=== PATIENT | female | born 1945 | race Caucasian/White ===

== ENCOUNTER → 2017-05-22 13:33 | Outpatient (CLI) | payer MEDICARE, OTHER, SELFPAY ==
--- NOTE | 2017-05-22 13:40 | RAD_ITS ---
STUDY: X-RAY CHEST REASON FOR EXAM: Female, 71 years old. Sinusitis, left-sided chest pain TECHNIQUE: PA and lateral views of the chest. COMPARISON: Prior study of 06/11/2016 FINDINGS: There is a limited inspiration. There is no demonstrated pleural abnormality. Normal size heart. Normal mediastinum and wicho. Normal visualized pulmonary arteries. There are calcified plaques of the aortic arch. There is demineralization of the osseous structures. Normal visualized ribs, clavicles, and shoulders. There is no demonstrated abnormality of the visualized soft tissue structures of the upper abdomen. RAD/Chest PA and Lateral IMPRESSION: Calcified plaques of the aortic arch. Generalized osteopenia. No acute cardiopulmonary disease process is seen. Electronically Signed: Mayo Connell MD at 22:05 EDT , Service support ,
== END ==
PROVIDERS: Family Provider Family Medicine; PCP Family Medicine; Visit Provider Family Medicine
DX: J32.9 Chronic sinusitis, unspecified (principal)
CPT/HCPCS: 71046

== ENCOUNTER → 2017-06-15 16:41 | Outpatient (CLI) | payer MEDICARE, OTHER, SELFPAY ==
--- NOTE | 2017-06-15 16:47 | RAD_ITS ---
STUDY: X-RAY - PELVIS AND RIGHT HIP REASON FOR EXAM: Female, 71 years old. Hip pain TECHNIQUE: Radiological exam, hip, unilateral, with pelvis when performed; 2 or 3 views. COMPARISON: None. FINDINGS: There is a non-specific bowel gas pattern. Normal visualized soft tissue structures. There are atherosclerotic vascular calcifications. Normal bilateral iliac wings, sacroiliac joints and visualized sacrum. Healed fracture of the left superior and inferior pubic rami. Normal pubic symphysis. Normal bilateral ischial tuberosities. Normal visualized femoral head. Normal acetabulum. Normal hip joint. RAD/Hip 2-3 Views with Pelvis IMPRESSION: Normal x-ray examination of the pelvis and hip. Electronically Signed: Stu Omalley MD at 17:51 EDT , Service support ,
== END ==
PROVIDERS: Family Provider Family Medicine; PCP Family Medicine; Visit Provider Family Medicine
DX: S76.011A Strain of muscle, fascia and tendon of right hip, initial encounter (principal); X58.XXXA Exposure to other specified factors, initial encounter; Y93.9 Activity, unspecified; Y92.9 Unspecified place or not applicable; Y99.9 Unspecified external cause status
CPT/HCPCS: 73502

== ENCOUNTER 2017-06-17 10:59 | Emergency (ER) | payer MEDICARE, OTHER, SELFPAY ==
[2017-06-17 11:01] VITALS: BP 142/60; PULSE 89; RESP 16; TEMP 36.4; O2SAT 98; BMI 27.3
--- NOTE | 2017-06-17 11:25 | ED.VISSUMM ---
- ER Visit Summary Date of Service: 06/17/17 Chief Complaint: Right groin pain History of Present Illness: The patient is a 71 F who complains of about 2 weeks of right groin pain. She stated specifically that this is not a pain pain and that she is just sore. She has had some relief with Tylenol. She recently saw her primary care physician and had a normal x-ray. She denies any weakness or paresthesias. No back pain. No urinary retention or fecal incontinence. No history of fall or injury. Review of systems otherwise negative. Physical Examination: Afebrile vitals are unremarkable Moist mucous membranes Heart regular Lungs clear Abdomen soft Patient has active full range of motion of the lower extremities she has no pain in the knee ankle or foot and she does have an easily palpable dorsalis pedis pulse with brisk capillary refill and normal sensation. She does have active full range of motion of the hip although this reproduces groin pain with logroll or flexion Back is nontender to palpation Test Results: Not indicated Emergency Department Course and Treatment: Patient's history and examination are most suggestive of a groin strain. She recently had normal x-rays. She does not have back pain or other symptoms to suggest lumbar or sacral radiculopathy. She is neurovascularly intact. There is no leg tenderness or soft tissue swelling and she has easily palpable pulses. I advised that she may benefit from physical therapy and she notes she actually has an appointment with a therapist tomorrow morning. She was advised to continue supportive care. She was instructed on specific signs and symptoms to monitor for and conditions which should prompt return here to the emergency department for reevaluation. All questions answered at bedside. Patient discharged. Treatment Plan: [] Disposition: Discharge Impression: Right groin strain This note was generated with [employer] dictation software. It may contain incorrect words, spelling, and punctuation that were not noted in review of the chart prior to signing ED Disposition - Plan for ED Patient: Chief Complaint: Lower Extremity Injury Referrals: Rony Koenig MD [Primary Care Provider] -
--- NOTE | 2017-06-17 11:28 | ED.DEP ---
ED Disposition - Plan for ED Patient: Chief Complaint: Lower Extremity Injury Instructions: ED Strain Groin Referrals: Rony Koenig MD [Primary Care Provider] -
[2017-06-17 11:57] VITALS: BP 124/69; PULSE 72; RESP 15; O2SAT 98
== END 2017-06-17 12:40 | disposition home or self-care (01) ==
PROVIDERS: Emergency Provider Emergency Medicine; Family Provider Family Medicine; PCP Family Medicine
DX: S39.011A Strain of muscle, fascia and tendon of abdomen, initial encounter (principal); X58.XXXA Exposure to other specified factors, initial encounter; Y93.9 Activity, unspecified; Y92.9 Unspecified place or not applicable; Y99.9 Unspecified external cause status; I12.0 Hypertensive chronic kidney disease with stage 5 chronic kidney disease or end stage renal disease; E11.22 Type 2 diabetes mellitus with diabetic chronic kidney disease; N18.6 End stage renal disease; Z79.4 Long term (current) use of insulin; Z79.899 Other long term (current) drug therapy; Z90.10 Acquired absence of unspecified breast and nipple
CPT/HCPCS: 99284

== ENCOUNTER 2017-07-15 12:00 | Outpatient (RCR) | payer MEDICARE, OTHER, SELFPAY ==
--- NOTE | 2017-06-18 10:29 | HP.PTEVAL_ITS ---
Patient's Visit Information LANEC CAZARES is a 71 year old F referred to Physical Therapy by Rony Koenig with a diagnosis of R THIGH AND GLUTEAL PAIN. JAMILA TIGHT GLUTEAL M'S. PAIN IN R LEG/ABDOMEN.. Date of Evaluation: 06/18/17 Physical Therapist: Charley Arriaga - Visit Plan Frequency: 2-3x /Week Duration: 4-6 Weeks Plan: FURTHER EVALUATION OF RIGHT HIP ROM AND TRANSFERS SIT TO SUPINE AND REVERSE. RIGHT GROIN US TO TENDER AREAS. POSTURE CORRECTION/STRENGTHENING, INSTRUCTION IN APPROPRIATE BODY MECHANICS AND ACTIVITY MODIFICATIONS. DLS STARTING WITH A NEUTRAL SPINE PROGRESSING ROM TOLERATED. GENTLE RIGHT LE ROM, STRETCHING AND STRENGTHENING. GAIT TRAINING. HEP INSTRUCTION. - Subjective Subjective: Diagnosis: R THIGH AND GLUTEAL PAIN. JAMILA TIGHT GLUTEAL MUSCLES. PAIN IN R LEG. ABNORMAL GAIT. Work/Leisure: RETIRED. Disability: NO. Present symptoms: RIGHT GROIN AND FRONT OF RIGHT HIP. Present since: ABOUT 10 DAYS AGO. Pain Scale: WORST 10/10, LEAST 5/10. Currently: 8/10. Commenced as a result of: STEPPING DOWN CAREFUL POSSIBEL TO GET OUT OF THE HOUSE INTO THE GARAGE TO GO AWAY WHEN NEEDED. PATIENT REPORTS THE LIFT AT THIS STEP THAT WAS PUT IN FOR HER A LONG TIME AGO HAS BEEN BROKE FOR ABOUT 6 MONTHS. SHE USE TO USE IT HERSELF TO GET IN AND OUT OF THE HOUSE BUT NOW SHE HAS BEEN FORCED TO STEP UP AND DOWN A VERY BIG STEP. SHE REPORTS IT IS TOO EXPENSIVE TO TRY TO GET IT FIXED. Symptoms at onset: RIGHT GROIN. Worse: STEPPING UP AND DOWN, ANY SUDDEN ACTION, WALKING, STANDING, TRYING TO PUT ANY WEIGHT ON IT, GETTING IN BED, MOVING IN BED, GETTING IN/OUT OF CAR. Better: NOT TO MOVE AT ALL. MUSCLE RELAXER (TOOK IT YESTERDAY FOR THE FIRST TIME). Disturbed sleep: YES. Previous history/Previous treatment: BACK IN THE 80S FELL DOWN A LOT OF STEPS AT A PRIOR HOME AND WAS IN MISERY FOR ABOUT A MONTH IN BACK AND HIPS. EVER SINCE THEN IT HAS FLARED UP OFF AND ON AND SHE GOES TO THE CHIROPRACTOR NEEDED BUT THIS TIME THE CHIROPRACTOR DIDN'T HELP AND SHE ENDED UP IN THE EMERGENCY ROOM YESTERDAY. SHE REPORTS SHE WASN'T PRESCRIBED ANYTHING AT ED SO SHE CALLED DR. KOENIG AND HE ORDERED THE MUSCLE RELAXER. DR. KOENIG RECOMMENDED SHE TRY PT. Coughing/sneezing/straining: POSITIVE. HAS TO BRACE HERSELF TO TRY TO DECREASE THE PAIN. Gait: UNABLE TO PUT MUCH WEIGHT ON THE RIGHT LEG BECAUSE IT HURTS AND IT WON'T SUPPORT HER. HAS BEEN USING THE WALKER SINCE THE PAIN STARTED. IT WEARS ME OUT. WAS NOT USING ANY ASSISTIVE DEVICES AND WAS GETTING AROUND FINE BEFORE THIS FLARED UP. Difficulty initiating urinatin: NO. Accidents: NO OTHER ACCIDENTS. SEE FALL ABOVE. Unexplained weight loss: NO. Imaging: RIGHT HIP X-RAY - NORMAL. PMH: SEE BELOW. Recent major surgery: SEE BELOW. OTHER: GOES TO [facility] 3 TIMES A WEEK FOR 3 OR 4 HOURS. PATIENT LIVES ALONE AND DROVE HERSELF HERE TO PT TODAY. SUPPOSED TO GO TO [place] IN A MONTH. - Objective Sitting Posture: POOR. Standing Posture: POOR. AVOIDING WEIGHT ON RIGHT LE. Lordosis: REDUCED. Lateral shift: NO. Relevant shift: N/A. Active Correction of posture: MILD DECREASE IN RIGHT GROIN PAIN. Other Observations: PATIENT CAME TO PT WITH A STANDARD WALKER. SHE DEMONSTRATED A VERY SLOW ANTALGIC GAIT PATTERN AND STATED SHE WOULDN'T BE ABLE TO WALK FAR. SHE WAS BROUGHT BACK TO PT (ABOUT 300 FEET) IN A WHEELCHAIR. INDEP TRANSFER W/C TO CHAIR WITH WALKER BUT VERY SLOW AND GUARDED WITH INCREASED TRUNK FLEXION. VERY UE DEPENDENT ON WALKER WHEN TRYING TO WEIGHTBEAR ON RIGHT LE. UNABLE TO TRANSFER INDEP'LY FROM SIT TO STAND WITHOUT USE OF HER UE'S AND TRANSFERING FROM CHAIR TO WALKER EVEN WITH HER HANDS IS VERY DIFFICULT. Motor deficit: LLE STRENGTH 5/5 WITH MMT EXCEPT HIP 4/5. RIGHT LE: HIP 3-/5, KNEE EXT 4-/5, KNEE FLEX 4-/5, ANKLE DORSIFLEX 4-/5. Sensory deficit: JAMILA LE LIGHT TOUCH SENSATION IS INTACT AND SYMMETRICAL. ROM deficit: DECREASED AROM OF RIGHT HIP. SHE IS WEAK IN THE RIGHT LE KIARRA THE HIP. RIGHT HIP PASSIVE FLEXION TO 90 DEG. RIGHT HIP/GROIN PAIN WITH HIP ROM TESTING. Reflexes: 2/3 JAMILA LE'S. Dural Signs: NEGATIVE JAMILA LE'S. Lumbar mvmt loss: flex - MOD. ext - [place]. R SG - [place]. L SG - [place]. PATIENT DENIES LBP AND RIGHT LE PAIN WITH LUMBAR ROM. Core strength: POOR. Palpation: NO SPINE TENDERNESS WITH PALPATION. PATIENT IS ALSO NOT TENDER IN ILIAC CRESTS, GREATER TROCH REGIONS OR GLUTES BUT SHE HAS MUSCULAR TIGHTNESS THROUGHOUT. SHE STATES SHE HAS ALWAYS BEEN TIGHT BUT THIS IS A DIFFERENT PROBLEM. SHE IS TENDER IN THE RIGHT GROIN AND ANTERIOR HIP. - Goals Goal 1:: DECREASE C/O RIGHT GROIN PAIN Goal Time Frame: 4-6 Weeks Goal 2:: IMPROVE STANDING, WALKING, ADL AND SLEEP FUNCTION TO RETURN TO PRIOR LEVEL OF FUNCTION AND TO BE ABLE TO TRAVEL TO [place] IN JULY. Goal Time Frame: 4-6 Weeks Goal 3:: INSTRUCT IN PROPHYLAXIS/HEP Goal Time Frame: 4-6 Weeks - Rehabilitation Potential Physical Therapy Diagnosis: PHYSICIAN DX CONTINUED: ABNORMAL GAIT. Rehabilitation Potential: Fair - Anticipated Interventions Patient/Client Instruction: Educate patient on: Condition, Plan of Care, Risk Factors, Benefits of Fitness Program For the Purpose of:: To improve self management Therapeutic Exercise to Include: Strength training, Balance training, Body mechanics, Postural training, Flexibilty training, Gait and locomotor training, Passive ROM, Active ROM, Dynamic Lumbar Stabilization For the Purpose of:: To decrease pain, To increase ROM, To improve muscle performance and motor function, To improve ability to perform ADL's, To increase tolerance to activity/condition/position, To improve ability of physical actions for home/community/work/leisure, To improve gait and locomotor functions, To improve balance, To improve safety with gait Ultrasound (thermal/non thermal): Yes For the Purpose of:: To decrease pain, To decrease swelling/inflammation, To improve nutrient delivery to tissue Thank you for the opportunity to evaluate your patient. For Medicare and Medicare HMO plans, please review the plan of care and approve it. It will need to be FAXED BACK to us at [phone] for Medicare purposes. Please let me know if there are questions or concerns regarding this plan of care. Physician Signature: Date:
--- NOTE | 2017-07-15 12:32 | HP.PTDCSUM_ITS ---
HP - PT D/C Summary It has been my pleasure to treat LANCE CAZARES under orders from Rony Koenig, for the diagnosis of R THIGH AND GLUTEAL PAIN. JMAILA TIGHT GLUTEAL M'S. PAIN IN R LEG/ABDOMEN. for a total of 9 visit(s). Discharge Date: Please see the following information for a summary of their discharge status. - Subjective Subjective: PATIENT STATES ONE DAY I THINK I'M BETTER AND THE NEXT DAY I DON'T . IT'S MISERABLE TODAY. PATIENT REPORTS SHE IS NOT WORSE THAN SHE WAS WHEN SHE FIRST STARTED THERAPY BUT SHE IS JUST NO BETTER. REPORTS SHE IS NOT GOING TO BE ABLE TO GO ON VACATION NOW BECAUSE OF THIS. SHE WAS SUPPOSED TO LEAVE THURSDAY BUT CAN'T. - Pain groin Pain Intensity (Out of 10): 9 - Objective Objective/Function: Other Observations: PATIENT CAME TO PT WITH A ROLLATOR. SHE DEMONSTRATED A VERY SLOW ANTALGIC GAIT PATTERN X APPROX 300 FEET AND REPORTS THAT THIS WALKER IS A LOT BETTER AND EASIER ON HER SHOULDERS THAN THE OTHER ONE. INDEP TRANSFER W/C TO CHAIR WITH WALKER BUT VERY SLOW AND GUARDED WITH INCREASED TRUNK FLEXION. SHE IS STILL VERY UE DEPENDENT ON WALKER WHEN TRYING TO WEIGHTBEAR ON RIGHT LE. UNABLE TO TRANSFER INDEP'LY FROM SIT TO STAND WITHOUT USE OF HER UE'S AND TRANSFERING FROM CHAIR TO WALKER EVEN WITH HER HANDS IS VERY DIFFICULT. Motor deficit: LLE STRENGTH 5/5 WITH MMT EXCEPT HIP 4/5. RIGHT LE: HIP 3-/5, KNEE EXT 4-/5, KNEE FLEX 4-/5, ANKLE DORSIFLEX 4- /5. Sensory deficit: JAMILA LE LIGHT TOUCH SENSATION IS INTACT AND SYMMETRICAL. ROM deficit: DECREASED AROM OF RIGHT HIP. SHE IS WEAK IN THE RIGHT LE KIARRA THE HIP. RIGHT HIP PASSIVE FLEXION TO 90 DEG. RIGHT HIP/GROIN PAIN WITH HIP ROM TESTING. Reflexes: 2/3 JAMILA LE'S. Dural Signs: NEGATIVE JAMILA LE'S. Lumbar mvmt loss: flex - MOD. ext - [place]. R SG - [place]. L SG - [place]. PATIENT DENIES LBP AND RIGHT LE PAIN WITH LUMBAR ROM. Core strength: POOR. Palpation: NO SPINE TENDERNESS WITH PALPATION. PATIENT IS ALSO NOT TENDER IN ILIAC CRESTS, GREATER TROCH REGIONS OR GLUTES BUT SHE HAS MUSCULAR TIGHTNESS THROUGHOUT. SHE STATES SHE HAS ALWAYS BEEN TIGHT BUT THIS IS A DIFFERENT PROBLEM. SHE IS TENDER IN THE RIGHT GROIN AND ANTERIOR HIP. - Goals Goal 1:: DECREASE C/O RIGHT GROIN PAIN Goal 2:: IMPROVE STANDING, WALKING, ADL AND SLEEP FUNCTION TO RETURN TO PRIOR LEVEL OF FUNCTION AND TO BE ABLE TO TRAVEL TO [place] IN JULY. Goal 3:: INSTRUCT IN PROPHYLAXIS/HEP - Plan Plan: D/C DUE TO LACK OF PROGRESS. RECOMMEND PHYSICIAN REASSESSMENT. - D/C Information If there are questions or concerns regarding this patient's physical therapy, please feel free to call me at [phone]. Thank you for the referral of this patient. Sincerely, Charley Arriaga
== END 2017-07-15 17:51 | disposition home or self-care (01) ==
LOC: PT 12:00
PROVIDERS: Family Provider Family Medicine; PCP Family Medicine; Visit Provider Family Medicine
DX: M79.651 Pain in right thigh (principal); S76.312D Strain of muscle, fascia and tendon of the posterior muscle group at thigh level, left thigh, subsequent encounter; S76.311D Strain of muscle, fascia and tendon of the posterior muscle group at thigh level, right thigh, subsequent encounter; R26.89 Other abnormalities of gait and mobility
CPT/HCPCS: 97035; 97110; 97116; 97140; 97162; 97530

== ENCOUNTER → 2017-07-24 11:20 | Outpatient (CLI) | payer MEDICARE, OTHER, SELFPAY ==
--- NOTE | 2017-07-24 11:24 | RAD_ITS ---
STUDY: X-RAY - PELVIS AND BILATERAL HIPS REASON FOR EXAM: Female, 71 years old. Right groin pain. TECHNIQUE: Radiological exam, hip, bilateral, with pelvis when performed; minimum of 5 views COMPARISON: None. FINDINGS: There is a non-specific bowel gas pattern. There are atherosclerotic vascular calcifications of the pelvic arteries. Normal bilateral iliac wings, sacroiliac joints and visualized sacrum. There is a lucent lesion in the right inferior pubic ramus. There are old fractures of the left superior and inferior pubic rami on the left ischial tuberosity. Normal pubic symphysis. Normal visualized right femoral head. Normal right acetabulum. There is moderate articular joint space narrowing of the right hip. Normal visualized left femoral head. Normal left acetabulum. There is moderate articular joint space narrowing of the left hip. RAD/Hips B/L min 2 views w/ Pelvis IMPRESSION: Questionable lytic lesion in the right inferior pubic ramus. Further evaluation with CT scan of the pelvis is recommended. Old healed fractures of the left pubic rami and ischial tuberosity. Electronically Signed: Charlie Bell MD at 8:49 EDT Tel , Service support ,
--- NOTE | 2017-07-24 11:24 | RAD_ITS ---
STUDY: X-RAY - LUMBAR SPINE REASON FOR EXAM: Female, 71 years old. Right groin pain. TECHNIQUE: 5 view(s) of the lumbar spine were obtained. COMPARISON: None FINDINGS: Normal lumbar lordosis. There is no substantial scoliosis. There is a normal alignment of the vertebrae. Mild irregularity of the endplates at the level of L5-S1 with possible mild disc space narrowing. The remainder of the disc spaces are within normal limits. There is no demonstrated fracture. There is no demonstrated spondylolysis of the pars interarticulares. There is atherosclerotic calcification of the abdominal aorta without a demonstrated aneurysm. RAD/L/S Spine Min 4 Views IMPRESSION: Mild degenerative changes at the level of L5-S1. Electronically Signed: Charlie Bell MD at 8:41 EDT Tel , Service support ,
== END ==
PROVIDERS: Family Provider Family Medicine; PCP Family Medicine; Visit Provider Family Medicine
DX: S76.019A Strain of muscle, fascia and tendon of unspecified hip, initial encounter (principal)
CPT/HCPCS: 72110; 73521

== ENCOUNTER → 2017-08-05 11:20 | Outpatient (CLI) | payer MEDICARE, OTHER, SELFPAY ==
--- NOTE | 2017-08-05 11:24 | CT_ITS ---
STUDY: CT PELVIS WITHOUT CONTRAST REASON FOR EXAM: Female, 71 years old. Hip pain. Possible fracture from fall 20 years ago RADIATION DOSAGE (If Supplied By Facility): CTDIvol = ( 25.74 ) mGy, DLP = ( 711.92 ) mGycm TECHNIQUE: Transaxial imaging of the pelvis was performed with oral contrast, and without intravenous administration of contrast material. Individualized dose optimization techniques were used for this CT. COMPARISON: None. FINDINGS: No acute fracture is noted however, there are several old fractures with incomplete healing noted. There are fractures of both the inferior and superior pubic rami with incomplete callus formation. Moderate degenerative changes of both hips with superior joint space loss. Visualized pelvic contents are grossly within normal limits for age. CT/Pelvis without IV Contrast IMPRESSION: All fractures of both the inferior and superior pubic rami with incomplete callus formation/healing. No acute traumatic injury. Degenerative change of both hips Electronically Signed: Mark Espinoza DO at 11:11 EDT Tel , Service support ,
== END ==
PROVIDERS: Family Provider Family Medicine; PCP Family Medicine; Visit Provider Family Medicine
DX: M25.551 Pain in right hip (principal); M25.552 Pain in left hip
CPT/HCPCS: 72192

== ENCOUNTER 2017-08-12 15:00 | Outpatient (RCR) | payer MEDICARE, OTHER, SELFPAY ==
--- NOTE | 2017-07-31 15:49 | HP.PTEVAL_ITS ---
Patient's Visit Information LANCE CAZARES is a 71 year old F referred to Physical Therapy by Rony Koenig with a diagnosis of BACK/HIP PAIN. Date of Evaluation: 07/31/17 Physical Therapist: Charley Arriaga - Visit Plan Frequency: 2-3x /Week Duration: 4-6 Weeks Plan: AQUATIC THERAPY FOR PAIN RELEIF, POSTURE CORRECTION/STRENGTHENING, INSTRUCTION IN APPROPRIATE BODY MECHANICS AND ACTIVITY MODIFICATIONS. DLS STARTING WITH A NEUTRAL SPINE PROGRESSING ROM TOLERATED. JAMILA LE ROM, STRETCHING AND STRENGTHENING. HEP INSTRUCTION. - Subjective Subjective: DX: BACK/HIP PAIN. PATIENT REPORTS SHE WENT BACK TO DR. KOENIG AND HE REFERRED HER BACK TO PT. SHE REPORTS SHE HAD X-RAYS OF HER PELVIS (IMPRESSION : Questionable lytic lesion in the right inferior pubic ramus. Further evaluation with CT scan of the pelvis is recommended. Old healed fractures of the left pubic rami and ischial tuberosity) AND LUMBAR SPINE (IMPRESSION: Mild degenerative changes at the level of L5-S1). SHE HAS A CAT SCAN PENDING July. SHE STATES DR. KOENIG TOLD HER HE WANTS HER TO KEEP THE PHYSICAL THERAPY GOING. CURRENTLY SHE REPORTS MISERY PAIN IN THE RIGHT ABDOMEN, HIP, KNEE, GROIN AND THIGH. SHE STATES IT IS MOSTLY ON THE RIGHT SIDE. SHE REPORTS SHE DID FALL DOWN HER CIRCULAR STAIRWAY A LONG TIME AGO AND THAT MIGHT HAVE RESULTED IN THE OLD PELVIC FRACTURES. SHE STATES NOTHING HAS REALLY CHANGED SINCE SHE SAW ME HERE LAST IN PT ABOUT 2 WEEKS AGO. - Objective PATIENT CAME TO PT WITH A ROLLATOR. SHE DEMONSTRATED A VERY SLOW ANTALGIC GAIT PATTERN X APPROX 300 FEET. INDEP TRANSFERS SLOW AND GUARDED. SHE IS STILL VERY UE DEPENDENT ON WALKER WHEN TRYING TO WEIGHTBEAR ON RIGHT LE. UNABLE TO TRANSFER INDEP'LY FROM SIT TO STAND WITHOUT USE OF HER UE'S AND TRANSFERING FROM CHAIR TO WALKER EVEN WITH HER HANDS IS DIFFICULT. Motor deficit: LLE STRENGTH 5/5 WITH MMT EXCEPT HIP 4/5. RIGHT LE: HIP 3-/5, KNEE EXT 4-/5, KNEE FLEX 4-/5, ANKLE DORSIFLEX 4-/5. Sensory deficit: JAMILA LE LIGHT TOUCH SENSATION IS INTACT AND SYMMETRICAL. ROM deficit: DECREASED AROM OF RIGHT HIP. SHE IS WEAK IN THE RIGHT LE KIARRA THE HIP. RIGHT HIP PASSIVE FLEXION TO 90 DEG. RIGHT HIP/GROIN PAIN WITH HIP ROM TESTING. Reflexes: 2/3 JAMILA LE'S. Dural Signs: NEGATIVE JAMILA LE'S. Lumbar mvmt loss: flex - MOD. ext - [place]. R SG - [place]. L SG - [place]. PATIENT DENIES LBP AND RIGHT LE PAIN WITH LUMBAR ROM. Core strength: POOR. Palpation: NO SPINE TENDERNESS WITH PALPATION. PATIENT IS ALSO NOT TENDER IN ILIAC CRESTS, GREATER TROCH REGIONS OR GLUTES BUT SHE HAS MUSCULAR TIGHTNESS THROUGHOUT. SHE STATES SHE HAS ALWAYS BEEN TIGHT BUT THIS IS A DIFFERENT PROBLEM. SHE IS TENDER IN THE RIGHT GROIN AND ANTERIOR HIP THOUGH. SHE APPEARS TO BE A GOOD CANDIDATE FOR AQUATIC THERAPY AND SHE IS AGREEABLE. - Goals Goal 1:: DECREASE C/O RIGHT SIDE, HIP, THIGH AND KNEE PAIN. Goal Time Frame: 4-6 Weeks Goal 2:: MPROVE STANDING, WALKING, ADL AND SLEEP FUNCTION TO RETURN TO PRIOR LEVEL OF FUNCTION AND TO BE ABLE TO TRAVEL TO [place]. Goal Time Frame: 4-6 Weeks Goal 3:: INSTRUCT IN PROPHYLAXIS/HEP Goal Time Frame: 4-6 Weeks - Rehabilitation Potential Rehabilitation Potential: Fair - Anticipated Interventions Patient/Client Instruction: Educate patient on: Condition, Plan of Care, Risk Factors, Benefits of Fitness Program For the Purpose of:: To improve self management Therapeutic Exercise to Include: Strength training, Body mechanics, Postural training, Flexibilty training, In an aquatic setting, Passive ROM, Active ROM , Dynamic Lumbar Stabilization For the Purpose of:: To decrease pain, To increase ROM, To improve muscle performance and motor function, To improve ability of physical actions for home/ community/work/leisure, To decrease soft tissue restriction Thank you for the opportunity to evaluate your patient. For Medicare and Medicare HMO plans, please review the plan of care and approve it. It will need to be FAXED BACK to us at [phone] for Medicare purposes. Please let me know if there are questions or concerns regarding this plan of care. Physician Signature: Date:
--- NOTE | 2017-08-12 15:00 | DT_ITS ---
This patient was seen during an EMR downtime August 10, 2017 - August 17, 2017. This patient may have a combination of paper and electronic documentation or all paper documentation. All documentation is viewable within the e-chart portion of [email or web address] for each patient visit.
--- NOTE | 2017-12-24 12:59 | HP.PT.NRP ---
HP - Discharge Summary (1) - Patient Information LANCE CAZARES was seen in my office for initial evaluation on 07/31/17. The following Plan of Care was established for this patient: Initial Frequency: 2-3x /Week Initial Duration: 4-6 Weeks - Anticipated Interventions Patient/Client Instruction: Educate patient on: Condition, Plan of Care, Risk Factors, Benefits of Fitness Program For the Purpose of:: To improve self management Therapeutic Exercise to Include: Strength training, Body mechanics, Postural training, Flexibilty training, In an aquatic setting, Passive ROM, Active ROM, Dynamic Lumbar Stabilization For the Purpose of:: To decrease pain, To increase ROM, To improve muscle performance and motor function, To improve ability of physical actions for home/community/work/leisure, To decrease soft tissue restriction This patient was last seen in our office . Pertinent comments regarding their Physical therapy will appear below: This patient has not returned to Physical Therapy and is appropriate to return to MD for further follow-up as needed. At this point I will be discontinuing this patient from physical therapy. I would be happy to see this patient again in the future if found appropriate by the physician. Thank you! Charley Arriaga
== END 2017-08-12 19:00 | disposition home or self-care (01) ==
LOC: PT 15:00
PROVIDERS: Family Provider Family Medicine; PCP Family Medicine; Visit Provider Family Medicine
DX: M54.9 Dorsalgia, unspecified (principal); M25.559 Pain in unspecified hip
CPT/HCPCS: 97113; 97162

== ENCOUNTER 2017-08-20 09:21 | Day surgery (SDC) | payer MEDICARE, OTHER, SELFPAY ==
[2017-08-19 08:28] VITALS: BMI 27.4
[2017-08-20 09:38] LABS: Hematocrit 33.1 % (37-47); Hemoglobin 10.4 g/dl (12.0-15.0); Mean Corp Hgb Conc 31.4 g/gl (32-36); Mean Corpuscular Hgb 31.6 pg (27.0-32.0); Mean Corpuscular Volume 100.6 fL (81-99); Mean Platelet Vol. 11.5 fl (6.2-12.0); Platelet Count 206 K/mm3 (150-450); RBC Distribution Width CV 15.4 % (11.6-14.6); RBC Distribution Width SD 56.5 fl (35.1-43.9); Red Blood Count 3.29 M/mm3 (4.2-5.4); White Blood Count 7.3 K/mm3 (4.4-11.0)
[2017-08-20 09:39] LABS: Scan Indicated on CBC? Y/N NO
[2017-08-20 09:51] LABS: Anion Gap 9 (5-15); BUN 72 mg/dL (7-18); BUN/Creat Ratio 14.2 RATIO (10-20); Chloride 98 mmol/L (98-107); Creatinine, Serum 5.06 mg/dL (0.55-1.02); EST Glomerular Filtration Rate 9 mL/min (>60); Est Glom Filt Rate - Afr Amer 11 mL/min (>60); Estimated Creatinine Clearance 8.55 ml/min; Glucose 236 mg/dL (74-106); Potassium 4.7 mmol/L (3.5-5.1); Sodium Level 132 mmol/L (136-145)
--- NOTE | 2017-08-20 11:45 | PCM.OPRPT ---
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 Proximal cephalic arch central venous stenosis Surgery/Procedure Performed:: Right upper extremity fistulogram with 6 x 60 mm drug-coated balloon Lutonix angioplasty of the proximal fistula of the upper arm and of the cephalic arch central venous outflow with a secondary same size balloon Description of Surgical Findings:: Timeout and informed consent was obtained. 71-year-old female was taken to the special procedures lab. She was placed on the table. 50 mcg of fentanyl 1 mg of Versed were given as intravenous sedation. The right extremity sterilely prepped draped. Ultrasound was utilized to identify the cephalic vein of the proximal right upper arm. Under ultrasound guidance 2% lidocaine was instilled as a local anesthetic. A total of 2 cc was used. A micropuncture needle was inserted retrograde with flow. Micropuncture wire inserted. 6 [place] short sheath dilator was inserted. Using a 035 angled Glidewire [place] was gained to the brachial artery proximal to the anastomosis. A 4 [place] angled glide cath was placed. Utilizing Isovue a fistulogram was obtained of the right upper arm. This demonstrated a 4 cm long area of high-grade 90% venous stenosis. The origin of this was approximately 4 cm from the anastomosis. The Glidewire was replaced. A 6 x 60 mm Lutonix drug-coated balloon was placed. Balloon angioplasty was performed up to 18 ashia of pressure. There was one focal area of quite tight stenosis that was 90% released. Completion view demonstrated dramatic improvement. The fistulogram was completed and unfortunately this demonstrated cephalic vein arch outflow stenosis of 70% or greater. And so a secondary axis point was performed closer to the antecubital space antegrade with flow. 2% lidocaine was instilled micropuncture needle inserted micropuncture wire inserted 6 [place] received IV inserted. Then the angled Glidewire was placed. A 6 x 60 mm drug-coated balloon was placed. Balloon angioplasty was performed up to 14 ashia of pressure. Completion view now demonstrated dramatic improvement and near complete resolution of the venous outflow stenosis at the cephalic arch extending into the subclavian. She tolerated it well. Sheath removed. U suture is a 4-0 nylon was placed. Blood loss was minimal. No apparent complications. There was a good pulse, thrill, bruit at the completion The right upper extremity fistulogram demonstrated a high-grade 90% venous stenosis within 4 cm of the arterial anastomosis over a length of approximately 4 cm. There is resolution subsequent to angioplasty. There is a cephalic vein arch central venous outflow 70% stenosis resolved status post drug-coated balloon angioplasty. 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 Suleman Samuel M.D., F.A.C.S. Type of Anesthesia:: IV Sedation
== END 2017-08-20 13:15 | disposition home or self-care (01) ==
LOC: CLSP 09:22
PROVIDERS: Family Provider Family Medicine; PCP Family Medicine; Visit Provider Surgery
DX: T82.590A Other mechanical complication of surgically created arteriovenous fistula, initial encounter (principal); I87.1 Compression of vein; I13.2 Hypertensive heart and chronic kidney disease with heart failure and with stage 5 chronic kidney disease, or end stage renal disease; N18.6 End stage renal disease; I50.22 Chronic systolic (congestive) heart failure; E11.22 Type 2 diabetes mellitus with diabetic chronic kidney disease; I42.9 Cardiomyopathy, unspecified; I27.20 Pulmonary hypertension, unspecified; E78.5 Hyperlipidemia, unspecified; E03.9 Hypothyroidism, unspecified; D63.8 Anemia in other chronic diseases classified elsewhere; M19.90 Unspecified osteoarthritis, unspecified site; E66.3 Overweight; Z79.4 Long term (current) use of insulin; Z79.899 Other long term (current) drug therapy; Z99.2 Dependence on renal dialysis; Z78.0 Asymptomatic menopausal state
CPT/HCPCS: 36415; 36902; 36907; 76937; 80048; 85027; 99152; 99153; C2623; Q9967; C1725; C1769

== ENCOUNTER → 2017-11-04 16:17 | Outpatient (CLI) | payer MEDICARE, OTHER, SELFPAY | PROVIDERS: Family Provider Family Medicine; PCP Family Medicine; Visit Provider Family Medicine | DX: K59.00 Constipation, unspecified (principal) | CPT/HCPCS: 74019 ==

== ENCOUNTER → 2017-12-11 09:56 | Outpatient (CLI) | payer MEDICARE, OTHER, SELFPAY ==
[2017-12-11 10:30] LABS: Hemoglobin 10.6 g/dl (12.0-15.0); Mean Corp Hgb Conc 31.2 g/gl (32-36); Mean Corpuscular Hgb 31.1 pg (27.0-32.0); Mean Corpuscular Volume 99.7 fL (81-99); Platelet Count 216 K/mm3 (150-450); RBC Distribution Width SD 53.9 fl (35.1-43.9); Red Blood Count 3.41 M/mm3 (4.2-5.4); Scan Indicated on CBC? Y/N NO
[2017-12-11 10:34] LABS: International Normalized Ratio 0.9; Prothrombin Time (Protime)PT. 12.6 SECONDS (11.7-14.9)
[2017-12-11 10:35] LABS: Partial Thromboplast Time 30.5 Seconds (24.1-36.2)
[2017-12-11 10:41] LABS: Anion Gap 10 (5-15); BUN 61 mg/dL (7-18); BUN/Creat Ratio 11.6 RATIO (10-20); Calcium,Total 8.7 mg/dL (8.5-10.1); Chloride 92 mmol/L (98-107); Creatinine, Serum 5.27 mg/dL (0.55-1.02); EST Glomerular Filtration Rate 9 mL/min (>60); Est Glom Filt Rate - Afr Amer 10 mL/min (>60); Glucose 370 mg/dL (74-106); Potassium 5.1 mmol/L (3.5-5.1); Sodium Level 130 mmol/L (136-145)
--- NOTE | 2017-12-11 15:25 | OP.PCM_ITS ---
Problem List (1) Problem with dialysis access Status: Acute Qualifiers: Encounter type: initial encounter Qualified Code(s): T82.898A - Other specified complication of vascular prosthetic devices, implants and grafts, initial encounter Report of Operation Date of Procedure: 12/11/17 Pre-Operative Diagnosis: 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 6 x 4 conquest angioplasty peripheral and central Description of Surgical Findings:: Timeout informed consent was obtained. 72-year-old female was taken to special procedures lab. Throughout the procedure and to aliquots she received 100 mcg of fentanyl and she received 1 mg Versed. The right extremity sterilely prepped draped. Ultrasound was used to identify the cephalic vein in the mid upper arm. 2% lidocaine was instilled. Retrograde with flow micropunch needle inserted micropuncture wire inserted 6 [place] short sheath was inserted. I was able to get the guidewire into the brachial artery. I placed a 4 [place] glide cath. Using Isovue performed official gram demonstrating thrombus involving the fistula. So then under ultrasound guidance I was able to get antegrade flow closer to the antecubital space with the same micropuncture needle wire and then a 6 [place] short sheath dilator. TPA 10 mg and 50 cc was used with a power pulse spray 6 [place] solent Omni AngioJet catheter. 12 time was 25 minutes. Then AngioJet thrombolysis of the entire length of the fistula was performed. Then 6 x 4 conquest angioplasty and the entire length was performed. A fistulogram demonstrated 50% residual stenosis of the cephalic vein at the [facility] arch. I was able to perform angioplasty of the cephalic vein subclavian vein junction with good results. The proximal portion of the fistula at the arterial anastomosis was also treated. There is evidence of still residual thrombus within the proximal 15 cm of the fistula. This was retreated with the AngioJet. Retreated with balloon angioplasty. Resumption of flow was achieved however not ideally as there was still diffuse thrombus. At this point as the patient is a renal dialysis patient. A total of 100 cc was used for the AngioJet. At the completion I felt that I had performed as much as I could for this fistula. Sheath removed few sutures of 4-0 nylon was placed. Doppler demonstrated flow through the fistula. I elected not to attempt further intervention. It is of note that during the procedure sooner sheaths were in the patient received 5000 units of heparin and then throughout the procedure in aliquots additional 1000 units of heparin and additional 1000 units of heparin. I was not able to check a CTs as I could not get free flow until nearly the completion of the procedure. Images demonstrate a right extremity brachiocephalic arteriovenous fistula. There is evidence of thrombus throughout the fistula subsequent to the treatment there was marked improved flow from the mid upper arm centrally although there is an area of at least 50% reveals residual stenosis at the cephalic arch. There is significant thrombus within the proximal 15 cm of the fistula with residual area of 60% stenosis despite thrombolysis and angioplasty. Current plan is hopeful to establish flow long enough to re-create a new fistula. The patient is aware that she may require tunneled dialysis catheters. Estimated blood loss minimal. Specimens none. Drains none. She tolerated the procedure well was taken to the recovery area in sagittal condition. Suleman Samuel M.D., F.A.C.S. Type of Anesthesia:: IV Sedation
== END ==
PROVIDERS: Family Provider Family Medicine; PCP Family Medicine; Referring Provider Surgery; Visit Provider Surgery
DX: Z01.818 Encounter for other preprocedural examination (principal); T82.898A Other specified complication of vascular prosthetic devices, implants and grafts, initial encounter; T82.868A Thrombosis due to vascular prosthetic devices, implants and grafts, initial encounter; I50.9 Heart failure, unspecified
CPT/HCPCS: 36415; 80048; 85027; 85610; 85730

== ENCOUNTER 2017-12-11 10:37 | Day surgery (SDC) | payer MEDICARE, OTHER, SELFPAY ==
[2017-12-11 10:18] VITALS: BMI 26.6
[2017-12-11 15:21] LABS: Potassium 4.5 mmol/L (3.5-5.1)
== END 2017-12-11 17:00 | disposition home or self-care (01) ==
PROVIDERS: Family Provider Family Medicine; PCP Family Medicine; Referring Provider Surgery; Visit Provider Surgery
DX: T82.868A Thrombosis due to vascular prosthetic devices, implants and grafts, initial encounter (principal); I13.2 Hypertensive heart and chronic kidney disease with heart failure and with stage 5 chronic kidney disease, or end stage renal disease; E11.22 Type 2 diabetes mellitus with diabetic chronic kidney disease; I50.22 Chronic systolic (congestive) heart failure; N18.5 Chronic kidney disease, stage 5; D63.8 Anemia in other chronic diseases classified elsewhere; I27.20 Pulmonary hypertension, unspecified; E87.1 Hypo-osmolality and hyponatremia; E03.9 Hypothyroidism, unspecified; E78.5 Hyperlipidemia, unspecified; Z99.2 Dependence on renal dialysis; Z79.4 Long term (current) use of insulin; Z79.899 Other long term (current) drug therapy; Z78.0 Asymptomatic menopausal state; Z87.01 Personal history of pneumonia (recurrent); Z86.19 Personal history of other infectious and parasitic diseases; Z85.3 Personal history of malignant neoplasm of breast
CPT/HCPCS: 36415; 36905; 36907; 76937; 80048; 84132; 85027; 85610; 85730; 93005; 99152; 99153; J2997; C1725; C1757; C1769; Q9967

== ENCOUNTER → 2017-12-21 12:17 | Outpatient (CLI) | payer MEDICARE, OTHER, SELFPAY ==
[2017-12-21 14:20] LABS: Albumin, Serum 3.4 g/dL (3.2-5.0); BUN 18 mg/dL (7-18); BUN/Creat Ratio 7.6 RATIO (10-20); Calcium,Total 8.7 mg/dL (8.5-10.1); Chloride 89 mmol/L (98-107); Creatinine, Serum 2.38 mg/dL (0.55-1.02); EST Glomerular Filtration Rate 21 mL/min (>60); Est Glom Filt Rate - Afr Amer 26 mL/min (>60); Glucose 249 mg/dL (74-106); Phosphorus 2.3 mg/dL (2.5-4.9); Potassium 4.1 mmol/L (3.5-5.1); Sodium Level 133 mmol/L (136-145)
== END ==
PROVIDERS: Family Provider Family Medicine; PCP Family Medicine; Referring Provider Family Medicine; Visit Provider Family Medicine
DX: N18.5 Chronic kidney disease, stage 5 (principal)
CPT/HCPCS: 36415; 80069

== ENCOUNTER 2018-01-26 07:13 | Day surgery (SDC) | payer MEDICARE, OTHER, SELFPAY ==
[2018-01-25 14:24] VITALS: BMI 26.7
[2018-01-26 07:29] LABS: Hematocrit 31.1 % (37-47); Hemoglobin 9.6 g/dl (12.0-15.0); Mean Corp Hgb Conc 30.9 g/gl (32-36); Mean Corpuscular Hgb 31.9 pg (27.0-32.0); Mean Corpuscular Volume 103.3 fL (81-99); Mean Platelet Vol. 11.3 fl (6.2-12.0); Platelet Count 219 K/mm3 (150-450); RBC Distribution Width SD 55.5 fl (35.1-43.9); Red Blood Count 3.01 M/mm3 (4.2-5.4); White Blood Count 10.6 K/mm3 (4.4-11.0)
[2018-01-26 07:32] LABS: Scan Indicated on CBC? Y/N NO
[2018-01-26 07:45] LABS: Anion Gap 12 (5-15); BUN 43 mg/dL (7-18); BUN/Creat Ratio 9.6 RATIO (10-20); Calcium,Total 8.7 mg/dL (8.5-10.1); Chloride 97 mmol/L (98-107); Creatinine, Serum 4.46 mg/dL (0.55-1.02); EST Glomerular Filtration Rate 10 mL/min (>60); Est Glom Filt Rate - Afr Amer 12 mL/min (>60); Estimated Creatinine Clearance 9.56 ml/min; Glucose 93 mg/dL (74-106); Potassium 4.5 mmol/L (3.5-5.1); Sodium Level 136 mmol/L (136-145)
[2018-01-26 08:05] LABS: Bedside Glucose 103 mg/dL (70-110)
--- NOTE | 2018-01-26 09:34 | PCM.OPRPT ---
Problem List (1) Problem with dialysis access Status: Acute Qualifiers: Encounter type: subsequent encounter Qualified Code(s): T82.898D - Other specified complication of vascular prosthetic devices, implants and grafts, subsequent encounter Report of Operation Date of Procedure: 01/26/18 Pre-Operative Diagnosis: Diminished flow right upper extremity brachial cephalic arteriovenous hemodialysis fistula Post-Operative Diagnosis: High-grade right upper extremity cephalic arch venous outflow stenosis Surgery/Procedure Performed:: Right upper extremity fistulogram with 7 x 2 cutting balloon angioplasty Description of Surgical Findings:: Timeout and informed consent was obtained at 72-year-old female was taken to the special procedures lab placed on the table. She received 50 mcg of fentanyl and 2 mg of Versed as intravenous sedation. The right upper extremity was sterilely prepped and draped. Ultrasound was utilized to the cephalic vein in the distal right upper arm. Under ultrasound guidance 2% lidocaine was instilled as a local anesthetic. A total of 1 cc was used. Micropuncture needle was inserted antegrade with flow. Micropuncture wire inserted. 6 [place] short sheath was inserted. Using Isovue contrast fistulogram was taken of the left upper arm and chest area. This demonstrated high-grade venous stenosis at the cephalic arch. I then up sheath to a 7 [place] sheath. I placed ASV 5018 wire past the lesion. I placed a 7 x 2 cutting balloon. Multiple insufflations were performed at least 6 or 7. During 1 of the insufflations I performed a retrograde imaging of the arterial anastomosis. Upon completion final views demonstrated now resolution of the area of high-grade venous outflow stenosis. There was resumption of a palpable thrill within the fistula. Balloon and sheath were removed. U suture of 4-0 nylon was placed for hemostasis. Blood loss was minimal. She tolerated the procedure well there is no apparent complication. Fistulogram demonstrates a patent left upper arm brachial cephalic arteriovenous fistula. There is evidence of pseudoaneurysmal change in the proximal portion of the fistula within approximately 3 cm of the origin. The remainder of the patient appears to be patent. There is an area of very high-grade venous outflow stenosis at the cephalic arch. There is otherwise good central venous outflow. Subsequent to the angioplasty is there is resolution of the area of high-grade venous outflow stenosis. Suleman Samuel M.D., F.A.C.S. Type of Anesthesia:: Local MAC
== END 2018-01-26 11:30 | disposition home or self-care (01) ==
LOC: CLSP 07:14
PROVIDERS: Family Provider Family Medicine; PCP Family Medicine; Referring Provider Surgery; Visit Provider Surgery
DX: T82.858A Stenosis of other vascular prosthetic devices, implants and grafts, initial encounter (principal); I13.2 Hypertensive heart and chronic kidney disease with heart failure and with stage 5 chronic kidney disease, or end stage renal disease; I50.23 Acute on chronic systolic (congestive) heart failure; N18.6 End stage renal disease; E11.22 Type 2 diabetes mellitus with diabetic chronic kidney disease; I27.20 Pulmonary hypertension, unspecified; D63.8 Anemia in other chronic diseases classified elsewhere; E03.9 Hypothyroidism, unspecified; E78.5 Hyperlipidemia, unspecified; Z99.2 Dependence on renal dialysis; Z79.4 Long term (current) use of insulin; Z79.899 Other long term (current) drug therapy; Z78.0 Asymptomatic menopausal state
CPT/HCPCS: 36415; 36902; 76937; 80048; 82962; 85027; 99152; 99153; Q9967; C1769; C1894

== ENCOUNTER → 2018-01-27 16:40 | Outpatient (CLI) | payer MEDICARE, OTHER, SELFPAY ==
[2018-01-25 14:24] VITALS: BMI 26.7
--- NOTE | 2018-01-27 16:46 | RAD_ITS ---
STUDY: X-RAY CHEST REASON FOR EXAM: Female, 72 years old. Increasing shortness of breath. TECHNIQUE: Frontal and lateral views of the chest. COMPARISON: 05/22/2017. FINDINGS: Mild diffuse prominence in interstitial markings, most suggestive of mild fibrosis. No definite infiltrates. No effusions. Mildly enlarged heart. Normal mediastinum and wicho. Normal visualized pulmonary arteries. Normal visualized aortic arch and descending thoracic aorta. Normal visualized thoracic spine. Normal visualized ribs, clavicles, and shoulders. There is no demonstrated abnormality of the visualized soft tissue structures of the upper abdomen. RAD/Chest PA and Lateral IMPRESSION: Probable mild chronic interstitial prominence especially in the lung bases. No definite acute chest disease. Electronically Signed: Broderick Bennett MD at 0:02 EST , Service support ,
[2018-01-27 18:44] LABS: Thyroid Stim Hormone (TSH) 4.33 uIU/mL (0.358-3.74)
== END ==
LOC: MTLAB 16:58 → AC 01-29 08:08 → MTLAB 02-21 16:21
PROVIDERS: Family Provider Family Medicine; PCP Family Medicine; Referring Provider Family Medicine; Visit Provider Family Medicine
DX: R06.02 Shortness of breath (principal)
CPT/HCPCS: 36415; 71046; 84443

== ENCOUNTER → 2018-02-17 14:56 | Outpatient (CLI) | payer MEDICARE, OTHER, SELFPAY ==
[2018-01-25 14:24] VITALS: BMI 26.7
--- NOTE | 2018-02-17 15:00 | RAD_ITS ---
STUDY: X-RAY - ABDOMEN/PELVIS REASON FOR EXAM: Female, 72 years old. Shortness of breath for one month. Abdominal distention. TECHNIQUE: AP supine and upright views of the abdomen and pelvis. COMPARISON: None. FINDINGS: Normal visualized lung bases. There is an unremarkable bowel gas pattern. Air and feces is seen throughout the colon. There is no small bowel distention. There is no demonstrated free abdominal air. The visualized liver, spleen and kidneys are grossly normal in size and morphology. Normal soft tissue structures. There is minimal degenerative changes of the thoracic spine. There are old healed fractures of the bilateral pubic rami. There are degenerative changes of both hips. RAD/Abd Inc Decub and/or Erect IMPRESSION: No evidence of acute intra-abdominal or pelvic process. Electronically Signed: Felipe Fagan DO at 16:03 EST Tel [phone], Service support ,
--- OUTSIDE RECORDS SUMMARY | 2018-04-05 20:26 | XMS RPT_ITS ---
:1945 Author Organization OHIP Support Name Relationship Address Phone BALA WILLIS Unavailable Unavailable + [place] [id number] SUKH MORALEZ Unavailable Unavailable + [place], [place] R Unavailable Unavailable Unavailable ANTONIO WILLISA Unavailable Unavailable + [place] [id number] SUKH MORALEZ Unavailable Unavailable + [place], [place] R Unavailable Unavailable Unavailable KRISTINE WILLISNICA Unavailable Unavailable + [place] [id number] SUKH MORALEZ Unavailable Unavailable + [place], [place] R Unavailable Unavailable Unavailable KRISTINE WILLISNICA Unavailable Unavailable + [place] [id number] SUKH MORALEZ Unavailable Unavailable + [place], [place] R Unavailable Unavailable Unavailable KRISTINE WILLISNICA Unavailable Unavailable + [place] [id number] SAGE SUKH Unavailable Unavailable + [place], [place] R Unavailable Unavailable Unavailable KRISTINE WILLISNICA Unavailable . + [place] [id number] SUKH MORALEZ Unavailable . + [place] [id number] R Unavailable Unavailable Unavailable KRISTINE WILLISNICA Unavailable Unavailable + SUKH MORALEZ Unavailable Unavailable + KRISTINE WILLISNICA Unavailable Unavailable + SUKH MORALEZ Unavailable Unavailable + R Unavailable Unavailable Unavailable KRISTINE WILLISNICA Unavailable Unavailable + SUKH MORALEZ Unavailable Unavailable + R Unavailable Unavailable Unavailable KRISTINE WILLISNICA Unavailable Unavailable + MORALEZ SUKH Unavailable Unavailable + FRONTKRISTINE GarciasBALA Unavailable Unavailable + MORALEZ SUKH Unavailable Unavailable + R Unavailable Unavailable Unavailable FRONTZ BALA Unavailable Unavailable + MORALEZ, SUKH Unavailable Unavailable + R Unavailable Unavailable Unavailable FRONTZ BALA Unavailable Unavailable + MORALEZ SUKH Unavailable Unavailable + R Unavailable Unavailable Unavailable FRONTZ, BALA Unavailable Unavailable + MORALEZ, SUKH Unavailable Unavailable + R Unavailable Unavailable Unavailable FRONTZ, BALA Unavailable [address] + [place] [address] SAGE SUKH Unavailable . + [place] [address] R Unavailable Unavailable Unavailable FRONTZ, BALA Unavailable [address] + [place] [address] SAGE SUKH Unavailable Unavailable + [place], [place] R Unavailable Unavailable Unavailable FRONTZ, BALA Unavailable [address] + [place] [address] SAGE SUKH Unavailable Unavailable + [place], [place] R Unavailable Unavailable Unavailable FRONTZ, BALA Unavailable [address] + [place] [address] SAGE SUKH Unavailable Unavailable + [place] R Unavailable Unavailable Unavailable FRONTZ BALA Unavailable [address] + [place] [address] SAGE SUKH Unavailable Unavailable + [place] R Unavailable Unavailable Unavailable FRONTZ, BALA Unavailable [address] + [place] [address] MORALEZ, SUKH Unavailable Unavailable + [place], [place] R Unavailable Unavailable Unavailable FRONTZ, BALA Unavailable [address] + [place] [address] MORALEZ, SUKH Unavailable . + [place] . R Unavailable Unavailable Unavailable FRONTZ, BALA Unavailable [address] + [place] [address] SAGE SUKH Unavailable Unavailable + [place] R Unavailable Unavailable Unavailable FRONTZ, BALA Unavailable [address] + [place] [address] SAGE SUKH Unavailable Unavailable + [place] R Unavailable Unavailable Unavailable FRONTZ, BALA Unavailable [address] + [place] [address] SAGE SUKH Unavailable Unavailable + [place] R Unavailable Unavailable Unavailable FRONTZ, BALA Unavailable [address] + [place] [address] MORALEZ SUKH Unavailable Unavailable + [place] R Unavailable Unavailable Unavailable FRONTZ, BALA Unavailable [address] + [place] [address] SAGE SUKH Unavailable . + [place] . R Unavailable Unavailable Unavailable FRONTZ, BALA Unavailable [address] + [place] [address] SAGE SUKH Unavailable . + [place] . R Unavailable Unavailable Unavailable FRONTZ, BALA Unavailable . + [place] [address] MORALEZ, SUKH Unavailable . + [place] . R Unavailable Unavailable Unavailable Care Team Providers Name Role Phone Dr. Guillermo Dwyer Attending Unavailable Dr. Jessa Green Primary Care Unavailable Sukh Samuel Attending Unavailable Koenig, Sangeeta Referring Unavailable Koenig, Sangeeta Primary Care Unavailable Koenig, Sangeeta Attending Unavailable Koenig, Sangeeta Referring Unavailable Koenig, Sangeeta Primary Care Unavailable Koenig, Sangeeta Attending Unavailable Koenig, Sangeeta Referring Unavailable Koenig, Sangeeta Primary Care Unavailable Luther Mathis Consulting Unavailable Jak Metcalf Attending Unavailable Jak Metcalf Referring Unavailable Koenig, Sangeeta Primary Care Unavailable Koenig, Sangeeta Attending Unavailable Koenig, Sangeeta Referring Unavailable Koenig, Sangeeta Primary Care Unavailable Koenig, Sangeeta Attending Unavailable Koenig, Sangeeta Primary Care Unavailable Koenig, Sangeeta Referring Unavailable Koenig, Sangeeta Primary Care Unavailable Ranjit Zepeda Attending Unavailable Koenig, Sangeeta Attending Unavailable Koenig, Sangeeta Referring Unavailable Koenig, Sangeeta Primary Care Unavailable Koenig, Sangeeta Attending Unavailable Koenig, Sangeeta Primary Care Unavailable Koenig, Sangeeta Attending Unavailable Koenig, Sangeeta Referring Unavailable Koenig, Sangeeta Primary Care Unavailable Cebul, Sukh Attending Unavailable Koenig, Sangeeta Referring Unavailable Koenig, Sangeeta Primary Care Unavailable Cebul, Sukh Attending Unavailable Cebul, Sukh Referring Unavailable Koenig, Sangeeta Primary Care Unavailable Cebul, Sukh Attending Unavailable Cebul, Sukh Referring Unavailable Koenig, Sangeeta Primary Care Unavailable Cebul, Sukh Consulting Unavailable Koenig, Sangeeta Attending Unavailable Koenig, Sangeeta Referring Unavailable Koenig, Sangeeta Primary Care Unavailable Cebul, Sukh Attending Unavailable Koenig, Sangeeta Referring Unavailable Cebul, Sukh Attending Unavailable Cebul, Sukh Referring Unavailable Koenig, Sangeeta Primary Care Unavailable Cebul, Sukh Attending Unavailable Koenig, Sangeeta Primary Care Unavailable Cebul, Sukh Referring Unavailable Cebul, Sukh Attending Unavailable Cebul, Sukh Referring Unavailable Koenig, Sangeeta Primary Care Unavailable Koenig, Sangeeta Attending Unavailable Koenig, Sangeeta Referring Unavailable Koenig, Sangeeta Primary Care Unavailable Cebul, Sukh Attending Unavailable Gualberto Rodriguez Attending Unavailable Cebul, Sukh Referring Unavailable Cebul, Sukh Attending Unavailable Koenig, Sangeeta Referring Unavailable Cebul, Sukh Attending Unavailable Cebul, Sukh Referring Unavailable Koenig, Sangeeta Primary Care Unavailable Jolliff, Shantal Attending Unavailable Jolliff, Shantal Referring Unavailable Koenig, Sangeeta Primary Care Unavailable Cebul, Sukh Attending Unavailable Cebul, Sukh Referring Unavailable Koenig, Sangeeta Attending Unavailable Koenig, Sangeeta Primary Care Unavailable LOREN NEWSOME MD Admitting Unavailable LOREN NEWSOME MD Attending Unavailable PHYSICIAN, PATIENT UNSURE Primary Care Unavailable LOREN NEWSOME MD Consulting Unavailable SYDNI KELLY MD. SUKH Peterson Consulting Unavailable BRENDA KELLY, DR. HUFFMAN Consulting Unavailable JONES BRAR MD Consulting Unavailable BRENDA KELLY, DR. HUFFMAN Attending Unavailable PHYSICIAN, PATIENT UNSURE Primary Care Unavailable LUTHER MATHIS Attending Unavailable LUTHER MATHIS Referring Unavailable KOENIG, SANGEETA A Primary Care Unavailable ESTER CANDELARIA Attending Unavailable LUTHER MATHIS Attending Unavailable LUTHER MATHIS Referring Unavailable LUTHER MATHIS Referring Unavailable LUTHER MATHIS Referring Unavailable PROBLEMS PROBLEMS DATE TYPE CONDITION / CODE ATTENDING STATUS SOURCE 11/20/2015 Active Other NA Active [place] cardiomyopathies / Clinic Main I42.8(ICD-10) [place] Repository 03/17/2018 Active Essential (primary) NA Active [place] hypertension / Clinic Main I10(ICD-10) [place] Repository 02/17/2018 Unknown R06.2 - Wheezing / Sangeeta Koenig Active [facility] R06.2(ICD-10) [facility] 01/29/2018 Unknown R06.02 - Shortness of JollShantal lipscomb Active [place] breath / Community R06.02(ICD-10) Hospital Repository 01/29/2018 Unknown 786.05 - Shortness of Jolliff, Shatnal Active [place] breath / Community 786.05(ICD-9) Hospital Repository 01/29/2018 Unknown E03.9 - Jolliff, Shantal Active [place] Hypothyroidism, Community unspecified / Hospital E03.9(ICD-10) Repository 02/11/2018 Unknown T82.598A - Other CeSukh klein Active [facility] mechanical Community complication of other Hospital cardiac and vascular Repository devices and implants, initial encounter / T82.598A(ICD-10) 12/21/2017 Unknown N18.5 - Chronic Sangeeta Koenig Active [place] kidney disease, stage Community 5 / N18.5(ICD-10) Hospital Repository 12/14/2017 Admitting Chronic kidney MERCEDEZ PATEL, Active [facility] Diagnosis disease, unspecified [facility] / N18.9(ICD-10) Repository 12/31/2017 Unknown T82.868A - Thrombosis Sukh Samuel Active [place] due to vascular Community prosthetic devices, Hospital implants and grafts, Repository initial encounter / T82.868A(ICD-10) 01/18/2018 Unknown I13.2 - Hypertensive Jennifer, [place] Active [place] heart and chronic Community kidney disease with Hospital heart failure and Repository with stage 5 chronic kidney disease, or end stage renal disease / I13.2(ICD-10) 01/18/2018 Unknown I50.22 - Chronic Jennifer, Gualberto Active [facility] systolic (congestive) Community heart failure / Hospital I50.22(ICD-10) Repository 12/11/2017 Unknown T82.898A - Other Sukh Samuel Active [facility] specified Community complication of Hospital vascular prosthetic Repository devices, implants and grafts, initial encounter / T82.898A(ICD-10) 12/11/2017 Unknown Z01.818 - Encounter Sukh Samuel for other Community preprocedural Hospital examination / Repository Z01.818(ICD-10) 12/11/2017 Unknown I50.9 - Heart Sukh Samuel failure, unspecified Community / I50.9(ICD-10) Hospital Repository 11/04/2017 Unknown K59.00 - Sangeeta Koenig Constipation, Community unspecified / Hospital K59.00(ICD-10) Repository 12/24/2017 Unknown M54.9 - Dorsalgia, Sangeeta Koenig unspecified / Community M54.9(ICD-10) Hospital Repository 08/05/2017 Unknown M25.551 - Pain in Sangeeta Koenig right hip / Community M25.551(ICD-10) Hospital Repository 08/05/2017 Unknown M25.552 - Pain in Sangeeta Koenig Active [place] left hip / Community M25.552(ICD-10) Hospital Repository 07/30/2017 Unknown T82.898D - Other Sukh Samuel specified Community complication of Hospital vascular prosthetic Repository devices, implants and grafts, subsequent encounter / T82.898D(ICD-10) 07/24/2017 Unknown S76.019A - Strain of Sangeeta Koenig muscle, fascia and Community tendon of unspecified Hospital hip, initial Repository encounter / S76.019A(ICD-10) 07/15/2017 Unknown M79.651 - Pain in Sangeeta Koenig right thigh / Community M79.651(ICD-10) Hospital Repository 02/01/2017 Unknown TYPE 2 DIABETES Sangeeta Koenig MELLITUS W DIABETIC Community CHRONIC KIDNEY Hospital DISEASE / Repository E11.22(ICD-10) 02/01/2017 Unknown CHRONIC KIDNEY Sangeeta Koenig DISEASE, STAGE 5 / Community N18.5(ICD-10) Hospital Repository 02/01/2017 Unknown VISUAL HALLUCINATIONS Sangeeta Koenig / R44.1(ICD-10) [facility] Hospital Repository PROCEDURES PROCEDURES No Procedure Records FoundRESULTS RESULTS CHEST PA AND LATERAL Observed: 03/25/2018 Status: F Source: [place] 2:46 PM [facility] HOSPITAL REPOSITORY [facility] Imaging Services [address] [place] [address] [place] [address] Chest PA and Lateral MR#: [id number] Acct: [id number] Name: LIN MORALEZ Rep #: [id number] : 1945 F 72 From: Broderick Bennett MD PCP: Sangeeta Koenig MD Status: REG CLI Study: Chest PA and Lateral Date of Exam: 03/25/18 Exam# [id number] Ordering Dr: Sangeeta Koenig MD STUDY: X-RAY CHEST REASON FOR EXAM: Female, 72 years old. Pleural effusion. TECHNIQUE: Frontal and lateral views of the chest. COMPARISON: None. FINDINGS: Moderate lung volumes. Interstitial prominence again seen most likely mild fibrosis. No infiltrates or effusions. There is mild cardiac enlargement. Normal mediastinum and wicho. Normal visualized pulmonary arteries. Normal visualized aortic arch and descending thoracic aorta. There are diffuse degenerative changes of the visualized thoracic spine. Normal visualized ribs, clavicles, and shoulders. There is no demonstrated abnormality of the visualized soft tissue structures of the upper abdomen. RAD/Chest PA and Lateral IMPRESSION: No change or acute chest disease. Electronically Signed: Broderick Bennett MD at 0:02 EST , Service support , CC: Sangeeta Koenig MD Bark Tanner: Signed CNNURSE Observed: 03/17/2018 Status: COMPLETED Source: [place] 3:45 PM [facility] REPOSITORY Nurse Visit (CAWSTR) MORALEZLIN NEGRON ([id number]) 1945 F Date Time Provider Department 03/17/18 3:45 PM NURSE CARD ADMIN [facility] CAWSTR During your visit today, we recorded the following information about you: Liliane Pizarro MA 03/17/2018 1:11 PM Signed EKG completed and given to Dr Mathis for review. Liliane Pizarro MA Referring Provider: LUTHER MATHIS [[id number]] Allergies As of Date: 03/17/2018 Noted Allergy Reaction NOVOLOG (INSULIN ASPART) 05/11/2015 2 - Rash BACTRIM (SULFAMETHOXAZOLE) 10/07/2012 14 - Other: See Comments Comments: Thrombocytopenia CARVEDILOL 09/04/2016 2 - Rash Environmental allergies [Other] 08/19/2007 Comments: Cats, dust mites, trees, weeds, ragweed PYRIDIUM (PHENAZOPYRIDINE HCL) 06/04/2015 1 - Mental Status Change [id number] REDUCTASE INHIBIT*07/03/2014 17 - Myalgia Date Reviewed: 03/17/2018 Reviewed by: Liliane Pizarro MA - Fully Assessed Reason for Visit: Allied Health Visit [5] Visit Diagnoses:Cardiomyopathy, nonischemic (HCC) [I42.8] Essential hypertension [I10] Order(s):ECG COMPLETE W INTERPRETATION [ECG01] Order #: [id number] Prescriptions as of 03/17/2018 Sig: POLYCARBOPHIL VAGINAL GEL Using gel intravaginally ever* Patient not taking: Reported on 03/17/2018 FUROSEMIDE 80 MG TABLET Take 1 tablet by mouth once d* QUINAPRIL 5 MG TABLET Take 1 tablet by mouth daily * Patient not taking: Reported on 03/17/2018 METOLAZONE 10 MG TABLET Take 1 tablet by mouth once d* ESCITALOPRAM 10 MG TABLET Take 10 mg by mouth once miguel* PRAMIPEXOLE 0.125 MG TABLET Take 0.125 mg by mouth daily * INSULIN ASPART U-100 100 UNI* Inject 12 Units subcutaneousl* METOPROLOL TARTRATE 25 MG TAB* Take 25 mg by mouth twice melva* TRAMADOL 50 MG TABLET Take 50 mg by mouth every 8 h* ONETOUCH ULTRA TEST STRIPS CHECK BLOOD SUGARS 3 TIMES DA* INSULIN LISPRO (U-100) 100 UN* Inject 6 Units subcutaneously* Patient not taking: Reported on 03/17/2018 MOMETASONE 0.1 % TOPICAL CREAM Apply 1 application to affect* Patient not taking: Reported on 03/17/2018 INSULIN DETEMIR (U-100) 100 U* 24 units daily CLARITIN-D 24 HOUR ORAL Take 1 tablet by mouth once d* NYSTATIN 100,000 UNIT/GRAM TO* Apply 1 application to affect* Patient not taking: Reported on 03/17/2018 NYSTATIN 100,000 UNIT/GRAM TO* Apply 1 application to affect* Patient not taking: Reported on 03/17/2018 PEN NEEDLE, DIABETIC 31 GAUGE* USE WITH Victoza PENS 1 TIMES* FLUTICASONE 50 MCG/ACTUATION * Use 1-2 Sprays in each nostri* LEVOTHYROXINE 100 MCG TABLET Take 1 tablet by mouth once d* EPINEPHRINE 0.3 MG/0.3 ML INJ* Inject 0.3 mL intramuscularly* CRANBERRY ORAL Take 1 capsule by mouth twice* BATSHEVA-SEQUELS ORAL Take 1 capsule by mouth once * BLOOD SUGAR DIAGNOSTIC STRIPS Use as directed three times d* MULTIVITAMIN TABLET Take one(1) tablet daily. Problem List As Of Date 03/17/2018 Noted Resolved Hypothyroidism [E03.9] PURE HYPERCHOLESTEROLEM [E78.00] Allergic rhinitis [J30.9] INVALID FOR* Melanocytic Nevus of Trunk: back [D22.5] INVALID FOR*12/06/2009 Melanocytic Nevus of Trunk: back: Intradermal t*INVALID FOR* Xerosis cutis [L85.3] INVALID FOR*02/08/2015 Cervicalgia [M54.2] INVALID FOR*06/04/2011 Brachial neuritis or radiculitis NOS [M54.12] INVALID FOR*06/04/2011 Cervical radiculopathy [M54.12] INVALID FOR* PAD (peripheral artery disease) [I73.9] INVALID FOR* Insomnia [G47.00] INVALID FOR* Type 2 diabetes mellitus with hyperlipidemia (H*INVALID FOR* Statin intolerance [Z78.9] INVALID FOR* Rash and nonspecific skin eruption [R21] INVALID FOR*05/21/2015 Diabetes mellitus with stage 5 chronic kidney d*INVALID FOR* Cardiomyopathy, nonischemic (HCC) [I42.8] INVALID FOR* Chronic renal disease, stage V (HCC) [N18.5] INVALID FOR* Visit Notes: >> Liliane Gotti Mar 17, 2018 1:11 PM Status: Signed EKG completed and given to Dr Mathis for review. Liliane Pizarro GEOFF Encounter Status:Closed by CHARLENE TELLEZLILIANE on 03/17/18 EKG1 Observed: 03/17/2018 Status: F Source: [place] 12:46 PM [facility] REPOSITORY NAME : LIN MORALEZ PID : [id number] : 1945 Gender : Female Race : ORD : Procedure Date : Mar 17 2018 12:46:03 Edit Date : Mar 18 2018 12:06:40 Diagnosis:ACCELERATED JUNCTIONAL RHYTHM PROLONGED QT INTERVAL OR TU FUSION, CONSIDER HYPOKALEMIA ABNORMAL ECG Confirmed by LUTHER MATHIS MD ([id number]) on 03/18/2018 12:06:34 PM Ventricular Rate : 84 BPM Atrial Rate : 86 BPM QRS Duration : 84 ms Q-T Interval : 454 ms QTC Calculation(Bezet) : 536 ms R Ramer : 27 degrees T Ramer : 45 degrees Test Reason : Location : 136 : [place] Overread By : LUTHER MATHIS MD Edited By : LUTHER MATHIS MD Referred By : DELFINA, Acquired by : , PROGRESS Observed: 03/17/2018 Status: COMPLETED Source: [place] 12:11 PM [facility] REPOSITORY HNO ID: [id number] Author: Charmaine (Rt) Sourav Soler Service: (none) Author Type: Hand Carver Type: Progress Notes Filed: 03/17/2018 12:12 PM Note Text: Radiology Service Progress Note PATIENT NAME: Lin Moralez DATE OF SERVICE: March 17, 2018 TIME: 12:11 PM PATIENT IDENTITY VERIFICATION COMPLETED USING TWO (2) METHODS: Patient confirmed name verbally and Date of . PATIENT GENDER DATA: Female. status: : No status: NO. PATIENT RELEVANT IMPLANT DATA REVIEWED: Not Applicable RADIOLOGY DEPARTMENT: General X-ray: Exam(s) Completed: Chest X-Ray PERIPHERAL IV DATA: Not applicable SIGNED BY: RT Starr March 17, 2018 12:11 PM XR CHEST 2V FRONTAL/LAT Observed: 03/17/2018 Status: F Source: [place] 12:11 PM [facility] REPOSITORY * * *Final Report* * * DATE OF EXAM: Mar 17 2018 12:11PM [id number] [id number] - XR CHEST 2V FRONTAL/LAT / PROCEDURE REASON: multiple diagnoses * * * * Physician Interpretation * * * * EXAMINATION: CHEST RADIOGRAPH (2 VIEW FRONTAL and LATERAL) CLINICAL HISTORY: Cardiomyopathy, nonischemic (HCC) Essential hypertension MQ: XC2_5 Comparison: Comparison is made to prior chest dated 25 October 2015 RESULT: Lines, tubes, and devices: None. Lungs/pleura: There are bilateral interstitial densities with hilar fullness and vascular redistribution suggesting pulmonary edema. No significant layering pleural fluid Cardiomediastinal silhouette: The cardiac, mediastinal and hilar shadows again demonstrate enlarged cardiac silhouette location of the thoracic aorta.. Other: The bony structures are intact IMPRESSION: Radiographic findings suggest pulmonary edema. Bark Tanner: PSCB Transcribe Date/Time: Mar 17 2018 1:12P Dictated by : HEATHER LITTLE MD This examination was interpreted and the report reviewed and electronically signed by: HEATHER LITTLE MD on Mar 17 2018 1:38PM EST [id number] Observed: 03/17/2018 Status: COMPLETED Source: [place] 11:46 AM [facility] REPOSITORY O ID: [id number] Author: Luther Mathis Service: (none) Author Type: Physician Type: Progress Notes Filed: 03/18/2018 12:46 PM Note Text: PERTINENT CARDIAC HISTORY Cardiomyopathy - nonischemic HTN HL CRF DM CHF - systolic ADHERENCE TO GUIDELINES SUMMER-I or ARB for HF with prior LVEF<40 (NQF 0081) - N/A ASA or Plavix for ASHD (NQF 0067) - N/A Beta maria esther for ASHD with prior TX or prior LVEF<40 (NQF 0070) - N/A Beta maria esther for HF with prior LVEF<40 (NQF 0083) - N/A SUMMER-I or ARB for ASHD with DM or prior LVEF<40 (NQF 0066) - N/A Statin therapy for ASHD or FHL or DM - BMI documented and plan if >25 (NQF 0421) - lifestyle recommendation form Tobacco use screening and referral (NQF 0028) - lifestyle recommendation form Recommendation for whole food, plant based diet - lifestyle recommendation form CLINICAL IMPRESSION/PLAN: Lin Moralez is likely mildly volume overloaded, although she has no edema. X-ray will be checked. She may need more aggressive dialysis or increased dose of diuretic. She will have an echocardiogram for follow-up of her LV function. She is not currently on quinapril. It is unclear when this was discontinued. Once her cough resolves, I recommend restarting or changing to losartan. I recommend follow-up in 6 months. Written and verbal health teaching given to patient, patient verbalizes understanding and agrees with treatment plan. DIAGNOSIS FOR VISIT: Cardiomyopathy Hypertension HISTORY OF PRESENT ILLNESS Lin Moralez returns for follow-up of nonischemic cardiomyopathy. She is now on dialysis. She is still taking high-dose diuretic. She's had no recent cramps during dialysis. She reports chronic shortness of breath. She's had a mild nonproductive cough which has been persistent. No fever or chills.. She denies chest pain. She's had minimal edema. She denies syncope, palpitations, TIAs, and claudication. ALLERGIES: ALLERGIES Allergen Reactions - Novolog [Insulin As* Rash - Bactrim [Sulfametho* Other: See Comments Thrombocytopenia - Carvedilol Rash - Environmental Aller* Cats, dust mites, trees, weeds, ragweed - Pyridium [Phenazopy* Mental Status Change - Siggsvs-Ynd-Div Red* Myalgia CURRENT OUTPATIENT MEDICATIONS: furosemide (LASIX) 80 mg tablet Take 1 tablet by mouth once daily. metOLAzone (ZAROXOLYN) 10 mg tablet Take 1 tablet by mouth once daily. insulin aspart (NOVOLOG FLEXPEN) 100 unit/mL inpn Inject 12 Units subcutaneously three times daily with meals. metoprolol tartrate, short acting, (LOPRESSOR) 25 mg tablet Take 25 mg by mouth twice daily. PEERUCH ULTRA TEST test strip CHECK BLOOD SUGARS 3 TIMES DAILY. insulin detemir (LEVEMIR) 100 unit/mL injection 24 units daily LORATADINE/PSEUDOEPHEDRINE (CLARITIN-D 24 HOUR ORAL) Take 1 tablet by mouth once daily. Insulin [place], Disposable, (BD ULTRAFINE III MINI PEN) 31 gauge x 3/16 ndle USE WITH Victoza PENS 1 TIMES DAILY fluticasone (FLONASE) 50 mcg/actuation nasal spray Use 1-2 Sprays in each nostril once daily. As needed levothyroxine (SYNTHROID) 100 mcg tablet Take 1 tablet by mouth once daily. EPINEPHrine (EPIPEN 2-ANGELIQUE) 0.3 mg/0.3 mL (1:1,000) auto-injector Inject 0.3 mL intramuscularly as needed (for allergic reaction.Seek emergent medical care immediately after use.Disp:one 2-pack w/it trainer). blood sugar diagnostic (CONTOUR TEST STRIPS) Misc test strip Use as directed three times daily multivitamin ORAL tablet Take one(1) tablet daily. Vaginal Lubricant (REPLENS) gel Using gel intravaginally every 3 days quinapril (ACCUPRIL) 5 mg tablet Take 1 tablet by mouth daily at bedtime. escitalopram oxalate (LEXAPRO) 10 mg tablet Take 10 mg by mouth once daily. pramipexole (MIRAPEX) 0.125 mg tablet Take 0.125 mg by mouth daily at bedtime. traMADol (ULTRAM) 50 mg tablet Take 50 mg by mouth every 8 hours as needed. Insulin Lispro, Human, (HUMALOG KWIKPEN) 100 unit/mL inpn Inject 6 Units subcutaneously w MEALS. mometasone (ELOCON) 0.1 % cream Apply 1 application to affected area once daily. nystatin (MYCOSTATIN) cream Apply 1 application to affected area twice daily. nystatin (NYSTOP) powder Apply 1 application to affected area four times daily. CRANBERRY EXTRACT (CRANBERRY ORAL) Take 1 capsule by mouth twice daily. IRON/DOCUSATE SODIUM (BATSHEVA-SEQUELS ORAL) Take 1 capsule by mouth once daily. PHYSICAL EXAMINATION: VITAL SIGNS: BP 136/84 Pulse 77 Ht 5' 4 (1.63m) Wt 166 lb 4.8 oz (75.4kg) BMI 28.53 kg/(m2). Chest: Few basilar rales. Sounds are diminished. Trachea is midline. Air entry is equal. Cardiac: Regular rhythm. S1 and S2 are normal. PMI is nondisplaced. There is a soft murmur of mitral insufficiency. Carotids are brisk without bruits. JVP is less than 10 cm. Abdomen: Soft and nontender. She is obese. There are no pulsatile masses or bruits. No liver enlargement. Bowel sounds are active. Extremities: Trace edema. Pulses are diminished but symmetrical. EKG shows sinus rhythm and is within normal limits. It is unchanged. Recent labs were reviewed. Hemoglobin is 9.6. Renal function is grossly impaired, and she continues dialysis. TSH was 4.3 Electronically Signed: Luther Mathis MD March 17, 2018 11:46 AM CC: Sangeeta Koenig MD CNOV Observed: 03/17/2018 Status: COMPLETED Source: [place] 11:15 AM [facility] REPOSITORY Office Visit (CAWSTR) LIN MORALEZ ([id number]) 1945 F Date Time Provider Department 03/17/18 11:15 AM LUTHER MATHIS During your visit today, we recorded the following information about you: Pulse Blood pressure Weight Height 77/minute 136/84 75.4 kg 1.626 m Luther Mathis MD 03/18/2018 12:46 PM Signed PERTINENT CARDIAC HISTORY Cardiomyopathy - nonischemic HTN HL CRF DM CHF - systolic ADHERENCE TO GUIDELINES SUMMER-I or ARB for HF with prior LVEF<40 (NQF 0081) - N/A ASA or Plavix for ASHD (NQF 0067) - N/A Beta maria esther for ASHD with prior TX or prior LVEF<40 (NQF 0070) - N/A Beta maria esther for HF with prior LVEF<40 (NQF 0083) - N/A SUMMER-I or ARB for ASHD with DM or prior LVEF<40 (NQF 0066) - N/A Statin therapy for ASHD or FHL or DM - BMI documented and plan if >25 (NQF 0421) - lifestyle recommendation form Tobacco use screening and referral (NQF 0028) - lifestyle recommendation form Recommendation for whole food, plant based diet - lifestyle recommendation form CLINICAL IMPRESSION/PLAN: Lin Moralez is likely mildly volume overloaded, although she has no edema. X-ray will be checked. She may need more aggressive dialysis or increased dose of diuretic. She will have an echocardiogram for follow-up of her LV function. She is not currently on quinapril. It is unclear when this was discontinued. Once her cough resolves, I recommend restarting or changing to losartan. I recommend follow-up in 6 months. Written and verbal health teaching given to patient, patient verbalizes understanding and agrees with treatment plan. DIAGNOSIS FOR VISIT: Cardiomyopathy Hypertension HISTORY OF PRESENT ILLNESS Lin Moralez returns for follow-up of nonischemic cardiomyopathy. She is now on dialysis. She is still taking high-dose diuretic. She's had no recent cramps during dialysis. She reports chronic shortness of breath. She's had a mild nonproductive cough which has been persistent. No fever or chills.. She denies chest pain. She's had minimal edema. She denies syncope, palpitations, TIAs, and claudication. ALLERGIES: ALLERGIES Allergen Reactions - Novolog [Insulin As* Rash - Bactrim [Sulfametho* Other: See Comments Thrombocytopenia - Carvedilol Rash - Environmental Aller* Cats, dust mites, trees, weeds, ragweed - Pyridium [Phenazopy* Mental Status Change - Johncbd-Qxa-Ucs Red* Myalgia CURRENT OUTPATIENT MEDICATIONS: furosemide (LASIX) 80 mg tablet Take 1 tablet by mouth once daily. metOLAzone (ZAROXOLYN) 10 mg tablet Take 1 tablet by mouth once daily. insulin aspart (NOVOLOG FLEXPEN) 100 unit/mL inpn Inject 12 Units subcutaneously three times daily with meals. metoprolol tartrate, short acting, (LOPRESSOR) 25 mg tablet Take 25 mg by mouth twice daily. PEERUCH ULTRA TEST test strip CHECK BLOOD SUGARS 3 TIMES DAILY. insulin detemir (LEVEMIR) 100 unit/mL injection 24 units daily LORATADINE/PSEUDOEPHEDRINE (CLARITIN-D 24 HOUR ORAL) Take 1 tablet by mouth once daily. Insulin [place], Disposable, (BD ULTRAFINE III MINI PEN) 31 gauge x 3/16 ndle USE WITH Victoza PENS 1 TIMES DAILY fluticasone (FLONASE) 50 mcg/actuation nasal spray Use 1-2 Sprays in each nostril once daily. As needed levothyroxine (SYNTHROID) 100 mcg tablet Take 1 tablet by mouth once daily. EPINEPHrine (EPIPEN 2-ANGELIQUE) 0.3 mg/0.3 mL (1:1,000) auto-injector Inject 0.3 mL intramuscularly as needed (for allergic reaction.Seek emergent medical care immediately after use.Disp:one 2-pack w/it trainer). blood sugar diagnostic (CONTOUR TEST STRIPS) Misc test strip Use as directed three times daily multivitamin ORAL tablet Take one(1) tablet daily. Vaginal Lubricant (REPLENS) gel Using gel intravaginally every 3 days quinapril (ACCUPRIL) 5 mg tablet Take 1 tablet by mouth daily at bedtime. escitalopram oxalate (LEXAPRO) 10 mg tablet Take 10 mg by mouth once daily. pramipexole (MIRAPEX) 0.125 mg tablet Take 0.125 mg by mouth daily at bedtime. traMADol (ULTRAM) 50 mg tablet Take 50 mg by mouth every 8 hours as needed. Insulin Lispro, Human, (HUMALOG KWIKPEN) 100 unit/mL inpn Inject 6 Units subcutaneously w MEALS. mometasone (ELOCON) 0.1 % cream Apply 1 application to affected area once daily. nystatin (MYCOSTATIN) cream Apply 1 application to affected area twice daily. nystatin (NYSTOP) powder Apply 1 application to affected area four times daily. CRANBERRY EXTRACT (CRANBERRY ORAL) Take 1 capsule by mouth twice daily. IRON/DOCUSATE SODIUM (BATSHEVA-SEQUELS ORAL) Take 1 capsule by mouth once daily. PHYSICAL EXAMINATION: VITAL SIGNS: BP 136/84 Pulse 77 Ht 5' 4 (1.63m) Wt 166 lb 4.8 oz (75.4kg) BMI 28.53 kg/(m2). Chest: Few basilar rales. Sounds are diminished. Trachea is midline. Air entry is equal. Cardiac: Regular rhythm. S1 and S2 are normal. PMI is nondisplaced. There is a soft murmur of mitral insufficiency. Carotids are brisk without bruits. JVP is less than 10 cm. Abdomen: Soft and nontender. She is obese. There are no pulsatile masses or bruits. No liver enlargement. Bowel sounds are active. Extremities: Trace edema. Pulses are diminished but symmetrical. EKG shows sinus rhythm and is within normal limits. It is unchanged. Recent labs were reviewed. Hemoglobin is 9.6. Renal function is grossly impaired, and she continues dialysis. TSH was 4.3 Electronically Signed: Luther Mathis MD March 17, 2018 11:46 AM CC: Sangeeta Koenig MD Referring Provider: SELF [200] Allergies As of Date: 03/17/2018 Noted Allergy Reaction NOVOLOG (INSULIN ASPART) 05/11/2015 2 - Rash BACTRIM (SULFAMETHOXAZOLE) 10/07/2012 14 - Other: See Comments Comments: Thrombocytopenia CARVEDILOL 09/04/2016 2 - Rash Environmental allergies [Other] 08/19/2007 Comments: Cats, dust mites, trees, weeds, ragweed PYRIDIUM (PHENAZOPYRIDINE HCL) 06/04/2015 1 - Mental Status Change [id number] REDUCTASE INHIBIT*07/03/2014 17 - Myalgia Date Reviewed: 03/17/2018 Reviewed by: Liliane Pizarro MA - Fully Assessed Reason for Visit: Established Patient [175] Primary Visit Diagnosis:Cardiomyopathy, nonischemic (HCC) [I42.8] Other Visit Diagnosis:Essential hypertension [I10] Order(s):ECG COMPLETE W INTERPRETATION [ECG01] Order #: [id number] FUTURE ECHO [050976] Order #: [id number]: 1 FUTURE XR CHEST 2V FRONTAL/LAT [9041940] Order #: [id number] FUTURE Prescriptions as of 03/17/2018 Sig: FUROSEMIDE 80 MG TABLET Take 1 tablet by mouth once d* METOLAZONE 10 MG TABLET Take 1 tablet by mouth once d* INSULIN ASPART U-100 100 UNI* Inject 12 Units subcutaneousl* METOPROLOL TARTRATE 25 MG TAB* Take 25 mg by mouth twice melva* CertifyTOUCH ULTRA TEST STRIPS CHECK BLOOD SUGARS 3 TIMES DA* INSULIN DETEMIR (U-100) 100 U* 24 units daily CLARITIN-D 24 HOUR ORAL Take 1 tablet by mouth once d* PEN NEEDLE, DIABETIC 31 GAUGE* USE WITH Victoza PENS 1 TIMES* FLUTICASONE 50 MCG/ACTUATION * Use 1-2 Sprays in each nostri* LEVOTHYROXINE 100 MCG TABLET Take 1 tablet by mouth once d* EPINEPHRINE 0.3 MG/0.3 ML INJ* Inject 0.3 mL intramuscularly* BLOOD SUGAR DIAGNOSTIC STRIPS Use as directed three times d* MULTIVITAMIN TABLET Take one(1) tablet daily. POLYCARBOPHIL VAGINAL GEL Using gel intravaginally ever* Patient not taking: Reported on 03/17/2018 QUINAPRIL 5 MG TABLET Take 1 tablet by mouth daily * Patient not taking: Reported on 03/17/2018 ESCITALOPRAM 10 MG TABLET Take 10 mg by mouth once miguel* PRAMIPEXOLE 0.125 MG TABLET Take 0.125 mg by mouth daily * TRAMADOL 50 MG TABLET Take 50 mg by mouth every 8 h* INSULIN LISPRO (U-100) 100 UN* Inject 6 Units subcutaneously* Patient not taking: Reported on 03/17/2018 MOMETASONE 0.1 % TOPICAL CREAM Apply 1 application to affect* Patient not taking: Reported on 03/17/2018 NYSTATIN 100,000 UNIT/GRAM TO* Apply 1 application to affect* Patient not taking: Reported on 03/17/2018 NYSTATIN 100,000 UNIT/GRAM TO* Apply 1 application to affect* Patient not taking: Reported on 03/17/2018 CRANBERRY ORAL Take 1 capsule by mouth twice* BATSHEVA-SEQUELS ORAL Take 1 capsule by mouth once * Medication notes this encounter CLARITIN-D 24 HOUR ORAL >> Liliane Pizarro MA 03/17/2018 11:28 AM >> LILIANE PIZARRO MA ThuMar 17, 2018 11:28 AM FLUTICASONE 50 MCG/ACTUATION NASAL SPRAY,SUSPENSION >> Liliane Pizarro MA 03/17/2018 11:27 AM >> LILIANE PIZARRO MA ThuMar 17, 2018 11:27 AM Problem List As Of Date 03/17/2018 Noted Resolved Hypothyroidism [E03.9] PURE HYPERCHOLESTEROLEM [E78.00] Allergic rhinitis [J30.9] INVALID FOR* Melanocytic Nevus of Trunk: back [D22.5] INVALID FOR*12/06/2009 Melanocytic Nevus of Trunk: back: Intradermal t*INVALID FOR* Xerosis cutis [L85.3] INVALID FOR*02/08/2015 Cervicalgia [M54.2] INVALID FOR*06/04/2011 Brachial neuritis or radiculitis NOS [M54.12] INVALID FOR*06/04/2011 Cervical radiculopathy [M54.12] INVALID FOR* PAD (peripheral artery disease) [I73.9] INVALID FOR* Insomnia [G47.00] INVALID FOR* Type 2 diabetes mellitus with hyperlipidemia (H*INVALID FOR* Statin intolerance [Z78.9] INVALID FOR* Rash and nonspecific skin eruption [R21] INVALID FOR*05/21/2015 Diabetes mellitus with stage 5 chronic kidney d*INVALID FOR* Cardiomyopathy, nonischemic (HCC) [I42.8] INVALID FOR* Chronic renal disease, stage V (HCC) [N18.5] INVALID FOR* Encounter Status:Closed by LUTHER MATHIS MD on 03/18/18 ABD INC DECUB Observed: 02/17/2018 Status: F Source: [place] AND/OR ERECT 3:07 PM [facility] REPOSITORY [facility] Imaging Services [address] [place] [address] Abd Inc Decub and/or Erect MR#: [id number] Acct: [id number] Name: LIN MORALEZ Rep #: [id number] : 1945 F 72 From: Felipe Fagan DO PCP: Sangeeta Koenig MD Status: REG CLI Study: Abd Inc Decub and/or Erect Date of Exam: 02/17/18 Exam# [id number] Ordering Dr: Sangeeta Koenig MD STUDY: X-RAY - ABDOMEN/PELVIS REASON FOR EXAM: Female, 72 years old. Shortness of breath for one month. Abdominal distention. TECHNIQUE: AP supine and upright views of the abdomen and pelvis. COMPARISON: None. FINDINGS: Normal visualized lung bases. There is an unremarkable bowel gas pattern. Air and feces is seen throughout the colon. There is no small bowel distention. There is no demonstrated free abdominal air. The visualized liver, spleen and kidneys are grossly normal in size and morphology. Normal soft tissue structures. There is minimal degenerative changes of the thoracic spine. There are old healed fractures of the bilateral pubic rami. There are degenerative changes of both hips. RAD/Abd Inc Decub and/or Erect IMPRESSION: No evidence of acute intra-abdominal or pelvic process. Electronically Signed: Felipe Fagan DO at 16:03 EST Tel [phone], Service support , CC: Sanegeta Koenig MD Bark Tanner: Signed CHEST PA AND LATERAL Observed: 01/27/2018 Status: F Source: [place] 4:46 PM [facility] Imaging Services [address] [place] [address] Chest PA and Lateral MR#: [id number] Acct: [id number] Name: LIN MORALEZ Rep #: [id number] : 1945 F 72 From: Broderick Bennett MD PCP: Sangeeta Koenig MD Status: REG CLI Study: Chest PA and Lateral Date of Exam: 01/27/18 Exam# [id number] Ordering Dr: Shantal Mosqueda MD STUDY: X-RAY CHEST REASON FOR EXAM: Female, 72 years old. Increasing shortness of breath. TECHNIQUE: Frontal and lateral views of the chest. COMPARISON: 05/22/2017. FINDINGS: Mild diffuse prominence in interstitial markings, most suggestive of mild fibrosis. No definite infiltrates. No effusions. Mildly enlarged heart. Normal mediastinum and wicho. Normal visualized pulmonary arteries. Normal visualized aortic arch and descending thoracic aorta. Normal visualized thoracic spine. Normal visualized ribs, clavicles, and shoulders. There is no demonstrated abnormality of the visualized soft tissue structures of the upper abdomen. RAD/Chest PA and Lateral IMPRESSION: Probable mild chronic interstitial prominence especially in the lung bases. No definite acute chest disease. Electronically Signed: Broderick Bennett MD at 0:02 EST , Service support , CC: Shantal Mosqueda MD; Sangeeta Koenig MD Bark Tanner: Signed THYROID STIM HORMONE Collected: 01/27/2018 Status: F Source: [place] (TSH) 4:45 PM [facility] REPOSITORY TYPE CODE TESTS RESULT OUT OF RANGE REFERENCE UNITS LAB L501.9520 0.358-3.74 uIU/mL High TSH 4.33 Performed By: #### L501.9520 #### [facility] [address] [place], [address] OPERATIVE REPORT Observed: 01/26/2018 Status: F Source: [place] 3:11 PM [facility] RE[facility]IT[facility] Medical Records Department [address] [place] [address] Operative Report 01/26/18 0934 MR#: [id number] Acct: [id number] Name: LIN MORALEZ Rep #: [id number] : 1945 72 From: Sukh Samuel MD PCP: Sangeeta Koenig MD Status: [place] [facility] [facility] Problem List (1) Problem with dialysis access Status: Acute Qualifiers: Encounter type: subsequent encounter Qualified Code(s): T82.898D - Other specified complication of vascular prosthetic devices, implants and grafts, subsequent encounter Report of Operation Date of Procedure: 01/26/18 Pre-Operative Diagnosis: Diminished flow right upper extremity brachial cephalic arteriovenous hemodialysis fistula Post-Operative Diagnosis: High-grade right upper extremity cephalic arch venous outflow stenosis Surgery/Procedure Performed:: Right upper extremity fistulogram with 7 x 2 cutting balloon angioplasty Description of Surgical Findings:: Timeout and informed consent was obtained at 72-year-old female was taken to the special procedures lab placed on the table. She received 50 mcg of fentanyl and 2 mg of Versed as intravenous sedation. The right upper extremity was sterilely prepped and draped. Ultrasound was utilized to the cephalic vein in the distal right upper arm. Under ultrasound guidance 2% lidocaine was instilled as a local anesthetic. A total of 1 cc was used. Micropuncture needle was inserted antegrade with flow. Micropuncture wire inserted. 6 Guyanese short sheath was inserted. Using Isovue contrast fistulogram was taken of the left upper arm and chest area. This demonstrated high-grade venous stenosis at the cephalic arch. I then up sheath to a 7 Guyanese sheath. I placed ASV 5018 wire past the lesion. I placed a 7 x 2 cutting balloon. Multiple insufflations were performed at least 6 or 7. During 1 of the insufflations I performed a retrograde imaging of the arterial anastomosis. Upon completion final views demonstrated now resolution of the area of high-grade venous outflow stenosis. There was resumption of a palpable thrill within the fistula. Balloon and sheath were removed. U suture of 4-0 nylon was placed for hemostasis. Blood loss was minimal. She tolerated the procedure well there is no apparent complication. Fistulogram demonstrates a patent left upper arm brachial cephalic arteriovenous fistula. There is evidence of pseudoaneurysmal change in the proximal portion of the fistula within approximately 3 cm of the origin. The remainder of the patient appears to be patent. There is an area of very high-grade venous outflow stenosis at the cephalic arch. There is otherwise good central venous outflow. Subsequent to the angioplasty is there is resolution of the area of high-grade venous outflow stenosis. Sukh Samuel M.D., F.A.C.S. Type of Anesthesia:: Local MAC 01/26/18 1511 <Electronically signed by Sukh Samuel MD> Date Sukh Samuel MD CC: Sangeeta Koenig MD; Sukh Samuel MD Signed BEDSIDE GLUCOSE Collected: 01/26/2018 Status: F Source: [place] 7:59 AM [facility] REPOSITORY TYPE CODE TESTS RESULT OUT OF RANGE REFERENCE UNITS LAB L501.080 70-110 mg/dL Normal BEDSIDE GLU 103 Result Comment: MANAGEMENT OF PATIENT CARE PER NURSING PROTOCOL Performed By: #### L501.080 #### [facility] Point of Care [address] [place], [place] [address] CBC-COMPLETE BLOOD CNT Collected: 01/26/2018 Status: F Source: [place] NO DIFF 7:18 AM [facility] REPOSITORY TYPE CODE TESTS RESULT OUT OF RANGE REFERENCE UNITS LAB L100.1000 4.4-11.0 K/mm3 Normal WBC 10.6 LAB L100.1200 4.2-5.4 M/mm3 Low RBC 3.01 LAB L100.1300 12.0-15.0 g/dl Low HGB 9.6 LAB L100.1400 37-47 % Low HCT 31.1 LAB L100.1500 81-99 fL High MCV 103.3 LAB L100.1600 27.0-32.0 pg Normal MCH 31.9 LAB L100.1700 32-36 g/gl Low MCHC 30.9 LAB L100.1810 11.6-14.6 % High RDW CV 15.0 LAB L100.1820 35.1-43.9 fl High RDW SD 55.5 LAB L100.1900 150-450 K/mm3 Normal PLT 219 LAB L100.2000 6.2-12.0 fl Normal MPV 11.3 Performed By: #### L100.0500 #### [facility] [address] [place], [address] BASIC METABOLIC Collected: 01/26/2018 Status: F Source: [place] PROFILE (BMP) 7:18 AM [facility] REPOSIT[facility] TYPE CODE TESTS RESULT OUT OF RANGE REFERENCE UNITS LAB L501.0100 74-106 mg/dL Normal GLU 93 Result Comment: Please note revised GLUCOSE reference range effective 2017. LAB L501.1000 7-18 mg/dL High BUN 43 LAB L501.1100 0.55-1.02 mg/dL High CREAT,SERUM 4.46 Result Comment: The validity of the calculated GFR AND GFRAA in patients over 70 years has not been determined. Clinical correlation is essential. LAB L501.1110 >60 mL/min Low EST GFR 10 Result Comment: Non- GFR Calc LAB L501.1115 >60 mL/min Low EST GFR - AA 12 Result Comment: GFR Calc LAB L501.1255 ml/min Normal Estimated CRCL 9.56 LAB L501.1300 10-20 RATIO Low BUN/CRE 9.6 LAB L501.2200 8.5-10. mg/dL Normal 1 CA 8.7 LAB L501.5300 136-145 mmol/L Normal NA 136 LAB L501.5600 3.5-5.1 mmol/L Normal K 4.5 LAB L501.5900 98-107 mmol/L Low CL 97 LAB L501.6100 21.0-32 mmol/L Normal .0 CO2 27.0 LAB L501.6200 5-15 Normal GAP 12 Performed By: #### L500.2500 #### [facility] [address] [place], [address] SURGERY VISIT REPORT Observed: 01/19/2018 Status: F Source: [place] 5:22 PM [facility] RE[facility]IT[facility] [address] [place] [address] OFFICE VISIT Date of Service: 01/19/18 MR#: [id number] Acct: [id number] Name: LIN MORALEZ Rep #: [id number] : 1945 Provider: Sukh Samuel MD Age/Sex: 72/F Location: [facility] Status: Signed Intake Vital Signs01/19/18 Height 5 ft 4 in 01/19/18 Weight: 156 lb 2 oz 01/19/18 Body Mass Index (BMI) 26.8 01/19/18 Blood Pressure 187/44 H Intake Visit Reasons: recheck fistula Chief Complaint: recheck fistula Attorney At Law Required: No Is patient in pain?: No Allergies aztreonam [From Azactam] Allergy (Verified 01/19/18 13:15) Itching Sulfa (Sulfonamide Antibiotics) Allergy (Verified 01/19/18 13:15) Itching Medications Acetaminophen 1,000 mg PO Q6H PRN 06/11/16 [History Confirmed 12/11/17] Insulin Aspart [Novolog Flexpen] 12 units SC TIDCM 06/11/16 [History Confirmed 12/11/17] Insulin Detemir [Levemir Flextouch] 24 unit SQ BID 06/11/16 [History Confirmed 12/11/17] Lactobacillus Acidophilus [Acidophilus] 1 ea PO DAILY 06/11/16 [History Confirmed 12/11/17] Levothyroxine [Synthroid] 100 mcg PO DAILY 06/11/16 [History Confirmed 12/11/17] Metoprolol Tartrate [Lopressor (beta maria esther)] 25 mg PO DAILY 06/11/16 [History Confirmed 12/11/17] Multivitamin [Multiple Vitamins] 1 ea PO DAILY 06/11/16 [History Confirmed 12/11/17] traMADol [Ultram] 50 mg PO Q8H PRN PRN 06/11/16 [History Confirmed 12/11/17] Docusate Sodium [Colace] 200 mg PO BID PRN PRN #0 cap 06/13/16 [Rx Confirmed 12/11/17] Calcium Acetate [Phoslo Gel Cap] 667 mg PO TIDCM 01/02/17 [History Confirmed 12/11/17] Furosemide [Lasix] 80 mg PO DAILY 01/02/17 [History Confirmed 12/11/17] Ipratropium [place] 15 ml NS Q6H PRN PRN 01/02/17 [History Confirmed 12/11/17] Metolazone [Zaroxolyn] 5 mg PO DAILY 01/02/17 [History Confirmed 12/11/17] Quinapril HCl [Accupril] 5 mg PO DINNER 01/02/17 [History Confirmed 12/11/17] Hydrocodone Bitart/Apap 5-325 [[place] 5MG-325MG] 1 tab PO Q6H PRN PRN #5 tab 01/08/17 [Rx Confirmed 12/11/17] Is last menstrual period known: No Post menopausal: Yes Patient : No PFSH Medical History CHF (congestive heart failure) (Acute) ESRD (end stage renal disease) (Acute) Sepsis (Acute) Pneumonia (Acute) CKD stage 5 secondary to hypertension (Acute) Anemia, chronic disease (Chronic) DM2 (diabetes mellitus, type 2) (Chronic) Hypothyroidism (Chronic) HLD (hyperlipidemia) (Chronic) Breast cancer (Chronic) HTN (hypertension) (Chronic) Systolic CHF (Chronic) Cardiomyopathy (Chronic) Hyponatremia (Chronic) Pulmonary HTN (Chronic) CKD (chronic kidney disease) stage 4, GFR 15-29 ml/min (Chronic) s/p dialysis catheter removal (Acute) Surgical History H/O arteriovenostomy for renal dialysis (Acute 01/08/17) history of fistulogram (Acute) Social History Smoking Status: Never smoker HPI HPI HPI: LIN MORALEZ, is a 72 F who presents to the office today for ongoing surgical management of her right upper extremity brachial to cephalic arteriovenous fistula. The patient was initially referred to me with thrombosis of her fistula. It appears that it been thrombosed at least for several days. I saw her in December 11 urgently took her to the [facility] and attempted to thrombolyze the fistula. We initially got good results the patient then attempted to have dialysis the subsequent day and that was not successful. The patient then went to [facility] initially had a open but again was not successful in maintaining dialysis and then she had a third endovascular procedure. There was concerned about both combined fistula inflow stenosis and outflow stenosis. It appears that angioplasty was performed with a 4 mm balloon and a 5 mm balloon and a 6 mm balloon. She is being dialyzed through the fistula currently ROS General General: Yes fatigue and breast cancer; no weight change, appetite, colon cancer or weakness HEENT HEENT: No difficulty swallowing, eye injury, eye surgery, swollen glands or hoarseness Endo Endocrine: Yes thyroid disease and diabetes mellitus; no thyroid cancer, Hair loss, heat intolerance or cold intolerance Musc Musculoskeletal: Yes arthritis; no back problems, rheumatoid arthritis, gout or joint pain Cardio Cardiovascular: Yes high blood pressure; no murmur, pacemaker, heart disease, atrial fibrillation, heart attack, heart stent, palpitations, shortness of breat with exertion or chest pain Additional Details: cardiomyopathy, CHF Resp Respiratory: No shortness of breath, No sleep apnea, No cough, No COPD, No asthma, No emphysema, No wheezing Ross Hematologic: No blood thinners, No blood disorders, No bleeding, Yes anemia, No blood clots Neuro Neurologic: No weakness Exam Const General: cooperative Nutritional Appearance: average body habitus Orientation: alert, awake [facility] Head: normal to inspection Eyes General: appearance normal, both eyes and all related structures Resp Effort AND Inspection: normal respiratory effort Auscultation: clear to auscultation bilaterally Cardio Rate: regular rate Rhythm: regular rhythm Heart Sounds: no murmurs GI Palpation: soft, no hepatosplenomegaly Extrem Other: Right upper extremity brachiocephalic arteriovenous fistula has a bounding pulse. No palpable thrill. A audible bruit is staccato suggesting outflow On palpation there is a very strong pulsatile nature. I performed ultrasound inspection and could not identify a proximal area of stenosis Psych Affect: normal affect Assessment AND Plan Problems 1. Problem with dialysis access, initial encounter T82.335K Plan I am proposing for the patient a right upper extremity fistulogram. Believe that the arterial inflow is good and that there is a problem with venous outflow. This may require the possibility of stent grafting. I discussed with the patient technique, benefits, risks, alternatives. She wants to be reassured that she will not have discomfort during this procedure. We will try to schedule and expedite her care so that she does not rethrombosed. I certainly appreciate the kind opportunity of continue to assist with her surgical care Sukh Samuel M.D., F.A.C.S. Coding Level of Care Code Off vis,est,level 2 Diagnoses Problem with dialysis access, initial encounter T82.898A Encounter type: initial encounter 01/19/181721 <Electronically signed by Sukh Samuel MD> Date Sukh Samuel MD Cosigner Signature: Date (if applicable) CC: PROGRESS Observed: 12/30/2017 Status: COMPLETED Source: [place] 8:30 AM [facility] REPOSITORY HNO ID: [id number] Author: Ester Candelaria Service: (none) Author Type: Physician Type: Progress Notes Filed: 12/30/2017 8:30 AM Note Text: Can you please let the patient know her culture was negative for a bacterial or yeast infection? She can try the Replens every 3 days as discussed at her visit. Thanks! Observed: 12/28/2017 Status: F Source: [place] BACT/CAND VAG [facility] 6:20 PM [facility] REPOSITORY Sp. Request/Comment: - Swab Smear Result - BACTERIAL VAGINOSIS RESULT: Stain results consistent with normal vaginal misty. No Polymorphonuclear Leukocytes Moderate Epithelial cells No Yeast observed Performed By: #### BVCNSM #### [facility] [address] [place], [place] [address] CNOV Observed: 12/28/2017 Status: COMPLETED Source: [place] 4:00 PM [facility] REPOSITORY Office Visit (WOOB) LIN MORALEZ ([id number]) 1945 F Date Time Provider Department 12/28/17 4:00 PM ESTER CANDELARIA During your visit today, we recorded the following information about you: Blood pressure Weight 112/58 76.7 kg Ester Candelaria MD 12/28/2017 4:28 PM Signed Lin Moralez is a 72 year old female who presents for problem visit for vaginal irritation. HPI: Vaginal irritation for 1 month. Called her PCP and she states she started Miconazole cream with no relief. No vaginal discharge. Irritation is on the inside of vagina. Like it's swollen. Burning pain. No pruritis. Sexually active, no dyspareunia. Using lubrication with intercourse. PAST MEDICAL HISTORY Diagnosis Date - Acute renal failure (ARF) ([facility]) 05/15/2016 - Anemia - CHF (congestive heart failure) ([facility]) - CKD (chronic kidney disease) stage 5, GFR less than 15 ml/min ([facility]) 07/27/2015 - Diabetes mellitus with stage 5 chronic kidney disease GFR <15 ([facility]) 07/27/2015 - Diverticulosis of colon (without mention of hemorrhage) - History of breast cancer At age 26 - Hypertension - Muscle spasm - Pure hypercholesterolemia - Type II or unspecified type diabetes mellitus without mention of complication, not stated as uncontrolled - Unspecified hypothyroidism PAST SURGICAL HISTORY Procedure Laterality Date - DELIVERY ONLY , low cervical - COLONOSCOP W/ OR W/O [facility] SPEC 08/01/2009 Colonoscopy - DANDC, DIAG AND/OR THERAPEUTIC Dilation AND curettage x2 - INSERT CANNULA,VEIN-VEIN Right 05/15/2016 - MASTECTOMY 1971 Left breast - PAST SURGICAL HISTORY OF 05/2009 teeth extracted - REMOVAL ADENOIDS,PRIMARY,<12 Y/O Adenoidectomy - REMOVAL OF TONSILS,<12 Y/O Tonsillectomy FAMILY HISTORY Problem Relation Age of Onset - Diabetes Mother - Heart Mother - Thyroid Mother - Diabetes Maternal Grandmother - Diabetes Brother - Thyroid Brother - Hypertension Brother - other (rheumatoid arthritis) Brother Social History Marital status: Spouse name: Years of education: Number of children: Social History Main Topics Smoking status: Never Smoker Smokeless tobacco: Never Used Alcohol use: No Sexual activity: Not Currently Current Outpatient Prescriptions: furosemide (LASIX) 80 mg tablet Take 1 tablet by mouth once daily. quinapril (ACCUPRIL) 5 mg tablet Take 1 tablet by mouth daily at bedtime. metOLAzone (ZAROXOLYN) 10 mg tablet Take 1 tablet by mouth once daily. insulin aspart (NOVOLOG FLEXPEN) 100 unit/mL inpn Inject 12 Units subcutaneously three times daily with meals. metoprolol tartrate, short acting, (LOPRESSOR) 25 mg tablet Take 25 mg by mouth twice daily. traMADol (ULTRAM) 50 mg tablet Take 50 mg by mouth every 8 hours as needed. Insulin [place], Disposable, (BD ULTRAFINE III MINI PEN) 31 gauge x 3/16 ndle USE WITH Victoza PENS 1 TIMES DAILY levothyroxine (SYNTHROID) 100 mcg tablet Take 1 tablet by mouth once daily. EPINEPHrine (EPIPEN 2-ANGELIQUE) 0.3 mg/0.3 mL (1:1,000) auto-injector Inject 0.3 mL intramuscularly as needed (for allergic reaction.Seek emergent medical care immediately after use.Disp:one 2-pack w/it trainer). blood sugar diagnostic (CONTOUR TEST STRIPS) Misc test strip Use as directed three times daily multivitamin ORAL tablet Take one(1) tablet daily. Vaginal Lubricant (REPLENS) gel Using gel intravaginally every 3 days escitalopram oxalate (LEXAPRO) 10 mg tablet Take 10 mg by mouth once daily. pramipexole (MIRAPEX) 0.125 mg tablet Take 0.125 mg by mouth daily at bedtime. ONETOUCH ULTRA TEST test strip CHECK BLOOD SUGARS 3 TIMES DAILY. Insulin Lispro, Human, (HUMALOG KWIKPEN) 100 unit/mL inpn Inject 6 Units subcutaneously w MEALS. mometasone (ELOCON) 0.1 % cream Apply 1 application to affected area once daily. insulin detemir (LEVEMIR) 100 unit/mL injection 24 units daily LORATADINE/PSEUDOEPHEDRINE (CLARITIN-D 24 HOUR ORAL) Take 1 tablet by mouth once daily. nystatin (MYCOSTATIN) cream Apply 1 application to affected area twice daily. nystatin (NYSTOP) powder Apply 1 application to affected area four times daily. fluticasone (FLONASE) 50 mcg/actuation nasal spray Use 1-2 Sprays in each nostril once daily. As needed CRANBERRY EXTRACT (CRANBERRY ORAL) Take 1 capsule by mouth twice daily. IRON/DOCUSATE SODIUM (BATSHEVA-SEQUELS ORAL) Take 1 capsule by mouth once daily. No current facility-administered medications for this visit. Allergies As of Date: 12/28/2017 Allergen Noted Reaction NOVOLOG [INSULIN ASPART] 05/11/2015 Rash BACTRIM [SULFAMETHOXAZOLE] 10/07/2012 Other: See Comments CARVEDILOL 09/04/2016 Rash ENVIRONMENTAL ALLERGIES [OTHER] 08/19/2007 PYRIDIUM [PHENAZOPYRIDINE HCL] 06/04/2015 Mental Status Change [id number] REDUCTASE INHIBIT*07/03/2014 Myalgia Fully Assessed 12/28/2017 REVIEW OF SYSTEMS Abdomen: No abdominal pain, nausea, vomiting, diarrhea, or constipation. Bladder: No dysuria, gross hematuria. Refueling Ramp Supervisor: No bleeding or discharge. Expanded ROS: N/A Allergies and current medication updated:Yes EXAM: BP 112/58 Wt 169 lb (76.7kg) GENERAL: pleasant, female in no apparent distress HEENT: Normocephalic and atraumatic NECK: full range of motion DERMATOLOGY: Normal and without lesions CHEST: Normal inspiratory effort ABDOMEN: soft, non-tender and no masses PELVIC: external genitalia normal, normal Bartholin's glands, urethra, Reagan's glands, no vulvar lesions, no cervical lesions, physiologic discharge present, normal appearing perineal body and perianal region, atrophy of vaginal mucosa noted with loss of rugae NEURO: alert and oriented x3,exam grossly non-focal EXTREMITIES: normal ASSESSMENT AND PLAN: Encounter Diagnosis ICD-10-CM 1. Vaginal irritation N89.8 BACT/MICHAEL VAG GRAM STAIN ? Vaginitis cx sent ? Atrophy noted c/w post-menopausal state ? Not candidate for vaginal estrogen given h/o breast cancer ? Discussed using Replens every 3 days ? To follow up at well woman exam Ester Candelaria, Referring Provider: SELF [[id number]] Allergies As of Date: 12/28/2017 Noted Allergy Reaction NOVOLOG (INSULIN ASPART) 05/11/2015 2 - Rash BACTRIM (SULFAMETHOXAZOLE) 10/07/2012 14 - Other: See Comments Comments: Thrombocytopenia CARVEDILOL 09/04/2016 2 - Rash Environmental allergies [Other] 08/19/2007 Comments: Cats, dust mites, trees, weeds, ragweed PYRIDIUM (PHENAZOPYRIDINE HCL) 06/04/2015 1 - Mental Status Change [id number] REDUCTASE INHIBIT*07/03/2014 17 - Myalgia Date Reviewed: 12/28/2017 Reviewed by: Vivienne Palm - Fully Assessed Reason for Visit: Vaginal Problem [117] Primary Visit Diagnosis:Vaginal irritation [N89.8] Order(s):Vaginal Lubricant (REPLENS) gelUsing gel intravaginally every 3 daysDisp: 6.7 gRfl: 30 BACT/MICHAEL VAG GRAM STAIN [SQBVCNSM] Order #: [id number] Prescriptions as of 12/28/2017 Sig: FUROSEMIDE 80 MG TABLET Take 1 tablet by mouth once d* QUINAPRIL 5 MG TABLET Take 1 tablet by mouth daily * METOLAZONE 10 MG TABLET Take 1 tablet by mouth once d* INSULIN ASPART U-100 100 UNI* Inject 12 Units subcutaneousl* METOPROLOL TARTRATE 25 MG TAB* Take 25 mg by mouth twice melva* TRAMADOL 50 MG TABLET Take 50 mg by mouth every 8 h* PEN NEEDLE, DIABETIC 31 GAUGE* USE WITH Victoza PENS 1 TIMES* LEVOTHYROXINE 100 MCG TABLET Take 1 tablet by mouth once d* EPINEPHRINE 0.3 MG/0.3 ML INJ* Inject 0.3 mL intramuscularly* BLOOD SUGAR DIAGNOSTIC STRIPS Use as directed three times d* MULTIVITAMIN TABLET Take one(1) tablet daily. POLYCARBOPHIL VAGINAL GEL Using gel intravaginally ever* ESCITALOPRAM 10 MG TABLET Take 10 mg by mouth once miguel* PRAMIPEXOLE 0.125 MG TABLET Take 0.125 mg by mouth daily * ONETOUCH ULTRA TEST STRIPS CHECK BLOOD SUGARS 3 TIMES DA* INSULIN LISPRO (U-100) 100 UN* Inject 6 Units subcutaneously* MOMETASONE 0.1 % TOPICAL CREAM Apply 1 application to affect* INSULIN DETEMIR (U-100) 100 U* 24 units daily CLARITIN-D 24 HOUR ORAL Take 1 tablet by mouth once d* NYSTATIN 100,000 UNIT/GRAM TO* Apply 1 application to affect* NYSTATIN 100,000 UNIT/GRAM TO* Apply 1 application to affect* FLUTICASONE 50 MCG/ACTUATION * Use 1-2 Sprays in each nostri* CRANBERRY ORAL Take 1 capsule by mouth twice* BATSHEVA-SEQUELS ORAL Take 1 capsule by mouth once * Problem List As Of Date 12/28/2017 Noted Resolved Hypothyroidism [E03.9] PURE HYPERCHOLESTEROLEM [E78.00] Allergic rhinitis [J30.9] INVALID FOR* Melanocytic Nevus of Trunk: back [D22.5] INVALID FOR*12/06/2009 Melanocytic Nevus of Trunk: back: Intradermal t*INVALID FOR* Xerosis cutis [L85.3] INVALID FOR*02/08/2015 Cervicalgia [M54.2] INVALID FOR*06/04/2011 Brachial neuritis or radiculitis NOS [M54.12] INVALID FOR*06/04/2011 Cervical radiculopathy [M54.12] INVALID FOR* PAD (peripheral artery disease) [I73.9] INVALID FOR* Insomnia [G47.00] INVALID FOR* Type 2 diabetes mellitus with hyperlipidemia (H*INVALID FOR* Statin intolerance [Z78.9] INVALID FOR* Rash and nonspecific skin eruption [R21] INVALID FOR*05/21/2015 Diabetes mellitus with stage 5 chronic kidney d*INVALID FOR* Cardiomyopathy, nonischemic (HCC) [I42.8] INVALID FOR* Chronic renal disease, stage V (HCC) [N18.5] INVALID FOR* Prescriptions ordered this encounter Disp Refills Start End POLYCARBOPHIL VAGINAL GEL 6.7 g 30 12/28/2017 Sig: Using gel intravaginally every 3 days Level of Service: EST PATIENT VISIT LEVEL 2 [[id number]] Disposition: Return in about 1 month (around 01/28/2018) for well woman. Follow-up and Disposition History Recorded Encounter Status:Closed by ESTER CANDELARIA MD on 12/28/17 PROGRESS Observed: 12/28/2017 Status: COMPLETED Source: [place] 3:53 PM [facility] RE[facility] ID: [id number] Author: Ester Candelaria Service: (none) Author Type: Physician Type: Progress Notes Filed: 12/28/2017 4:28 PM Note Text: Lin Moralez is a 72 year old female who presents for problem visit for vaginal irritation. HPI: Vaginal irritation for 1 month. Called her PCP and she states she started Miconazole cream with no relief. No vaginal discharge. Irritation is on the inside of vagina. Like it's swollen. Burning pain. No pruritis. Sexually active, no dyspareunia. Using lubrication with intercourse. PAST MEDICAL HISTORY Diagnosis Date - Acute renal failure (ARF) ([facility]) 05/15/2016 - Anemia - CHF (congestive heart failure) ([facility]) - CKD (chronic kidney disease) stage 5, GFR less than 15 ml/min ([facility]) 07/27/2015 - Diabetes mellitus with stage 5 chronic kidney disease GFR <15 ([facility]) 07/27/2015 - Diverticulosis of colon (without mention of hemorrhage) - History of breast cancer At age 26 - Hypertension - Muscle spasm - Pure hypercholesterolemia - Type II or unspecified type diabetes mellitus without mention of complication, not stated as uncontrolled - Unspecified hypothyroidism PAST SURGICAL HISTORY Procedure Laterality Date - DELIVERY ONLY , low cervical - COLONOSCOP W/ OR W/O [facility] SPEC 08/01/2009 Colonoscopy - DANDC, DIAG AND/OR THERAPEUTIC Dilation AND curettage x2 - INSERT CANNULA,VEIN-VEIN Right 05/15/2016 - MASTECTOMY 1971 Left breast - PAST SURGICAL HISTORY OF 05/2009 teeth extracted - REMOVAL ADENOIDS,PRIMARY,<12 Y/O Adenoidectomy - REMOVAL OF TONSILS,<12 Y/O Tonsillectomy FAMILY HISTORY Problem Relation Age of Onset - Diabetes Mother - Heart Mother - Thyroid Mother - Diabetes Maternal Grandmother - Diabetes Brother - Thyroid Brother - Hypertension Brother - other (rheumatoid arthritis) Brother Social History Marital status: Spouse name: Years of education: Number of children: Social History Main Topics Smoking status: Never Smoker Smokeless tobacco: Never Used Alcohol use: No Sexual activity: Not Currently Current Outpatient Prescriptions: furosemide (LASIX) 80 mg tablet Take 1 tablet by mouth once daily. quinapril (ACCUPRIL) 5 mg tablet Take 1 tablet by mouth daily at bedtime. metOLAzone (ZAROXOLYN) 10 mg tablet Take 1 tablet by mouth once daily. insulin aspart (NOVOLOG FLEXPEN) 100 unit/mL inpn Inject 12 Units subcutaneously three times daily with meals. metoprolol tartrate, short acting, (LOPRESSOR) 25 mg tablet Take 25 mg by mouth twice daily. traMADol (ULTRAM) 50 mg tablet Take 50 mg by mouth every 8 hours as needed. Insulin [place], Disposable, (BD ULTRAFINE III MINI PEN) 31 gauge x 3/16 ndle USE WITH Victoza PENS 1 TIMES DAILY levothyroxine (SYNTHROID) 100 mcg tablet Take 1 tablet by mouth once daily. EPINEPHrine (EPIPEN 2-ANGELIQUE) 0.3 mg/0.3 mL (1:1,000) auto-injector Inject 0.3 mL intramuscularly as needed (for allergic reaction.Seek emergent medical care immediately after use.Disp:one 2-pack w/it trainer). blood sugar diagnostic (CONTOUR TEST STRIPS) Misc test strip Use as directed three times daily multivitamin ORAL tablet Take one(1) tablet daily. Vaginal Lubricant (REPLENS) gel Using gel intravaginally every 3 days escitalopram oxalate (LEXAPRO) 10 mg tablet Take 10 mg by mouth once daily. pramipexole (MIRAPEX) 0.125 mg tablet Take 0.125 mg by mouth daily at bedtime. ONETOUCH ULTRA TEST test strip CHECK BLOOD SUGARS 3 TIMES DAILY. Insulin Lispro, Human, (HUMALOG KWIKPEN) 100 unit/mL inpn Inject 6 Units subcutaneously w MEALS. mometasone (ELOCON) 0.1 % cream Apply 1 application to affected area once daily. insulin detemir (LEVEMIR) 100 unit/mL injection 24 units daily LORATADINE/PSEUDOEPHEDRINE (CLARITIN-D 24 HOUR ORAL) Take 1 tablet by mouth once daily. nystatin (MYCOSTATIN) cream Apply 1 application to affected area twice daily. nystatin (NYSTOP) powder Apply 1 application to affected area four times daily. fluticasone (FLONASE) 50 mcg/actuation nasal spray Use 1-2 Sprays in each nostril once daily. As needed CRANBERRY EXTRACT (CRANBERRY ORAL) Take 1 capsule by mouth twice daily. IRON/DOCUSATE SODIUM (BATSHEVA-SEQUELS ORAL) Take 1 capsule by mouth once daily. No current facility-administered medications for this visit. Allergies As of Date: 12/28/2017 Allergen Noted Reaction NOVOLOG [INSULIN ASPART] 05/11/2015 Rash BACTRIM [SULFAMETHOXAZOLE] 10/07/2012 Other: See Comments CARVEDILOL 09/04/2016 Rash ENVIRONMENTAL ALLERGIES [OTHER] 08/19/2007 PYRIDIUM [PHENAZOPYRIDINE HCL] 06/04/2015 Mental Status Change [id number] REDUCTASE INHIBIT*07/03/2014 Myalgia Fully Assessed 12/28/2017 REVIEW OF SYSTEMS Abdomen: No abdominal pain, nausea, vomiting, diarrhea, or constipation. Bladder: No dysuria, gross hematuria. Refueling Ramp Supervisor: No bleeding or discharge. Expanded ROS: N/A Allergies and current medication updated:Yes EXAM: BP 112/58 Wt 169 lb (76.7kg) GENERAL: pleasant, female in no apparent distress HEENT: Normocephalic and atraumatic NECK: full range of motion DERMATOLOGY: Normal and without lesions CHEST: Normal inspiratory effort ABDOMEN: soft, non-tender and no masses PELVIC: external genitalia normal, normal Bartholin's glands, urethra, Reagan's glands, no vulvar lesions, no cervical lesions, physiologic discharge present, normal appearing perineal body and perianal region, atrophy of vaginal mucosa noted with loss of rugae NEURO: alert and oriented x3,exam grossly non-focal EXTREMITIES: normal ASSESSMENT AND PLAN: Encounter Diagnosis ICD-10-CM 1. Vaginal irritation N89.8 BACT/MICHAEL VAG GRAM STAIN ? Vaginitis cx sent ? Atrophy noted c/w post-menopausal state ? Not candidate for vaginal estrogen given h/o breast cancer ? Discussed using Replens every 3 days ? To follow up at well woman exam Ester Candelaria DO OPERATIVE REPORT Observed: 12/21/2017 Status: F Source: [place] 3:38 PM [facility] RE[facility] Medical Records Department [address] [place] [id number] Operative Report 12/11/17 1517 MR#: [id number] Acct: [id number] Name: LIN MORALEZ Rep #: [id number] : 1945 72 From: Sukh Samuel MD PCP: Sangeeta Koenig MD Status: REG CLI Y Location: PLAB Problem List (1) Problem with dialysis access Status: Acute Report of Operation Date of Procedure: 12/11/17 Pre-Operative Diagnosis: 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 6 x 4 conquest angioplasty peripheral and central Description of Surgical Findings:: Timeout informed consent was obtained. 72-year-old female was taken to special procedures lab. Throughout the procedure and to aliquots she received 100 mcg of fentanyl and she received 1 mg Versed. The right extremity sterilely prepped draped. Ultrasound was used to identify the cephalic vein in the mid upper arm. 2% lidocaine was instilled. Retrograde with flow micropunch needle inserted micropuncture wire inserted 6 Guyanese short sheath was inserted. I was able to get the guidewire into the brachial artery. I placed a 4 Guyanese glide cath. Using Isovue performed official gram demonstrating thrombus involving the fistula. So then under ultrasound guidance I was able to get antegrade flow closer to the antecubital space with the same micropuncture needle wire and then a 6 Guyanese short sheath dilator. TPA 10 mg and 50 cc was used with a power pulse spray 6 Guyanese solent Omni AngioJet catheter. 12 time was 25 minutes. Then AngioJet thrombolysis of the entire length of the fistula was performed. Then 6 x 4 conquest angioplasty and the entire length was performed. A fistulogram demonstrated 50% residual stenosis of the cephalic vein at the cephalic arch. I was able to perform angioplasty of the cephalic vein subclavian vein junction with good results. The proximal portion of the fistula at the arterial anastomosis was also treated. There is evidence of still residual thrombus within the proximal 15 cm of the fistula. This was retreated with the AngioJet. Retreated with balloon angioplasty. Resumption of flow was achieved however not ideally as there was still diffuse thrombus. At this point as the patient is a renal dialysis patient. A total of 100 cc was used for the AngioJet. At the completion I felt that I had performed as much as I could for this fistula. Sheath removed few sutures of 4-0 nylon was placed. Doppler demonstrated flow through the fistula. I elected not to attempt further intervention. It is of note that during the procedure sooner sheaths were in the patient received 5000 units of heparin and then throughout the procedure in aliquots additional 1000 units of heparin and additional 1000 units of heparin. I was not able to check a CTs as I could not get free flow until nearly the completion of the procedure. Images demonstrate a right extremity brachiocephalic arteriovenous fistula. There is evidence of thrombus throughout the fistula subsequent to the treatment there was marked improved flow from the mid upper arm centrally although there is an area of at least 50% reveals residual stenosis at the cephalic arch. There is significant thrombus within the proximal 15 cm of the fistula with residual area of 60% stenosis despite thrombolysis and angioplasty. Current plan is hopeful to establish flow long enough to re- create a new fistula. The patient is aware that she may require tunneled dialysis catheters. Estimated blood loss minimal. Specimens none. Drains none. She tolerated the procedure well was taken to the recovery area in sagittal condition. Sukh Samuel M.D., F.A.C.S. Type of Anesthesia:: IV Sedation 12/21/17 1538 <Electronically signed by Sukh Samuel MD> Date Sukh Samuel MD CC: Sangeeta Koenig MD; Sukh Samuel MD Signed RENAL PROFILE Collected: 12/21/2017 Status: F Source: [place] 12:20 PM [facility] TYPE CODE TESTS RESULT OUT OF RANGE REFERENCE UNITS LAB L501.0100 74-106 mg/dL High GLU 249 Result Comment: Glucose result greater than or equal to 200 mg/dL suggests DIABETES MELLITUS per A.D.A. criteria. Please note revised GLUCOSE reference range effective 2017. LAB L501.1000 7-18 mg/dL Normal BUN 18 LAB L501.1100 0.55-1.02 mg/dL High CREAT,SERUM 2.38 Result Comment: The validity of the calculated GFR AND GFRAA in patients over 70 years has not been determined. Clinical correlation is essential. LAB L501.1110 >60 mL/min Low EST GFR 21 Result Comment: Non- GFR Calc LAB L501.1115 >60 mL/min Low EST GFR - AA 26 Result Comment: GFR Calc LAB L501.1300 10-20 RATIO Low BUN/CRE 7.6 LAB L501.1800 3.2-5.0 g/dL Normal ALB 3.4 LAB L501.2200 8.5-10.1 mg/dL Normal CA 8.7 LAB L501.2300 2.5-4.9 mg/dL Low PHOS 2.3 LAB L501.5300 136-145 mmol/L Low NA 133 LAB L501.5600 3.5-5.1 mmol/L Normal K 4.1 LAB L501.5900 98-107 mmol/L Low CL 89 LAB L501.6100 21.0-32.0 mmol/L High CO2 35.0 Performed By: #### L500.3600 #### [facility] [address] [place], [address] IR ARTERIOGRAM-AV SHUNT Observed: 12/16/2017 Status: F Source: [place] [facility] OR[facility]INAL PROCEDURE: 1. Fistulogram with fluoroscopy 2. Ultrasound guidance for vascular access 3. Balloon dilatation of critical stenosis arterial anastomosis CLINICAL INFORMATION: Unable to cannulate fistula, recent thrombectomy SEDATION: Moderate sedation with Versed and fentanyl under my supervision and with cardiorespiratory monitoring performed by independent nursing personnel. Dosages recorded separately. SEDATION TIME: 81 minutes HEPARIN: 5000 units IV ACCESS SITE: AV fistula FLUORO: 4.4 minutes AIR KERMA DOSE (mGy): 16 CONTRAST: 40 mL, Omni 300 MATERIALS: 6 Fr sheath Micropuncture kit Stiff Glidewire Inflator 2-0 Prolene Balloons: 4 x 80 mm 5 x 100 mm, 6 x 100 mm 5 Guyanese Berenstein PROCEDURE AND FINDINGS: The procedure, risks, and alternatives, were discussed with the patient and all questions were answered. Written informed consent obtained. Accompanying paperwork was verified for accuracy. Directed history and physical exam performed prior to the procedure. Medication reconciliation performed by nursing personnel. Procedure was performed u sing a cap, sterile gown, sterile gloves, a large sterile sheet, hand hygiene and hospital-approved cutaneous antisepsis. The patient was positioned supine on the table and prepped and draped in usual s terile fashion. A critical pause was performed with assisting personnel just prior to the procedure with the patient's identity confirmed using 2 identifiers, confirming site and side. A preliminary ultrasound was performed demonstrating vessel patency and appropriate forward flow. An image was obtained. Five ml of 2% lidocaine was administered at the puncture site for local anesthesia. Under direct ultrasound guidance, the vessel was punctured with a micropuncture kit directed toward the venous outflow. A documentation image was obtained. Digital subtraction angiography (DSA) was performed using the 4 Fr micropuncture sheath. Images demonstrate wide patency of the cephalic, subclavian, and brachiocephalic veins as well as the SVC. There is critical stenosis at the proximal venous outflow. A reflux DSA demonstrates moderate critical stenosis just distal to the anastomosis possibly from thrombus. Small amount thrombosis seen in a small fusiform aneurysm. Brachial artery is widely patent. Ramer directed towards the anastomosis was obtained. A preliminary ultrasound was performed demonstrating vessel patency and appropriate forward flow. An image was obtained. Five ml of 2% lidocaine was administered at the puncture site for local anesthesia. Under direct ultrasound guidance, the vessel was punctured with a micropuncture kit directed toward the anastomosis. A documentation image was obtained. IV Heparin was administered. Over a wire, the micropuncture sheath was exchanged for a working sheath. The catheter was advanced into the brachial artery. DSA confirms critical stenosis. Balloon angioplasty is performed with a 4 mm balloon. There is improvement however there is moderate stenosis proximally 50%. Repeat balloon angioplasty is performed with a 5 mm balloon, however there is persistent approximately 50% stenosis. Rep eat balloon angioplasty is performed with a 6 mm balloon. There is approximately 30-40% residual stenosis. Upon palpation, there is now a thrill present. Both sheaths were removed after a purse string stitch was placed. A sterile dressing was applied. COMPLICATIONS: None EBL: 10 mL PATIENT CONDITION: Stable, unchanged. IMPRESSION: 1. Critical stenosis immediately distal to the arterial anastomosis. 2. Successful uncomplicated balloon dilatation of the stenosis with mild residual stenosis. 3. Patent central veins and cephalic vein. Interpreted By: Tarun España MD Preliminary Report By: Tarun España MD Electronically Signed By: Tarun España MD Dictated Date: 12/16/2017 4:51:05 PM Prelim Date: 12/16/2017 4:51:22 PM Sign Date: 12/22/2017 5:24:04 PM PRO Collected: 12/16/2017 Status: F Source: [facility] 5:49 AM [facility] REPOSITORY TYPE CODE TESTS RESULT OUT OF REFERENCE UNITS RANGE LAB PT(LOINC) 9.0-14.5 seconds Protime 11.2 Result Comment: Effective 09/21/07, Protime results may be affected by some antibiotics (i.e. Ciprofloxacin, Azithromycin, Bactrim) which may potentiate the action of oral anticoagulants, with further increases in Protime/INR. LAB INR(LOINC) ratio PT International Ratio 1.0 Result Comment: [employer] [place] [employer] (CHEST, 1992, 102:[id number]-25S) recommended therapeutic range for oral anticoagulant therapy is: LOW RISK: Prophylaxis of venous thrombosis INR: 2.0-3.0 Treatment of pulmonary embolism 2.0-3.0 Prevention of systemic embolism 2.0-3.0 HIGH RISK: Mechanical prosthetic valves 2.5-3.5 Performed By: #### PRO, BMP, GFR #### [place] [id number] BMP Collected: 12/16/2017 Status: F Source: [facility] 5:49 AM [facility] REPOSITORY TYPE CODE TESTS RESULT OUT OF REFERENCE UNITS RANGE LAB GLU(LOINC) 82-115 mg/dL Glucose High Level 156 LAB NA(LOINC) 136-145 mEq/L Sodium Level 136 LAB K(LOINC) 3.5-5.0 mEq/L Potassium Level 4.5 LAB CL(LOINC) 98-110 mEq/L Chloride 101 LAB CO2(LOINC) 22-32 mEq/L CO2 23 LAB EBAL(LOINC 4.0-15.0 mEq/L ) Electrolyte Balance 12.0 LAB BUN(LOINC) 8.0-22.0 mg/dL BUN High 51.0 LAB CRE(LOINC) 0.50-1.20 mg/dL Creatinine High Lvl (s) 4.23 LAB BC(LOINC) 10.0-22.0 ratio BUN/Creatinine 12.1 Ratio LAB CA(LOINC) 8.4-10.1 mg/dL Calcium Lvl 8.5 Performed By: #### PRO, BMP, GFR #### [address] [address] .GFR Collected: 12/16/2017 Status: F Source: [facility] 5:49 AM [facility] REPOSITORY TYPE CODE TESTS RESULT OUT OF REFERENCE UNITS RANGE LAB GFRAA(LOINC ml/min/1.73 ) sqm GFR 12 [place] Result Comment: GFR Population mean for , Non- Americans Ages 20-29 = 116 mL/min/1.73 sq.m. Ages 30-39 = 107 mL/min/1.73 sq.m. Ages 40-49 = 99 mL/min/1.73 sq.m. Ages 50-59 = 93 mL/min/1.73 sq.m. Ages 60-69 = 85 mL/min/1.73 sq.m. Ages 70+ = 75 mL/min/1.73 sq.m. Chronic Kidney Disease: Less than 60 mL/min/1.73 square meters End Stage Renal Disease: Less than 15 mL/min/1.73 square meters LAB GFRNO(LOINC) ml/min/1.73sqm GFR Non- 10 Result Comment: GFR Population mean for , Non- Americans Ages 20-29 = 116 mL/min/1.73 sq.m. Ages 30-39 = 107 mL/min/1.73 sq.m. Ages 40-49 = 99 mL/min/1.73 sq.m. Ages 50-59 = 93 mL/min/1.73 sq.m. Ages 60-69 = 85 mL/min/1.73 sq.m. Ages 70+ = 75 mL/min/1.73 sq.m. Chronic Kidney Disease: Less than 60 mL/min/1.73 square meters End Stage Renal Disease: Less than 15 mL/min/1.73 square meters Performed By: #### PRO, BMP, GFR #### [address] [address] CBC Collected: 12/15/2017 Status: F Source: [facility] 7:26 AM [facility] REPOSITORY TYPE CODE TESTS RESULT OUT OF REFERENCE UNITS RANGE LAB WBC(LOINC) 4.50-10.80 10 3/mcL WBC 8.70 LAB RBCCT(LOINC 4.10-5.30 10 6/mcL ) Low RBC 2.80 LAB HGB(LOINC) 12.0-16.0 G/dL Low Hgb 9.2 LAB HCT(LOINC) 34.0-46.0 % Low Hct 27.7 LAB MCV(LOINC) 80.0-99.0 fL MCV 98.9 LAB MCH(LOINC) 27.0-33.0 pg MCH 32.9 LAB MCHC(LOINC) 32.0-36.0 G/dL MCHC 33.2 LAB RDW(LOINC) 11.5-15.5 % High RDW 15.9 LAB PLT(LOINC) 150-450 10 3/mcL Low Platelet 130 LAB MPV(LOINC) 6.6-10.5 fL MPV 10.2 Performed By: #### CBC, ADIFF, ANEU, BMP, GFR #### [address] [address] .AUTO DIFF Collected: 12/15/2017 Status: F Source: [facility] 7:26 AM [facility] REPOSITORY TYPE CODE TESTS RESULT OUT OF REFERENCE UNITS RANGE LAB JAMES(LOINC) 50.0-75.0 % Neutrophil % 69.7 LAB LYM(LOINC) 20.0-40.0 % Low Lymphocyte % 16.8 LAB MON(LOINC) 2.0-13.0 % Monocyte % 8.1 LAB EO(LOINC) 0.0-6.0 % Eosinophil % 4.8 LAB BAS(LOINC) 0.0-2.5 % Basophil % 0.6 LAB ABLYM(LOIN 0.90-4.32 10 3/mcL C) Lymphocyte, 1.50 Absolute LAB BEN(LOINC 0.09-1.40 10 3/mcL ) Monocyte, 0.70 Absolute LAB AEOS(LOINC 0.00-0.65 10 3/mcL ) Eosinophil, 0.40 Absolute LAB ABAS(LOINC 0.00-0.27 10 3/mcL ) Basophil, 0.10 Absolute Performed By: #### CBC, ADIFF, ANEU, BMP, GFR #### [place] [address] .NEUABS Collected: 12/15/2017 Status: F Source: [facility] 7:26 [facility] REPOSITORY TYPE CODE TESTS RESULT OUT OF REFERENCE UNITS RANGE LAB ANEU(LOINC) 2.25-8.10 10 3/mcL Neutrophil, 6.00 Absolute Performed By: #### CBC, ADIFF, ANEU, BMP, GFR #### [place] [address] BMP Collected: 12/15/2017 Status: F Source: [facility] 7:26 [facility] REPOSITORY TYPE CODE TESTS RESULT OUT OF REFERENCE UNITS RANGE LAB GLU(LOINC) 82-115 mg/dL Glucose High Level 367 LAB NA(LOINC) 136-145 mEq/L Low Sodium Level 132 LAB K(LOINC) 3.5-5.0 mEq/L Potassium High Level 5.7 LAB CL(LOINC) 98-110 mEq/L Chloride 99 LAB CO2(LOINC) 22-32 mEq/L Low CO2 21 LAB EBAL(LOINC 4.0-15.0 mEq/L ) Electrolyte Balance 12.0 LAB BUN(LOINC) 8.0-22.0 mg/dL BUN High 83.0 LAB CRE(LOINC) 0.50-1.20 mg/dL Creatinine High Lvl (s) 5.59 LAB BC(LOINC) 10.0-22.0 ratio BUN/Creatinine 14.8 Ratio LAB CA(LOINC) 8.4-10.1 mg/dL Calcium Lvl 8.4 Performed By: #### MARCO ANTONIO, ADIFF, ANEU, BMP, GFR #### [address] [address] .GFR Collected: 12/15/2017 Status: F Source: [facility] 7:26 AM [facility] REPOSITORY TYPE CODE TESTS RESULT OUT OF REFERENCE UNITS RANGE LAB GFRAA(LOINC ml/min/1.73 ) sqm GFR 9 [place] [employer] Result Comment: GFR Population mean for , Non- Americans Ages 20-29 = 116 mL/min/1.73 sq.m. Ages 30-39 = 107 mL/min/1.73 sq.m. Ages 40-49 = 99 mL/min/1.73 sq.m. Ages 50-59 = 93 mL/min/1.73 sq.m. Ages 60-69 = 85 mL/min/1.73 sq.m. Ages 70+ = 75 mL/min/1.73 sq.m. Chronic Kidney Disease: Less than 60 mL/min/1.73 square meters End Stage Renal Disease: Less than 15 mL/min/1.73 square meters LAB GFRNO(LOINC) ml/min/1.73sqm GFR Non- 7 Result Comment: GFR Population mean for , Non- Americans Ages 20-29 = 116 mL/min/1.73 sq.m. Ages 30-39 = 107 mL/min/1.73 sq.m. Ages 40-49 = 99 mL/min/1.73 sq.m. Ages 50-59 = 93 mL/min/1.73 sq.m. Ages 60-69 = 85 mL/min/1.73 sq.m. Ages 70+ = 75 mL/min/1.73 sq.m. Chronic Kidney Disease: Less than 60 mL/min/1.73 square meters End Stage Renal Disease: Less than 15 mL/min/1.73 square meters Performed By: #### CBC, ADIFF, ANEU, BMP, GFR #### [address] [address] CBC Collected: 12/14/2017 Status: F Source: [facility] 3:21 PM [facility] REPOSITORY TYPE CODE TESTS RESULT OUT OF REFERENCE UNITS RANGE LAB WBC(LOINC) 4.50-10.80 10 3/mcL WBC 9.10 LAB RBCCT(LOINC 4.10-5.30 10 6/mcL ) Low RBC 3.33 LAB HGB(LOINC) 12.0-16.0 G/dL Low Hgb 10.7 LAB HCT(LOINC) 34.0-46.0 % Low Hct 32.1 LAB MCV(LOINC) 80.0-99.0 fL MCV 96.4 LAB MCH(LOINC) 27.0-33.0 pg MCH 32.3 LAB MCHC(LOINC) 32.0-36.0 G/dL MCHC 33.5 LAB RDW(LOINC) 11.5-15.5 % RDW 15.4 LAB PLT(LOINC) 150-450 10 3/mcL Platelet 158 LAB MPV(LOINC) 6.6-10.5 fL MPV 10.0 Performed By: #### CBC, ADIFF, ANEU, BMP, GFR, TROPI #### [place] [address] .AUTO DIFF Collected: 12/14/2017 Status: F Source: [facility] 3:21 [facility] [place] REPOSITORY TYPE CODE TESTS RESULT OUT OF REFERENCE UNITS RANGE LAB JAMES(LOINC) 50.0-75.0 % High Neutrophil % 76.2 LAB LYM(LOINC) 20.0-40.0 % Low Lymphocyte % 13.2 LAB MON(LOINC) 2.0-13.0 % Monocyte % 6.3 LAB EO(LOINC) 0.0-6.0 % Eosinophil % 3.8 LAB BAS(LOINC) 0.0-2.5 % Basophil % 0.5 LAB ABLYM(LOIN 0.90-4.32 10 3/mcL C) Lymphocyte, 1.20 Absolute LAB BEN(LOINC 0.09-1.40 10 3/mcL ) Monocyte, 0.60 Absolute LAB AEOS(LOINC 0.00-0.65 10 3/mcL ) Eosinophil, 0.30 Absolute LAB ABAS(LOINC 0.00-0.27 10 3/mcL ) Basophil, 0.00 Absolute Performed By: #### CBC, ADIFF, ANEU, BMP, GFR, TROPI #### [address] [address] .NEUABS Collected: 12/14/2017 Status: F Source: [facility] 3:21 PM [facility] REPOSITORY TYPE CODE TESTS RESULT OUT OF REFERENCE UNITS RANGE LAB ANEU(LOINC) 2.25-8.10 10 3/mcL Neutrophil, 6.90 Absolute Performed By: #### CBC, ADIFF, ANEU, BMP, GFR, TROPI #### [place] [address] BMP Collected: 12/14/2017 Status: F Source: [facility] 3:21 [facility] [place] REPOSITORY TYPE CODE TESTS RESULT OUT OF REFERENCE UNITS RANGE LAB GLU(LOINC) 82-115 mg/dL Glucose High Level 284 LAB NA(LOINC) 136-145 mEq/L Low Sodium Level 133 LAB K(LOINC) 3.5-5.0 mEq/L Potassium Level 5.0 LAB CL(LOINC) 98-110 mEq/L Low Chloride 97 LAB CO2(LOINC) 22-32 mEq/L CO2 22 LAB EBAL(LOINC 4.0-15.0 mEq/L ) Electrolyte Balance 14.0 LAB BUN(LOINC) 8.0-22.0 mg/dL BUN High 98.0 LAB CRE(LOINC) 0.50-1.20 mg/dL Creatinine High Lvl (s) 5.91 LAB BC(LOINC) 10.0-22.0 ratio BUN/Creatinine 16.6 Ratio LAB CA(LOINC) 8.4-10.1 mg/dL Calcium Lvl 8.5 Performed By: #### CBC, ADIFF, ANEU, BMP, GFR, TROPI #### [address] [address] .GFR Collected: 12/14/2017 Status: F Source: [facility] 3:21 [facility] [place] REPOSITORY TYPE CODE TESTS RESULT OUT OF REFERENCE UNITS RANGE LAB GFRAA(LOINC ml/min/1.73 ) sqm GFR 8 [place] Result Comment: GFR Population mean for , Non- Americans Ages 20-29 = 116 mL/min/1.73 sq.m. Ages 30-39 = 107 mL/min/1.73 sq.m. Ages 40-49 = 99 mL/min/1.73 sq.m. Ages 50-59 = 93 mL/min/1.73 sq.m. Ages 60-69 = 85 mL/min/1.73 sq.m. Ages 70+ = 75 mL/min/1.73 sq.m. Chronic Kidney Disease: Less than 60 mL/min/1.73 square meters End Stage Renal Disease: Less than 15 mL/min/1.73 square meters LAB GFRNO(LOINC) ml/min/1.73sqm GFR Non- 7 Result Comment: GFR Population mean for , Non- Americans Ages 20-29 = 116 mL/min/1.73 sq.m. Ages 30-39 = 107 mL/min/1.73 sq.m. Ages 40-49 = 99 mL/min/1.73 sq.m. Ages 50-59 = 93 mL/min/1.73 sq.m. Ages 60-69 = 85 mL/min/1.73 sq.m. Ages 70+ = 75 mL/min/1.73 sq.m. Chronic Kidney Disease: Less than 60 mL/min/1.73 square meters End Stage Renal Disease: Less than 15 mL/min/1.73 square meters Performed By: #### CBC, ADIFF, ANEU, BMP, GFR, TROPI #### [address] [address] TROPI Collected: 12/14/2017 Status: F Source: [facility] 3:21 PM [facility] REPOSITORY TYPE CODE TESTS RESULT OUT OF REFERENCE UNITS RANGE LAB TROPI(LOINC 0.000-0.040 ng/mL ) Troponin I 0.019 Result Comment: Troponin I reference ranges (11/14/13): 0.00-0.040 ng/mL Negative and non-diagnostic. >0.040 ng/mL Consistent with cardiac damage, increased clinical risk and possibility of myocardial infarction. Serial measurements, a rise & fall in test results, clinical history, appropriate symptoms and/or ECG changes may help assess possibility of TX. *Other non-acute coronary syndrome conditions such as CHF, myocarditis, pulmonary emboli, sepsis and cardiac surgery could result in myocardial damage and increased troponin levels. Performed By: #### CBC, ADIFF, ANEU, BMP, GFR, TROPI #### [address] [address] XR CHEST 1 VIEW Observed: 12/14/2017 Status: F Source: [facility] 2:54 PM [facility] REPOSITORY ORIGINAL Portable Chest x-ray Clinical Statement: chest pain Comparison: None There is a LEFT jugular central catheter extending to the RIGHT atrium. The cardiac silhouette is moderately enlarged. Slight interstitial prominence noted, but no consolidation, pleural effusion, or pneumothorax. IMPRESSION: Moderately prominent cardiac silhouette. Slight interstitial prominence. Minimal congestion not excluded. Interpreted By: Colby Steele DO Preliminary Report By: Colby Steele DO Electronically Signed By: Colby Steele DO Dictated Date: 12/14/2017 3:21:18 PM Prelim Date: 12/14/2017 3:21:18 PM Sign Date: 12/14/2017 3:22:32 PM OPERATIVE REPORT Observed: 12/12/2017 Status: F Source: [place] 7:50 AM [facility] REPOSITORY [facility] Medical Records Department [address] [place] [address] Operative Report 12/11/17 1517 MR#: [id number] Acct: [id number] Name: LIN MORALEZ Rep #: [id number] : 1945 72 From: Sukh Samuel MD PCP: Sangeeta Koenig MD Status: REG CLI Y Location: [facility] Problem List (1) Problem with dialysis access Status: Acute Qualifiers: Encounter type: initial encounter Qualified Code(s): T82.898A - Other specified complication of vascular prosthetic devices, implants and grafts, initial encounter Report of Operation Date of Procedure: 12/11/17 Pre-Operative Diagnosis: 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 6 x 4 conquest angioplasty peripheral and central Description of Surgical Findings:: Timeout informed consent was obtained. 72-year-old female was taken to special procedures lab. Throughout the procedure and to aliquots she received 100 mcg of fentanyl and she received 1 mg Versed. The right extremity sterilely prepped draped. Ultrasound was used to identify the cephalic vein in the mid upper arm. 2% lidocaine was instilled. Retrograde with flow micropunch needle inserted micropuncture wire inserted 6 Guyanese short sheath was inserted. I was able to get the guidewire into the brachial artery. I placed a 4 Guyanese glide cath. Using Isovue performed official gram demonstrating thrombus involving the fistula. So then under ultrasound guidance I was able to get antegrade flow closer to the antecubital space with the same micropuncture needle wire and then a 6 Guyanese short sheath dilator. TPA 10 mg and 50 cc was used with a power pulse spray 6 Guyanese solent Omni AngioJet catheter. 12 time was 25 minutes. Then AngioJet thrombolysis of the entire length of the fistula was performed. Then 6 x 4 conquest angioplasty and the entire length was performed. A fistulogram demonstrated 50% residual stenosis of the cephalic vein at the cephalic arch. I was able to perform angioplasty of the cephalic vein subclavian vein junction with good results. The proximal portion of the fistula at the arterial anastomosis was also treated. There is evidence of still residual thrombus within the proximal 15 cm of the fistula. This was retreated with the AngioJet. Retreated with balloon angioplasty. Resumption of flow was achieved however not ideally as there was still diffuse thrombus. At this point as the patient is a renal dialysis patient. A total of 100 cc was used for the AngioJet. At the completion I felt that I had performed as much as I could for this fistula. Sheath removed few sutures of 4-0 nylon was placed. Doppler demonstrated flow through the fistula. I elected not to attempt further intervention. It is of note that during the procedure sooner sheaths were in the patient received 5000 units of heparin and then throughout the procedure in aliquots additional 1000 units of heparin and additional 1000 units of heparin. I was not able to check a CTs as I could not get free flow until nearly the completion of the procedure. Images demonstrate a right extremity brachiocephalic arteriovenous fistula. There is evidence of thrombus throughout the fistula subsequent to the treatment there was marked improved flow from the mid upper arm centrally although there is an area of at least 50% reveals residual stenosis at the cephalic arch. There is significant thrombus within the proximal 15 cm of the fistula with residual area of 60% stenosis despite thrombolysis and angioplasty. Current plan is hopeful to establish flow long enough to re- create a new fistula. The patient is aware that she may require tunneled dialysis catheters. Estimated blood loss minimal. Specimens none. Drains none. She tolerated the procedure well was taken to the recovery area in sagittal condition. Sukh Samuel M.D., F.A.C.S. Type of Anesthesia:: IV Sedation 12/12/17 0750 <Electronically signed by Sukh Samuel MD> Date Sukh Samuel MD CC: Sangeeta Koenig MD; Sukh Samuel MD Signed POTASSIUM Collected: 12/11/2017 Status: F Source: [place] 2:55 PM [facility] REPOSITORY TYPE CODE TESTS RESULT OUT OF RANGE REFERENCE UNITS LAB L501.5600 3.5-5.1 mmol/L Normal K 4.5 Result Comment: Moderate Hemolysis, Result may be falsely increased. Performed By: #### L501.5600 #### [facility] [address] [place], [address] CBC-COMPLETE BLOOD CNT Collected: 12/11/2017 Status: F Source: [facility] NO DIFF 10:02 AM [facility] REPOSITORY TYPE CODE TESTS RESULT OUT OF RANGE REFERENCE UNITS LAB L100.1000 4.4-11.0 K/mm3 Normal WBC 9.0 LAB L100.1200 4.2-5.4 M/mm3 Low RBC 3.41 LAB L100.1300 12.0-15.0 g/dl Low HGB 10.6 LAB L100.1400 37-47 % Low HCT 34.0 LAB L100.1500 81-99 fL High MCV 99.7 LAB L100.1600 27.0-32.0 pg Normal MCH 31.1 LAB L100.1700 32-36 g/gl Low MCHC 31.2 LAB L100.1810 11.6-14.6 % High RDW CV 15.0 LAB L100.1820 35.1-43.9 fl High RDW SD 53.9 LAB L100.1900 150-450 K/mm3 Normal PLT 216 LAB L100.2000 6.2-12.0 fl Normal MPV 12.0 Performed By: #### L100.0500, L500.2500 #### [facility] [address] [facility] [place], [place], [id number] BASIC METABOLIC Collected: 12/11/2017 Status: F Source: [facility] PROFILE (BMP) 10:02 AM [facility] REPOSITORY TYPE CODE TESTS RESULT OUT OF RANGE REFERENCE UNITS LAB L501.0100 74-106 mg/dL High GLU 370 Result Comment: Glucose result greater than or equal to 200 mg/dL suggests DIABETES MELLITUS per A.D.A. criteria. Please note revised GLUCOSE reference range effective 2017. LAB L501.1000 7-18 mg/dL High BUN 61 LAB L501.1100 0.55-1.02 mg/dL High CREAT,SERUM 5.27 Result Comment: The validity of the calculated GFR AND GFRAA in patients over 70 years has not been determined. Clinical correlation is essential. LAB L501.1110 >60 mL/min Low EST GFR 9 Result Comment: Non- GFR Calc LAB L501.1115 >60 mL/min Low EST GFR - AA 10 Result Comment: GFR Calc LAB L501.1300 10-20 RATIO Normal BUN/CRE 11.6 LAB L501.2200 8.5-10.1 mg/dL CA Normal 8.7 LAB L501.5300 136-145 mmol/L Low NA 130 LAB L501.5600 3.5-5.1 mmol/L K Normal 5.1 LAB L501.5900 98-107 mmol/L Low CL 92 LAB L501.6100 21.0-32.0 mmol/L Normal CO2 28.0 LAB L501.6200 5-15 Normal GAP 10 Performed By: #### L100.0500, L500.2500 #### [facility] [address] [facility] [facility] [place], [address] PROTHROMBIN TIME W/INR Collected: 12/11/2017 Status: F Source: [facility] 10:02 AM [facility] REPOSITORY TYPE CODE TESTS RESULT OUT OF RANGE REFERENCE UNITS LAB L300.4150 11.7-14.9 SECONDS Normal PROTIME 12.6 LAB L300.4200 Normal INR 0.9 Performed By: #### L300.3900, L300.4310 #### [facility] [address] [place], [address] PARTIAL THROMBOPLAST Collected: 12/11/2017 Status: F Source: [facility] TIME 10:02 AM [facility] REPOSITORY TYPE CODE TESTS RESULT OUT OF RANGE REFERENCE UNITS LAB L300.4310 24.1-36.2 Seconds Normal PTT 30.5 Performed By: #### L300.3900, L300.4310 #### [facility] [address] [place], [address] SURGERY VISIT REPORT Observed: 12/11/2017 Status: F Source: [facility] 9:55 AM [facility] REPOSITORY [facility] [address] [place] [address] OFFICE VISIT Date of Service: 12/11/17 MR#: [id number] Acct: [id number] Name: LIN MORALEZ Rep #: [id number] : 1945 Provider: Sukh Samuel MD Age/Sex: 72/F Location: [facility] Status: Signed Intake Vital Signs12/11/17 Height 5 ft 4 in 12/11/17 Weight: 155 lb 2 oz 12/11/17 Body Mass Index (BMI) 26.6 12/11/17 Blood Pressure 189/67 H Intake Visit Reasons: fistula clotted Chief Complaint: clotted fistula Attorney At Law Required: No Is patient in pain?: No Allergies aztreonam [From Azactam] Allergy (Verified 12/11/17 09:41) Itching Sulfa (Sulfonamide Antibiotics) Allergy (Verified 12/11/17 09:41) Itching Medications Acetaminophen 1,000 mg PO Q6H PRN 06/11/16 [History Confirmed 08/19/17] Insulin Aspart [Novolog Flexpen] 10 units SC TIDCM 06/11/16 [History Confirmed 08/19/17] Insulin Detemir [Levemir Flextouch] 26 unit SQ BID 06/11/16 [History Confirmed 08/19/17] Lactobacillus Acidophilus [Acidophilus] 1 ea PO DAILY 06/11/16 [History Confirmed 08/19/17] Levothyroxine [Synthroid] 100 mcg PO DAILY 06/11/16 [History Confirmed 08/19/17] Metoprolol Tartrate [Lopressor (beta maria esther)] 25 mg PO DAILY 06/11/16 [History Confirmed 08/19/17] Multivitamin [Multiple Vitamins] 1 ea PO DAILY 06/11/16 [History Confirmed 08/19/17] traMADol [Ultram] 50 mg PO Q8H PRN PRN 06/11/16 [History Confirmed 08/19/17] Docusate Sodium [Colace] 200 mg PO BID PRN PRN #0 cap 06/13/16 [Rx Confirmed 08/19/17] Calcium Acetate [Phoslo Gel Cap] 667 mg PO TIDCM 01/02/17 [History Confirmed 08/19/17] Furosemide [Lasix] 80 mg PO DAILY 01/02/17 [History Confirmed 08/19/17] Ipratropium [place] 15 ml NS Q6H PRN PRN 01/02/17 [History Confirmed 08/19/17] Metolazone [Zaroxolyn] 5 mg PO DAILY 01/02/17 [History Confirmed 08/19/17] Quinapril HCl [Accupril] 5 mg PO DINNER 01/02/17 [History Confirmed 08/19/17] Hydrocodone Bitart/Apap 5-325 [[place] 5MG-325MG] 1 tab PO Q6H PRN PRN #5 tab 01/08/17 [Rx Confirmed 08/19/17] Is last menstrual period known: No Post menopausal: Yes Patient : No PFSH Medical History CHF (congestive heart failure) (Acute) ESRD (end stage renal disease) (Acute) Sepsis (Acute) Pneumonia (Acute) CKD stage 5 secondary to hypertension (Acute) Anemia, chronic disease (Chronic) DM2 (diabetes mellitus, type 2) (Chronic) Hypothyroidism (Chronic) HLD (hyperlipidemia) (Chronic) Breast cancer (Chronic) HTN (hypertension) (Chronic) Systolic CHF (Chronic) Cardiomyopathy (Chronic) Hyponatremia (Chronic) Pulmonary HTN (Chronic) CKD (chronic kidney disease) stage 4, GFR 15-29 ml/min (Chronic) s/p dialysis catheter removal (Acute) Surgical History H/O arteriovenostomy for renal dialysis (Acute 01/08/17) history of fistulogram (Acute) Social History Smoking Status: Never smoker HPI HPI HPI: LIN MORALEZ, is a 72 F who presents to the office today for acute thrombosis of her right upper extremity brachiocephalic arteriovenous fistula. March 2017 and August 2017 I performed fistulogram. She had a venous stenosis close to the arterial anastomosis and she had a venous outflow stenosis. On this occasion her last dialysis was 2 days ago. She ran on yellow. There is also additional evidence that they extravasated her. She now is completely thrombosed ROS General General: Yes fatigue and breast cancer; no weight change, appetite, colon cancer or weakness HEENT HEENT: No difficulty swallowing, eye injury, eye surgery, swollen glands or hoarseness Endo Endocrine: Yes thyroid disease and diabetes mellitus; no thyroid cancer, Hair loss, heat intolerance or cold intolerance Musc Musculoskeletal: Yes arthritis; no back problems, rheumatoid arthritis, gout or joint pain Cardio Cardiovascular: Yes high blood pressure; no murmur, pacemaker, heart disease, atrial fibrillation, heart attack, heart stent, palpitations, shortness of breat with exertion or chest pain Additional Details: cardiomyopathy, CHF Resp Respiratory: No shortness of breath, No sleep apnea, No cough, No COPD, No asthma, No emphysema, No wheezing Ross Hematologic: No blood thinners, No blood disorders, No bleeding, Yes anemia, No blood clots Neuro Neurologic: No weakness Exam Const General: cooperative, healthy appearing, comfortable Nutritional Appearance: average body habitus Eyes General: appearance normal, both eyes and all related structures Resp Effort AND Inspection: normal respiratory effort Auscultation: clear to auscultation bilaterally Cardio Rate: regular rate Rhythm: regular rhythm Heart Sounds: no murmurs GI Palpation: soft Extrem Other: Right upper extremity brachiocephalic arteriovenous fistula completely thrombosed. There is evidence of a small amount of flow close to the arterial anastomosis Assessment AND Plan Problems 1. Problem with dialysis access, subsequent encounter T82.084D Plan I have discussed treatment options with the patient. I would prefer not to completely abandon this right upper extremity fistula. I propose for her an attempt at salvage. I propose a right upper extremity fistulogram with thrombolysis and AngioJet. The patient is aware of the benefit risk palpitations alternatives. She is aware of potential failure. She is aware if that is the case then future hemodialysis catheters would need to be placed. I would not be able to place him the same day due to a thrombolysis. She has had an opportunity to ask and have questions answered. We will proceed as noted. Sukh Samuel M.D., F.A.C.S. Orders Orders: Coding Level of Care Code Off vis,est,level 2 Diagnoses Problem with dialysis access, subsequent encounter T82.898D Encounter type: subsequent encounter 12/11/17 0955 <Electronically signed by Sukh Samuel MD> Date Sukh Samuel MD Cosigner Signature: Date (if applicable) CC: ABD INC DECUB Observed: 11/04/2017 Status: F Source: [place] AND/OR ERECT 4:22 PM [facility] Imaging Services [address] [place] [address] Abd Inc Decub and/or Erect MR#: [id number] Acct: [id number] Name: LIN MORALEZ Rep #: [id number] : 1945 F 72 From: Stu Omalley MD PCP: Sangeeta Koenig MD Status: REG CLI Study: Abd Inc Decub and/or Erect Date of Exam: 11/04/17 Exam# [id number] Ordering Dr: Sangeeta Koenig MD STUDY: X-RAY - ABDOMEN/PELVIS REASON FOR EXAM: Female, 72 years old. LEFT SIDED ABDOMINAL PAIN, CONSTIPATION TECHNIQUE: AP supine and upright views of the abdomen and pelvis. COMPARISON: None. FINDINGS: Normal visualized lung bases. Healed pelvic bone fractures. There is a moderate amount of colonic fecal material. There is no demonstrated free abdominal air. The visualized liver, spleen and kidneys are grossly normal in size and morphology. Normal soft tissue structures. There are diffuse degenerative changes of the visualized lumbar spine. RAD/Abd Inc Decub and/or Erect IMPRESSION: Constipation. Electronically Signed: Stu Omalley MD at 19:24 EDT , Service support , CC: Sangeeta Koenig MD Bark Tanner: Signed DOWNTIME REPORT Observed: 08/27/2017 Status: F Source: [place] 12:14 PM [facility] Medical Records Department [address] [place] [address] Downtime Report MR#: [id number] Acct: [id number] Name: LIN MORALEZ Rep #: [id number] : 1945 72 From: Nikhil Soler PCP: Arya PATEL,Sangeeta Status: REG RCR This patient was seen during an EMR downtime August 10, 2017 - August 17, 2017. This patient may have a combination of paper and electronic documentation or all paper documentation. All documentation is viewable within the e-chart portion of [facility] for each patient visit. OPERATIVE REPORT Observed: 08/20/2017 Status: F Source: [place] 11:51 AM [facility] Medical Records Department [address] [place] [address] Operative Report 08/20/17 1145 MR#: [id number] Acct: [id number] Name: LIN MOARLEZ Rep #: [id number] : 1945 71 From: Sukh Samuel MD PCP: Arya PATEL,Sangeeta Status[place] [facility] [place] [facility] Problem List (1) Problem with dialysis access Status: Acute Qualifiers: Encounter type: subsequent encounter Qualified Code(s): T82.898D - Other specified complication of vascular prosthetic devices, implants and grafts, subsequent encounter Report of Operation Date of Procedure: 08/20/17 Pre-Operative Diagnosis: Diminished flow right upper extremity brachial arteriovenous fistula Post-Operative Diagnosis: Proximal fistula high-grade venous stenosis. Proximal cephalic arch central venous stenosis Surgery/Procedure Performed:: Right upper extremity fistulogram with 6 x 60 mm drug-coated balloon Lutonix angioplasty of the proximal fistula of the upper arm and of the cephalic arch central venous outflow with a secondary same size balloon Description of Surgical Findings:: Timeout and informed consent was obtained. 71-year-old female was taken to the special procedures lab. She was placed on the table. 50 mcg of fentanyl 1 mg of Versed were given as intravenous sedation. The right extremity sterilely prepped draped. Ultrasound was utilized to identify the cephalic vein of the proximal right upper arm. Under ultrasound guidance 2% lidocaine was instilled as a local anesthetic. A total of 2 cc was used. A micropuncture needle was inserted retrograde with flow. Micropuncture wire inserted. 6 Guyanese short sheath dilator was inserted. Using a 035 angled Glidewire Ramer was gained to the brachial artery proximal to the anastomosis. A 4 Guyanese angled glide cath was placed. Utilizing Isovue a fistulogram was obtained of the right upper arm. This demonstrated a 4 cm long area of high-grade 90% venous stenosis. The origin of this was approximately 4 cm from the anastomosis. The Glidewire was replaced. A 6 x 60 mm Lutonix drug-coated balloon was placed. Balloon angioplasty was performed up to 18 ashia of pressure. There was one focal area of quite tight stenosis that was 90% released. Completion view demonstrated dramatic improvement. The fistulogram was completed and unfortunately this demonstrated cephalic vein arch outflow stenosis of 70% or greater. And so a secondary axis point was performed closer to the antecubital space antegrade with flow. 2% lidocaine was instilled micropuncture needle inserted micropuncture wire inserted 6 Guyanese received IV inserted. Then the angled Glidewire was placed. A 6 x 60 mm drug-coated balloon was placed. Balloon angioplasty was performed up to 14 ashia of pressure. Completion view now demonstrated dramatic improvement and near complete resolution of the venous outflow stenosis at the cephalic arch extending into the subclavian. She tolerated it well. Sheath removed. U suture is a 4-0 nylon was placed. Blood loss was minimal. No apparent complications. There was a good pulse, thrill, bruit at the completion The right upper extremity fistulogram demonstrated a high- grade 90% venous stenosis within 4 cm of the arterial anastomosis over a length of approximately 4 cm. There is resolution subsequent to angioplasty. There is a cephalic vein arch central venous outflow 70% stenosis resolved status post drug-coated balloon angioplasty. 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 Sukh Samuel M.D., F.A.C.S. Type of Anesthesia:: IV Sedation 08/20/17 1151 <Electronically signed by Sukh Samuel MD> Date Sukh Samuel MD CC: Sangeeta Koenig MD; Sukh Samuel MD Signed CBC-COMPLETE BLOOD CNT Collected: 08/20/2017 Status: F Source: [place] NO DIFF 9:25 AM [facility] TYPE CODE TESTS RESULT OUT OF RANGE REFERENCE UNITS LAB L100.1000 4.4-11.0 K/mm3 Normal WBC 7.3 LAB L100.1200 4.2-5.4 M/mm3 Low RBC 3.29 LAB L100.1300 12.0-15.0 g/dl Low HGB 10.4 LAB L100.1400 37-47 % Low HCT 33.1 LAB L100.1500 81-99 fL High MCV 100.6 LAB L100.1600 27.0-32.0 pg Normal MCH 31.6 LAB L100.1700 32-36 g/gl Low MCHC 31.4 LAB L100.1810 11.6-14.6 % High RDW CV 15.4 LAB L100.1820 35.1-43.9 fl High RDW SD 56.5 LAB L100.1900 150-450 K/mm3 Normal PLT 206 LAB L100.2000 6.2-12.0 fl Normal MPV 11.5 Performed By: #### L100.0500 #### [facility] [address] [place], [address] BASIC METABOLIC Collected: 08/20/2017 Status: F Source: [place] PROFILE (BMP) 9:25 AM [facility] TYPE CODE TESTS RESULT OUT OF RANGE REFERENCE UNITS LAB L501.0100 74-106 mg/dL High GLU 236 Result Comment: Glucose result greater than or equal to 200 mg/dL suggests DIABETES MELLITUS per A.D.A. criteria. Please note revised GLUCOSE reference range effective 2017. LAB L501.1000 7-18 mg/dL High BUN 72 LAB L501.1100 0.55-1.02 mg/dL High CREAT,SERUM 5.06 Result Comment: The validity of the calculated GFR AND GFRAA in patients over 70 years has not been determined. Clinical correlation is essential. LAB L501.1110 >60 mL/min Low EST GFR 9 Result Comment: Non- GFR Calc LAB L501.1115 >60 mL/min Low EST GFR - AA 11 Result Comment: GFR Calc LAB L501.1255 ml/min Normal Estimated CRCL 8.55 LAB L501.1300 10-20 RATIO Normal BUN/CRE 14.2 LAB L501.2200 8.5-10. mg/dL Normal 1 CA 9.0 LAB L501.5300 136-145 mmol/L Low NA 132 LAB L501.5600 3.5-5.1 mmol/L Normal K 4.7 LAB L501.5900 98-107 mmol/L Normal CL 98 LAB L501.6100 21.0-32 mmol/L Normal .0 CO2 25.0 LAB L501.6200 5-15 Normal GAP 9 Performed By: #### L500.2500 #### [facility] [address] [facility] [place], [address] PELVIS WITHOUT IV Observed: 08/05/2017 Status: F Source: [place] CONTRAST 11:25 AM [facility] Imaging Services [address] [place] [address] Pelvis without IV Contrast MR#: [id number] Acct: [id number] Name: LIN MORALEZ Rep #: [id number] : 1945 F 71 From: Mark Espinoza DO PCP: Sangeeta Koenig MD Status: REG CLI Study: Pelvis without IV Contrast Date of Exam: 08/05/17 Exam# [id number] Ordering Dr: Sangeeta Koenig MD STUDY: CT PELVIS WITHOUT CONTRAST REASON FOR EXAM: Female, 71 years old. Hip pain. Possible fracture from fall 20 years ago RADIATION DOSAGE (If Supplied By Facility): CTDIvol = ( 25.74 ) mGy, DLP = ( 711.92 ) mGycm TECHNIQUE: Transaxial imaging of the pelvis was performed with oral contrast, and without intravenous administration of contrast material. Individualized dose optimization techniques were used for this CT. COMPARISON: None. FINDINGS: No acute fracture is noted however, there are several old fractures with incomplete healing noted. There are fractures of both the inferior and superior pubic rami with incomplete callus formation. Moderate degenerative changes of both hips with superior joint space loss. Visualized pelvic contents are grossly within normal limits for age. CT/Pelvis without IV Contrast IMPRESSION: All fractures of both the inferior and superior pubic rami with incomplete callus formation/healing. No acute traumatic injury. Degenerative change of both hips Electronically Signed: Mark Espinoza DO at 11:11 EDT Tel , Service support , CC: Sangeeta Koenig MD Bark Tanner: Signed INITAL EVALUATION (1) Observed: 07/31/2017 Status: F Source: [place] - PT 3:49 PM [facility] [address] [place] [address] Fax REHABILITATION SERVICES INITIAL EVALUATION MR#: [id number] Acct: [id number] Name: LIN MORALEZ Rep #: [id number] : 1945 71 From: Charley Arriaga PT, Cert. MDT Referring Dr.: Sangeeta Koenig MD Status: REG RCR Insurance: MEDICARE PART A B [employer] Patient's Visit Information LIN MORALEZ is a 71 year old F referred to Physical Therapy by Sangeeta Koenig with a diagnosis of BACK/HIP PAIN. Date of Evaluation: 07/31/17 Physical Therapist: Charley A Cross - Visit Plan Frequency: 2-3x /Week Duration: 4-6 Weeks Plan: AQUATIC THERAPY FOR PAIN RELEIF, POSTURE CORRECTION/STRENGTHENING, INSTRUCTION IN APPROPRIATE BODY MECHANICS AND ACTIVITY MODIFICATIONS. DLS STARTING WITH A NEUTRAL SPINE PROGRESSING ROM TOLERATED. JAMILA LE ROM, STRETCHING AND STRENGTHENING. HEP INSTRUCTION. - Subjective Subjective: DX: BACK/HIP PAIN. PATIENT REPORTS SHE WENT BACK TO DR. KOENIG AND HE REFERRED HER BACK TO PT. SHE REPORTS SHE HAD X-RAYS OF HER PELVIS (IMPRESSION: Questionable lytic lesion in the right inferior pubic ramus. Further evaluation with CT scan of the pelvis is recommended. Old healed fractures of the left pubic rami and ischial tuberosity) AND LUMBAR SPINE (IMPRESSION: Mild degenerative changes at the level of L5- S1). SHE HAS A CAT SCAN PENDING July. SHE STATES DR. KOENIG TOLD HER HE WANTS HER TO KEEP THE PHYSICAL THERAPY GOING. CURRENTLY SHE REPORTS MISERY PAIN IN THE RIGHT ABDOMEN, HIP, KNEE, GROIN AND THIGH. SHE STATES IT IS MOSTLY ON THE RIGHT SIDE. SHE REPORTS SHE DID FALL DOWN HER CIRCULAR STAIRWAY A LONG TIME AGO AND THAT MIGHT HAVE RESULTED IN THE OLD PELVIC FRACTURES. SHE STATES NOTHING HAS REALLY CHANGED SINCE SHE SAW ME HERE LAST IN PT ABOUT 2 WEEKS AGO. - Objective PATIENT CAME TO PT WITH A ROLLATOR. SHE DEMONSTRATED A VERY SLOW ANTALGIC GAIT PATTERN X APPROX 300 FEET. INDEP TRANSFERS SLOW AND GUARDED. SHE IS STILL VERY UE DEPENDENT ON WALKER WHEN TRYING TO WEIGHTBEAR ON RIGHT LE. UNABLE TO TRANSFER INDEP'LY FROM SIT TO STAND WITHOUT USE OF HER UE'S AND TRANSFERING FROM CHAIR TO WALKER EVEN WITH HER HANDS IS DIFFICULT. Motor deficit: LLE STRENGTH 5/5 WITH MMT EXCEPT HIP 4/5. RIGHT LE: HIP 3-/5, KNEE EXT 4-/5, KNEE FLEX 4-/5, ANKLE DORSIFLEX 4-/5. Sensory deficit: JAMILA LE LIGHT TOUCH SENSATION IS INTACT AND SYMMETRICAL. ROM deficit: DECREASED AROM OF RIGHT HIP. SHE IS WEAK IN THE RIGHT LE KIARRA THE HIP. RIGHT HIP PASSIVE FLEXION TO 90 DEG. RIGHT HIP/GROIN PAIN WITH HIP ROM TESTING. Reflexes: 2/3 JAMILA LE'S. Dural Signs: NEGATIVE JAMILA LE'S. Lumbar mvmt loss: flex - MOD. ext - [place]. R SG - [place]. L SG - [place]. PATIENT DENIES LBP AND RIGHT LE PAIN WITH LUMBAR ROM. Core strength: POOR. Palpation: NO SPINE TENDERNESS WITH PALPATION. PATIENT IS ALSO NOT TENDER IN ILIAC CRESTS, GREATER TROCH REGIONS OR GLUTES BUT SHE HAS MUSCULAR TIGHTNESS THROUGHOUT. SHE STATES SHE HAS ALWAYS BEEN TIGHT BUT THIS IS A DIFFERENT PROBLEM. SHE IS TENDER IN THE RIGHT GROIN AND ANTERIOR HIP THOUGH. SHE APPEARS TO BE A GOOD CANDIDATE FOR AQUATIC THERAPY AND SHE IS AGREEABLE. - Goals Goal 1:: DECREASE C/O RIGHT SIDE, HIP, THIGH AND KNEE PAIN. Goal Time Frame: 4-6 Weeks Goal 2:: MPROVE STANDING, WALKING, ADL AND SLEEP FUNCTION TO RETURN TO PRIOR LEVEL OF FUNCTION AND TO BE ABLE TO TRAVEL TO [place]. Goal Time Frame: 4-6 Weeks Goal 3:: INSTRUCT IN PROPHYLAXIS/HEP Goal Time Frame: 4-6 Weeks - Rehabilitation Potential Rehabilitation Potential: Fair - Anticipated Interventions Patient/Client Instruction: Educate patient on: Condition, Plan of Care, Risk Factors, Benefits of Fitness Program For the Purpose of:: To improve self management Therapeutic Exercise to Include: Strength training, Body mechanics, Postural training, Flexibilty training, In an aquatic setting, Passive ROM, Active ROM, Dynamic Lumbar Stabilization For the Purpose of:: To decrease pain, To increase ROM, To improve muscle performance and motor function, To improve ability of physical actions for home/community/work/leisure, To decrease soft tissue restriction Thank you for the opportunity to evaluate your patient. For Medicare and Medicare HMO plans, please review the plan of care and approve it. It will need to be FAXED BACK to us at [phone] for Medicare purposes. Please let me know if there are questions or concerns regarding this plan of care. Physician Signature: Date: <Electronically signed by Charley Ariraga PT, Cert. MDT> 07/31/17 1549 CC: Sangeeta Koenig MD ARIN Signed For Medicare only, by signing this I certify the plan of care. Physicians Signature Date SURGERY VISIT REPORT Observed: 07/30/2017 Status: F Source: [place] 2:48 PM [facility] [address] [place] [address] OFFICE VISIT Date of Service: 07/30/17 MR#: [id number] Acct: [id number] Name: LIN MORALEZ Rep #: [id number] : 1945 Provider: Sukh Samuel MD Age/Sex: 71/F Location: [facility] Status: Signed Intake Vital Signs07/30/17 Height 5 ft 4 in 07/30/17 Weight: 159 lb 9 oz 07/30/17 Body Mass Index (BMI) 27.3 07/30/17 Blood Pressure 192/79 Intake Visit Reasons: decreased flows Chief Complaint: decreased flows Attorney At Law Required: No Is patient in pain?: No Allergies aztreonam [From Azactam] Allergy (Verified 07/30/17 14:15) Itching Sulfa (Sulfonamide Antibiotics) Allergy (Verified 07/30/17 14:15) Itching Medications Acetaminophen 1,000 mg PO Q6H PRN 06/11/16 [History Confirmed 03/19/17] Insulin Aspart [Novolog Flexpen] 10 units SC TIDCM 06/11/16 [History Confirmed 03/19/17] Insulin Detemir [Levemir Flextouch] 26 unit SQ BID 06/11/16 [History Confirmed 03/19/17] Lactobacillus Acidophilus [Acidophilus] 1 ea PO DAILY 06/11/16 [History Confirmed 03/19/17] Levothyroxine [Synthroid] 100 mcg PO DAILY 06/11/16 [History Confirmed 03/19/17] Metoprolol Tartrate [Lopressor (beta maria esther)] 25 mg PO DAILY 06/11/16 [History Confirmed 03/19/17] Multivitamin [Multiple Vitamins] 1 ea PO DAILY 06/11/16 [History Confirmed 03/19/17] traMADol [Ultram] 50 mg PO Q8H PRN PRN 06/11/16 [History Confirmed 03/19/17] Docusate Sodium [Colace] 200 mg PO BID PRN PRN #0 cap 06/13/16 [Rx Confirmed 03/19/17] Calcium Acetate [Phoslo Gel Cap] 667 mg PO TIDCM 01/02/17 [History Confirmed 03/19/17] Furosemide [Lasix] 80 mg PO DAILY 01/02/17 [History Confirmed 03/19/17] Ipratropium [place] 15 ml NS Q6H PRN PRN 01/02/17 [History Confirmed 03/19/17] Metolazone [Zaroxolyn] 5 mg PO DAILY 01/02/17 [History Confirmed 03/19/17] Quinapril HCl [Accupril] 5 mg PO DINNER 01/02/17 [History Confirmed 03/19/17] Hydrocodone Bitart/Apap 5-325 [[place] 5MG-325MG] 1 tab PO Q6H PRN PRN #5 tab 01/08/17 [Rx Confirmed 03/19/17] Is last menstrual period known: No Post menopausal: Yes Patient : No PFSH Medical History CHF (congestive heart failure) (Acute) ESRD (end stage renal disease) (Acute) Sepsis (Acute) Pneumonia (Acute) CKD stage 5 secondary to hypertension (Acute) Anemia, chronic disease (Chronic) DM2 (diabetes mellitus, type 2) (Chronic) Hypothyroidism (Chronic) HLD (hyperlipidemia) (Chronic) Breast cancer (Chronic) HTN (hypertension) (Chronic) Systolic CHF (Chronic) Cardiomyopathy (Chronic) Hyponatremia (Chronic) Pulmonary HTN (Chronic) CKD (chronic kidney disease) stage 4, GFR 15-29 ml/min (Chronic) s/p dialysis catheter removal (Acute) Surgical History H/O arteriovenostomy for renal dialysis (Acute 01/08/17) Social History Smoking Status: Never smoker HPI HPI HPI: LIN MORALEZ, is a 71 F who presents to the office today for surgical follow-up regarding diminished flows right upper extremity brachial to cephalic arteriovenous fistula. March 2017 I performed a right upper extremity fistulogram with a 5 x 4 Powerflex angioplasty of the proximal area of the fistula due to high-grade venous stenosis. She has been successfully dialyzed since that time. She now has diminished flow noted during her dialysis. The patient however is very upset today regarding a bed bug issue at the dialysis center. Her dialysis catheters were removed April 18, 2017. Her right upper extremity brachiocephalic AV fistula was created January 08, 2017. ROS General General: Yes fatigue and breast cancer; no weight change, appetite, colon cancer or weakness HEENT HEENT: No difficulty swallowing, eye injury, eye surgery, swollen glands or hoarseness Endo Endocrine: Yes thyroid disease and diabetes mellitus; no thyroid cancer, Hair loss, heat intolerance or cold intolerance Musc Musculoskeletal: Yes arthritis; no back problems, rheumatoid arthritis, gout or joint pain Cardio Cardiovascular: Yes high blood pressure; no murmur, pacemaker, heart disease, atrial fibrillation, heart attack, heart stent, palpitations, shortness of breat with exertion or chest pain Additional Details: cardiomyopathy, CHF Resp Respiratory: No shortness of breath, No sleep apnea, No cough, No COPD, No asthma, No emphysema, No wheezing Ross Hematologic: No blood thinners, No blood disorders, No bleeding, Yes anemia, No blood clots Neuro Neurologic: No system reviewed and no additional complaints, except as docu, No as per HPI, No abnormal walking, No abnormal hearing, No abnormal movements, No abnormal speech, No behavioral changes, No burning sensations, No confusion, No seizure-like activity, No unsteadiness, No dizziness, No localized weakness, No frequent falls, No headache(s), No lack of coordination, No loss of vision, No memory loss, No numbness, No other visual disturbances, No radiating pain, No restless legs, No sensory deficit, No fainting, No tingling, No tremor(s), No weakness, No other Exam Const General: cooperative, healthy appearing, comfortable Nutritional Appearance: overweight Orientation: alert, awake, oriented x3 [facility] Head: normal to inspection Eyes General: appearance normal, both eyes and all related structures Neck Neck: normal visual inspection Chest Chest palpation AND inspection: normal inspection of the chest Resp Effort AND Inspection: normal respiratory effort Cardio Rate: regular rate Rhythm: regular rhythm Heart Sounds: no murmurs GI Palpation: soft, no hepatosplenomegaly Skin General: no rashes or lesions noted Neuro General: CN's II-XI intact bilaterally Extrem Other: Right upper extremity brachiocephalic arteriovenous fistula has a diminished pulse, thrill, bruit. On ultrasound inspection there is diffuse venous stenosis in the proximal portion of the fistula adjacent to the arterial anastomosis Psych Affect: normal affect Assessment AND Plan Problems 1. Problem with dialysis access, subsequent encounter T82.138D Plan I am recommending the patient a right upper extremity fistula I am with endovascular intervention. I likely will utilize a drug-coated balloon. I plan to utilize ultrasound to access the fistula in the proximal upper arm retrograde with flow. She is aware of the technique, benefits, risks, alternatives. We will proceed at her discretion. Sukh Samuel M.D., F.A.C.S. Coding Level of Care Code Off vis,est,level 3 Diagnoses Problem with dialysis access, subsequent encounter T82.898D Encounter type: subsequent encounter 07/30/17 1448 <Electronically signed by Sukh Samuel MD> Date [facility] Signature: Date (if applicable) CC: Sangeeta Koenig MD L/S SPINE MIN 4 Observed: 07/24/2017 Status: F Source: [facility] 11:26 AM [facility] Imaging Services [address] [place] [id number] L/S Spine Min 4 Views MR#: [id number] Acct: [id number] Name: LIN MORALEZ Rep #: [id number] : 1945 F 71 From: Charlie Bell MD PCP: Sangeeta Koenig MD Status: REG CLI Study: L/S Spine Min 4 Views Date of Exam: 07/24/17 Exam# [id number] Ordering Dr: Sangeeta Koenig MD STUDY: X-RAY - LUMBAR SPINE REASON FOR EXAM: Female, 71 years old. Right groin pain. TECHNIQUE: 5 view(s) of the lumbar spine were obtained. COMPARISON: None FINDINGS: Normal lumbar lordosis. There is no substantial scoliosis. There is a normal alignment of the vertebrae. Mild irregularity of the endplates at the level of L5-S1 with possible mild disc space narrowing. The remainder of the disc spaces are within normal limits. There is no demonstrated fracture. There is no demonstrated spondylolysis of the pars interarticulares. There is atherosclerotic calcification of the abdominal aorta without a demonstrated aneurysm. RAD/L/S Spine Min 4 Views IMPRESSION: Mild degenerative changes at the level of L5-S1. Electronically Signed: Charlie Bell MD at 8:41 EDT Tel , Service support , CC: Sangeeta Koenig MD Bark Tanner: Signed HIPS B/L MIN 2 Observed: 07/24/2017 Status: F Source: [place] VIEWS W/ PELVIS 11:26 AM [facility] Imaging Services [address] [place] [address] Hips B/L min 2 views w/ Pelvis MR#: [id number] Acct: [id number] Name: LIN MORALEZ Rep #: [id number] : 1945 F 71 From: Charlie Bell MD PCP: Sangeeta Koenig MD Status: REG CLI Study: Hips B/L min 2 views w/ Pelvis Date of Exam: 07/24/17 Exam# [id number] Ordering Dr: Sangeeta Koenig MD STUDY: X-RAY - PELVIS AND BILATERAL HIPS REASON FOR EXAM: Female, 71 years old. Right groin pain. TECHNIQUE: Radiological exam, hip, bilateral, with pelvis when performed; minimum of 5 views COMPARISON: None. FINDINGS: There is a non-specific bowel gas pattern. There are atherosclerotic vascular calcifications of the pelvic arteries. Normal bilateral iliac wings, sacroiliac joints and visualized sacrum. There is a lucent lesion in the right inferior pubic ramus. There are old fractures of the left superior and inferior pubic rami on the left ischial tuberosity. Normal pubic symphysis. Normal visualized right femoral head. Normal right acetabulum. There is moderate articular joint space narrowing of the right hip. Normal visualized left femoral head. Normal left acetabulum. There is moderate articular joint space narrowing of the left hip. RAD/Hips B/L min 2 views w/ Pelvis IMPRESSION: Questionable lytic lesion in the right inferior pubic ramus. Further evaluation with CT scan of the pelvis is recommended. Old healed fractures of the left pubic rami and ischial tuberosity. Electronically Signed: Charlie Bell MD at 8:49 EDT Tel , Service support , CC: Sangeeta Koenig MD Bark Tanner: Signed PT D/C SUMMARY (1) Observed: 07/15/2017 Status: F Source: [place] 12:32 PM [facility] Physical Therapy [address] [place] [address] Fax REHABILITATION SERVICES DISCHARGE SUMMARY MR#: [id number] Acct: [id number] Name: LIN MORALEZ Rep #: [id number] : 1945 71 From: Charley Arriaga PT, Cert. MDT Referring Dr.: Sangeeta Koenig MD Status: REG RCR Insurance: MEDICARE PART A B [employer] - PT D/C Summary It has been my pleasure to treat LIN MORALEZ under orders from Sangeeta Koenig, for the diagnosis of R THIGH AND GLUTEAL PAIN. JAMILA TIGHT GLUTEAL M'S. PAIN IN R LEG/ABDOMEN. for a total of 9 visit(s). Discharge Date: Please see the following information for a summary of their discharge status. - Subjective Subjective: PATIENT STATES ONE DAY I THINK I'M BETTER AND THE NEXT DAY I DON'T. IT'S MISERABLE TODAY. PATIENT REPORTS SHE IS NOT WORSE THAN SHE WAS WHEN SHE FIRST STARTED THERAPY BUT SHE IS JUST NO BETTER. REPORTS SHE IS NOT GOING TO BE ABLE TO GO ON VACATION NOW BECAUSE OF THIS. SHE WAS SUPPOSED TO LEAVE THURSDAY BUT CAN'T. - Pain groin Pain Intensity (Out of 10): 9 - Objective Objective/Function: Other Observations: PATIENT CAME TO PT WITH A ROLLATOR. SHE DEMONSTRATED A VERY SLOW ANTALGIC GAIT PATTERN X APPROX 300 FEET AND REPORTS THAT THIS WALKER IS A LOT BETTER AND EASIER ON HER SHOULDERS THAN THE OTHER ONE. INDEP TRANSFER W/C TO CHAIR WITH WALKER BUT VERY SLOW AND GUARDED WITH INCREASED TRUNK FLEXION. SHE IS STILL VERY UE DEPENDENT ON WALKER WHEN TRYING TO WEIGHTBEAR ON RIGHT LE. UNABLE TO TRANSFER INDEP'LY FROM SIT TO STAND WITHOUT USE OF HER UE'S AND TRANSFERING FROM CHAIR TO WALKER EVEN WITH HER HANDS IS VERY DIFFICULT. Motor deficit: LLE STRENGTH 5/5 WITH MMT EXCEPT HIP 4/5. RIGHT LE: HIP 3-/5, KNEE EXT 4-/5, KNEE FLEX 4-/5, ANKLE DORSIFLEX 4-/5. Sensory deficit: JAMILA LE LIGHT TOUCH SENSATION IS INTACT AND SYMMETRICAL. ROM deficit: DECREASED AROM OF RIGHT HIP. SHE IS WEAK IN THE RIGHT LE KIARRA THE HIP. RIGHT HIP PASSIVE FLEXION TO 90 DEG. RIGHT HIP/GROIN PAIN WITH HIP ROM TESTING. Reflexes: 2/3 JAMILA LE'S. Dural Signs: NEGATIVE JAMILA LE'S. Lumbar mvmt loss: flex - MOD. ext - [place]. R SG - [place]. L SG - [place]. PATIENT DENIES LBP AND RIGHT LE PAIN WITH LUMBAR ROM. Core strength: POOR. Palpation: NO SPINE TENDERNESS WITH PALPATION. PATIENT IS ALSO NOT TENDER IN ILIAC CRESTS, GREATER TROCH REGIONS OR GLUTES BUT SHE HAS MUSCULAR TIGHTNESS THROUGHOUT. SHE STATES SHE HAS ALWAYS BEEN TIGHT BUT THIS IS A DIFFERENT PROBLEM. SHE IS TENDER IN THE RIGHT GROIN AND ANTERIOR HIP. - Goals Goal 1:: DECREASE C/O RIGHT GROIN PAIN Goal 2:: IMPROVE STANDING, WALKING, ADL AND SLEEP FUNCTION TO RETURN TO PRIOR LEVEL OF FUNCTION AND TO BE ABLE TO TRAVEL TO [place] IN JULY. Goal 3:: INSTRUCT IN PROPHYLAXIS/HEP - Plan Plan: D/C DUE TO LACK OF PROGRESS. RECOMMEND PHYSICIAN REASSESSMENT. - D/C Information If there are questions or concerns regarding this patient's physical therapy, please feel free to call me at [phone]. Thank you for the referral of this patient. Sincerely, Charley Arriaga <Electronically signed by Cert. AMANDA Avina PTT> 07/15/17 1232 CC: Sangeeta Koenig MD ARIN Signed INITAL EVALUATION (1) Observed: 06/18/2017 Status: F Source: [place] - PT 10:29 AM [facility] [address] [place] [address] Fax REHABILITATION SERVICES INITIAL EVALUATION MR#: [id number] Acct: [id number] Name: LIN MORALEZ Rep #: [id number] : 1945 71 From: Cert. DAY Avina PT Referring Dr.: Sangeeta Koenig MD Status: REG RCR Insurance: MEDICARE PART A B [employer] Patient's Visit Information LIN MORALEZ is a 71 year old F referred to Physical Therapy by Sangeeta Koenig with a diagnosis of R THIGH AND GLUTEAL PAIN. JAMILA TIGHT GLUTEAL M'S. PAIN IN R LEG/ABDOMEN.. Date of Evaluation: 06/18/17 Physical Therapist: Charley Arriaga - Visit Plan Frequency: 2-3x /Week Duration: 4-6 Weeks Plan: FURTHER EVALUATION OF RIGHT HIP ROM AND TRANSFERS SIT TO SUPINE AND REVERSE. RIGHT GROIN US TO TENDER AREAS. POSTURE CORRECTION/STRENGTHENING, INSTRUCTION IN APPROPRIATE BODY MECHANICS AND ACTIVITY MODIFICATIONS. DLS STARTING WITH A NEUTRAL SPINE PROGRESSING ROM TOLERATED. GENTLE RIGHT LE ROM, STRETCHING AND STRENGTHENING. GAIT TRAINING. HEP INSTRUCTION. - Subjective Subjective: Diagnosis: R THIGH AND GLUTEAL PAIN. JAMILA TIGHT GLUTEAL MUSCLES. PAIN IN R LEG. ABNORMAL GAIT. Work/Leisure: RETIRED. Disability: NO. Present symptoms: RIGHT GROIN AND FRONT OF RIGHT HIP. Present since: ABOUT 10 DAYS AGO. Pain Scale: WORST 10/10, LEAST 5/10. Currently: 8/10. Commenced as a result of: STEPPING DOWN CAREFUL POSSIBEL TO GET OUT OF THE HOUSE INTO THE GARAGE TO GO AWAY WHEN NEEDED. PATIENT REPORTS THE LIFT AT THIS STEP THAT WAS PUT IN FOR HER A LONG TIME AGO HAS BEEN BROKE FOR ABOUT 6 MONTHS. SHE USE TO USE IT HERSELF TO GET IN AND OUT OF THE HOUSE BUT NOW SHE HAS BEEN FORCED TO STEP UP AND DOWN A VERY BIG STEP. SHE REPORTS IT IS TOO EXPENSIVE TO TRY TO GET IT FIXED. Symptoms at onset: RIGHT GROIN. Worse: STEPPING UP AND DOWN, ANY SUDDEN ACTION, WALKING, STANDING, TRYING TO PUT ANY WEIGHT ON IT, GETTING IN BED, MOVING IN BED, GETTING IN/OUT OF CAR. Better: NOT TO MOVE AT ALL. MUSCLE RELAXER (TOOK IT YESTERDAY FOR THE FIRST TIME). Disturbed sleep: YES. Previous history/Previous treatment: BACK IN THE 80S FELL DOWN A LOT OF STEPS AT A PRIOR HOME AND WAS IN MISERY FOR ABOUT A MONTH IN BACK AND HIPS. EVER SINCE THEN IT HAS FLARED UP OFF AND ON AND SHE GOES TO THE CHIROPRACTOR NEEDED BUT THIS TIME THE CHIROPRACTOR DIDN'T HELP AND SHE ENDED UP IN THE EMERGENCY ROOM YESTERDAY. SHE REPORTS SHE WASN'T PRESCRIBED ANYTHING AT ED SO SHE CALLED DR. KOENIG AND HE ORDERED THE MUSCLE RELAXER. DR. KOENIG RECOMMENDED SHE TRY PT. Coughing/sneezing/straining: POSITIVE. HAS TO BRACE HERSELF TO TRY TO DECREASE THE PAIN. Gait: UNABLE TO PUT MUCH WEIGHT ON THE RIGHT LEG BECAUSE IT HURTS AND IT WON'T SUPPORT HER. HAS BEEN USING THE WALKER SINCE THE PAIN STARTED. IT WEARS ME OUT. WAS NOT USING ANY ASSISTIVE DEVICES AND WAS GETTING AROUND FINE BEFORE THIS FLARED UP. Difficulty initiating urinatin: NO. Accidents: NO OTHER ACCIDENTS. SEE FALL ABOVE. Unexplained weight loss: NO. Imaging: RIGHT HIP X-RAY - NORMAL. PMH: SEE BELOW. Recent major surgery: SEE BELOW. OTHER: GOES TO [facility] 3 TIMES A WEEK FOR 3 OR 4 HOURS. PATIENT LIVES ALONE AND DROVE HERSELF HERE TO PT TODAY. SUPPOSED TO GO TO [place] IN A MONTH. - Objective Sitting Posture: POOR. Standing Posture: POOR. AVOIDING WEIGHT ON RIGHT LE. Lordosis: REDUCED. Lateral shift: NO. Relevant shift: N/A. Active Correction of posture: MILD DECREASE IN RIGHT GROIN PAIN. Other Observations: PATIENT CAME TO PT WITH A STANDARD WALKER. SHE DEMONSTRATED A VERY SLOW ANTALGIC GAIT PATTERN AND STATED SHE WOULDN'T BE ABLE TO WALK FAR. SHE WAS BROUGHT BACK TO PT (ABOUT 300 FEET) IN A WHEELCHAIR. INDEP TRANSFER W/C TO CHAIR WITH WALKER BUT VERY SLOW AND GUARDED WITH INCREASED TRUNK FLEXION. VERY UE DEPENDENT ON WALKER WHEN TRYING TO WEIGHTBEAR ON RIGHT LE. UNABLE TO TRANSFER INDEP'LY FROM SIT TO STAND WITHOUT USE OF HER UE'S AND TRANSFERING FROM CHAIR TO WALKER EVEN WITH HER HANDS IS VERY DIFFICULT. Motor deficit: LLE STRENGTH 5/5 WITH MMT EXCEPT HIP 4/5. RIGHT LE: HIP 3-/5, KNEE EXT 4-/5, KNEE FLEX 4-/5, ANKLE DORSIFLEX 4-/5. Sensory deficit: JAMILA LE LIGHT TOUCH SENSATION IS INTACT AND SYMMETRICAL. ROM deficit: DECREASED AROM OF RIGHT HIP. SHE IS WEAK IN THE RIGHT LE KIARRA THE HIP. RIGHT HIP PASSIVE FLEXION TO 90 DEG. RIGHT HIP/GROIN PAIN WITH HIP ROM TESTING. Reflexes: 2/3 JAMILA LE'S. Dural Signs: NEGATIVE JAMILA LE'S. Lumbar mvmt loss: flex - MOD. ext - [place]. R SG - [place]. L SG - [place]. PATIENT DENIES LBP AND RIGHT LE PAIN WITH LUMBAR ROM. Core strength: POOR. Palpation: NO SPINE TENDERNESS WITH PALPATION. PATIENT IS ALSO NOT TENDER IN ILIAC CRESTS, GREATER TROCH REGIONS OR GLUTES BUT SHE HAS MUSCULAR TIGHTNESS THROUGHOUT. SHE STATES SHE HAS ALWAYS BEEN TIGHT BUT THIS IS A DIFFERENT PROBLEM. SHE IS TENDER IN THE RIGHT GROIN AND ANTERIOR HIP. - Goals Goal 1:: DECREASE C/O RIGHT GROIN PAIN Goal Time Frame: 4-6 Weeks Goal 2:: IMPROVE STANDING, WALKING, ADL AND SLEEP FUNCTION TO RETURN TO PRIOR LEVEL OF FUNCTION AND TO BE ABLE TO TRAVEL TO [place] IN JULY. Goal Time Frame: 4-6 Weeks Goal 3:: INSTRUCT IN PROPHYLAXIS/HEP Goal Time Frame: 4-6 Weeks - Rehabilitation Potential Physical Therapy Diagnosis: PHYSICIAN DX CONTINUED: ABNORMAL GAIT. Rehabilitation Potential: Fair - Anticipated Interventions Patient/Client Instruction: Educate patient on: Condition, Plan of Care, Risk Factors, Benefits of Fitness Program For the Purpose of:: To improve self management Therapeutic Exercise to Include: Strength training, Balance training, Body mechanics, Postural training, Flexibilty training, Gait and locomotor training, Passive ROM, Active ROM, Dynamic Lumbar Stabilization For the Purpose of:: To decrease pain, To increase ROM, To improve muscle performance and motor function, To improve ability to perform ADL's, To increase tolerance to activity/condition/position, To improve ability of physical actions for home/community/work/leisure, To improve gait and locomotor functions, To improve balance, To improve safety with gait Ultrasound (thermal/non thermal): Yes For the Purpose of:: To decrease pain, To decrease swelling/inflammation, To improve nutrient delivery to tissue Thank you for the opportunity to evaluate your patient. For Medicare and Medicare HMO plans, please review the plan of care and approve it. It will need to be FAXED BACK to us at [phone] for Medicare purposes. Please let me know if there are questions or concerns regarding this plan of care. Physician Signature: Date: <Electronically signed by Charley Arriaga PT, Cert. MDT> 06/18/17 1029 CC: Sangeeta Koenig MD ARIN Signed For Medicare only, by signing this I certify the plan of care. Physicians Signature Date DISCHARGE INSTRUCTION Observed: 06/17/2017 Status: F Source: [place] 11:29 AM [facility] Medical Records Department [address] [place] [address] Discharge Instruction 06/17/17 1128 MR#: [id number] Acct: [id number] Name: LIN MORALEZ Rep #: [id number] : 1945 71 From: Ranjit Zepeda MD PCP: Sangeeta Koenig MD Status: PRE ER ED Disposition - Plan for ED Patient: Chief Complaint: Lower Extremity Injury Instructions: ED Strain Groin Referrals: Sangeeta Koenig MD [Primary Care Provider] - What to do if you have Problems For any increased pain, shortness of breath, bleeding, nausea or vomiting, chest pain, or any unexpected problems, contact your Primary Care Provider. Call [facility] ([phone]) or report to the closest Emergency Room. Call 911 if necessary. 06/17/17 1129 <Electronically signed by Ranjit Zepeda MD> Date Ranjit Zepeda MD Cosigner Signature (If Indicated): Date CC: Sangeeta Koenig MD EMERGENCY DEPARTMENT Observed: 06/17/2017 Status: F Source: [place] SUMMARY 11:28 AM [facility] Medical Records Department [address] [facility] [place] [address] Emergency Department Summary 06/17/17 1125 MR#: [id number] Acct: [id number] Name: LIN MORALEZ Rep #: [id number] : 1945 71 From: Ranjit Zepeda MD PCP: Sangeeta Koenig MD Status: PRE ER - ER Visit Summary Date of Service: 06/17/17 Chief Complaint: Right groin pain History of Present Illness: The patient is a 71 F who complains of about 2 weeks of right groin pain. She stated specifically that this is not a pain pain and that she is just sore. She has had some relief with Tylenol. She recently saw her primary care physician and had a normal x-ray. She denies any weakness or paresthesias. No back pain. No urinary retention or fecal incontinence. No history of fall or injury. Review of systems otherwise negative. Physical Examination: Afebrile vitals are unremarkable Moist mucous membranes Heart regular Lungs clear Abdomen soft Patient has active full range of motion of the lower extremities she has no pain in the knee ankle or foot and she does have an easily palpable dorsalis pedis pulse with brisk capillary refill and normal sensation. She does have active full range of motion of the hip although this reproduces groin pain with logroll or flexion Back is nontender to palpation Test Results: Not indicated Emergency Department Course and Treatment: Patient's history and examination are most suggestive of a groin strain. She recently had normal x-rays. She does not have back pain or other symptoms to suggest lumbar or sacral radiculopathy. She is neurovascularly intact. There is no leg tenderness or soft tissue swelling and she has easily palpable pulses. I advised that she may benefit from physical therapy and she notes she actually has an appointment with a therapist tomorrow morning. She was advised to continue supportive care. She was instructed on specific signs and symptoms to monitor for and conditions which should prompt return here to the emergency department for reevaluation. All questions answered at bedside. Patient discharged. Treatment Plan: [] Disposition: Discharge Impression: Right groin strain This note was generated with [employer] dictation software. It may contain incorrect words, spelling, and punctuation that were not noted in review of the chart prior to signing ED Disposition - Plan for ED Patient: Chief Complaint: Lower Extremity Injury Referrals: Sangeeta Koenig MD [Primary Care Provider] - What to do if you have Problems For any increased pain, shortness of breath, bleeding, nausea or vomiting, chest pain, or any unexpected problems, contact your Primary Care Provider. Call [facility] ([phone]) or report to the closest Emergency Room. Call 911 if necessary. 06/17/17 1128 <Electronically signed by Ranjit Zepeda MD> Date Ranjit Zepeda MD Cosigner Signature (If Indicated): Date CC: Sangeeta Koenig MD HIP 2-3 VIEWS WITH Observed: 06/15/2017 Status: F Source: [place] PELVIS 4:47 PM [facility] Imaging Services [address] [place] [address] Hip 2-3 Views with Pelvis MR#: [id number] Acct: [id number] Name: LIN MORALEZ Rep #: [id number] : 1945 F 71 From: Stu Omalley MD PCP: Sangeeta Koenig MD Status: REG CLI Study: Hip 2-3 Views with Pelvis Date of Exam: 06/15/17 Exam# [id number] Ordering Dr: Sangeeta Koenig MD STUDY: X-RAY - PELVIS AND RIGHT HIP REASON FOR EXAM: Female, 71 years old. Hip pain TECHNIQUE: Radiological exam, hip, unilateral, with pelvis when performed; 2 or 3 views. COMPARISON: None. FINDINGS: There is a non-specific bowel gas pattern. Normal visualized soft tissue structures. There are atherosclerotic vascular calcifications. Normal bilateral iliac wings, sacroiliac joints and visualized sacrum. Healed fracture of the left superior and inferior pubic rami. Normal pubic symphysis. Normal bilateral ischial tuberosities. Normal visualized femoral head. Normal acetabulum. Normal hip joint. RAD/Hip 2-3 Views with Pelvis IMPRESSION: Normal x-ray examination of the pelvis and hip. Electronically Signed: Stu Omalley MD at 17:51 EDT , Service support , CC: Sangeeta Koenig MD Bark Tanner: Signed CHEST PA AND LATERAL Observed: 05/22/2017 Status: F Source: [place] 1:40 PM [facility] Imaging Services [address] [place] [address] Chest PA and Lateral MR#: [id number] Acct: [id number] Name: LIN MORALEZ Rep #: [id number] : 1945 F 71 From: Mayo Connell MD PCP: Sangeeta Koenig MD Status: REG CLI Study: Chest PA and Lateral Date of Exam: 05/22/17 Exam# [id number] Ordering Dr: Jak Metcalf MD STUDY: X-RAY CHEST REASON FOR EXAM: Female, 71 years old. Sinusitis, left- sided chest pain TECHNIQUE: PA and lateral views of the chest. COMPARISON: Prior study of 06/11/2016 FINDINGS: There is a limited inspiration. There is no demonstrated pleural abnormality. Normal size heart. Normal mediastinum and wicho. Normal visualized pulmonary arteries. There are calcified plaques of the aortic arch. There is demineralization of the osseous structures. Normal visualized ribs, clavicles, and shoulders. There is no demonstrated abnormality of the visualized soft tissue structures of the upper abdomen. RAD/Chest PA and Lateral IMPRESSION: Calcified plaques of the aortic arch. Generalized osteopenia. No acute cardiopulmonary disease process is seen. Electronically Signed: Mayo Connell MD at 22:05 EDT , Service support , CC: Sangeeta Koenig MD; Jak Metcalf MD Bark Tanner: Signed SURGERY VISIT REPORT Observed: 04/18/2017 Status: F Source: [place] 9:08 AM [facility] [address] [place] [address] OFFICE VISIT Date of Service: 04/18/17 MR#: [id number] Acct: [id number] Name: LIN MORALEZ Rep #: [id number] : 1945 Provider: Sukh Samuel MD Age/Sex: 71/F Location: [facility] Status: Signed Intake Intake Visit Reasons: dialysis cath removal Chief Complaint: dialysis cath removal Attorney At Law Required: No Is patient in pain?: No Allergies aztreonam [From Azactam] Allergy (Verified 04/18/17 08:33) Itching Sulfa (Sulfonamide Antibiotics) Allergy (Verified 04/18/17 08:33) Itching Medications Acetaminophen 1,000 mg PO Q6H PRN 06/11/16 [History Confirmed 03/19/17] Insulin Aspart [Novolog Flexpen] 10 units SC TIDCM 06/11/16 [History Confirmed 03/19/17] Insulin Detemir [Levemir Flextouch] 26 unit SQ BID 06/11/16 [History Confirmed 03/19/17] Lactobacillus Acidophilus [Acidophilus] 1 ea PO DAILY 06/11/16 [History Confirmed 03/19/17] Levothyroxine [Synthroid] 100 mcg PO DAILY 06/11/16 [History Confirmed 03/19/17] Metoprolol Tartrate [Lopressor (beta maria esther)] 25 mg PO DAILY 06/11/16 [History Confirmed 03/19/17] Multivitamin [Multiple Vitamins] 1 ea PO DAILY 06/11/16 [History Confirmed 03/19/17] TraMADol [Ultram] 50 mg PO Q8H PRN PRN 06/11/16 [History Confirmed 03/19/17] Docusate Sodium [Colace] 200 mg PO BID PRN PRN #0 cap 06/13/16 [Rx Confirmed 03/19/17] Calcium Acetate [Phoslo Gel Cap] 667 mg PO TIDCM 01/02/17 [History Confirmed 03/19/17] Furosemide [Lasix] 80 mg PO DAILY 01/02/17 [History Confirmed 03/19/17] Ipratropium [place] 15 ml NS Q6H PRN PRN 01/02/17 [History Confirmed 03/19/17] Metolazone [Zaroxolyn] 5 mg PO DAILY 01/02/17 [History Confirmed 03/19/17] Quinapril HCl [Accupril] 5 mg PO DINNER 01/02/17 [History Confirmed 03/19/17] Hydrocodone Bitart/Apap 5-325 [[place] 5MG-325MG] 1 tab PO Q6H PRN PRN #5 tab 01/08/17 [Rx Confirmed 03/19/17] Is last menstrual period known: No Post menopausal: Yes Patient : No PFSH Medical History CHF (congestive heart failure) (Acute) ESRD (end stage renal disease) (Acute) Sepsis (Acute) Pneumonia (Acute) CKD stage 5 secondary to hypertension (Acute) Anemia, chronic disease (Chronic) DM2 (diabetes mellitus, type 2) (Chronic) Hypothyroidism (Chronic) HLD (hyperlipidemia) (Chronic) Breast cancer (Chronic) HTN (hypertension) (Chronic) Systolic CHF (Chronic) Cardiomyopathy (Chronic) Hyponatremia (Chronic) Pulmonary HTN (Chronic) CKD (chronic kidney disease) stage 4, GFR 15-29 ml/min (Chronic) s/p dialysis catheter removal (Acute) Surgical History H/O arteriovenostomy for renal dialysis (Acute 01/08/17) Social History Smoking Status: Never smoker HPI HPI HPI: LIN MORALEZ, is a 71 F who presents to the office today for dialysis catheter removal from her right internal jugular Office Procedures 31048 Dialysis Catheter Removal Performed By: Procedure performed by: lida Details: Right internal jugular tunneled dialysis catheter removal Timeout and informed consent was obtained. 71-year-old female was taken to the procedure room placed on the table with head of bed slightly elevated. The right lower neck and anterior chest were sterilely prepped and draped in routine fashion with Betadine. 1% lidocaine mixed 50-50 with 0.5% Marcaine was used as local anesthetic. A total of 8 cc was used. A counter incision was created directly over the cuff. The cuff was rather deeply placed. Sharp and blunt dissection was used to identify the cuff. The catheter was circumferentially dissected free and then with direct pressure held upon the tunnel site the catheter was removed. The counterincision was closed with interrupted 3-0 chromic subdermal sutures. Steri-Strips Telfa OpSite dressings applied. She was given activity and wound care instructions. She tolerated procedure well. Minimal blood loss. Her right upper extremity brachial to cephalic arteriovenous fistula has an excellent pulse, thrill, bruit. The patient's most recent intervention was March 12, 2017 were performed a fistulogram with a 5 x 4 Powerflex angioplasty because of a 90% stenosis in the proximal 4 cm of the fistula. It appears to be functioning well. The dialysis catheters were initially placed by Dr. Akers May 15, 2016. Sukh Samuel M.D., F.A.C.S. Procedure Time Out Time Out Informed consent given: Yes Consent signed: Yes Time out checklist: patient, procedure, site marked/identified, positioning of patient, supplies available, allergies confirmed, team agrees on procedure Time out staff in room: Yes Time out verified: Yes Time out date: 04/18/17 Time out time: 08:00 Assessment AND Plan 1. Problem with dialysis access, subsequent encounter T82.158D Plan Successful removal dialysis catheter. Well-functioning right upper extremity brachial to cephalic arteriovenous fistula. Sukh Samuel M.D., F.A.C.S. Plan Detail Other Orders Orders: Coding Level of Care Code No Charge Diagnoses Problem with dialysis access, subsequent encounter T82.898D Encounter type: subsequent encounter 04/18/17 0908 <Electronically signed by Sukh Samuel MD> Date Sukh Samuel MD Cosigner Signature: Date (if applicable) CC: CBC W/DIFF, AUTOMATED Collected: 11/03/2016 Status: F Source: [place] 4:43 PM [facility] REPOSITORY TYPE CODE TESTS RESULT OUT OF RANGE REFERENCE UNITS LAB L100.1000 4.4-11.0 K/mm3 Normal WBC 8.0 LAB L100.1200 4.2-5.4 M/mm3 Low RBC 3.66 LAB L100.1300 12.0-15.0 g/dl Low HGB 11.4 LAB L100.1400 37-47 % Low HCT 36.1 LAB L100.1500 81-99 fL Normal MCV 98.6 LAB L100.1600 27.0-32.0 pg Normal MCH 31.1 LAB L100.1700 32-36 g/gl Low MCHC 31.6 LAB L100.1810 11.6-14.6 % Normal RDW CV 14.4 LAB L100.1820 35.1-43.9 fl High RDW SD 51.6 LAB L100.1900 150-450 K/mm3 Normal PLT 199 LAB L100.2000 6.2-12.0 fl Normal MPV 11.9 LAB L100.2100 47-70 % Normal NEUT% 67.2 LAB L100.2200 19-41 % Normal LY% 19.2 LAB L100.2300 0-10 % Normal MONO% 7.9 LAB L100.2400 0-5 % Normal EO% 4.8 LAB L100.2500 0-1 % Normal BASO% 0.4 LAB L100.2550 0.0-0.9 % Normal IM GRAN % 0.500 Result Comment: IG% - Immature Granulocytes (promyelocytes, myelocytes and metamyelocytes) > 1% indicates that a LEFT SHIFT is Present. LAB L100.2620 2.0-7.7 X10 3/uL Normal Absolute Neut 5.4 LAB L100.2720 0.83-4.51 X10 3/ul Normal Absolute Lymph 1.53 Performed By: #### L100.0100 #### [facility] [address] [facility]. [place], [place], [address] ALLERGIES ALLERGIES DATE TYPE / CODE NAME / CODE REACTION SEVERITY SOURCE Drug Sulfa (Sulfonamide Itching Unknown [place] 8 Allergy/809919284( Antibiotics)/S687361 [facility] SNOM[facility]) 491(RXNORM) Hospital Repository Drug aztreonam/[id number] Itching Unknown [place] 8 Allergy/690127691( (RXNORM) Community SNOM[facility]) Hospital Repository Drug Sulfa (Sulfonamide Itching [place] 7 Allergy/535001590( Antibiotics)/F036845 [facility] SNOMED CT) 491(RXNORM) Hospital Repository Drug aztreonam/[id number] Itching [place] 7 Allergy/663983627( (RXNORM) [facility] SNOMED CT) Hospital Repository DRUG CARVEDILOL RASH [place] 7 INGREDI/113932070( [facility] Main SNOMED CT) [place] Repository DRUG PHENAZOPYRIDINE HCL Mental Chg [place] 6 INGREDI/510226072( [facility] Main SNOMED CT) [place] Repository DRUG INSULIN ASPART RASH High [place] 6 INGREDI/600606518( [facility] Main SNOMED CT) [place] Repository Drug IKWNGTS-KSQ-AOT Myalgia [place] 5 Class/732327053(SN REDUCTASE INHIBITORS Clinic Main OMED CT) [place] Repository DRUG SULFAMETHOXAZOLE OTHER: SEE C Manjinder 3 INGREDI/941167032( Clinic Main SNOMED CT) [place] Repository Drug BETA-BLOCKERS [place] 3 Class/380384801(SN (BETA-ADRENERGIC Clinic Main OMED CT) BLOCKING AGTS) [place] Repository Miscellaneous OTHER [place] 8 Allergy/359031241( Clinic Main SNOMED CT) [place] Repository NG/822793014(SNOME INSULIN ASPART [facility] D [facility]) [facility] Repository NG/693396380(SNOME SULFAMETHOXAZOLE [facility] D [facility]) Health System Repository NG/842852462(SNOME BETA-BLOCKERS [facility] D [facility]) (BETA-ADRENERGIC Health System BLOCKING AGTS) Repository NG/104355081(SNOME CARVEDILOL [facility] D [facility]) Health System Repository NG/716088883(SNOME OTHER [facility] D [facility]) Health System Repository NG/481741190(SNOME PHENAZOPYRIDINE HCL [facility] D [facility]) Health System Repository NG/159877264(SNOME PSQSDGJ-DLP-TEU [facility] D CT) REDUCTASE INHIBITORS Health System Repository ENCOUNTERS ENCOUNTERS ADMIT/DISCHARGE ACCOUNT NUMBER ADMITTING ENCOUNTER LOCATION SOURCE CLASS 03/25/2018 [id number] [facility]ulatory [facility] ding:MTRAD Repository 03/22/2018/03/22/19 [id number] Ambulatory [address] Repository 03/17/2018/03/18/19 [id number] Ambulatory [address] Repository 03/17/2018/03/17/19 [id number] Ambulatory [address] Repository 03/17/2018/03/18/19 [id number] Ambulatory [address] Repository 02/17/2018 [id number] [facility] ding:MTRAD Repository 01/27/2018 [id number] [facility] ding:ACRoom: Repository JF11Eeo: 1 01/26/2018/01/27/20 [id number] Ambulatory [address] ding:CLSP Repository 01/26/2018/01/27/20 [id number] Ambulatory BMSBuilding: [place] [address] BMS.CF.[facility] Repository 01/21/2018 [id number] Ambulatory [facility] Repository 01/19/2018/01/20/20 [id number] Ambulatory BMSBuilding: [place] [address] Repository 01/04/2018 [id number] [facility] 12/31/2017 [id number] Ambulatory [facility] Repository 12/28/2017/12/30/19 [id number] Ambulatory [address] Repository 12/21/2017 [id number] [facility] ding:MTLAB Repository 12/15/2017 [id number] [facility] ding:CVS Repository 12/14/2017/12/18/19 [id number] MERCEDEZ PATEL, Ambulatory ABuilding:ME [place] 18 LOREN W 4NRoom: [place] [address]Bed: [facility] Repository 12/11/2017/12/12/19 [id number] Ambulatory [address] ding:CLSP Repository 12/11/2017/12/12/19 [id number] Ambulatory BMSBuilding: [place] 18 BMS.CF.[facility] Repository 12/11/2017 [id number] [facility] 12/11/2017 [id number] [facility] ding:PAVLAB Repository 12/11/2017/12/12/19 [id number] Ambulatory BMSBuilding: Shar[place] [address] Hospital Repository 11/04/2017 [id number] [facility] ding:MTRAD Repository 08/20/2017/08/21/19 [id number] Ambulatory [address] ding:CLSP Repository 08/20/2017 [id number] Ambulatory BMSBuilding: [place] BMS.CF.[facility] Repository 08/12/2017/08/13/19 [id number] Ambulatory [address] ding:PT Repository 08/05/2017 [id number] [facility] ding:CT Repository 07/30/2017/07/31/19 [id number] Ambulatory BMSBuilding: [place] 18 BMS.[facility] Repository 07/24/2017 [id number] [facility] ding:MTRAD Repository 07/15/2017/07/16/19 [id number] Ambulatory [address] ding:PT Repository 06/17/2017/06/18/19 [id number] Emergency [address] ding:ED Repository 06/15/2017 [id number] [facility] ding:MTRAD Repository 06/12/2017 [id number] Ambulatory [facility] MEDICAL Repository CENTERBuildi ng:CAGWS 05/22/2017 [id number] [facility] ding:MTRAD Repository 04/18/2017/04/18/19 [id number] Ambulatory BMSBuilding: [place] 18 BMS.[facility] Repository 11/03/2016 [id number] [facility] ding:MFPLAB Repository PAYERS PAYERS ENCOUNTER GUARANTOR PAYER SUBSCRIBER SOURCE 03/25/2018 LIN F Primary LIN F Shar[place] [id number] Insurance:MEDICARE PALMERDOB: [facility] PART A BPolicy Number: [id number], [place] [id number] Repository [address]Vsu: 330) Date:2018-03-25 [phone] () 03/25/2018 Secondary LIN F [place] Insurance:CIGNA MCR PALMERDOB: Community SUPPLEMENT [id number] [facility] Repository Number: [id number] Date:0074-00-31LEYQUFU N [facility] [address] [address], [place] [address]IN: 03/25/2018 Tertiary NOT GIVENUNK [place] Insurance:SELF PAY [facility] Number: Effective Repository Date:2018-03-25 02/17/2018 LIN F Primary LIN F [place] [id number] Insurance:MEDICARE PALMERDOB: [facility] PART A BPolicy Number: [id number], [place] [id number] Repository [address]Npx: (330) Date:2018-02-17 [phone] () 02/17/2018 Secondary LIN F [place] Insurance:TONO HERNANDEZB: Community SUPPLEMENT [id number] Sisters Health [facility] Repository Number: [id number] Date:1733-39-95XJWDYGI N [facility] [address] [address], [place] [address]ZC: 02/17/2018 Tertiary NOT GIVENUNK [place] Insurance:SELF PAY [facility] Number: Effective Repository Date:2018-02-17 01/27/2018 LIN F Primary LIN F [place] [id number] Insurance:MEDICARE PALMERDOB: Community [place] PART A BPolicy Number: [id number], [place] [id number] Repository [address]Qac: (330) Date:2018-01-27 [phone] () 01/27/2018 Secondary LIN F [place] Insurance:TONO HERNANDEZB: Community SUPPLEMENT [id number] Sisters Health System [facility] Repository Number: [id number] Date:9662-28-62YVSXWCD N [facility] [address] [address], [place] [address]VB: 01/27/2018 Tertiary NOT GIVENUNK Sharri Insurance:SELF PAY [facility] Number: Effective Repository Date:2018-01-27 01/26/2018 LIN F Primary LIN F [place] [id number] Insurance:MEDICARE PALMERDOB: Community [place] PART A BPolicy Number: [id number], [place] [id number] Repository [address]Vlq: (330) Date:2018-01-20 [phone] () 01/26/2018 Secondary LIN F Sharri Insurance:TONO HERNANDEZB: Community SUPPLEMENT [id number] Sisters Health [facility] Repository Number: [id number] Date:3849-97-95XYYTMED N [facility] [address] [address]RTGMBI, [place] [address]EG: 01/26/2018 Tertiary NOT GIVENUNK [place] Insurance:SELF PAY [facility] Number: Effective Repository Date:2018-01-20 01/26/2018 LIN F Primary LIN F Shar[place] [id number] Insurance:MEDICARE PALMERDOB: Community [facility] PART A BPolicy Number: [id number], [place] [id number] Repository [address]Son: 330) Date:2018-01-20 [phone] (HP) 01/26/2018 Secondary LIN F [place] Insurance:CIGNA MCR PALMERDOB: Community SUPPLEMENT [id number] Sisters Health [facility] Repository Number: [id number] Date:1244-85-69UWEUFJQ N [facility] [address] [address]FD[place]GK, [place] [address]YO: 01/26/2018 Tertiary NOT GIVENUNK [place] Insurance:SELF PAY [facility] Number: Effective Repository Date:2018-01-26 01/21/2018 LIN PALMERDOB: Primary LIN PALMERDOB: [place] Insurance:MedicarePoli [id number] cy Number: [address] [id number] [address]Vqm: [phone]) Date:Plan Name:Phyllis Walters 81831Pdq: (HP) [phone] (HP) 01/21/2018 Secondary LIN PALMERDOB: [employer] Insurance:MedicarePoli [id number] Hospitals cy Number: [address] [place] [id number] Date:Plan Name:Phyllis Bone [address]71[address]Fqr: (HP) 01/19/2018 LIN F Primary LIN F Sharri [id number] Insurance:MEDICARE PALMERDOB: Community [facility] PART A BPolicy Number: [id number], [place] [id number] Repository [address]Iar: 330) Date:2018-01-08 [phone] () 01/19/2018 Secondary LIN F Sharri Insurance:CIGNA [facility]: Community SUPPLEMENT [id number] Hospital [facility] Repository Number: [id number] Date:4802-17-74TAQGNWS N [facility] [address] [address], [place] [address]EK: 01/19/2018 Tertiary NOT GIVENUNK [place] Insurance:SELF PAY [facility] Number: Effective Repository Date:2018-01-19 01/04/2018 LIN F Primary LIN [facility] PALMERDOB: Insurance:MEDICARE MAHWAHDOB: [facility] [id number] PART BPolicy Number: [id number] Repository [place] [id number] [address] [place] [address] Date:2017-12-24 - [place], [place] [address]Mhk: [phone]) [id number] 656[address]Dau: () Name:[facility] [id number] [facility] ()Tel: ([phone]) [address] [address]Varmotjnc, [place] 0000000 (GD) [address]WP: 01/04/2018 Secondary LIN [facility] Insurance:CIGNA HEALTH SYSTEMERDOB: [facility] [id number] Number: [id number] Repository [id number] 3 [facility] Date:2017-12-24 - [place] 7671-88-44Hzbl [address]Kpi: (272) Name:[facility] [phone] 766263Xquctbupflu, [place] ()Tel: [phone]: [phone] ([phone]) [phone] 12/21/2017 LIN F Primary LIN F Sharri [id number] Insurance:MEDICARE PALMERDOB: [facility] PART A BPolicy Number: [id number], [place] [id number] Repository [address]Csd: (330) Date:2017-12-211132 () 12/21/2017 Secondary LIN F Sharri Insurance:TONO MADISON PALMERDOB: Community SUPPLEMENT [id number] Sisters Health [facility] Repository Number: [id number] Date:4224-60-41CUZVELH N [facility] [address] [address]KCMSNM, [place] [address]XT: 12/21/2017 Tertiary NOT GIVENUNK Sharri Insurance:SELF PAY [facility] Number: Effective Repository Date:2017-12-21 12/15/2017 LIN F Primary LIN F [place] [id number] Insurance:MEDICARE PALMERDOB: [facility] PART A BPolicy Number: [id number], [place] [id number] Repository [address]Bgm: 330) Date:2017-12-111453 () 12/15/2017 Secondary LIN F [place] Insurance:TONO MADISON PALMERDOB: Community SUPPLEMENT [id number] Sisters Health [facility] Repository Number: [id number] Date:7001-99-89LSUPZTC N [facility] [address] [address]CPPTZE, [place] [address]XQ: 12/15/2017 Tertiary NOT GIVENUNK Sharri Insurance:SELF PAY [facility] Hospital Number: Effective Repository Date:2017-12-11 12/14/2017 LIN F Primary LIN F [facility] PALMERDOB: Insurance:MEDICARE PALMERDOB: [facility] [id number] PART BPolicy Number: [id number] [place] [address] [id number] [place] [address] Date:2017-12-14 - [place], [place] [address]Qsh: (123) [id number] 27165Kft: () Name:[facility] [phone] Administrators LLCPO ()Tel: 000) [address] [address]Swagtncvj, [place] [phone] (WP) [address]LX: 12/14/2017 Secondary LIN F [facility] Insurance:[facility]O [facility] [id number] Number: [id number] Repository [id number] [address] [place] [address] Date:2017-12-14 [place], [place] 6021-74-04Cizp [address]Nmt: (419) Name:[phone] 201288Scmreozytgc PAM ()Tel: [phone]: (WP) [phone] 12/11/2017 LIN F Primary LIN F [place] [id number] Insurance:MEDICARE MAHWAHDOB: [facility] PART A BPolicy Number: [id number], [place] [id number] Repository [address]Liu: (330) Date:2017-12-114376 () 12/11/2017 Secondary LIN F [place] Insurance:[facility]: Community SUPPLEMENT [id number] Sisters Health System [facility] Repository Number: [id number] Date:9278-38-33IXTJVYK N [facility] [address] [address]KW[place], [place] [address]PX: 12/11/2017 Tertiary NOT GIVENUNK Sharri Insurance:SELF PAY [facility] Number: Effective Repository Date:2017-12-11 12/11/2017 LIN F Primary LIN F [place] [id number] Insurance:MEDICARE PALMERDOB: [facility] PART A BPolicy Number: [id number], [place] [id number] Repository [address]Ljf: (330) Date:2017-12-11-2390 () 12/11/2017 Secondary LIN F Sharri Insurance:KERENNA [facility]: Community SUPPLEMENT [id number] Sisters Health System [facility] Repository Number: [id number] Date:3850-72-88ANYGXZV N [facility] [address] [address]NFZGTV, [place] [address]HC: 12/11/2017 Tertiary NOT GIVENUNK [place] Insurance:SELF PAY [facility] Number: Effective Repository Date:2017-12-11 12/11/2017 LIN F Primary LIN F Sharri [id number] Insurance:MEDICARE PALMERDOB: Community [place] PART A BPolicy Number: [id number], [place] [id number] Repository [address]Nfz: (861) Date:2017-12-111532 () 12/11/2017 Secondary LIN F [place] Insurance:CIGNA LOS PALMERDOB: Community SUPPLEMENT [id number] Sisters Health [facility] Repository Number: [id number] Date:1072-05-01MZBBWVU [facility] [address] [address]PIBMNM, [place] [address]SX: 12/11/2017 Tertiary NOT GIVENUNK Shar[place] Insurance:SELF PAY [facility] Number: Effective Repository Date:2017-12-11 12/11/2017 LIN F Primary LIN F [place] [id number] Insurance:MEDICARE PALMERDOB: Community [place] PART A BPolicy Number: [id number], [place] [id number] Repository [address]Dmv: (897) Date:2017-12-110776 () 12/11/2017 Secondary LIN F [place] Insurance:KERENNA LOS PALMERDOB: Community SUPPLEMENT [id number] Sisters Health [facility] Repository Number: [id number] Date:1664-93-37FXNULAF N [facility] [address] [address]EYFRFG, [place] [address]VE: 12/11/2017 Tertiary NOT GIVENUNK [place] Insurance:SELF PAY [facility] Number: Effective Repository Date:2017-12-11 12/11/2017 LIN F Primary LIN F [place] [id number] Insurance:MEDICARE PALMERDOB: Community [place] PART A BPolicy Number: [id number], [place] [id number] Repository [address]Rvi: (330) Date:2017-12-119824 () 12/11/2017 Secondary LIN F [place] Insurance:TONO ALFREDOERDOB: Community SUPPLEMENT [id number] Sisters Health System [facility] Repository Number: [id number] Date:8273-10-95ARRRNRW N [facility] [address] [address]VMQZUW, [place] [address]PG: 12/11/2017 Tertiary NOT GIVENUNK Sharri Insurance:SELF PAY [facility] Number: Effective Repository Date:2017-12-11 11/04/2017 LIN F Primary LIN F [place] [id number] Insurance:MEDICARE PALMERDOB: Community [facility] PART A BPolicy Number: [id number], [place] [id number] Repository [address]Bev: (330) Date:2017-11-04 [phone] () 11/04/2017 Secondary LIN F [place] Insurance:TONO ALFREDOERDOB: Community SUPPLEMENT [id number] Sisters Health [facility] Repository Number: [id number] Date:2164-48-98YLWQXXT N [facility] [address] [address]VOFPVZ, [place] [address]IF: 11/04/2017 Tertiary NOT GIVENUNK Sharri Insurance:SELF PAY [facility] Hospital Number: Effective Repository Date:2017-11-04 08/20/2017 LIN F Primary LIN F [place] [id number] Insurance:MEDICARE PALMERDOB: Community [place] PART A BPolicy Number: [id number], [place] [id number] Repository [address]Kju: Date:2017-07-30 ~419- 9 () 08/20/2017 Secondary LIN F Sharri Insurance:CIGNA MCR PALMERDOB: Community SUPPLEMENT [id number] Sisters Health [facility] Repository Number: [id number] Date:0812-09-59VTCZZDS N [facility] [address] [address]NSPAYC, [place] [address]EF: 08/20/2017 Tertiary NOT GIVENUNK Sharri Insurance:SELF PAY [facility] Number: Effective Repository Date:2017-07-30 08/20/2017 LIN F Primary LIN F Sharri [id number] Insurance:MEDICARE PALMERDOB: Community [place] PART A BPolicy Number: [id number], [place] [id number] Repository [address]Qvr: Date:2017-07-30 ~419- 9 () 08/20/2017 Secondary LIN F Sharri Insurance:TONO HERNANDEZB: Community SUPPLEMENT [id number] Sisters Health System [facility] Repository Number: [id number] Date:1319-72-12IDLUBCI N [facility] [address] [address]KHLVXF, [place] [address]NX: 08/20/2017 Tertiary NOT GIVENUNK Sharri Insurance:SELF PAY [facility] Number: Effective Repository Date:2017-08-20 08/12/2017 LIN F Primary LIN F Shar[place] [id number] Insurance:MEDICARE PALMERDOB: Community [facility] PART A BPolicy Number: [id number], [place] [id number] Repository [address]Ukx: (330) Date:2008-08-07 [phone] () 08/12/2017 Secondary LIN F Sharri Insurance:TONO HERNANDEZB: Community SUPPLEMENT [id number] Sisters Health System [facility] Repository Number: [id number] Date:7045-33-28PWCLIPD N [facility] [address] [address]QDKYSP, [place] [address]SY: 08/12/2017 Tertiary NOT GIVENUNK [place] Insurance:SELF PAY [facility] Number: Effective Repository Date:2017-07-24 08/05/2017 LIN F Primary LIN F [place] [id number] Insurance:MEDICARE PALMERDOB: Community [place] PART A BPolicy Number: [id number], [place] [id number] Repository [address]Rpy: Date:2017-07-28 ~419- 9 (HP) 08/05/2017 Secondary LIN F [place] Insurance:TONO ALFREDOERDOB: Community SUPPLEMENT [id number] Sisters Health System [facility] Repository Number: [id number] Date:4587-59-53OHEDOKF N [facility] [address] [address]VZTMKR, [place] [address]NO: 08/05/2017 Tertiary NOT GIVENUNK Sharri Insurance:SELF PAY [facility] Number: Effective Repository Date:2017-07-28 07/30/2017 LIN F Primary LIN F [place] [id number] Insurance:MEDICARE PALMERDOB: Community [place] PART A BPolicy Number: [id number], [place] [id number] Repository [address]Lxg: Date:2017-07-20 ~419- 9 (HP) 07/30/2017 Secondary LIN F Sharri Insurance:TONO ALFREDOERDOB: Community SUPPLEMENT [id number] Sisters Health System [facility] Repository Number: [id number] Date:7783-21-30EDYZAXA N [facility] [address] [address]APJXFX, [place] [address]LQ: 07/30/2017 Tertiary NOT GIVENUNK Sharri Insurance:SELF PAY Community [facility] Number: Effective Repository Date:2017-07-30 07/24/2017 LIN F Primary LIN F Sharri [id number] Insurance:MEDICARE PALMERDOB: Community [place] PART A BPolicy Number: [id number], [place] [id number] Repository [address]Ojk: Date:2017-07-24 ~419- 9 (HP) 07/24/2017 Secondary LIN F [place] Insurance:TONO HERNANDEZB: Community SUPPLEMENT [id number] Sisters Health [facility] Repository Number: [id number] Date:8711-73-77HWRJFCA Clifford [facility] [address] [address]RFBDGE, [place] [address]OL: 07/24/2017 Tertiary NOT GIVENUNK [place] Insurance:SELF PAY [facility] Number: Effective Repository Date:2017-07-24 07/15/2017 LIN F Primary LIN F Sharri [id number] Insurance:MEDICARE PALMERDOB: Community [place] PART A BPolicy Number: [id number], [place] [id number] Repository [address]Bym: Date:2008-08-07 ~419- 9 (HP) 07/15/2017 Secondary LIN F [place] Insurance:TONO HERNANDEZB: Community SUPPLEMENT [id number] Sisters Health System [facility] Repository Number: [id number] Date:8258-09-93PQRTZFW N [facility] [address] [address]AKSTLI, [place] [address]OZ: 07/15/2017 Tertiary NOT GIVENUNK Sharri Insurance:SELF PAY [facility] Number: Effective Repository Date:2017-06-16 06/17/2017 LIN F Primary LIN F Sharri [id number] Insurance:MEDICARE PALMERDOB: Community [place] [address] BPolicy Number: [id number] [id number] Repository [address]Qzc: Date:2017-06-17 ~419- 9 (HP) 06/17/2017 Secondary LIN F Sharri Insurance:TONO JEFFERSON: Community SUPPLEMENT [id number] [facility] Repository Number: [id number] Date:[id number] N [facility] [address] [address], [place] [address]GJ: 06/17/2017 Tertiary NOT GIVENUNK Sharri Insurance:SELF PAY [facility] Number: Effective Repository Date:2017-06-17 06/15/2017 LIN F Primary LIN F Sharri [id number] Insurance:MEDICARE PALMERDOB: Community [place] PART A BPolicy Number: [id number] [place] [id number] Repository [address]Hwz: Date:2017-06-15 ~[phone]- [phone] (HP) 06/15/2017 Secondary LIN F Sharri Insurance:[facility] PALMERDOB: Community SUPPLEMENT [id number] Repository Number: [id number] Date:[id number] N [facility] [address] [address], [place] [address]VF: 06/15/2017 Tertiary NOT GIVENUNK Siren Insurance:SELF PAY [facility] Hospital Number: Effective Repository Date:2017-06-15 06/12/2017 LIN F Primary LIN F [facility] PALMERDOB: Insurance:MEDICARE A PALMERDOB: Health System AND BPolicy Number: [id number] [id number] [place] Date: [id number]: () 06/12/2017 Secondary LIN F [facility] Insurance:CIGNA PALMERDOB: Health System MEDICARE [id number] Repository SUPPLEMENTPolicy Number: [id number] Date: 05/22/2017 LIN F Primary LIN F Siren [id number] Insurance:MEDICARE PALMERDOB[facility] Number: [id number] [id number] Repository [address]Ppc: Date:2017-05-22 ~419- 9 (HP) 05/22/2017 Secondary LIN F Sharri Insurance:[facility] PALMERDOB: Community SUPPLEMENT [id number] [facility] Repository Number: [id number] Date:[id number] N [facility] [address] [address], [place] [address]ST: 05/22/2017 Tertiary NOT GIVENUNK Siren Insurance:SELF PAY [facility] Effective Repository Date:2017-05-22 04/18/2017 LIN F Primary LIN F Sharri [id number] Insurance:MEDICARE PALMERDOB: Community [place] PART A BPolicy Number: [id number], [place] [id number] Repository [address]Ldu: Date:2017-04-09 ~419- 9 () 04/18/2017 Secondary LIN F Siren Insurance:CIGNA LOS PALMERDOB: Community SUPPLEMENT [id number] [facility] Repository Number: [id number] Date:[id number] N [facility] [address] [address], [place] [address]DC: 04/18/2017 Tertiary NOT GIVENUNK Siren Insurance:SELF PAY [facility] Number: Effective Repository Date:2017-04-09 11/03/2016 LIN F Primary LIN F Sharri [id number] Insurance:MEDICARE PALMERDOB: Community [place] PART A BPolicy Number: [id number] [id number] Repository [address]Zwc: (330) Date:2008-08-07 [phone] () 11/03/2016 Secondary LIN F Sharri Insurance:TONO MADISON PALMERDOB: Community SUPPLEMENT [id number] [facility] Repository Number: [id number] Date:INDONESIAN [facility] [address] [address], [place] [address]VX:
== END ==
PROVIDERS: Family Provider Family Medicine; PCP Family Medicine; Referring Provider Family Medicine; Visit Provider Family Medicine
DX: R06.02 Shortness of breath (principal)
CPT/HCPCS: 74019

== ENCOUNTER → 2018-03-25 14:40 | Outpatient (CLI) | payer MEDICARE, OTHER, SELFPAY ==
[2018-01-25 14:24] VITALS: BMI 26.7
--- NOTE | 2018-03-25 14:45 | RAD_ITS ---
STUDY: X-RAY CHEST REASON FOR EXAM: Female, 72 years old. Pleural effusion. TECHNIQUE: Frontal and lateral views of the chest. COMPARISON: None. FINDINGS: Moderate lung volumes. Interstitial prominence again seen most likely mild fibrosis. No infiltrates or effusions. There is mild cardiac enlargement. Normal mediastinum and wicho. Normal visualized pulmonary arteries. Normal visualized aortic arch and descending thoracic aorta. There are diffuse degenerative changes of the visualized thoracic spine. Normal visualized ribs, clavicles, and shoulders. There is no demonstrated abnormality of the visualized soft tissue structures of the upper abdomen. RAD/Chest PA and Lateral IMPRESSION: No change or acute chest disease. Electronically Signed: Broderick Bennett MD at 0:02 EST , Service support ,
--- OUTSIDE RECORDS SUMMARY | 2018-05-30 10:06 | XMS RPT_ITS ---
:1945 Author Organization OHIP Support Name Relationship Address Phone BALA WILLIS Unavailable Unavailable + [place] [address] SUKH MORALEZ Unavailable Unavailable + [place], [place] R Unavailable Unavailable Unavailable ANTONIO WILLISA Unavailable Unavailable + [place] [address] SUKH MORALEZ Unavailable Unavailable + [place], [place] R Unavailable Unavailable Unavailable KRISTINE WILLISNICA Unavailable Unavailable + [place] [address] SUKH MORALEZ Unavailable Unavailable + [place], [place] R Unavailable Unavailable Unavailable KRISTINE WILLISNICA Unavailable Unavailable + [place] [address] SUKH MORALEZ Unavailable Unavailable + [place], [place] R Unavailable Unavailable Unavailable KRISTINE WILLISNICA Unavailable Unavailable + [place] [address] SAGE SUKH Unavailable Unavailable + [place], [place] R Unavailable Unavailable Unavailable KRISTINE WILLISNICA Unavailable . + [place] [address] SUKH MORALEZ Unavailable . + [place] [address] R Unavailable Unavailable Unavailable KRISTINE WILLISNICA Unavailable Unavailable + SUKH MORALEZ Unavailable Unavailable + KRISTINE WILLISNICA Unavailable Unavailable + SUKH MORALEZ Unavailable Unavailable + R Unavailable Unavailable Unavailable LAZARO BALA Unavailable Unavailable + SUKH MORALEZ Unavailable Unavailable [...] BALA Unavailable [address] + [place] [address] SAGE SUKH Unavailable . + [place] [address] R Unavailable Unavailable Unavailable FRONTZ, BALA Unavailable [address] + [place] [address] SAGE SUKH Unavailable Unavailable + [place], [place] R Unavailable Unavailable Unavailable FRONTZ, BALA Unavailable [address] + [place] [address] SAGE SUKH Unavailable Unavailable + [place], [place] R Unavailable Unavailable Unavailable FRONTZ, BALA Unavailable [address] + [place] [address] SAGE SUKH Unavailable Unavailable + [place], [place] R Unavailable Unavailable Unavailable FRONTZ BALA Unavailable [address] + [place] [address] SAGE SUKH Unavailable Unavailable + [place], [place] R Unavailable Unavailable Unavailable FRONTZ, BALA Unavailable [address] + [place] [address] MORALEZ, SUKH Unavailable Unavailable + [place], [place] R Unavailable Unavailable Unavailable FRONTZ, BALA Unavailable [address] + [place] [address] MORALEZ, SUKH Unavailable . + [place], [place] . R Unavailable Unavailable Unavailable FRONTZ, BALA Unavailable [address] + [place] [address] SAGE SUKH Unavailable Unavailable + [place], [place] R Unavailable Unavailable Unavailable FRONTZ, BALA Unavailable [address] + [place] [address] SAGE SUKH Unavailable Unavailable + [place], [place] R Unavailable Unavailable Unavailable FRONTZ, BAAL Unavailable [address] + [place] [address] MORALEZ, SUKH Unavailable Unavailable + [place], [place] R Unavailable Unavailable Unavailable FRONTZ, BALA Unavailable [address] + [place] [address] SAGE SUKH Unavailable Unavailable + [place], [place] R Unavailable Unavailable Unavailable FRONTZ, BALA Unavailable [address] + [place] [address] MORALEZ, SUKH Unavailable . + [place] . R Unavailable Unavailable Unavailable FRONTDieter, BALA Unavailable [address] + [place] [address] MORALEZ, SUKH Unavailable . + [place], [place] . R Unavailable Unavailable Unavailable FRONTDieter BALA Unavailable . + [place] [address] SAGE SUKH Unavailable . + [place], [place] . R Unavailable Unavailable Unavailable Care Team Providers Name Role Phone Sukh Samuel Attending Unavailable Koenig, Sangeeta Referring [...] Unavailable PHYSICIAN, PATIENT UNSURE Primary Care Unavailable Dr. Guillermo Dwyer Attending Unavailable Dr. Jessa Green Primary Care Unavailable ESTER CANDELARIA Attending Unavailable LUTHER MATHIS Attending Unavailable LUTHER MATHIS Referring Unavailable LUTHER MATHIS Referring Unavailable LUTHER MATHIS Referring Unavailable LUTHER MATHIS Attending Unavailable LUTHER MATHIS Referring Unavailable KOENIG, SANGEETA A Primary Care Unavailable PROBLEMS PROBLEMS DATE TYPE CONDITION / CODE ATTENDING STATUS SOURCE 11/20/2015 Active Other NA Active [place] cardiomyopathies / Clinic Main I42.8(ICD-10) [place] Repository 03/17/2018 Active Essential (primary) NA Active [place] hypertension / Clinic Main I10(ICD-10) [place] Repository 02/17/2018 Unknown R06.2 - Wheezing / Sangeeta Koenig Active [place] R06.2(ICD-10) [facility] 01/29/2018 Unknown R06.02 - Shortness of JollShantal lipscomb Active [place] breath / Community R06.02(ICD-10) Hospital Repository 01/29/2018 Unknown 786.05 - Shortness of Jolliff, Shantal Active [place] breath / Community 786.05(ICD-9) Hospital Repository 01/29/2018 Unknown E03.9 - Jolliff, Shantal Active [place] Hypothyroidism, Community unspecified / Hospital E03.9(ICD-10) Repository 02/11/2018 Unknown T82.598A - Other CeSukh klein Active [place] mechanical Community complication of other Hospital cardiac and vascular Repository devices and implants, initial encounter / T82.598A(ICD-10) 12/21/2017 Unknown N18.5 - Chronic Sangeeta Koenig Active [place] kidney disease, stage Community 5 / N18.5(ICD-10) Hospital Repository 12/14/2017 Admitting Chronic kidney MERCEDEZ PATEL, Active [facility] Diagnosis disease, unspecified [facility] / N18.9(ICD-10) Repository 12/31/2017 Unknown T82.868A - Thrombosis Sukh Samuel Active [place] due to vascular Community prosthetic devices, Hospital implants and grafts, Repository initial encounter / T82.868A(ICD-10) 01/18/2018 Unknown I13.2 - Hypertensive Jennifer, [place] Active [place] heart and chronic Community kidney disease with Hospital heart failure and Repository with stage 5 chronic kidney disease, or end stage renal disease / I13.2(ICD-10) 01/18/2018 Unknown I50.22 - Chronic Jennifer, [place] Active [place] systolic (congestive) Community heart failure / Hospital I50.22(ICD-10) Repository 12/11/2017 Unknown T82.898A - Other Sukh Samuel Active [place] specified Community complication of Hospital vascular prosthetic [...] Unknown VISUAL HALLUCINATIONS Sangeeta Koenig / R44.1(ICD-10) [facility] Repository PROCEDURES PROCEDURES No Procedure Records FoundRESULTS RESULTS CHEST PA AND LATERAL Observed: 03/25/2018 Status: F Source: [place] 2:46 PM [facility] HOSPITAL REPOSITORY [facility] Imaging Services [address] [place] [address] [place] [address] Chest PA and Lateral MR#: [id number] Acct: [id number] Name: LIN MORALEZ Rep #: [id number] : 1945 F 72 From: Broderick Bennett MD PCP: Sangeeta Koenig MD Status: REG CLI Study: Chest PA and Lateral Date of Exam: 03/25/18 Exam# [id number] Ordering Dr: Sangeeta Koenig MD STUDY: X-RAY [...] Service support , CC: Sangeeta Koenig MD Loan Closer: Signed CNNURSE Observed: 03/17/2018 Status: COMPLETED Source: [place] 3:45 PM [facility] REPOSITORY Nurse Visit (CAWSTR) MORALEZLIN NEGRON ([id number]) 1945 F Date Time Provider Department 03/17/18 3:45 PM NURSE CARD ADMIN [facility] WSTR CAWSTR During your visit today, we recorded the following information about you: Liliane Pizarro MA 03/17/2018 1:11 PM Signed EKG completed and given to Dr Mathis for review. Liliane Pizarro MA Referring Provider: LUTHER MATHIS [[id number]] Allergies As of Date: 03/17/2018 Noted Allergy Reaction NOVOLOG (INSULIN ASPART) 05/11/2015 2 - Rash BACTRIM (SULFAMETHOXAZOLE) 10/07/2012 14 - Other: See Comments Comments: Thrombocytopenia CARVEDILOL 09/04/2016 2 - Rash Environmental allergies [Other] 08/19/2007 Comments: Cats, dust mites, trees, weeds, ragweed PYRIDIUM (PHENAZOPYRIDINE HCL) 06/04/2015 1 - Mental Status Change PPELSIR-MIM-JQJ REDUCTASE INHIBIT*07/03/2014 17 - Myalgia Date Reviewed: 03/17/2018 Reviewed by: Liliane Pizarro MA - Fully Assessed Reason for Visit: Allied Health Visit [5] Visit Diagnoses:Cardiomyopathy, nonischemic (HCC) [I42.8] Essential hypertension [I10] Order(s):ECG COMPLETE W INTERPRETATION [ECG01] Order #: [id number] Prescriptions as of 03/17/2018 Sig: POLYCARBOPHIL VAGINAL [...] 03/17/18 EKG1 Observed: 03/17/2018 Status: F Source: [place] 12:46 PM [facility] REPOSITORY NAME : LIN MORALEZ PID : [id number] : 1945 Gender : Female Race : [...] ms QTC Calculation(Bezet) : 536 ms R [place] : 27 degrees T [place] : 45 degrees Test Reason : Location : 136 : [place] Overread By : LUTHER MATHIS MD Edited By : LUTHER MATHIS MD Referred By : DELFINA, Acquired by : , PROGRESS Observed: 03/17/2018 Status: COMPLETED Source: [place] 12:11 PM [facility] REPOSITORY HNO ID: [id number] Author: Charmaine (Rt) Sourav Soler Service: (none) Author Type: Automatic Mounter Type: Progress Notes Filed: 03/17/2018 12:12 PM [...] 2V FRONTAL/LAT Observed: 03/17/2018 Status: F Source: [place] 12:11 PM [facility] REPOSITORY * * *Final Report* * * [...] intact IMPRESSION: Radiographic findings suggest pulmonary edema. Loan Closer: PSCB Transcribe Date/Time: Mar 17 2018 1:12P Dictated by : HEATHER LITTLE MD This examination was interpreted and the report reviewed and electronically signed by: HEATHER LITTLE MD on Mar 17 2018 1:38PM EST [id number] PROGRESS Observed: 03/17/2018 Status: COMPLETED Source: [place] 11:46 AM [facility] REPOSITORY O ID: [id number] Author: Luther Mathis Service: (none) Author Type: Physician Type: Progress Notes Filed: 03/18/2018 12:46 PM Note Text: PERTINENT CARDIAC HISTORY Cardiomyopathy - nonischemic HTN HL CRF DM CHF - systolic ADHERENCE TO GUIDELINES SUMMER-I or ARB for HF with prior LVEF<40 (NQF 0081) - N/A ASA or Plavix for ASHD (NQF 0067) - N/A Beta maria esther for ASHD with prior DE or prior LVEF<40 (NQF 0070) - N/A [...] - Pyridium [Phenazopy* Mental Status Change - Srhjjzs-Iof-Utj Red* Myalgia CURRENT OUTPATIENT MEDICATIONS: furosemide (LASIX) 80 mg tablet Take 1 tablet by mouth once daily. metOLAzone (ZAROXOLYN) 10 mg tablet Take 1 tablet by mouth once daily. insulin aspart (NOVOLOG FLEXPEN) 100 unit/mL inpn Inject 12 Units subcutaneously three times daily with meals. metoprolol tartrate, short acting, (LOPRESSOR) 25 mg tablet Take 25 mg by mouth twice daily. OKpandaUCH ULTRA TEST test strip CHECK BLOOD SUGARS 3 TIMES DAILY. insulin detemir (LEVEMIR) 100 unit/mL injection 24 units daily LORATADINE/PSEUDOEPHEDRINE (CLARITIN-D 24 HOUR ORAL) Take 1 tablet by mouth once daily. Insulin [place], Disposable, (BD ULTRAFINE III MINI PEN) 31 [...] emergent medical care immediately after use.Disp:one 2-pack w/new product trainer). blood sugar diagnostic (CONTOUR TEST STRIPS) [...] MD CNOV Observed: 03/17/2018 Status: COMPLETED Source: [place] 11:15 AM [facility] REPOSITORY Office Visit (CAWSTR) LIN MORALEZ ([id number]) 1945 F Date Time Provider Department 03/17/18 [...] Beta maria esther for ASHD with prior DE or prior LVEF<40 (NQF 0070) - N/A [...] - Pyridium [Phenazopy* Mental Status Change - Gthvabs-Fvm-Oxy Red* Myalgia CURRENT OUTPATIENT MEDICATIONS: furosemide (LASIX) 80 mg tablet Take 1 tablet by mouth once daily. metOLAzone (ZAROXOLYN) 10 mg tablet Take 1 tablet by mouth once daily. insulin aspart (NOVOLOG FLEXPEN) 100 unit/mL inpn Inject 12 Units subcutaneously three times daily with meals. metoprolol tartrate, short acting, (LOPRESSOR) 25 mg tablet Take 25 mg by mouth twice daily. OKpandaUCH ULTRA TEST test strip CHECK BLOOD SUGARS 3 TIMES DAILY. insulin detemir (LEVEMIR) 100 unit/mL injection 24 units daily LORATADINE/PSEUDOEPHEDRINE (CLARITIN-D 24 HOUR ORAL) Take 1 tablet by mouth once daily. Insulin [place], Disposable, (BD ULTRAFINE III MINI PEN) 31 [...] emergent medical care immediately after use.Disp:one 2-pack w/new product trainer). blood sugar diagnostic (CONTOUR TEST STRIPS) [...] HCL) 06/04/2015 1 - Mental Status Change EOROMMG-DZT-XZE REDUCTASE INHIBIT*07/03/2014 17 - Myalgia Date Reviewed: 03/17/2018 Reviewed by: Liliane Pizarro MA - Fully Assessed Reason for Visit: Established Patient [175] Primary Visit Diagnosis:Cardiomyopathy, nonischemic (HCC) [I42.8] Other Visit Diagnosis:Essential hypertension [I10] Order(s):ECG COMPLETE W INTERPRETATION [ECG01] Order #: [id number] FUTURE ECHO [926622] Order #: [id number]: 1 FUTURE XR CHEST 2V FRONTAL/LAT [5332318] Order #: [id number] FUTURE Prescriptions as of 03/17/2018 Sig: FUROSEMIDE 80 MG TABLET Take 1 tablet by mouth once d* METOLAZONE 10 MG TABLET Take 1 tablet by mouth once d* INSULIN ASPART U-100 100 UNI* Inject 12 Units subcutaneousl* METOPROLOL TARTRATE 25 MG TAB* Take 25 mg by mouth twice melva* BrightFunnelTOUCH ULTRA TEST STRIPS CHECK BLOOD SUGARS 3 [...] F Source: [place] AND/OR ERECT 3:07 PM [facility] REPOSITORY [facility] Imaging Services [address] [place] [address] Abd Inc Decub and/or Erect MR#: [id number] Acct: [id number] Name: LIN MORALEZ Rep #: [id number] : 1945 F 72 From: Felipe Fagan DO PCP: Sangeeta Koenig MD Status: REG CLI Study: Abd Inc Decub and/or Erect Date of Exam: 02/17/18 Exam# [id number] Ordering Dr: Sangeeta Koenig MD STUDY: X-RAY [...] Felipe Fagan DO at 16:03 EST Tel [phone], Service support , CC: Sangeeta Koenig MD Loan Closer: Signed CHEST PA AND LATERAL Observed: 01/27/2018 Status: F Source: [place] 4:46 PM [facility] Imaging Services [address] [place] [address] Chest PA and Lateral MR#: [id number] Acct: [id number] Name: LIN MORALEZ Rep #: [id number] : 1945 F 72 From: Broderick Bennett MD PCP: Sangeeta Koenig MD Status: REG CLI Study: Chest PA and Lateral Date of Exam: 01/27/18 Exam# [id number] Ordering Dr: Shantal Mosqueda MD STUDY: X-RAY [...] CC: Shantal Mosqueda MD; Sangeeta Koenig MD Loan Closer: Signed THYROID STIM HORMONE Collected: 01/27/2018 Status: F Source: [place] (TSH) 4:45 PM [facility] REPOSITORY TYPE CODE TESTS RESULT OUT OF RANGE REFERENCE UNITS LAB L501.9520 0.358-3.74 uIU/mL High TSH 4.33 Performed By: #### L501.9520 #### [facility] [address] [place], [address] OPERATIVE REPORT Observed: 01/26/2018 Status: F Source: [place] 3:11 PM [facility] REPOSITORY [facility] Medical Records Department [address] [place] [address] Operative Report 01/26/18 0934 MR#: [id number] Acct: [id number] Name: LIN MORALEZ Rep #: [id number] : 1945 72 From: Sukh Samuel MD PCP: Sangeeta Koenig MD Status: DEP [facility] Y Location: [facility] Problem List (1) Problem with dialysis [...] antegrade with flow. Micropuncture wire inserted. 6 [place] short sheath was inserted. Using Isovue contrast fistulogram was taken of the left upper arm and chest area. This demonstrated high-grade venous stenosis at the cephalic arch. I then up sheath to a 7 [place] sheath. I placed ASV 5018 wire past [...] 01/26/2018 Status: F Source: [place] 7:59 AM [facility] REPOSITORY TYPE CODE TESTS RESULT OUT OF RANGE REFERENCE UNITS LAB L501.080 70-110 mg/dL Normal BEDSIDE GLU 103 Result Comment: MANAGEMENT OF PATIENT CARE PER NURSING PROTOCOL Performed By: #### L501.080 #### [facility] Point of Care [address] [place], [place] [address] CBC-COMPLETE BLOOD CNT Collected: 01/26/2018 Status: F Source: [place] NO DIFF 7:18 AM [facility] REPOSITORY TYPE CODE TESTS RESULT OUT OF [...] MPV 11.3 Performed By: #### L100.0500 #### [facility] [address] [place], [address] BASIC METABOLIC Collected: 01/26/2018 Status: F Source: [place] PROFILE (BMP) 7:18 AM [facility] REPOSITORY TYPE CODE TESTS RESULT OUT OF [...] GAP 12 Performed By: #### L500.2500 #### [facility] [address] [place], [address] SURGERY VISIT REPORT Observed: 01/19/2018 Status: F Source: [place] 5:22 PM [facility] REPOSITORY [facility] [address] [place] [address] OFFICE VISIT Date of Service: 01/19/18 MR#: [id number] Acct: [id number] Name: LIN MORALEZ Rep #: [id number] : 1945 Provider: Sukh Samuel MD Age/Sex: 72/F Location: [facility] Status: Signed Intake Vital Signs01/19/18 Height 5 ft 4 in 01/19/18 Weight: 156 lb 2 oz 01/19/18 Body Mass Index (BMI) 26.8 01/19/18 Blood Pressure 187/44 H Intake Visit Reasons: recheck fistula Chief Complaint: recheck fistula Tentering Machine Feeder Required: No Is patient in pain?: No [...] PO DAILY 01/02/17 [History Confirmed 12/11/17] Ipratropium [place] 15 ml NS Q6H PRN PRN 01/02/17 [History Confirmed 12/11/17] Metolazone [Zaroxolyn] 5 mg PO DAILY 01/02/17 [History Confirmed 12/11/17] Quinapril HCl [Accupril] 5 mg PO DINNER 01/02/17 [History Confirmed 12/11/17] Hydrocodone Bitart/Apap 5-325 [[place] 5MG-325MG] 1 tab PO Q6H PRN PRN [...] December 11 urgently took her to the [facility] and attempted to thrombolyze the fistula. We initially got good results the patient then attempted to have dialysis the subsequent day and that was not successful. The patient then went to [place] initially had a open but again was [...] Appearance: average body habitus Orientation: alert, awake [facility] Head: normal to inspection Eyes General: [...] 1. Problem with dialysis access, initial encounter T82.962B Plan I am proposing for the patient [...] CC: PROGRESS Observed: 12/30/2017 Status: COMPLETED Source: [place] 8:30 AM [facility] REPOSITORY HNO ID: [id number] Author: Ester Candelaria Service: (none) Author Type: Physician Type: Progress Notes Filed: 12/30/2017 8:30 AM Note Text: Can you please let the patient know her culture was negative for a bacterial or yeast infection? She can try the Replens every 3 days as discussed at her visit. Thanks! Observed: 12/28/2017 Status: F Source: [place] BACT/CAND VAG [facility] 6:20 PM [facility] REPOSITORY Sp. Request/Comment: - Swab Smear Result - BACTERIAL VAGINOSIS RESULT: Stain results consistent with normal vaginal misty. No Polymorphonuclear Leukocytes Moderate Epithelial cells No Yeast observed Performed By: #### BVCNSM #### [facility] [address] [place], [place] [address] CNOV Observed: 12/28/2017 Status: COMPLETED Source: [place] 4:00 PM [facility] REPOSITORY Office Visit (WOOB) LIN MORALEZ ([id number]) 1945 F Date Time Provider Department 12/28/17 [...] Diagnosis Date - Acute renal failure (ARF) ([facility]) 05/15/2016 - Anemia - CHF (congestive heart failure) ([facility]) - CKD (chronic kidney disease) stage 5, GFR less than 15 ml/min ([facility]) 07/27/2015 - Diabetes mellitus with stage 5 chronic kidney disease GFR <15 ([facility]) 07/27/2015 - Diverticulosis of colon (without mention of hemorrhage) - History of breast cancer At age 26 - Hypertension - Muscle spasm - Pure hypercholesterolemia - Type II or unspecified type diabetes mellitus without mention of complication, not stated as uncontrolled - Unspecified hypothyroidism PAST SURGICAL HISTORY Procedure Laterality Date - DELIVERY ONLY , low cervical - COLONOSCOP W/ OR W/O [facility] SPEC 08/01/2009 Colonoscopy - DANDC, DIAG AND/OR [...] mouth every 8 hours as needed. Insulin [place], Disposable, (BD ULTRAFINE III MINI PEN) 31 gauge x 3/16 ndle USE WITH Victoza PENS 1 TIMES DAILY levothyroxine (SYNTHROID) 100 mcg tablet Take 1 tablet by mouth once daily. EPINEPHrine (EPIPEN 2-ANGELIQUE) 0.3 mg/0.3 mL (1:1,000) auto-injector Inject 0.3 mL intramuscularly as needed (for allergic reaction.Seek emergent medical care immediately after use.Disp:one 2-pack w/new product trainer). blood sugar diagnostic (CONTOUR TEST STRIPS) [...] PYRIDIUM [PHENAZOPYRIDINE HCL] 06/04/2015 Mental Status Change WXZCEPS-RGX-QOM REDUCTASE INHIBIT*07/03/2014 Myalgia Fully Assessed 12/28/2017 REVIEW OF SYSTEMS Abdomen: No abdominal pain, nausea, vomiting, diarrhea, or constipation. Bladder: No dysuria, gross hematuria. Physical Fitness Teacher: No bleeding or discharge. Expanded ROS: N/A Allergies and current medication updated:Yes EXAM: BP 112/58 Wt 169 lb (76.7kg) GENERAL: pleasant, female in no apparent distress HEENT: Normocephalic and atraumatic NECK: full range of motion DERMATOLOGY: Normal and without lesions CHEST: Normal inspiratory effort ABDOMEN: soft, non-tender and no masses PELVIC: external genitalia normal, normal Bartholin's glands, urethra, Willis's glands, no vulvar lesions, no cervical lesions, [...] HCL) 06/04/2015 1 - Mental Status Change NPZWUUT-IFY-CUM REDUCTASE INHIBIT*07/03/2014 17 - Myalgia Date Reviewed: 12/28/2017 Reviewed by: Vivienne Palm - Fully Assessed Reason for Visit: Vaginal Problem [117] Primary Visit Diagnosis:Vaginal irritation [N89.8] Order(s):Vaginal Lubricant (REPLENS) gelUsing gel intravaginally every 3 daysDisp: 6.7 gRfl: 30 BACT/MICHAEL VAG GRAM STAIN [SQBVCNSM] Order #: [id number] Prescriptions as of 12/28/2017 Sig: FUROSEMIDE 80 [...] of Service: EST PATIENT VISIT LEVEL 2 [[id number]] Disposition: Return in about 1 month (around 01/28/2018) for well woman. Follow-up and Disposition History Recorded Encounter Status:Closed by ESTER CANDELARIA MD on 12/28/17 PROGRESS Observed: 12/28/2017 Status: COMPLETED Source: [place] 3:53 PM [facility] [place] REPOSITORY [facility] ID: [id number] Author: Ester Candelaria Service: (none) Author Type: [...] Diagnosis Date - Acute renal failure (ARF) ([facility]) 05/15/2016 - Anemia - CHF (congestive heart failure) ([facility]) - CKD (chronic kidney disease) stage 5, GFR less than 15 ml/min ([facility]) 07/27/2015 - Diabetes mellitus with stage 5 chronic kidney disease GFR <15 ([facility]) 07/27/2015 - Diverticulosis of colon (without mention [...] mouth every 8 hours as needed. Insulin [place], Disposable, (BD ULTRAFINE III MINI PEN) 31 gauge x 3/16 ndle USE WITH Victoza PENS 1 TIMES DAILY levothyroxine (SYNTHROID) 100 mcg tablet Take 1 tablet by mouth once daily. EPINEPHrine (EPIPEN 2-ANGELIQUE) 0.3 mg/0.3 mL (1:1,000) auto-injector Inject 0.3 mL intramuscularly as needed (for allergic reaction.Seek emergent medical care immediately after use.Disp:one 2-pack w/new product trainer). blood sugar diagnostic (CONTOUR TEST STRIPS) [...] PYRIDIUM [PHENAZOPYRIDINE HCL] 06/04/2015 Mental Status Change VEMVKFE-HMO-RAA REDUCTASE INHIBIT*07/03/2014 Myalgia Fully Assessed 12/28/2017 REVIEW OF SYSTEMS Abdomen: No abdominal pain, nausea, vomiting, diarrhea, or constipation. Bladder: No dysuria, gross hematuria. Physical Fitness Teacher: No bleeding or discharge. Expanded ROS: N/A Allergies and current medication updated:Yes EXAM: BP 112/58 Wt 169 lb (76.7kg) GENERAL: pleasant, female in no apparent distress HEENT: Normocephalic and atraumatic NECK: full range of motion DERMATOLOGY: Normal and without lesions CHEST: Normal inspiratory effort ABDOMEN: soft, non-tender and no masses PELVIC: external genitalia normal, normal Bartholin's glands, urethra, Willis's glands, no vulvar lesions, no cervical lesions, [...] OPERATIVE REPORT Observed: 12/21/2017 Status: F Source: [place] 3:38 PM [facility] REPOSITORY [facility] Medical Records Department [address] [place] [address] Operative Report 12/11/17 1517 MR#: [id number] Acct: [id number] Name: LIN MORALEZ Rep #: [id number] : 1945 72 From: Sukh Samuel MD [...] micropunch needle inserted micropuncture wire inserted 6 [place] short sheath was inserted. I was able to get the guidewire into the brachial artery. I placed a 4 [place] glide cath. Using Isovue performed official gram demonstrating thrombus involving the fistula. So then under ultrasound guidance I was able to get antegrade flow closer to the antecubital space with the same micropuncture needle wire and then a 6 [place] short sheath dilator. TPA 10 mg and 50 cc was used with a power pulse spray 6 [place] solent Omni AngioJet catheter. 12 time was [...] RENAL PROFILE Collected: 12/21/2017 Status: F Source: [place] 12:20 PM [facility] REPOSITORY TYPE CODE TESTS RESULT OUT OF [...] CO2 35.0 Performed By: #### L500.3600 #### [facility] [address] [place], [address] IR ARTERIOGRAM-AV SHUNT Observed: 12/16/2017 Status: F [...] 100 mm, 6 x 100 mm 5 [place] Berenstein PROCEDURE AND FINDINGS: The procedure, risks, [...] fusiform aneurysm. Brachial artery is widely patent. [place] directed towards the anastomosis was obtained. A [...] PM PRO Collected: 12/16/2017 Status: F Source: [facility] 5:49 AM [facility] REPOSITORY TYPE CODE TESTS RESULT OUT OF REFERENCE UNITS RANGE LAB PT(LOINC) 9.0-14.5 seconds Protime 11.2 Result Comment: Effective 09/21/07, Protime results may be affected by some antibiotics (i.e. Ciprofloxacin, Azithromycin, Bactrim) which may potentiate the action of oral anticoagulants, with further increases in Protime/INR. LAB INR(LOINC) ratio PT International Ratio 1.0 Result Comment: The [employer] (CHEST, 1992, 102:312S-25S) recommended therapeutic range for oral anticoagulant therapy is: LOW RISK: Prophylaxis of venous thrombosis INR: 2.0-3.0 Treatment of pulmonary embolism 2.0-3.0 Prevention of systemic embolism 2.0-3.0 HIGH RISK: Mechanical prosthetic valves 2.5-3.5 Performed By: #### PRO, BMP, GFR #### [place] [id number] BMP Collected: 12/16/2017 Status: F Source: [facility] 5:49 AM [facility] REPOSITORY TYPE CODE TESTS RESULT [...] Performed By: #### PRO, BMP, GFR #### [address] [address] .GFR Collected: 12/16/2017 Status: F Source: [facility] [employer] 5:49 AM [facility] REPOSITORY TYPE CODE TESTS RESULT OUT OF REFERENCE UNITS RANGE LAB GFRAA(LOINC ml/min/1.73 ) sqm GFR 12 Stateless Result Comment: GFR Population mean for , [...] Performed By: #### PRO, BMP, GFR #### [address] [address] CBC Collected: 12/15/2017 Status: F Source: [facility] 7:26 AM [facility] REPOSITORY TYPE CODE TESTS RESULT [...] #### CBC, ADIFF, ANEU, BMP, GFR #### [address] [address] .AUTO DIFF Collected: 12/15/2017 Status: F Source: [facility] 7:26 AM [facility] REPOSITORY TYPE CODE TESTS RESULT [...] #### CBC, ADIFF, ANEU, BMP, GFR #### [place] [address] .NEUABS Collected: 12/15/2017 Status: F Source: [facility] 7:26 [facility] REPOSITORY TYPE CODE TESTS RESULT OUT OF REFERENCE UNITS RANGE LAB ANEU(LOINC) 2.25-8.10 10 3/mcL Neutrophil, 6.00 Absolute Performed By: #### CBC, ADIFF, ANEU, BMP, GFR #### [place] [address] BMP Collected: 12/15/2017 Status: F Source: [facility] 7:26 [facility] REPOSITORY TYPE CODE TESTS RESULT OUT OF [...] MARCO ANTONIO, ADIFF, ANEU, BMP, GFR #### [address] [address] .GFR Collected: 12/15/2017 Status: F Source: [facility] 7:26 AM [facility] REPOSITORY TYPE CODE TESTS RESULT OUT OF REFERENCE UNITS RANGE LAB GFRAA(LOINC ml/min/1.73 ) sqm GFR 9 Stateless Result Comment: GFR Population mean for , [...] #### CBC, ADIFF, ANEU, BMP, GFR #### [address] [address] CBC Collected: 12/14/2017 Status: F Source: [facility] 3:21 PM [facility] REPOSITORY TYPE CODE TESTS RESULT [...] CBC, ADIFF, ANEU, BMP, GFR, TROPI #### [place] [address] .AUTO DIFF Collected: 12/14/2017 Status: F Source: [facility] 3:21 [facility] REPOSITORY TYPE CODE TESTS RESULT OUT [...] CBC, ADIFF, ANEU, BMP, GFR, TROPI #### [address] [address] .NEUABS Collected: 12/14/2017 Status: F Source: [facility] 3:21 PM [facility] REPOSITORY TYPE CODE TESTS RESULT OUT OF REFERENCE UNITS RANGE LAB ANEU(LOINC) 2.25-8.10 10 3/mcL Neutrophil, 6.90 Absolute Performed By: #### CBC, ADIFF, ANEU, BMP, GFR, TROPI #### [place] [address] BMP Collected: 12/14/2017 Status: F Source: [facility] 3:21 [facility] REPOSITORY TYPE CODE TESTS RESULT OUT [...] CBC, ADIFF, ANEU, BMP, GFR, TROPI #### [address] [address] .GFR Collected: 12/14/2017 Status: F Source: [facility] 3:21 [facility] REPOSITORY TYPE CODE TESTS RESULT OUT OF REFERENCE UNITS RANGE LAB GFRAA(LOINC ml/min/1.73 ) sqm GFR 8 Stateless Result Comment: GFR Population mean for , [...] CBC, ADIFF, ANEU, BMP, GFR, TROPI #### [address] [address] TROPI Collected: 12/14/2017 Status: F Source: [facility] 3:21 PM [facility] REPOSITORY TYPE CODE TESTS [...] ECG changes may help assess possibility of DE. *Other non-acute coronary syndrome conditions such as CHF, myocarditis, pulmonary emboli, sepsis and cardiac surgery could result in myocardial damage and increased troponin levels. Performed By: #### CBC, ADIFF, ANEU, BMP, GFR, TROPI #### [address] [address] XR CHEST 1 VIEW Observed: 12/14/2017 Status: F Source: [facility] 2:54 PM [facility] REPOSITORY ORIGINAL Portable [...] OPERATIVE REPORT Observed: 12/12/2017 Status: F Source: [place] 7:50 AM [facility] REPOSITORY [facility] Medical Records Department [address] [place] [address] Operative Report 12/11/17 1517 MR#: [id number] Acct: [id number] Name: LIN MORALEZ Rep #: [id number] : 1945 72 From: Sukh Samuel MD PCP: Sangeeta Koenig MD Status: REG CLI Y Location: [facility] Problem List (1) Problem with dialysis [...] micropunch needle inserted micropuncture wire inserted 6 [place] short sheath was inserted. I was able to get the guidewire into the brachial artery. I placed a 4 [place] glide cath. Using Isovue performed official gram demonstrating thrombus involving the fistula. So then under ultrasound guidance I was able to get antegrade flow closer to the antecubital space with the same micropuncture needle wire and then a 6 [place] short sheath dilator. TPA 10 mg and 50 cc was used with a power pulse spray 6 [place] solent Omni AngioJet catheter. 12 time was [...] Signed POTASSIUM Collected: 12/11/2017 Status: F Source: [place] 2:55 PM [facility] REPOSITORY TYPE CODE TESTS RESULT OUT OF RANGE REFERENCE UNITS LAB L501.5600 3.5-5.1 mmol/L Normal K 4.5 Result Comment: Moderate Hemolysis, Result may be falsely increased. Performed By: #### L501.5600 #### [facility] [address] [place], [address] CBC-COMPLETE BLOOD CNT Collected: 12/11/2017 Status: F Source: [place] NO DIFF 10:02 AM [facility] REPOSITORY TYPE CODE TESTS RESULT OUT OF [...] 12.0 Performed By: #### L100.0500, L500.2500 #### [facility] [address] [facility] [place], [place], [address] BASIC METABOLIC Collected: 12/11/2017 Status: F Source: [place] PROFILE (BMP) 10:02 AM [facility] REPOSITORY TYPE CODE TESTS RESULT OUT OF [...] 10 Performed By: #### L100.0500, L500.2500 #### [facility] [address] [facility] [place], [address] PROTHROMBIN TIME W/INR Collected: 12/11/2017 Status: F Source: [place] 10:02 AM [facility] REPOSITORY TYPE CODE TESTS RESULT OUT OF RANGE REFERENCE UNITS LAB L300.4150 11.7-14.9 SECONDS Normal PROTIME 12.6 LAB L300.4200 Normal INR 0.9 Performed By: #### L300.3900, L300.4310 #### [facility] [address] [place], [address] PARTIAL THROMBOPLAST Collected: 12/11/2017 Status: F Source: [place] TIME 10:02 AM [facility] REPOSITORY TYPE CODE TESTS RESULT OUT OF RANGE REFERENCE UNITS LAB L300.4310 24.1-36.2 Seconds Normal PTT 30.5 Performed By: #### L300.3900, L300.4310 #### [facility] [address] [place], [address] SURGERY VISIT REPORT Observed: 12/11/2017 Status: F Source: [place] 9:55 AM [facility] REPOSITORY [facility] [address] [place] [address] OFFICE VISIT Date of Service: 12/11/17 MR#: [id number] Acct: [id number] Name: LIN [place]Z Rep #: [id number] : 1945 Provider: Sukh Samuel MD Age/Sex: 72/F Location: [facility] Status: Signed Intake Vital Signs12/11/17 Height 5 ft 4 in 12/11/17 Weight: 155 lb 2 oz 12/11/17 Body Mass Index (BMI) 26.6 12/11/17 Blood Pressure 189/67 H Intake Visit Reasons: fistula clotted Chief Complaint: clotted fistula Tentering Machine Feeder Required: No Is patient in pain?: No [...] PO DAILY 01/02/17 [History Confirmed 08/19/17] Ipratropium [place] 15 ml NS Q6H PRN PRN 01/02/17 [History Confirmed 08/19/17] Metolazone [Zaroxolyn] 5 mg PO DAILY 01/02/17 [History Confirmed 08/19/17] Quinapril HCl [Accupril] 5 mg PO DINNER 01/02/17 [History Confirmed 08/19/17] Hydrocodone Bitart/Apap 5-325 [Ganse[place]ort 5MG-325MG] 1 tab PO Q6H PRN PRN [...] 1. Problem with dialysis access, subsequent encounter T82.005D Plan I have discussed treatment options with [...] F Source: [place] AND/OR ERECT 4:22 PM [facility] REPOSITORY [facility] Imaging Services [address] [place] [address] Abd Inc Decub and/or Erect MR#: [id number] Acct: [id number] Name: LIN [place] Rep #: [id number] : 1945 F 72 From: Stu Omalley MD PCP: Sangeeta Koenig MD Status: REG CLI Study: Abd Inc Decub and/or Erect Date of Exam: 11/04/17 Exam# [id number] Ordering Dr: Sangeeta Koenig MD STUDY: X-RAY [...] Service support , CC: Sangeeta Koenig MD Loan Closer: Signed DOWNTIME REPORT Observed: 08/27/2017 Status: F Source: [place] 12:14 PM [facility] REPOSITORY [facility] Medical Records Department [address] [place] [address] Downtime Report MR#: [id number] Acct: [id number] Name: LNI M[place]Z Rep #: [id number] : 1945 72 From: Nikhil Soler PCP: Arya PATEL,Sangeeta Status: REG RCR This patient was seen during an EMR downtime August 10, 2017 - August 17, 2017. This patient may have a combination of paper and electronic documentation or all paper documentation. All documentation is viewable within the e-chart portion of [facility] for each patient visit. OPERATIVE REPORT Observed: 08/20/2017 Status: F Source: [place] 11:51 AM [facility] REPOSITORY [facility] Medical Records Department [address] [place] [address] Operative Report 08/20/17 1145 MR#: [id number] Acct: [id number] Name: LIN [place] Rep #: [id number] : 1945 71 From: Sukh Samuel MD PCP: Arya PATEL,Sangeeta Status: REG [facility] Y Location: [facility] Problem List (1) Problem with dialysis [...] retrograde with flow. Micropuncture wire inserted. 6 [place] short sheath dilator was inserted. Using a 035 angled Glidewire [place] was gained to the brachial artery proximal to the anastomosis. A 4 [place] angled glide cath was placed. Utilizing Isovue [...] micropuncture needle inserted micropuncture wire inserted 6 [place] Korean received IV inserted. Then the angled Glidewire [...] F Source: [place] NO DIFF 9:25 AM [facility] REPOSITORY TYPE CODE TESTS RESULT OUT OF [...] MPV 11.5 Performed By: #### L100.0500 #### [facility] [address] [place], [address] BASIC METABOLIC Collected: 08/20/2017 Status: F Source: [place] PROFILE (BMP) 9:25 AM [facility] REPOSITORY TYPE CODE TESTS RESULT OUT OF [...] GAP 9 Performed By: #### L500.2500 #### [facility] [address] [facility] [place], [address] PELVIS WITHOUT IV Observed: 08/05/2017 Status: F Source: [place] CONTRAST 11:25 AM [facility] REPOSITORY [facility] Imaging Services [address] [place] [address] Pelvis without IV Contrast MR#: [id number] Acct: [id number] Name: LIN [place] Rep #: [id number] : 1945 F 71 From: Mark Espinoza DO PCP: Sangeeta Koenig MD Status: REG CLI Study: Pelvis without IV Contrast Date of Exam: 08/05/17 Exam# [id number] Ordering Dr: Sangeeta Koenig MD STUDY: CT [...] Service support , CC: Sangeeta Koenig MD Loan Closer: Signed INITAL EVALUATION (1) Observed: 07/31/2017 Status: F Source: [place] - PT 3:49 PM [facility] REPOSITORY [facility] [address] [place] [address] Fax REHABILITATION SERVICES INITIAL EVALUATION MR#: [id number] Acct: [id number] Name: LIN [place]Z Rep #: [id number] : 1945 71 From: Charley Arriaga PT, Cert. MDT Referring Dr.: Sangeeta Koenig MD Status: REG RCR Insurance: MEDICARE PART A B [employer] Patient's Visit Information LIN [place]Z [...] AND TO BE ABLE TO TRAVEL TO [place]. Goal Time Frame: 4-6 Weeks Goal 3:: [...] to be FAXED BACK to us at [phone] for Medicare purposes. Please let me know if there are questions or concerns regarding this plan of care. Physician Signature: Date: <Electronically signed by Charley Arriaga PT, Cert. MDT> 07/31/17 1549 CC: Sangeeta Koenig MD ARIN Signed For Medicare only, by signing this I certify the plan of care. Physicians Signature Date SURGERY VISIT REPORT Observed: 07/30/2017 Status: F Source: [place] 2:48 PM [facility] REPOSITORY [facility] [address] [place] [address] OFFICE VISIT Date of Service: 07/30/17 MR#: [id number] Acct: [id number] Name: LIN M[place]Z Rep #: [id number] : 1945 Provider: Sukh Samuel MD Age/Sex: 71/F Location: [facility] Status: Signed Intake Vital Signs07/30/17 Height 5 ft 4 in 07/30/17 Weight: 159 lb 9 oz 07/30/17 Body Mass Index (BMI) 27.3 07/30/17 Blood Pressure 192/79 Intake Visit Reasons: decreased flows Chief Complaint: decreased flows Tentering Machine Feeder Required: No Is patient in pain?: No [...] PO DAILY 01/02/17 [History Confirmed 03/19/17] Ipratropium [place] 15 ml NS Q6H PRN PRN 01/02/17 [History Confirmed 03/19/17] Metolazone [Zaroxolyn] 5 mg PO DAILY 01/02/17 [History Confirmed 03/19/17] Quinapril HCl [Accupril] 5 mg PO DINNER 01/02/17 [History Confirmed 03/19/17] Hydrocodone Bitart/Apap 5-325 [[place] 5MG-325MG] 1 tab PO Q6H PRN PRN [...] Appearance: overweight Orientation: alert, awake, oriented x3 [facility] Head: normal to inspection Eyes General: [...] 1. Problem with dialysis access, subsequent encounter T82.008D Plan I am recommending the patient a [...] Sukh Samuel MD> Date [facility]: Date (if applicable) CC: Sangeeta Koenig MD L/S SPINE MIN 4 Observed: 07/24/2017 Status: F Source: [facility] 11:26 AM [facility] REPOSITORY [facility] Imaging Services [address] [place] [address] L/S Spine Min 4 Views MR#: [id number] Acct: [id number] Name: LIN M[place]ALEZ Rep #: [id number] : 1945 F 71 From: Charlie Bell MD PCP: Sangeeta Koenig MD Status: REG CLI Study: L/S Spine Min 4 Views Date of Exam: 07/24/17 Exam# [id number] Ordering Dr: Sangeeta Koenig MD STUDY: X-RAY [...] Service support , CC: Sangeeta Koenig MD Loan Closer: Signed HIPS B/L MIN 2 Observed: 07/24/2017 Status: F Source: [place] VIEWS W/ PELVIS 11:26 AM [facility] REPOSITORY [facility] Imaging Services [address] [place] [address] Hips B/L min 2 views w/ Pelvis MR#: [id number] Acct: [id number] Name: LIN M[place]Z Rep #: [id number] : 1945 F 71 From: Charlie Bell MD PCP: Sangeeta Koenig MD Status: REG CLI Study: Hips B/L min 2 views w/ Pelvis Date of Exam: 07/24/17 Exam# [id number] Ordering Dr: Sangeeta Koenig MD STUDY: X-RAY [...] Service support , CC: Sangeeta Koenig MD Loan Closer: Signed PT D/C SUMMARY (1) Observed: 07/15/2017 Status: F Source: [place] 12:32 PM [facility] REPOSITORY [facility] [address] [place] [address] Fax REHABILITATION SERVICES DISCHARGE SUMMARY MR#: [id number] Acct: [id number] Name: LIN MORALEZ Rep #: [id number] : 1945 71 From: Charley Arriaga PT, Cert. MDT Referring Dr.: Sangeeta Koenig MD Status: REG RCR Insurance: MEDICARE PART A B [employer] HP - PT D/C Summary [...] AND TO BE ABLE TO TRAVEL TO [place] IN JULY. Goal 3:: INSTRUCT IN PROPHYLAXIS/HEP - Plan Plan: D/C DUE TO LACK OF PROGRESS. RECOMMEND PHYSICIAN REASSESSMENT. - D/C Information If there are questions or concerns regarding this patient's physical therapy, please feel free to call me at [phone]. Thank you for the referral of this patient. Sincerely, Charley Arriaga <Electronically signed by Cert. AMANDA Avina PTT> 07/15/17 1232 CC: Sangeeta Koenig MD ARIN Signed INITAL EVALUATION (1) Observed: 06/18/2017 Status: F Source: [place] - PT 10:29 AM [facility] REPOSITORY [facility] [address] [place] [address] Fax REHABILITATION SERVICES INITIAL EVALUATION MR#: [id number] Acct: [id number] Name: LIN MORALEZ Rep #: [id number] : 1945 71 From: Cert. DAY Avina PT Referring Dr.: Sangeeta Koenig MD Status: REG RCR Insurance: MEDICARE PART A B [employer] Patient's Visit Information LIN MORALEZ is a [...] major surgery: SEE BELOW. OTHER: GOES TO [facility] 3 TIMES A WEEK FOR 3 OR 4 HOURS. PATIENT LIVES ALONE AND DROVE HERSELF HERE TO PT TODAY. SUPPOSED TO GO TO [place] IN A MONTH. - Objective Sitting Posture: [...] AND TO BE ABLE TO TRAVEL TO [place] IN JULY. Goal Time Frame: 4-6 Weeks [...] to be FAXED BACK to us at [phone] for Medicare purposes. Please let me know if there are questions or concerns regarding this plan of care. Physician Signature: Date: <Electronically signed by Charley Arriaga PT, Cert. MDT> 06/18/17 1029 CC: Sangeeta Koenig MD ARIN Signed For Medicare only, by signing this I certify the plan of care. Physicians Signature Date DISCHARGE INSTRUCTION Observed: 06/17/2017 Status: F Source: [place] 11:29 AM [facility] REPOSITORY [facility] Medical Records Department [address] [place] [address] Discharge Instruction 06/17/17 1128 MR#: [id number] Acct: [id number] Name: LIN M[place]ALEZ Rep #: [id number] : 1945 71 From: Ranjit Zepeda MD [...] your Primary Care Provider. Call [facility] ([phone]) or report to the closest Emergency Room. Call 911 if necessary. 06/17/17 1129 <Electronically signed by Ranjit Zepeda MD> Date Ranjit Zepeda MD Cosigner Signature (If Indicated): Date CC: Sangeeta Koenig MD EMERGENCY DEPARTMENT Observed: 06/17/2017 Status: F Source: [place] SUMMARY 11:28 AM [facility] REPOSITORY [facility] Medical Records Department [address] [facility] [place] [address] Emergency Department Summary 06/17/17 1125 MR#: [id number] Acct: [id number] Name: LIN MORALEZ Rep #: [id number] : 1945 71 From: Ranjit Zepeda MD [...] groin strain This note was generated with [employer] dictation software. It may contain incorrect words, [...] problems, contact your Primary Care Provider. Call [employer] [facility] ([phone]) or report to the closest Emergency Room. Call 911 if necessary. 06/17/17 1128 <Electronically signed by Ranjit Zepeda MD> Date Ranjit Zepeda MD Cosigner Signature (If Indicated): Date CC: Sangeeta Koenig MD HIP 2-3 VIEWS WITH Observed: 06/15/2017 Status: F Source: [place] 4:47 PM [facility] REPOSITORY [facility] Imaging Services [address] [place] [address] Hip 2-3 Views with Pelvis MR#: [id number] Acct: [id number] Name: LIN M[place]ALEZ Rep #: [id number] : 1945 F 71 From: Stu Omalley MD PCP: Sangeeta Koenig MD Status: REG CLI Study: Hip 2-3 Views with Pelvis Date of Exam: 06/15/17 Exam# [id number] Ordering Dr: Sangeeta Koenig MD STUDY: X-RAY [...] Service support , CC: Sangeeta Koenig MD Loan Closer: Signed CHEST PA AND LATERAL Observed: 05/22/2017 Status: F Source: [place] 1:40 PM [facility] REPOSITORY [facility] Imaging Services [address] [place] [address] Chest PA and Lateral MR#: [id number] Acct: [id number] Name: LIN M[place]Z Rep #: [id number] : 1945 F 71 From: Mayo Connell MD PCP: Sangeeta Koenig MD Status: REG CLI Study: Chest PA and Lateral Date of Exam: 05/22/17 Exam# [id number] Ordering Dr: Jak Metcalf MD STUDY: X-RAY [...] CC: Sangeeta Koenig MD; Jak Metcalf MD Loan Closer: Signed SURGERY VISIT REPORT Observed: 04/18/2017 Status: F Source: [place] 9:08 AM [facility] [address] [place] [address] OFFICE VISIT Date of Service: 04/18/17 MR#: [id number] Acct: [id number] Name: LIN M[place]Z Rep #: [id number] : 1945 Provider: Sukh Samuel MD Age/Sex: 71/F Location: [facility] Status: Signed Intake Intake Visit Reasons: dialysis cath removal Chief Complaint: dialysis cath removal Tentering Machine Feeder Required: No Is patient in pain?: No [...] PO DAILY 01/02/17 [History Confirmed 03/19/17] Ipratropium [place] 15 ml NS Q6H PRN PRN 01/02/17 [History Confirmed 03/19/17] Metolazone [Zaroxolyn] 5 mg PO DAILY 01/02/17 [History Confirmed 03/19/17] Quinapril HCl [Accupril] 5 mg PO DINNER 01/02/17 [History Confirmed 03/19/17] Hydrocodone Bitart/Apap 5-325 [[place] 5MG-325MG] 1 tab PO Q6H PRN PRN [...] from her right internal jugular Office Procedures 19843 Dialysis Catheter Removal Performed By: Procedure performed [...] 1. Problem with dialysis access, subsequent encounter T82.998D Plan Successful removal dialysis catheter. Well-functioning right [...] 11/03/2016 Status: F Source: [place] 4:43 PM [facility] REPOSITORY TYPE CODE TESTS RESULT OUT OF [...] Lymph 1.53 Performed By: #### L100.0100 #### [facility] [address] [facility] [place], [place], [id number] ALLERGIES ALLERGIES DATE TYPE / CODE NAME / CODE REACTION SEVERITY SOURCE Drug Sulfa (Sulfonamide Itching Unknown [place] 8 Allergy/917250883( Antibiotics)/L716092 [facility]) 491(RXNORM) Hospital Repository Drug aztreonam/[id number] Itching Unknown [place] 8 Allergy/712801206( (RXNORM) [facility]) Hospital Repository Drug Sulfa (Sulfonamide Itching [place] 7 Allergy/166107430( Antibiotics)/M645722 [facility] SNOMED CT) 491(RXNORM) Hospital Repository Drug aztreonam/K506310458 Itching [place] 7 Allergy/663676088( (RXNORM) [facility] SNOMED CT) Hospital Repository DRUG CARVEDILOL RASH [place] 7 INGREDI/807796279( [facility] Main SNOMED CT) [place] Repository DRUG PHENAZOPYRIDINE HCL Mental Chg [place] 6 INGREDI/078697724( [facility] Main SNOMED CT) [place] Repository DRUG INSULIN ASPART RASH [facility] [place] 6 INGREDI/923298237( [facility] Main SNOMED CT) [place] Repository Drug QHLEBZB-XPE-FZK Myalgia [place] 5 Class/987572759(SN REDUCTASE INHIBITORS Clinic Main OMED CT) [place] Repository DRUG SULFAMETHOXAZOLE OTHER: SEE C [place] 3 INGREDI/755622720( Clinic Main SNOMED CT) [place] Repository Drug BETA-BLOCKERS [place] 3 Class/775204403(SN (BETA-ADRENERGIC Clinic Main OMED CT) BLOCKING AGTS) [place] Repository Miscellaneous OTHER [place] 8 Allergy/211203821( Clinic Main SNOMED CT) [place] Repository NG/310386723(SNOME INSULIN ASPART [facility]) [facility] System Repository NG/253732117(SNOME SULFAMETHOXAZOLE [facility]) Health System Repository NG/066940806(SNOME BETA-BLOCKERS [facility]) (BETA-ADRENERGIC Health System BLOCKING AGTS) Repository NG/242721648(SNOME CARVEDILOL [facility]) Health System Repository NG/090468493([facility] OTHER [facility]) Health System Repository NG/685840314(SNOME PHENAZOPYRIDINE HCL [facility]) Health System Repository NG/696021407(SNOME OPEOBUY-YIY-THK [facility] D [facility]) REDUCTASE INHIBITORS Health System Repository ENCOUNTERS ENCOUNTERS ADMIT/DISCHARGE ACCOUNT NUMBER ADMITTING ENCOUNTER LOCATION SOURCE CLASS 03/25/2018 [id number] Ambulatory [facility] ding:MTRAD Repository 03/22/2018/03/22/19 [id number] Ambulatory [address] Repository 03/17/2018/03/18/19 [id number] Ambulatory [address] Repository 03/17/2018/03/17/19 [id number] Ambulatory [address] Repository 03/17/2018/03/18/19 [id number] Ambulatory [address] Repository 02/17/2018 [id number] Ambulatory [facility] ding:MTRAD Repository 01/27/2018 [id number] Ambulatory [facility] ding:ACRoom: Repository IN53Tvt: 1 01/26/2018/01/27/20 [id number] Ambulatory [address] ding:CLSP Repository 01/26/2018/01/27/20 [id number] Ambulatory BMSBuilding: [place] [address] BMS.[facility] Repository 01/21/[id number] [facility] Repository 01/19/2018/01/20/20 [id number] Ambulatory BMSBuilding: [place] 18 BMS.[facility] Repository 01/04/2018 [id number] [facility] 12/31/[id number] [facility] Repository 12/28/2017/12/30/19 [id number] Ambulatory [address] Repository 12/21/2017 [id number] Ambulatory [facility] ding:MTLAB Repository 12/15/2017 [id number] Ambulatory [facility] ding:CVS Repository 12/14/2017/12/18/19 [id number] MERCEDEZ PATEL, Ambulatory ABuilding:ME [place] 18 [address] 4NRoom: [place] [address]Bed: [facility] Repository 12/11/2017/12/12/19 [id number] Ambulatory [address] ding:CLSP Repository 12/11/2017/12/12/19 [id number] Ambulatory BMSBuilding: [place] 18 BMS.CF[facility] Repository 12/11/2017 [id number] [facility] 12/11/2017 [id number] Ambulatory [facility] ding:PAVLAB Repository 12/11/2017/12/12/19 [id number] Ambulatory BMSBuilding: [place] 18 BMS.[facility] Repository 11/04/2017 [id number] Ambulatory [facility] ding:MTRAD Repository 08/20/2017/08/21/19 [id number] Ambulatory [address] ding:CLSP Repository 08/20/2017 [id number] Ambulatory BMSBuilding: [place] BMS.[facility] Repository 08/12/2017/08/13/19 [id number] Ambulatory [address] ding:PT Repository 08/05/2017 [id number] Ambulatory [facility] ding:CT Repository 07/30/2017/07/31/19 [id number] Ambulatory BMSBuilding: [place] 18 [facility]MS[facility] Repository 07/24/2017 [id number] Ambulatory [facility] ding:MTRAD Repository 07/15/2017/07/16/19 [id number] Ambulatory [address] ding:PT Repository 06/17/2017/06/18/19 [id number] Emergency [address] ding:ED Repository 06/15/2017 [id number] Ambulatory [facility] ding:MTRAD Repository 06/12/2017 [id number] Ambulatory [facility] MEDICAL Repository CENTERBuildi ng:CAGWS 05/22/2017 [id number] Ambulatory [facility] ding:MTRAD Repository 04/18/2017/04/18/19 [id number] Ambulatory BMSBuilding: [place] 18 BMS[facility] Repository 11/03/2016 [id number] Ambulatory [facility] ding:MFPLAB Repository PAYERS PAYERS ENCOUNTER GUARANTOR PAYER SUBSCRIBER SOURCE 03/25/2018 LIN F Primary LIN F [place] [id number] Insurance:MEDICARE PALMERDOB: [facility] PART A BPolicy Number: [id number], [place] [id number] Repository [address]Iab: 330) Date:2018-03-25 [phone] () 03/25/2018 Secondary LIN F [place] Insurance:CIGNA MCR PALMERDOB: Community SUPPLEMENT [id number] Hospital Repository Number: [id number] Date:4964-72-23TLDCBNS [facility] [address] [address]UNPKBM, [place] [address]TN: 03/25/2018 Tertiary NOT GIVENUNK [place] Insurance:SELF PAY [facility] Number: Effective Repository Date:2018-03-25 02/17/2018 LIN F Primary LIN F [place] [id number] Insurance:MEDICARE [facility]DOB[facility] PART A BPolicy Number: [id number], [place] [id number] Repository [address]Oly: (330) Date:2018-02-17 [phone] () 02/17/2018 Secondary LIN F [place] Insurance:TONO HERNANDEZB: Community SUPPLEMENT [id number] Hospital Repository Number: [id number] Date:3844-70-95QJETMIN N [facility] [address] [address]MMYFZR, [place] [address]VR: 02/17/2018 Tertiary NOT GIVENUNK [place] Insurance:SELF PAY [facility] Number: Effective Repository Date:2018-02-17 01/27/2018 LIN F Primary LIN F [place] [id number] Insurance:MEDICARE PALMERDOB: Community [place] PART A BPolicy Number: [id number], [place] [id number] Repository [address]Qon: (330) Date:2018-01-27 [phone] () 01/27/2018 Secondary LIN F [place] Insurance:TONO HERNANDEZB: Community SUPPLEMENT [id number] Hospital Repository Number: [id number] Date:3550-01-32HFTXMCZ N [facility] [address] [address]RUAJFA, [place] [address]QW: 01/27/2018 Tertiary NOT GIVENUNK [place] Insurance:SELF PAY [facility] Number: Effective Repository Date:2018-01-27 01/26/2018 LIN F Primary LIN F [place] [id number] Insurance:MEDICARE PALMERDOB: Community [place] PART A BPolicy Number: [id number], [place] [id number] Repository [address]Ars: (330) Date:2018-01-20 [phone] () 01/26/2018 Secondary LIN F [place] Insurance:TONO HERNANDEZB: Community SUPPLEMENT [id number] Hospital Repository Number: [id number] Date:3207-45-84TUDHTDJ N [facility] [address] [address]HCFNHO, [place] [address]AK: 01/26/2018 Tertiary NOT GIVENUNK [place] Insurance:SELF PAY [facility] Number: Effective Repository Date:2018-01-20 01/26/2018 LIN F Primary LIN F [place] [id number] Insurance:MEDICARE PALMERDOB: [place] PART A BPolicy Number: [id number], [place] [id number] Repository [address]Qoz: 330) Date:2018-01-20 [phone] (HP) 01/26/2018 Secondary LIN F [place] Insurance:CIGNA MCR PALMERDOB: Community SUPPLEMENT [id number] Hospital Repository Number: [id number] Date:7600-75-86CIHNQDA N [facility] [address] [address]XLRJIU, [place] [address]SS: 01/26/2018 Tertiary NOT GIVENUNK [place] Insurance:SELF PAY [facility] Number: Effective Repository Date:2018-01-26 01/21/2018 LIN PALMERDOB: Primary LIN PALMERDOB: [place] Insurance:MedicarePoli [id number] cy Number: [address] [id number] [address]Nye: [phone]) Date:Plan Name:Phyllis Walters 19745Hza: (HP) [phone] (HP) 01/21/2018 Secondary LIN PALMERDOB: University Insurance:MedicarePoli [id number] Hospitals cy Number: [address] [place] [id number] Date:Plan Name:Phyllis Bone 17521Qgk: (HP) 01/19/2018 LIN F Primary LIN F [place] [id number] Insurance:MEDICARE PALMERDOB: [facility] PART A BPolicy Number: [id number], [place] [id number] Repository [address]Url: 330) Date:2018-01-08 [phone] () 01/19/2018 Secondary LIN F [place] Insurance:CIGNA [facility]: Community SUPPLEMENT [id number] Hospital SOLUTIONSPolmercy[facility] Repository Number: [id number] Date:1205-36-87AMJIQZJ N [facility] [address] [address]MWOAQQ, [place] [address]AA: 01/19/2018 Tertiary NOT GIVENUNK [place] Insurance:SELF PAY [facility] Number: Effective Repository Date:2018-01-19 01/04/2018 LIN F Primary LIN [facility] PALMERDOB: Insurance:MEDICARE MOUSIEDOB: [facility] [id number] PART BPolicy Number: [id number] Repository [place] [id number] [address] [place] [address] Date:2017-12-24 - [place], [place] [address]Isk: ([phone]) [id number] 6[address]Obl: () Name:[facility] [id number] [facility] ()Tel: (405) [address] [address]esav[place], [place] [address] (WE) [address]WP: 01/04/2018 Secondary LIN [facility] Insurance:CIGNA [facility]ENTER[facility]: [facility] [id number] Number: [id number] Repository [id number] 3 [facility] Date:2017-12-24 - [place] 1316-22-64Jxob [address]Adn: ([phone]) Name:[facility] [phone] [address]Vmmlujqfjse, [place] ()Tel: [phone]) [phone]: [phone] ([phone] 12/21/2017 LIN F Primary LIN F [place] [id number] Insurance:MEDICARE PALMERDOB: [facility] PART A BPolicy Number: [id number], [place] [id number] Repository [address]Rwi: (330) Date:2017-12-219880 () 12/21/2017 Secondary LIN F [place] Insurance:TONO MADISON PALMERDOB: Community SUPPLEMENT [id number] Hospital Repository Number: [id number] Date:9975-78-13PFTTBYO N [facility] [address] [address]HRCFDW, [place] [address]KT: 12/21/2017 Tertiary NOT GIVENUNK [place] Insurance:SELF PAY [facility] Number: Effective Repository Date:2017-12-21 12/15/2017 LIN F Primary LIN F [place] [id number] Insurance:MEDICARE PALMERDOB: [facility] PART A BPolicy Number: [id number], [place] [id number] Repository [address]Tfd: 330) Date:2017-12-110833 () 12/15/2017 Secondary LIN F [place] Insurance:TONO MADISON PALMERDOB: Community SUPPLEMENT [id number] Hospital Repository Number: [id number] Date:9553-59-36NBSGKHE N [facility] HOME [facility] [address] [address]OVPMTJ, [place] [address]EE: 12/15/2017 Tertiary NOT GIVENUNK [place] Insurance:SELF PAY [facility] Hospital Number: Effective Repository Date:2017-12-11 12/14/2017 LIN F Primary LIN F [facility] PALMERDOB: Insurance:MEDICARE PALMERDOB: [facility] [id number] PART BPolicy Number: [id number] [place] [address] [id number] [place] [address] Date:2017-12-14 - [place], [place] [address]Uzd: [phone] [id number] 03[address]Zon: () Name:[facility] [phone] Administrators LLCPO ()Tel: 000) [address] [address]Htnwhrzzv, [place] [phone] (WP) [address]NP: 12/14/2017 Secondary LIN F [facility] Insurance:[facility]: [facility] [id number] Number: [id number] Repository [id number] [address] [place] [address] Date:2017-12-14 [place], [place] 3667-01-36Ttee [address]Xlq: (419) Name:[phone] 177458Yxoukmfjvjl PAM ()Tel: ([phone]) [phone]: (WP) [phone] 12/11/2017 LIN F Primary LIN F [place] [id number] Insurance:MEDICARE MOUSIEDOB: [facility] PART A BPolicy Number: [id number], [place] [id number] Repository [address]Ohi: (330) Date:2017-12-111757 () 12/11/2017 Secondary LIN F [place] Insurance:[facility]: Community SUPPLEMENT [id number] Hospital Repository Number: [id number] Date:3887-08-63SATLIXT N [facility] [address] [address]GKNKAP, [place] [address]HW: 12/11/2017 Tertiary NOT GIVENUNK [place] Insurance:SELF PAY [facility] Number: Effective Repository Date:2017-12-11 12/11/2017 LIN F Primary LIN F [place] [id number] Insurance:MEDICARE PALMERDOB: [facility] PART A BPolicy Number: [id number], [place] [id number] Repository [address]Fuq: (330) Date:2017-12-11-5978 () 12/11/2017 Secondary LIN F [place] Insurance:[facility]: Community SUPPLEMENT [id number] Hospital Repository Number: [id number] Date:9250-96-68OTBFYRL N [facility] [address] [address], [place] [address]CR: 12/11/2017 Tertiary NOT GIVENUNK [place] Insurance:SELF PAY [facility] Number: Effective Repository Date:2017-12-11 12/11/2017 LIN F Primary LIN F [place] [id number] Insurance:MEDICARE PALMERDOB: Community [place] PART A BPolicy Number: [id number], [place] [id number] Repository [address]Pwx: (097) Date:2017-12-112694 () 12/11/2017 Secondary LIN F [place] Insurance:CIGNA LOS PALMERDOB: Community SUPPLEMENT [id number] Hospital Repository Number: [id number] Date:8646-08-29UDTPVFY CARE HOME LIFE [address] [address]RWCQLF, [place] [address]NF: 12/11/2017 Tertiary NOT GIVENUNK [place] Insurance:SELF PAY [facility] Number: Effective Repository Date:2017-12-11 12/11/2017 LIN F Primary LIN F [place] [id number] Insurance:MEDICARE PALMERDOB: Community [place] PART A BPolicy Number: [id number], [place] [id number] Repository [address]Myd: (248) Date:2017-12-115074 () 12/11/2017 Secondary LIN F [place] Insurance:KERENNA LOS PALMERDOB: Community SUPPLEMENT [id number] Hospital Repository Number: [id number] Date:2872-88-64MLUCLYN N [facility] [address] [address]SBLTGG, [place] [address]LK: 12/11/2017 Tertiary NOT GIVENUNK [place] Insurance:SELF PAY [facility] Number: Effective Repository Date:2017-12-11 12/11/2017 LIN F Primary LIN F [place] [id number] Insurance:MEDICARE PALMERDOB: Community [place] PART A BPolicy Number: [id number], [place] [id number] Repository [address]Ekz: (330) Date:2017-12-112548 () 12/11/2017 Secondary LIN F [place] Insurance:TONO ALFREDOERDOB: Community SUPPLEMENT [id number] Hospital Repository Number: [id number] Date:9795-10-98PEKIZOO N [facility] [address] [address]JFRBXM, [place] [address]SU: 12/11/2017 Tertiary NOT GIVENUNK [place] Insurance:SELF PAY [facility] Number: Effective Repository Date:2017-12-11 11/04/2017 LIN F Primary LIN F [place] [id number] Insurance:MEDICARE PALMERDOB: Community [facility] PART A BPolicy Number: [id number], [place] [id number] Repository [address]Bdj: (330) Date:2017-11-04 [phone] () 11/04/2017 Secondary LIN F [place] Insurance:TONO ALFREDOERDOB: Community SUPPLEMENT [id number] Hospital Repository Number: [id number] Date:5351-05-75LLLKYIZ N [facility] [address] [address]QZGZQR, [place] [address]DJ: 11/04/2017 Tertiary NOT GIVENUNK [place] Insurance:SELF PAY [facility] Hospital Number: Effective Repository Date:2017-11-04 08/20/2017 LIN F Primary LIN F [place] [id number] Insurance:MEDICARE PALMERDOB: Community [place] PART A BPolicy Number: [id number], [place] [id number] Repository [address]Vfc: Date:2017-07-30 ~419- 9 () 08/20/2017 Secondary LIN F [place] Insurance:CIGNA MCR PALMERDOB: Community SUPPLEMENT [id number] Hospital Repository Number: [id number] Date:3808-38-05PGOFNQS N [facility] [address] [address], [place] [address]TE: 08/20/2017 Tertiary NOT GIVENUNK [place] Insurance:SELF PAY [facility] Number: Effective Repository Date:2017-07-30 08/20/2017 LIN F Primary LIN F [place] [id number] Insurance:MEDICARE PALMERDOB: Community [place] PART A BPolicy Number: [id number], [place] [id number] Repository [address]Ajc: Date:2017-07-30 ~419- 9 () 08/20/2017 Secondary LIN F [place] Insurance:TONO HERNANDEZB: Community SUPPLEMENT [id number] Hospital Repository Number: [id number] Date:3405-10-81VGSVCRY N [facility] [address] [address]CVLKKX, [place] [address]JM: 08/20/2017 Tertiary NOT GIVENUNK [place] Insurance:SELF PAY [facility] Number: Effective Repository Date:2017-08-20 08/12/2017 LIN F Primary LIN F [place] [id number] Insurance:MEDICARE PALMERDOB: Community [facility]OW[facility] PART A BPolicy Number: [id number], [place] [id number] Repository [address]Dzp: (330) Date:2008-08-07 [phone] () 08/12/2017 Secondary LIN F [place] Insurance:TONO HERNANDEZB: Community SUPPLEMENT [id number] Hospital Repository Number: [id number] Date:8679-18-50IDMLEHY N [facility] [address] [address]CHPYLD, [place] [address]HD: 08/12/2017 Tertiary NOT GIVENUNK [place] Insurance:SELF PAY [facility] Number: Effective Repository Date:2017-07-24 08/05/2017 LIN F Primary LIN F [place] [id number] Insurance:MEDICARE PALMERDOB: Community [place] PART A BPolicy Number: [id number], [place] [id number] Repository [address]Mez: Date:2017-07-28 ~419- 9 (HP) 08/05/2017 Secondary LIN F [place] Insurance:TONO ALFREDOERDOB: Community SUPPLEMENT [id number] Hospital Repository Number: [id number] Date:6339-13-87RUKYNYY N [facility] [address] [address]YTZZIF, [place] [address]AR: 08/05/2017 Tertiary NOT GIVENUNK [place] Insurance:SELF PAY [facility] Number: Effective Repository Date:2017-07-28 07/30/2017 LIN F Primary LIN F [place] [id number] Insurance:MEDICARE PALMERDOB: Community [place] PART A BPolicy Number: [id number], [place] [id number] Repository [address]Eaf: Date:2017-07-20 ~419- 9 (HP) 07/30/2017 Secondary LIN F [place] Insurance:TONO ALFREDOERDOB: Community SUPPLEMENT [id number] Hospital Repository Number: [id number] Date:3635-51-25IPEUXKV N [facility] [address] [address]YYXYQZ, [place] [address]FQ: 07/30/2017 Tertiary NOT GIVENUNK [place] Insurance:SELF PAY Community [facility] Number: Effective Repository Date:2017-07-30 07/24/2017 LIN F Primary LIN F [place] [id number] Insurance:MEDICARE PALMERDOB: Community [place] PART A BPolicy Number: [id number], [place] [id number] Repository [address]Gkh: Date:2017-07-24 ~419- 9 (HP) 07/24/2017 Secondary LIN F [place] Insurance:TONO HERNANDEZB: Community SUPPLEMENT [id number] Hospital Repository Number: [id number] Date:0539-59-93XJQZEPF Clifford [facility] [address] [address]RXYRXD, [place] [address]VB: 07/24/2017 Tertiary NOT GIVENUNK [place] Insurance:SELF PAY [facility] Number: Effective Repository Date:2017-07-24 07/15/2017 LIN F Primary LIN F [place] [id number] Insurance:MEDICARE PALMERDOB: Community [place] PART A BPolicy Number: [id number], [place] [id number] Repository [address]Tqr: Date:2008-08-07 ~419- 9 (HP) 07/15/2017 Secondary LIN F [place] Insurance:TONO HERNANDEZB: Community SUPPLEMENT [id number] Hospital Repository Number: [id number] Date:7631-62-25TVIOYIA N [facility] [address] [address]JFPRRR, [place] [address]MC: 07/15/2017 Tertiary NOT GIVENUNK [place] Insurance:SELF PAY [facility] Number: Effective Repository Date:2017-06-16 06/17/2017 LIN F Primary LIN F [place] [id number] Insurance:MEDICARE PALMERDOB: Community [place] PART A BPolicy Number: [id number], [place] [id number] Repository 236[address]Okx: Date:2017-06-17 ~419- 9 (HP) 06/17/2017 Secondary LIN F [place] Insurance:TONO JEFFERSON: Community SUPPLEMENT [id number] Hospital Repository Number: [id number] Date:8043-77-80NOBYCHR N [facility] [address] [address]BODAXK, [place] [address]WF: 06/17/2017 Tertiary NOT GIVENUNK [place] Insurance:SELF PAY [facility] Number: Effective Repository Date:2017-06-17 06/15/2017 LIN F Primary LIN F [place] [id number] Insurance:MEDICARE PALMERDOB: Community [place] PART A BPolicy Number: [id number] [place] [id number] Repository [address]Pll: Date:2017-06-15 ~419- 9 (HP) 06/15/2017 Secondary LIN F [place] Insurance:CIGNA [facility] PALMERDOB: Community SUPPLEMENT [id number] Hospital Repository Number: [id number] Date:1015-13-53FBGMKVW N [facility] [address] [address]GNZPLO, [place] [address]RI: 06/15/2017 Tertiary NOT GIVENUNK [place] Insurance:SELF PAY [facility] Hospital Number: Effective Repository Date:2017-06-15 06/12/2017 LIN F Primary LIN F [facility] PALMERDOB: Insurance:MEDICARE A PALMERDOB: Health System AND BPolicy Number: [id number] [facility] [id number] DRWOOSTER, [place] Date: [address]Hor: () 06/12/2017 Secondary LIN F [facility] Insurance:CIGNA PALMERDOB: Health System MEDICARE [id number] Repository SUPPLEMENTPolicy Number: [id number] Date: 05/22/2017 LIN F Primary LIN F [place] [id number] Insurance:MEDICARE PALMERDOB: [facility] PART A BPolicy Number: [id number], [place] [id number] Repository [address]Dap: Date:2017-05-22 ~419- 9 (HP) 05/22/2017 Secondary LIN F [place] Insurance:C[facility]NA [facility] PALMERDOB: Community SUPPLEMENT [id number] Hospital Repository Number: [id number] Date:7409-71-42CBZJKFD N [facility] [address] [address]RRYOUH, [place] [address]AC: 05/22/2017 Tertiary NOT GIVENUNK [place] Insurance:SELF PAY [facility] Number: Effective Repository Date:2017-05-22 04/18/2017 LIN F Primary LIN F [place] [id number] Insurance:MEDICARE PALMERDOB: Community [place] PART A BPolicy Number: [id number], [place] [id number] Repository [address]Qnk: Date:2017-04-09 ~419- 9 () 04/18/2017 Secondary LIN F [place] Insurance:CIGNA LOS PALMERDOB: Community SUPPLEMENT [id number] Hospital Repository Number: [id number] Date:4012-22-70JWBNTRI N [facility] [address] [address]HDUZOV, [place] [address]SH: 04/18/2017 Tertiary NOT GIVENUNK [place] Insurance:SELF PAY [facility] Number: Effective Repository Date:2017-04-09 11/03/2016 LIN F Primary LIN F [place] [id number] Insurance:MEDICARE PALMERDOB: Community [place] PART A BPolicy Number: [id number], [place] [id number] Repository [address]Quk: (330) Date:2008-08-07 [phone] () 11/03/2016 Secondary ILN F [place] Insurance:TONO MADISON PALMERDOB: Community SUPPLEMENT [id number] Hospital Repository Number: [id number] Date:THAI [facility] [address] [address]FLYPXK, [place] [address]NL:
== END ==
PROVIDERS: Family Provider Family Medicine; PCP Family Medicine; Referring Provider Family Medicine; Visit Provider Family Medicine
DX: J90 Pleural effusion, not elsewhere classified (principal)
CPT/HCPCS: 71046

== ENCOUNTER → 2018-04-19 13:50 | Outpatient (CLI) | payer MEDICARE, OTHER, SELFPAY ==
[2018-04-19 13:23] VITALS: BMI 26.7
[2018-04-19 14:13] LABS: Hematocrit 37.8 % (37-47); Hemoglobin 11.5 g/dl (12.0-15.0); Mean Corp Hgb Conc 30.4 g/gl (32-36); Mean Corpuscular Hgb 30.8 pg (27.0-32.0); Mean Corpuscular Volume 101.3 fL (81-99); Mean Platelet Vol. 11.5 fl (6.2-12.0); Platelet Count 190 K/mm3 (150-450); RBC Distribution Width CV 15.3 % (11.6-14.6); RBC Distribution Width SD 55.6 fl (35.1-43.9); Red Blood Count 3.73 M/mm3 (4.2-5.4); Scan Indicated on CBC? Y/N NO
[2018-04-19 14:48] LABS: Anion Gap 11 (5-15); BUN 61 mg/dL (7-18); BUN/Creat Ratio 11.7 RATIO (10-20); Calcium,Total 8.7 mg/dL (8.5-10.1); Chloride 91 mmol/L (98-107); EST Glomerular Filtration Rate 9 mL/min (>60); Est Glom Filt Rate - Afr Amer 10 mL/min (>60); Glucose 184 mg/dL (74-106); Potassium 3.9 mmol/L (3.5-5.1); Sodium Level 128 mmol/L (136-145)
== END ==
PROVIDERS: Physician Assistant; Family Provider Family Medicine; PCP Family Medicine; Visit Provider Surgery
DX: Z01.818 Encounter for other preprocedural examination (principal); T82.898A Other specified complication of vascular prosthetic devices, implants and grafts, initial encounter
CPT/HCPCS: 36415; 80048; 85027

== ENCOUNTER 2018-04-21 09:20 | Day surgery (SDC) | payer MEDICARE, OTHER, SELFPAY ==
[2018-04-19 13:23] VITALS: BMI 26.7
[2018-04-21 09:43] VITALS: BMI 25.7
--- NOTE | 2018-04-21 12:07 | OP.PCM_ITS ---
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 72-year-old female was taken to special procedures lab placed on the table. She received 1 g of Ancef intravenously preprocedure. She received 50 mcg of fentanyl and 1 mg of Versed as intravenous sedation. The right upper extremity sterilely prepped draped. Ultrasound was used to identify the cephalic vein close to the antecubital space in the distal right upper arm. 2% lidocaine was instilled under ultrasound guidance. Micropuncture needle inserted. Micropuncture wire inserted. 6 Mohawk short sheath dilator was inserted. 035 J-wire was inserted. Up sheath to a 7 Mohawk sheath. Using Isovue contrast fistulogram was taken of the upper arm and outflow chest area. This demonstrated what appeared to be a 8-9 cm long area of high-grade venous stenosis involving the cephalic arch. Subsequently 035 angled Glidewire was placed. A 7 x 40 mm conquest balloon was used to treat the area up to 20 ashia of pressure. There was improvement but incomplete relief. So then I placed a 7 x 100 mm Viabahn stent graft. It was nicely positioned so that the distal end was just at the junction of the cephalic vein and subclavian vein. I then postdilated it with a 7 x 40 mm conquest balloon. Final images now demonstrated complete resolution of the area of venous stenosis with high flow central flow. The sheath was removed and a U suture of 4-0 nylon was placed she tolerated procedure well Images demonstrate an otherwise patent right upper extremity cephalic vein to brachial artery AV fistula. There was at least an 8 cm long area of high-grade 90% venous stenosis at the cephalic arch and outflow. Subsequent to the 7 x 100 mmViabahn stent graft placement there is now complete resolution of the area of stenosis. The right upper extremity has a wonderful pulse thrill and bruit Suleman Samuel M.D., F.A.C.S. Type of Anesthesia:: IV Sedation
== END 2018-04-21 13:32 | disposition home or self-care (01) ==
LOC: CLSP 09:20
PROVIDERS: Family Provider Family Medicine; PCP Family Medicine; Referring Provider Surgery; Visit Provider Surgery
DX: T82.858A Stenosis of other vascular prosthetic devices, implants and grafts, initial encounter (principal); I87.1 Compression of vein; I13.2 Hypertensive heart and chronic kidney disease with heart failure and with stage 5 chronic kidney disease, or end stage renal disease; E11.22 Type 2 diabetes mellitus with diabetic chronic kidney disease; N18.6 End stage renal disease; I50.23 Acute on chronic systolic (congestive) heart failure; Z99.2 Dependence on renal dialysis; D63.8 Anemia in other chronic diseases classified elsewhere; E78.5 Hyperlipidemia, unspecified; E03.9 Hypothyroidism, unspecified; I27.20 Pulmonary hypertension, unspecified; E87.1 Hypo-osmolality and hyponatremia; I42.9 Cardiomyopathy, unspecified; Z79.4 Long term (current) use of insulin; Z79.891 Long term (current) use of opiate analgesic; Z79.899 Other long term (current) drug therapy; Z78.0 Asymptomatic menopausal state; Z85.3 Personal history of malignant neoplasm of breast
CPT/HCPCS: 36903; 76937; 99152; 99153; Q9967; C1725; C1769; C1874; C1894

== ENCOUNTER → 2018-05-20 13:46 | Outpatient (CLI) | payer MEDICARE, OTHER, SELFPAY ==
[2018-04-21 09:43] VITALS: BMI 25.7
[2018-05-20 16:44] LABS: Vitamin B12 526 pg/mL (211-911)
[2018-05-20 16:55] LABS: T4 Free Direct 1.05 ng/dL (0.76-1.46); Thyroid Stim Hormone (TSH) 2.43 uIU/mL (0.358-3.74)
== END ==
PROVIDERS: Family Provider Family Medicine; PCP Family Medicine; Referring Provider Family Medicine; Visit Provider Family Medicine
DX: G31.84 Mild cognitive impairment of uncertain or unknown etiology (principal)
CPT/HCPCS: 36415; 82607; 82746; 84439; 84443

== ENCOUNTER → 2018-05-28 13:10 | Outpatient (CLI) | payer MEDICARE, OTHER, SELFPAY ==
--- NOTE | 2018-05-28 13:16 | RAD_ITS ---
STUDY: X-RAY - ABDOMEN/PELVIS REASON FOR EXAM: Female, 72 years old. Right upper quadrant abdominal pain and constipation. Patient is on dialysis. TECHNIQUE: AP supine and upright views of the abdomen and pelvis. COMPARISON: CT of the abdomen and pelvis dated August 30, 2015. FINDINGS: The visualized heart appears enlarged. There is an unremarkable bowel gas pattern. There is no demonstrated free abdominal air. There is no obvious splenomegaly, mass or dilated bowel. Normal soft tissue structures. There is deformity of the left-sided pubic bone and right inferior pubic ramus may be the result of old fractures. RAD/Abd Inc Decub and/or Erect IMPRESSION: No radiographic evidence of acute intra-abdominal disease. Electronically Signed: Conchita Soler MD at 3:07 EDT , Service support ,
--- NOTE | 2018-05-28 14:52 | US_ITS ---
STUDY: ABDOMINAL ULTRASOUND - RIGHT UPPER QUADRANT REASON FOR VISIT: Female, 72 years old. Right upper quadrant pain TECHNIQUE: Ultrasound evaluation of the right upper quadrant was performed with real-time and static warren-scale imaging. TECHNICAL QUALITY: Adequate. COMPARISON: None. FINDINGS: Liver: The liver measures 17.7 cm. There is increased echogenicity consistent with fatty infiltration. The bile ducts are within normal limits. There is hepatic color flow. The direction of portal flow is hepatopetal. There is no demonstrated mass lesion. Gallbladder: Normal distended gallbladder. The gallbladder wall measures 3 mm. There is a negative sonographic Vaughan's sign. There is no pericholecystic fluid. There are no gallstones. Common Bile Duct (C.B.D.): The common bile duct measures 5 mm. Pancreas: Normal size of the head, body and tail of the pancreas. There is normal echogenicity of the pancreas. There is no demonstrated pancreatic mass or cyst. Right Kidney: There is atrophy of the right kidney. The right kidney measures 9 x 4 x 3.9 cm. Normal renal cortex. The right cortex measures 1.1 cm. There is no demonstrated renal mass or cyst. There is no right hydronephrosis. US/Abdomen Limited IMPRESSION: Fatty infiltration of the liver. Moderate atrophy of the right kidney. Electronically Signed: Yinka Tran, at 16:01 EDT Tel , Service support ,
== END ==
PROVIDERS: Family Provider Family Medicine; PCP Family Medicine; Referring Provider Family Medicine; Visit Provider Family Medicine
DX: K59.09 Other constipation (principal)
CPT/HCPCS: 74019; 76705

== ENCOUNTER → 2018-06-17 16:21 | Outpatient (CLI) | payer MEDICARE, OTHER, SELFPAY ==
--- NOTE | 2018-06-17 16:26 | RAD_ITS ---
STUDY: X-RAY CHEST REASON FOR EXAM: Female, 72 years old. Rales TECHNIQUE: PA and lateral views of the chest. COMPARISON: March 25, 2018 FINDINGS: There are groundglass increased opacities in the lower lungs. There is no demonstrated pleural abnormality. There is vascular stent in the right subclavian region There is moderate cardiac enlargement. Normal mediastinum and wicho. There is prominence of the pulmonary hilar arteries and peripheral pulmonary arteries, consistent with congestive heart failure (CHF). There is atherosclerotic calcification of the aortic arch with tortuosity. There is demineralization of the osseous structures. Normal visualized ribs, clavicles, and shoulders. There is no demonstrated abnormality of the visualized soft tissue structures of the upper abdomen. RAD/Chest PA and Lateral IMPRESSION: CHF with edema. Electronically Signed: Ridge Antony MD at 10:12 EDT , Service support ,
--- NOTE | 2018-06-17 16:27 | RAD_ITS ---
STUDY: X-RAY - MANDIBLE (COMPLETE) REASON FOR EXAM: Female, 72 years old. Dental abscess TECHNIQUE: 5 view(s) of the mandible were obtained. COMPARISON: None. FINDINGS: Normal mandible. Normal visualized right temporomandibular joint. Normal visualized left temporomandibular joint. The remaining visualized osseous structures are normal. The soft tissue structures are unremarkable. RAD/Mandible Min 4 Views IMPRESSION: No osteolytic lesions are seen. Electronically Signed: Paolo Olmedo MD at 11:42 EDT Tel , Service support ,
== END ==
PROVIDERS: Family Provider Family Medicine; PCP Family Medicine; Referring Provider Family Medicine; Visit Provider Family Medicine
DX: K04.7 Periapical abscess without sinus (principal); R09.89 Other specified symptoms and signs involving the circulatory and respiratory systems
CPT/HCPCS: 70110; 71046

== ENCOUNTER → 2018-09-20 14:07 | Outpatient (CLI) | payer MEDICARE, OTHER, SELFPAY | PROVIDERS: Family Provider Family Medicine; PCP Family Medicine; Referring Provider Family Medicine; Visit Provider Family Medicine | DX: N39.0 Urinary tract infection, site not specified (principal); Z01.83 Encounter for blood typing | CPT/HCPCS: 87077; 87086; 87088; 87186 ==

== ENCOUNTER 2018-09-23 23:37 | Inpatient (IN) | payer MEDICARE, OTHER, SELFPAY ==
[2018-09-23 23:38] VITALS: BP 180/81; PULSE 93; RESP 18; TEMP 36.9; O2SAT 94; BMI 29.2
[2018-09-24] VITALS (21 sets, daily range): BP systolic 119–189; BP diastolic 52–91; PULSE 72–101; RESP 12–24; TEMP 36.8–37.9; O2SAT 94–100; BMI 28.3
--- NOTE | 2018-09-24 00:10 | RAD_ITS ---
STUDY: X-RAY CHEST REASON FOR EXAM: Female, 73 years old. Cough TECHNIQUE: Frontal and lateral views of the chest. COMPARISON: None. FINDINGS: Ill-defined groundglass opacities are seen in the right and left lung lower lobe suggesting bilateral pneumonia. There is no demonstrated pleural abnormality. Normal size heart. Normal mediastinum and wicho. Normal visualized pulmonary arteries. Normal visualized aortic arch and descending thoracic aorta. Normal visualized thoracic spine. There is degenerative osteoarthritis of the bilateral shoulders. There is no demonstrated abnormality of the visualized soft tissue structures of the upper abdomen. RAD/Chest PA and Lateral IMPRESSION: Bilateral lower lobe pneumonia. Electronically Signed: Yinka Tran, at 2:37 EDT Tel , Service support ,
--- NOTE | 2018-09-24 00:10 | EKG12_ITS ---
Test Reason : SOB Blood Pressure : / mmHG Vent. Rate : 089 BPM Atrial Rate : 089 BPM P-R Int : 158 ms QRS Dur : 080 ms QT Int : 384 ms P-R-T Axes : 042 025 084 degrees QTc Int : 467 ms Sinus rhythm with occasional Premature ventricular complexes Otherwise normal ECG Confirmed by KAREY PATEL, SANDRA ([id number]), scientific editor MERRY TAVAREZ ([id number]) on 09/27/2018 12:36:07 PM Referred By: Rony Koenig Confirmed By:SANDRA EDEN MD
--- NOTE | 2018-09-24 00:10 | CT_ITS ---
STUDY: CT ABDOMEN AND PELVIS WITHOUT CONTRAST REASON FOR EXAM: Female, 73 years old. Abdomen. Nausea and vomiting. RADIATION DOSAGE (If Supplied By Facility): CTDIvol = ( 11.33 ) mGy, DLP = ( 537.86 ) mGycm TECHNIQUE: Transaxial images were obtained from the dome of the diaphragm to the symphysis pubis without oral contrast, and without intravenous contrast. Sagittal and coronal images were reconstructed. Individualized dose optimization techniques were used for this CT. COMPARISON: None. FINDINGS: Ill-defined groundglass opacities seen in the right lower lobe suggesting pneumonia. The visualized portions of the heart are within normal limits. Normal liver. Normal gallbladder and extrahepatic biliary system. Normal spleen. Normal pancreas. Normal bilateral adrenal glands. Multiple bilateral kidney stones are noted the largest measures 6 mm. There is no hydronephrosis. Normal visualized stomach. Normal small intestine. Normal colon. The appendix is visualized and appears normal. Normal abdominal aorta. Normal inferior vena cava. Normal retroperitoneum. Normal urinary bladder. Normal abdominal wall. Old fractures are seen in the right and left superior and inferior pubic rami. CT/Abdomen/Pelvis without Cont IMPRESSION: Right lower lobe pneumonia. Multiple bilateral kidney stones are noted the largest measures 6 mm. There is no hydronephrosis. Electronically Signed: Yinka Tran, at 2:52 EDT Tel , Service support ,
[2018-09-24 00:23] LABS: Absolute Lymphocyte Count 0.93 X10^3/uL (0.83-4.51); Basophil# 0.04 X10^3/uL; Basophil% 0.4 % (0-1); Eosinophil# 0.09 X10^3/uL; Eosinophils% 0.9 % (0-5); Hematocrit 32.2 % (37-47); Hemoglobin 10.2 g/dL (12.0-15.0); Lymphocyte # 0.93 X10^3/ul (4.0); Lymphocyte % 9.1 % (19-41); Mean Corp Hgb Conc 31.7 g/dL (32-36); Mean Corpuscular Hgb 31.9 pg (27.0-32.0); Mean Corpuscular Volume 100.6 fL (81-99); Monocyte% 8.8 % (0-10); NRBC Flagged by Analyzer 0 % (0-5); Neutrophil % 80.3 % (47-70); Platelet Count 173 K/mm3 (150-450); RBC Distribution Width CV 15.4 % (11.6-14.6); RBC Distribution Width SD 57.2 fl (35.1-43.9); White Blood Count 10.2 K/mm3 (4.4-11.0)
[2018-09-24 00:36] LABS: ALB/GLOB Ratio 0.8 RATIO (0.9-2.4); AST(SGOT) 17 U/L (15-37); Alanine Aminotransfer ALT/SGPT 18 U/L (13-56); Albumin, Serum 3.5 g/dL (3.2-5.0); Alkaline Phosphatase 83 U/L (45-117); Anion Gap 7 (5-15); BUN 57 mg/dL (7-18); BUN/Creat Ratio 10.1 RATIO (10-20); Calcium,Total 9.3 mg/dL (8.5-10.1); Chloride 94 mmol/L (98-107); Creatinine, Serum 5.65 mg/dL (0.55-1.02); EST Glomerular Filtration Rate 8 mL/min (>60); Est Glom Filt Rate - Afr Amer 9 mL/min (>60); Estimated Creatinine Clearance 7.43 ml/min; Globulin 4.6 g/dL (2.2-4.2); Glucose 272 mg/dL (74-106); Lipase 118 U/L (73-393); Potassium 4.5 mmol/L (3.5-5.1); Protein, Total 8.1 g/dL (6.4-8.2); Sodium Level 127 mmol/L (136-145)
[2018-09-24 00:38] LABS: Lactic Acid 1.2 mmol/L (0.4-2.0)
[2018-09-24 01:06] LABS: Bacteria 0 SEEN /hpf (None Seen); Mucous, Urine 0 SEEN /hpf (<or=2+)
[2018-09-24 01:07] LABS: Color, Urine Yellow (Yellow); Glucose, Dipstick 250 mg/dl (Normal); Ketone-Dipstick Negative (Negative); Leukocyte Esterase-Dipstick 25 /ul (Negative); Nitrite-Dipstick Negative (Negative); Occult Blood-Urine 150 /ul (Negative); Protein-Dipstick 100 mg/dl (Negative); Urine Bilirubin Dipstick Negative (Negative); Urine Clarity Sl. Cloudy (Clear); Urine Urobilinogen Normal (Normal)
[2018-09-24 01:16] LABS: Red Blood Cells-Urine 5-10 SEEN /hpf (0-5); White Blood Cells 0-5 SEEN /hpf (0-5)
[2018-09-24 01:17] LABS: Squamous Epithelial Cells - UA 10-25 SEEN /hpf (5-10)
--- NOTE | 2018-09-24 03:11 | ED.VISSUMM ---
- ER Visit Summary Date of Service: 09/24/18 Chief Complaint: Nausea vomiting diarrhea History of Present Illness: The patient is a 73 F who presents with nausea vomiting and diarrhea. She also complains of cough and shortness of breath. She initially had lower abdominal pain about 2 weeks ago. She saw her primary care physician and was started on Cipro. Over the last 1 week she complains of shortness of breath and productive cough with wheezing. She is also had a few episodes of nonbloody nonbilious emesis for the last week as well as some diarrhea for the last 5 days. She is taking Imodium which transiently improved the symptoms but her diarrhea then returned. Physical Examination: Pulse ox 94% on room air heart rate 93 respiratory rate 18 afebrile Moist mucous membranes Heart regular tachycardia Patient has limited inspiratory effort she has some slight scattered wheezing no rales no rhonchi Abdomen soft nontender nondistended Test Results: EKG shows sinus rhythm at a rate of 89 with PVCs. Labs notable for hemoglobin 10.2 and sodium of 127 which appear to be near baseline. BUN is 57, creatinine 5.65. Hepatic function lipase unremarkable. Urinalysis contaminated. Lactic acid normal. Blood cultures were sent. Chest x-ray shows bilateral lower lobe pneumonia. CT the abdomen and pelvis shows right lower lobe pneumonia and multiple bilateral kidney stones but no hydronephrosis or other acute process. Emergency Department Course and Treatment: Work-up as above consistent with pneumonia. Patient does attend dialysis and has a fistula so has some risk factors for drug-resistant organisms. Therefore she was treated with IV Zosyn and vancomycin. On reevaluation her oxygen saturation decreased to 85% on room air and she is put on oxygen by nasal cannula. Treatment Plan: [] Disposition: Admit Impression: Healthcare associated pneumonia This note was generated with [employer] dictation software. It may contain incorrect words, spelling, and punctuation that were not noted in review of the chart prior to signing ED Disposition - Plan for ED Patient: Referrals: Rony Koenig MD [Primary Care Provider] -
--- NOTE | 2018-09-24 03:22 | PCM.HP.STD ---
Problem List (1) CHF (congestive heart failure) Status: Chronic (2) ESRD (end stage renal disease) Status: Chronic (3) Sepsis Status: Acute (4) Problem with dialysis access Status: Inactive Qualifiers: Encounter type: subsequent encounter (5) H/O arteriovenostomy for renal dialysis Status: Chronic Comment: Fistulogram- 03/12/2017 History of Present Illness Date of Admission: 09/24/18 Chief Complaint: malaise The patient is a 73 year old F with a significant history of ESRD (hemodialysis M, W,F); CHF; HTN; diabetes mellitus who presents emergency department with 2 to 3 weeks of malaise. Associated with symptoms is SOB; rigors; productive cough with thick white sputum; wheezing; nausea; vomiting; diarrhea and abdominal pain and abdominal bloating. Patient went to see her PCP who initially prescribed her antibiotics 4 days ago. Initially antibiotics was prescribed. Antibiotics were later changed to ciprofloxacin. Also patient was given some cough medicine. Because her symptoms persisted she came to the emergency department. Of note although patient go to dialysis on Thursday;Thursday; Thursday she missed her last dialysis on Thursday because she was not feeling good. At the emergency department chest x-ray was interpreted as bilateral pneumonia. Emergency department doctor did a CT of the abdomen and pelvis because of complaints of abdominal pain. CT suggested right lower lobe pneumonia; multiple bilateral kidneys stones with no hydronephrosis. Past Medical History Past Medical History (Chronic Problems): Chronic Problems (Last Reviewed 09/24/18 @ 07:01 by Chino Melara MD) H/O arteriovenostomy for renal dialysis (Chronic ~01/08/17) Fistulogram- 03/12/2017 CHF (congestive heart failure) (Chronic) ESRD (end stage renal disease) (Chronic) Anemia, chronic disease (Chronic) DM2 (diabetes mellitus, type 2) (Chronic) Hypothyroidism (Chronic) HLD (hyperlipidemia) (Chronic) Breast cancer (Chronic) HTN (hypertension) (Chronic) Systolic CHF (Chronic) Cardiomyopathy (Chronic) Hyponatremia (Chronic) Pulmonary HTN (Chronic) CKD (chronic kidney disease) stage 4, GFR 15-29 ml/min (Chronic) Medical History: Medical History (Last Reviewed 09/24/18 @ 07:01 by Chino Melara MD) CHF (congestive heart failure) (Acute) I50.9 ESRD (end stage renal disease) (Acute) N18.6 Sepsis (Acute) A41.9 Pneumonia (Acute) J18.9 CKD stage 5 secondary to hypertension (Acute) I12.0, N18.5 Anemia, chronic disease (Chronic) D63.8 DM2 (diabetes mellitus, type 2) (Chronic) E11.9 Hypothyroidism (Chronic) E03.9 HLD (hyperlipidemia) (Chronic) E78.5 Breast cancer (Chronic) C50.919 HTN (hypertension) (Chronic) I10 Systolic CHF (Chronic) I50.20 Cardiomyopathy (Chronic) I42.9 Hyponatremia (Chronic) E87.1 Pulmonary HTN (Chronic) I27.2 CKD (chronic kidney disease) stage 4, GFR 15-29 ml/min (Chronic) N18.4 s/p dialysis catheter removal Allergies aztreonam [From Azactam] Allergy (Verified 09/23/18 23:38) Itching Sulfa (Sulfonamide Antibiotics) Allergy (Verified 09/23/18 23:38) Itching Home Medications: Ambulatory Orders Medication Instructions Recorded Acetaminophen 1,000 mg PO Q6H PRN 06/11/16 Insulin Aspart [Novolog Flexpen] 12 units SC BIDCM 06/11/16 Insulin Detemir [Levemir Flextouch] 24 unit SQ BID 06/11/16 Levothyroxine [Synthroid] 100 mcg PO DAILY 06/11/16 Metoprolol Tartrate [Lopressor 25 mg PO DAILY 06/11/16 (beta maria esther)] Multivitamin [Multiple Vitamins] 1 ea PO DAILY 06/11/16 Calcium Acetate [Phoslo Gel Cap] 667 mg PO TIDCM 01/02/17 Furosemide [Lasix] 80 mg PO DAILY 01/02/17 Metolazone [Zaroxolyn] 5 mg PO DAILY 01/02/17 Linaclotide [Linzess] 72 mcg PO DAILY 09/24/18 Metformin HCl [Glucophage] 1,000 mg PO BIDCM 09/24/18 Sacubitril/Valsartan 24/26 mg 1 ea PO BID 09/24/18 [Entresto 24 mg-26 mg Tablet] Surgical History: Surgical History (Last Reviewed 09/24/18 @ 04:25 by Chino Melara MD) H/O arteriovenostomy for renal dialysis (Acute) Onset Date: ~01/08/17 Z99.2 Fistulogram- 03/12/2017 history of fistulogram Surgical History: - - , T+A, L mastectomy. 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 Denies: Weight Change HEENT: Denies: Head Aches, Sinus Congestion, Sinus Drainage Cardiovascular: Denies: Chest Pain, Palpitations Respiratory: Reports: Cough, Shortness of Breath, Sputum production Gastrointestinal: Reports: Abdominal Pain, Diarrhea, Nausea, Vomiting Genitourinary: Denies: Dysuria Musculoskeletal: Denies: Joint Pain, Joint Tenderness Skin: Denies: Rash, Wounds Neurological: Denies: Numbness, Tingling, Focal weakness Psychiatric: Denies: Anxiety, Depression, Homicidal Ideations, Suicidal Ideations Hematologic/ Lymphatic: Denies: Easy Bruising, Easy Bleeding VTE Information - Inpt Only VTE Present on Admission: No VTE Mechan Device Prophylaxis: None VTE Pharm Prophylaxis ordered?: Yes - Physical Exam General: Alert, Oriented x3, Cooperative HEENT: Atraumatic, PERRLA, EOMI, Normocephalic Neck: Supple, No JVD, Negative Carotid Bruits Lungs: Diminished, Tachypneic Cardiovascular: No murmurs, Tachycardic Abdomen: Bowel Sounds Present, Soft, Non Tender Extremities: No edema, Capillary Refill Less than 3 Seconds Skin: No rashes, No breakdown Musculoskeletal: No Tenderness to Palpation of Joints or Extremities Neurological: Cranial nerves II-XII grossly intact Psych/Mental Status: Normal Affect, Appropriate Vital Signs Temp Pulse Resp BP Pulse Ox 98.5 F 97 24 H 180/89 H 97 09/23/18 23:38 09/24/18 02:36 09/24/18 02:36 09/24/18 02:36 09/24/18 02:36 Oxygen Delivery Method Room Air Weight: 77.4 kg Body Mass Index (BMI) 29.2 Laboratory Tests Past 24 Hrs 09/23/18 09/23/18 09/23/18 23:44 23:44 23:44 WBC 10.2 RBC 3.20 L Hgb 10.2 L Hct 32.2 L MCV 100.6 H MCH 31.9 MCHC 31.7 L RDW Std Deviation 57.2 H RDW Coeff of Samson 15.4 H Plt Count 173 MPV 13.0 H Immature Gran % (Auto) 0.500 Neut % (Auto) 80.3 H Lymph % (Auto) 9.1 L Harnett % (Auto) 8.8 Eos % (Auto) 0.9 Baso % (Auto) 0.4 Absolute Neuts (auto) Not Reportable Absolute Lymphs (auto) 0.93 Absolute Nucleated RBC 0.00 Nucleated RBC % 0 Sodium 127 L Potassium 4.5 Chloride 94 L Carbon Dioxide 26.0 Anion Gap 7 BUN 57 H Creatinine 5.65 H Estim Creat Clear Calc 7.43 Est GFR (MDRD) Af Amer 9 L Est GFR (MDRD) Non-Af 8 L BUN/Creatinine Ratio 10.1 Glucose 272 H Lactic Acid 1.2 Calcium 9.3 Total Bilirubin 0.50 AST 17 ALT 18 Alkaline Phosphatase 83 Total Protein 8.1 Albumin 3.5 Globulin 4.6 H Albumin/Globulin Ratio 0.8 L Lipase 118 Urine Color Urine Clarity Urine pH Ur Specific [place] Urine Protein Urine Glucose (UA) Urine Ketones Urine Occult Blood Urine Nitrite Urine Bilirubin Urine Urobilinogen Ur Leukocyte Esterase Urine RBC Urine WBC Ur Squamous Epith Cells Urine Bacteria Urine Mucus 09/24/18 00:45 WBC RBC Hgb Hct MCV MCH MCHC RDW Std Deviation RDW Coeff of Samson Plt Count MPV Immature Gran % (Auto) Neut % (Auto) Lymph % (Auto) Harnett % (Auto) Eos % (Auto) Baso % (Auto) Absolute Neuts (auto) Absolute Lymphs (auto) Absolute Nucleated RBC Nucleated RBC % Sodium Potassium Chloride Carbon Dioxide Anion Gap BUN Creatinine Estim Creat Clear Calc Est GFR (MDRD) Af Amer Est GFR (MDRD) Non-Af BUN/Creatinine Ratio Glucose Lactic Acid Calcium Total Bilirubin AST ALT Alkaline Phosphatase Total Protein Albumin Globulin Albumin/Globulin Ratio Lipase Urine Color Yellow Urine Clarity Sl. Cloudy Urine pH 8.0 Ur Specific [place] 1.010 Urine Protein 100 H Urine Glucose (UA) 250 H Urine Ketones Negative Urine Occult Blood 150 H Urine Nitrite Negative Urine Bilirubin Negative Urine Urobilinogen Normal Ur Leukocyte Esterase 25 H Urine RBC 5-10 SEEN Urine WBC 0-5 SEEN Ur Squamous Epith Cells 10-25 SEEN Urine Bacteria 0 SEEN Urine Mucus 0 SEEN Assessment/Plan All Active Problems (Last Reviewed 09/24/18 @ 07:01 by Chino Melara MD) Sepsis (Acute) Pneumonia (Acute) CKD stage 5 secondary to hypertension (Acute) Hydronephrosis (Resolved) Pyelonephritis (Resolved) Sepsis (Resolved) The patient is a 73 year old F with a significant history of ESRD (hemodialysis M, W,F); CHF; HTN; diabetes mellitus who presents emergency department with 2 to 3 weeks of malaise; SOB; rigors; productive cough with thick white sputum; nausea; vomiting; diarrhea and abdominal pain; and was found to have tachycardia; tachypnea and radiographic evidence suggestive of bilateral pneumonia and with multiple bilateral kidney stones but with no hydronephrosis. Sepsis secondary to pneumonia Lactic acid: 1.2 RR : Documented respiratory rates of 24. In patient's room patient's respiratory rate was 20-30. Tachycardia: Heart rate of 93-101 Oxygen saturation: 94% on room air. However the emergency department doctor reported that while patient was sleeping her oxygen saturation was 85% for which reason she was put on oxygen by nasal cannula. Blood culture ?2 is pending Chest x-ray: Radiologist's interpretation of bilateral lower lobe pneumonia. Chest x-ray was independently reviewed. I agree with radiology interpretation. Respiratory Gram stain and culture pending Antibiotics: Patient was given vancomycin and Zosyn in the emergency department. Will transition patient to ceftriaxone and azithromycin. DuoNeb scheduled. Albuterol as needed Legionella antigen screen and Strep antigen ordered C. difficile study ordered to rule out C. difficile infection Hypertensive urgency Highest systolic blood pressure of 189; highest diastolic blood pressure of 91. Labetalol 20 mg IV push was given at the emergency department. Continue home blood pressure medication. Add as needed labetalol. Trend blood pressure and adjust blood pressure medications. End-stage renal disease on hemodialysis (Thursday; Thursday; and Thursday) Patient follows up with Dr. Nguyễn. Will consult Dr. Nguyễn's group. Renal diet. Probable sleep apnea Patient noted to be desaturating when sleeping. Recommend outpatient sleep study on discharge. Kidney stones and microhematuria Urinalysis showed urine occult blood that may be due to UTI or other kidney disease Recommend patient follow up with PCP after discharge Acute UTI Reportedly patient was diagnosed with UTI outpatient and received antibiotics which was later changed to Ciprofloxacin. Patient now on azithromycin and Ceftriaxone here. Ceftriaxone is empiric for UTI. Hyponatremia Chronic and stable. Diabetes mellitus On presentation her blood glucose was not within goal. Continue patient on basal and prandial insulin and add correction scale. Congestive heart failure On metolazone; Lasix; metoprolol and quinapril. Chronic back pain and shoulder pain Takes extra strength Tylenol as needed at home. Continue patient on Tylenol as needed Hypothyroidism Synthroid continued DVT prophylaxis Subcutaneous Lovenox CODE STATUS: Code status was discussed. Patient does not want chest compression or intubation. Code Visit Inpatient E&M: 79719 Init Hosp L3
[2018-09-24] MEDS: Levothyroxine 100 MCG Tablet PO (05:47)
[2018-09-24 06:00] LABS: Absolute Lymphocyte Count 0.71 X10^3/uL (0.83-4.51); Absolute Neutrophil Count 9.2 X10^3/uL (2.0-7.7); Basophil# 0.02 X10^3/uL; Basophil% 0.2 % (0-1); Eosinophil# 0.04 X10^3/uL; Eosinophils% 0.4 % (0-5); Hematocrit 30.2 % (37-47); Hemoglobin 9.6 g/dL (12.0-15.0); Lymphocyte # 0.71 X10^3/ul (4.0); Lymphocyte % 6.6 % (19-41); Mean Corp Hgb Conc 31.8 g/dL (32-36); Mean Corpuscular Volume 100.7 fL (81-99); Mean Platelet Vol. 12.4 fl (6.2-12.0); Monocyte# 0.72 X10^3/uL; Monocyte% 6.7 % (0-10); NRBC Flagged by Analyzer 0 % (0-5); Neutrophil # 9.23 X10^3/uL (2.7-7.7); Neutrophil % 85.5 % (47-70); Platelet Count 170 K/mm3 (150-450); RBC Distribution Width CV 15.3 % (11.6-14.6); RBC Distribution Width SD 57.2 fl (35.1-43.9); White Blood Count 10.8 K/mm3 (4.4-11.0)
[2018-09-24 06:07] LABS: Anion Gap 11 (5-15); BUN 60 mg/dL (7-18); BUN/Creat Ratio 10.5 RATIO (10-20); Calcium,Total 8.7 mg/dL (8.5-10.1); Chloride 96 mmol/L (98-107); Creatinine, Serum 5.73 mg/dL (0.55-1.02); EST Glomerular Filtration Rate 8 mL/min (>60); Est Glom Filt Rate - Afr Amer 9 mL/min (>60); Estimated Creatinine Clearance 7.33 ml/min; Glucose 228 mg/dL (74-106); Potassium 4.5 mmol/L (3.5-5.1); Sodium Level 131 mmol/L (136-145)
[2018-09-24] MEDS: Insulin Lispro 100 UNIT/ML INSULN.PEN SC ×3 (06:49→22:34)
[2018-09-24 07:00] LABS: Bedside Glucose 238 mg/dL (70-110)
[2018-09-24] MEDS: Ipratropium/Albuterol Sulfate 3 ML AMPUL.NEB INHALATION ×2 (07:19→13:30)
--- NOTE | 2018-09-24 08:19 | NURSING ---
O2 DC'D - WILL MONITOR
[2018-09-24] MEDS: Acetaminophen 500 MG Tablet 1000 MG PO ×2 (08:30→19:39)
[2018-09-24] MEDS: Insulin Lispro 100 UNIT/ML INSULN.PEN 8 UNIT SC ×2 (08:31→12:40)
[2018-09-24] MEDS: Enoxaparin 30 MG/0.3 ML Syringe SC (08:31)
[2018-09-24] MEDS: guaiFENesin 1,200 MG Tablet 1200 MG PO ×2 (08:32→22:21)
[2018-09-24] MEDS: SACUBITRIL/VALSARTAN 24/26 MG TABLET 1 EACH PO ×2 (09:29→22:21)
[2018-09-24] MEDS: Calcium Acetate 667 MG Capsule PO ×2 (09:29→12:40)
[2018-09-24] MEDS: Benzonatate 100 MG Capsule PO ×2 (11:47→19:37)
[2018-09-24 11:55] LABS: Bedside Glucose 172 mg/dL (70-110)
--- NOTE | 2018-09-24 12:56 | CASEMGMT ---
RN CM SOCIAL WORKER AIDE CM to room to meet with patient for initial transition planning/care coordination assessment. RN CM introduced self and role at [facility]. Pt voices understanding and consents to assessment at this time. Pt resting in bed in no distress at this time. Pt tired initially when RN CM in to talk with patient, but pt started waking up more after several minutes and became fully awake and able to complete assessment and answers all questions appropriately. Care providers, pharmacy, and demographics verified at this time. PCP: [facility]: Was seeing Dr Darling (cardiology) years ago but has not been in to see him since he moved to [place]. States wants to start seeing Dr Rodriguez. Pt stated she will call to make an appt with him, stating she does not want any help with this because she needs to have her appointment book with her. Preferred Pharmacy: [facility] Insurance: [place] Prescription Benefit: Yes Living Will/HPOA: Has both LW and HCPOA, who is her son, Suleman Moralez LNOK: Son, Suleman, who lives in [place]. Does not have other family that lives close by. Friend, Tiera, lives close and is supportive. Living Arrangements: Lives alone in one-story home. States is independent with ADL's and home mgmt tasks. Neighbors 17-yr-old son takes her trash to the road for her every week and is often available to help with lifting heavier objects. Pt states she does not cook and goes out to eat every day for her meals. She denies wanting Meals on Wheels or needing assistance. Transportation: Pt states drives self and states no transportation concerns at this time. Friend, Tiera, will drive pt home @ discharge. Dialysis: Pt goes to [facility]. Chair time @ 0630. DME: States has/uses the following DME: grab bars, rollator for outside/longer distances, chair lift in garage that she uses daily. Has the following DME available that was her 's who in 2013: raised toilet seat, cane, shower chair. Pt states no need for further DME at this time. Pt states she does not have home Oxygen. Denies preference of DME company if she would need oxygen @ discharge. HHC/SNF: States she thinks she recalls going to a SNF in the past but is not sure. Denies having HHC in the past. Therapy: Reviewed PT/OT notes. Further therapy is recommended. Discussed options with pt for therapy @ discharge. Pt is not homebound and would not qualify for HHC via [facility] guidelines. Pt states she would like to go to [facility] as an OP for therapy. WILLIE Wheeler CM for [facility] made aware. Discussed CCN with patient to help with managing CHF and diabetes. Pt states she is not interested at this time. Pt wishes to return home and states has no concerns with going home at time of discharge. CM to follow for home oxygen needs and any further discharge planning/needs. Pt voices no further concerns/needs at this time. Advised pt to ask for CM if any further questions/concerns/needs arise. Voices understanding. Pt's goals @ Discharge. Home with OP therapy. Plan: Home w/OP PT/OT @ [facility] and follow-up plans in place. Daniela MCLEOD RN CM
--- NOTE | 2018-09-24 14:04 | CON.PCM_ITS ---
Problem List (1) ESRD (end stage renal disease) Status: Chronic Consultation - Renal PCP/ Referring MD: Requesting physician: [] Primary care physician: Rony Koenig MD - History of Present Illness History of Present Illness: The patient is a 73 year old F PMH of ESRD on MWF schedule for HD. Pt presented with progressive fatigue, SOB, cough, N/V and diarrhea for a week. In ED she was found to have B/L pneumonia . Pt was recently treated for UTI with Cipro. In ED she was given labetalol IV for elevated BP. Currently she is on Ceftriaxone and Azithromycin. Pt goes to [facility] HD [facility]. She missed the last HD session on Thursday because she was not feeling well Pt has RUE AVF. ROS: 12 systems review is negative except cough, diarrhea, abdominal distention and generalized fatigue[] - Allergies Allergies: Allergies aztreonam [From Azactam] Allergy (Verified 09/23/18 23:38) Itching Sulfa (Sulfonamide Antibiotics) Allergy (Verified 09/23/18 23:38) Itching - Current Medications Current Medications: Current Medications Acetaminophen (Tylenol) 1,000 mg PO Q6H PRN PRN Reason: PAIN Last Admin: 09/24/18 08:30 Dose: 1,000 mg Documented by: Albuterol Sulfate (Ventolin Aerosols) 2.5 mg INHALATION Q2H PRN PRN PRN Reason: SHORTNESS OF BREATH Albuterol/Ipratropium (Duoneb) 3 ml INHALATION Q6H.RT [facility] Last Admin: 09/24/18 13:30 Dose: 3 ml Documented by: Benzonatate (Tessalon Perle) 100 mg PO TID PRN PRN PRN Reason: COUGH Last Admin: 09/24/18 11:47 Dose: 100 mg Documented by: Calcium Acetate (Phoslo Gel Cap) 667 mg PO TIDCM [facility] Last Admin: 09/24/18 12:40 Dose: 667 mg Documented by: Dextrose (D50w Syringe) 0 gm IV X1 PRN; Protocol PRN Reason: Hypoglycemia Enoxaparin Sodium (Lovenox) 30 mg SC DAILY@1000 [facility] Last Admin: 09/24/18 08:31 Dose: 30 mg Documented by: Furosemide (Lasix) 80 mg PO DAILY [facility] Last Admin: 09/24/18 12:09 Dose: Not Given Documented by: Glucagon () 1 mg IM .X1 PRN PRN Reason: Hypoglycemia Guaifenesin (Mucinex) 1,200 mg PO BID [facility] Last Admin: 09/24/18 08:32 Dose: 1,200 mg Documented by: Ceftriaxone Sodium (Rocephin) 1 gm in 50 mls @ 100 mls/hr IV Q24H [facility] Azithromycin 500 mg/ Dextrose 255 mls @ 250 mls/hr IV Q24H [facility] Sodium Chloride () 250 mls @ 15 mls/hr IV .[id number] PRN PRN Reason: SALINE FLUSH Insulin Glargine (Lantus (Bkc)) 24 units SC BID [facility] Last Admin: 09/24/18 09:30 Dose: 24 units Documented by: Insulin Human Lispro (Humalog Kwikpen (Bkc)) 0 unit SC ACHS [facility]; Protocol Last Admin: 09/24/18 12:39 Dose: 1 units Documented by: Insulin Human Lispro (Humalog Kwikpen (Bkc)) 8 unit SC BREAKFAST [facility] Last Admin: 09/24/18 08:31 Dose: 8 units Documented by: Insulin Human Lispro (Humalog Kwikpen (Bkc)) 8 unit SC DINNER [facility] Insulin Human Lispro (Humalog Kwikpen (Bkc)) 8 unit SC LUNCH [facility] Last Admin: 09/24/18 12:40 Dose: 8 units Documented by: Labetalol HCl (Trandate) 10 mg IV Q4H PRN PRN PRN Reason: SBP > 160 Levothyroxine Sodium (Synthroid) 100 mcg PO DAILY@0600 [facility] Last Admin: 09/24/18 05:47 Dose: 100 mcg Documented by: Melatonin (Melatonin) 3 mg PO QHS PRN PRN PRN Reason: INSOMNIA Metolazone (Zaroxolyn) 5 mg PO DAILY [facility] Last Admin: 09/24/18 12:09 Dose: Not Given Documented by: Metoprolol Tartrate (Lopressor (Beta Heladio)) 25 mg PO DAILY [facility] Last Admin: 09/24/18 12:09 Dose: Not Given Documented by: Ondansetron HCl (Zofran) 4 mg IV Q8H PRN PRN PRN Reason: Nausea Sodium Chloride () 10 - 40 ml IV UD PRN PRN Reason: SALINE FLUSH - Past Medical History Past Medical History (Chronic Problems): Chronic Problems (Last Reviewed 09/24/18 @ 07:01 by Chino Melara MD) H/O arteriovenostomy for renal dialysis (Chronic ~01/08/17) Fistulogram- 03/12/2017 CHF (congestive heart failure) (Chronic) ESRD (end stage renal disease) (Chronic) Anemia, chronic disease (Chronic) DM2 (diabetes mellitus, type 2) (Chronic) Hypothyroidism (Chronic) HLD (hyperlipidemia) (Chronic) Breast cancer (Chronic) HTN (hypertension) (Chronic) Systolic CHF (Chronic) Cardiomyopathy (Chronic) Hyponatremia (Chronic) Pulmonary HTN (Chronic) CKD (chronic kidney disease) stage 4, GFR 15-29 ml/min (Chronic) - Past Surgical History Surgical History: - - , T+A, L mastectomy. - Social History Smoking Status: Never smoker Alcohol: None - Family History Maternal History Items: Diabetes Paternal History Items: Hypertension, - - His father in an accident - Physical Exam General: Alert, Oriented x3 HEENT: Atraumatic Oral: Moist Mucosa Neck: Supple, No JVD Lungs: No wheeze, Rales, Rhonchi Cardiovascular: Regular rate, Regular Rhythm, Normal S1, Normal S2 Abdomen: Bowel Sounds Present, Distended, Tender Extremities: No clubbing, No cyanosis, No edema Skin: No rashes Musculoskeletal: No Tenderness to Palpation of Joints or Extremities Lymphatic: No Cervical, Supraclavicular, or Inguinal Adenopathy Neurological: Cranial nerves II-XII grossly intact, Neuro grossly intact Psych/Mental Status: Appropriate Vital Signs Temp Pulse Resp BP Pulse Ox 98.3 F 74 12 137/61 H 98 09/24/18 12:39 09/24/18 13:30 09/24/18 13:30 09/24/18 12:09 09/24/18 08:18 Oxygen Flow Rate (L/min) 1 Oxygen Delivery Method Nasal Cannula Weight: 74.9 kg Body Mass Index (BMI) 28.3 Intake and Output for Last 24 Hours 09/22/18 09/23/18 09/24/18 23:59 23:59 23:59 Intake Total 626 / 626 Balance 626 / 626 Microbiology Past 72 Hours 09/24/18 11:59 Legionella Antigen - Final Interface Orders 09/24/18 11:55 Streptococcus pneumoniae Antigen (M - Final Interface Orders Laboratory Tests Past 24 Hrs 09/23/18 09/23/18 09/23/18 23:44 23:44 23:44 WBC 10.2 RBC 3.20 L Hgb 10.2 L Hct 32.2 L MCV 100.6 H MCH 31.9 MCHC 31.7 L RDW Std Deviation 57.2 H RDW Coeff of Samson 15.4 H Plt Count 173 MPV 13.0 H Immature Gran % (Auto) 0.500 Neut % (Auto) 80.3 H Lymph % (Auto) 9.1 L Shannon % (Auto) 8.8 Eos % (Auto) 0.9 Baso % (Auto) 0.4 Absolute Neuts (auto) Not Reportable Absolute Lymphs (auto) 0.93 Absolute Nucleated RBC 0.00 Nucleated RBC % 0 Sodium 127 L Potassium 4.5 Chloride 94 L Carbon Dioxide 26.0 Anion Gap 7 BUN 57 H Creatinine 5.65 H Estim Creat Clear Calc 7.43 Est GFR (MDRD) Af Amer 9 L Est GFR (MDRD) Non-Af 8 L BUN/Creatinine Ratio 10.1 Glucose 272 H Lactic Acid 1.2 Calcium 9.3 Total Bilirubin 0.50 AST 17 ALT 18 Alkaline Phosphatase 83 Total Protein 8.1 Albumin 3.5 Globulin 4.6 H Albumin/Globulin Ratio 0.8 L Lipase 118 Urine Color Urine Clarity Urine pH Ur Specific [place] Urine Protein Urine Glucose (UA) Urine Ketones Urine Occult Blood Urine Nitrite Urine Bilirubin Urine Urobilinogen Ur Leukocyte Esterase Urine RBC Urine WBC Ur Squamous Epith Cells Urine Bacteria Urine Mucus 09/24/18 09/24/18 09/24/18 00:45 05:36 05:36 WBC 10.8 RBC 3.00 L Hgb 9.6 L Hct 30.2 L MCV 100.7 H MCH 32.0 MCHC 31.8 L RDW Std Deviation 57.2 H RDW Coeff of Samson 15.3 H Plt Count 170 MPV 12.4 H Immature Gran % (Auto) 0.600 Neut % (Auto) 85.5 H Lymph % (Auto) 6.6 L Shannon % (Auto) 6.7 Eos % (Auto) 0.4 Baso % (Auto) 0.2 Absolute Neuts (auto) 9.2 H Absolute Lymphs (auto) 0.71 L Absolute Nucleated RBC 0.00 Nucleated RBC % 0 Sodium 131 L Potassium 4.5 Chloride 96 L Carbon Dioxide 24.0 Anion Gap 11 BUN 60 H Creatinine 5.73 H Estim Creat Clear Calc 7.33 Est GFR (MDRD) Af Amer 9 L Est GFR (MDRD) Non-Af 8 L BUN/Creatinine Ratio 10.5 Glucose 228 H Lactic Acid Calcium 8.7 Total Bilirubin AST ALT Alkaline Phosphatase Total Protein Albumin Globulin Albumin/Globulin Ratio Lipase Urine Color Yellow Urine Clarity Sl. Cloudy Urine pH 8.0 Ur Specific [place] 1.010 Urine Protein 100 H Urine Glucose (UA) 250 H Urine Ketones Negative Urine Occult Blood 150 H Urine Nitrite Negative Urine Bilirubin Negative Urine Urobilinogen Normal Ur Leukocyte Esterase 25 H Urine RBC 5-10 SEEN Urine WBC 0-5 SEEN Ur Squamous Epith Cells 10-25 SEEN Urine Bacteria 0 SEEN Urine Mucus 0 SEEN POC Glucose 09/24/18 09/24/18 11:50 06:41 POC Glucose 172 H 238 H Assessment/Plan All Active Problems (Last Reviewed 09/24/18 @ 07:01 by Chino Melara MD) Sepsis (Acute) Pneumonia (Acute) CKD stage 5 secondary to hypertension (Acute) Hydronephrosis (Resolved) Pyelonephritis (Resolved) Sepsis (Resolved) 1- ESRD on F HD schedule. pt goes to [facility] HD center. Pt missed last HD session on 09/22. Will arrange for HD session today as per her HD chronic order. Will contact her HD unit for the order HD access is RUE AVF 2- hyponatremia: from possible dehydration from N/V and diarrhea. Na is 131. will continue to monitor 3- HTN: Pt received labetalol in ED for elevated BP BP is well controlled now. continue home BP' UF to EDW today 4- BMD: continue home P binder. check P in am 5- B/L pneumonia: on Ceftriaxone and Azithromycin IV Please dose Abx for HD patients Thank you for the consult. Renal team will continue to follow Karime Tai MD
--- NOTE | 2018-09-24 14:04 | CASEMGMT ---
Social Work Note Per admissions evaluator questions, pt has completed living will but hasn't provided copy to [facility]. Pt has completed HCPOA, copy provided to [facility]. HCPOA printed and placed on pt's chart. Leila Kitchen MSW, [employer]
--- NOTE | 2018-09-24 14:18 | NURSING ---
O2 SAT 88% ON 1L NC - O2 INCREASED TO 2L NC
[2018-09-24 16:51] LABS: Bedside Glucose 73 mg/dL (70-110)
--- NOTE | 2018-09-24 16:54 | CHAPLAIN ---
patient was sleeping and did not awaken her
[2018-09-24 18:10] LABS: Bedside Glucose 102 mg/dL (70-110)
--- NOTE | 2018-09-24 20:56 | DIALYSIS ---
hemodialysis x 3 hrs completed. UF 2L. Access via MARGARITA AVF. PT iwona fairly well. See hD flowsheet on chart. report to Val.
[2018-09-24] MEDS: Ceftriaxone 1 GM/50 ML BAG IV (22:21)
[2018-09-24] MEDS: 0.9% NaCl Peripheral Flush Adult/Peds IV (22:21)
[2018-09-24 23:00] LABS: Bedside Glucose 212 mg/dL (70-110)
[2018-09-24] MEDS: Calcium Carbonate 500 MG Tablet PO (23:00)
[2018-09-25] VITALS (18 sets, daily range): BP systolic 118–149; BP diastolic 50–93; PULSE 66–97; RESP 16–22; TEMP 36.8–37.5; O2SAT 94–100
[2018-09-25] MEDS: Acetaminophen 500 MG Tablet 1000 MG PO ×2 (02:04→13:50)
[2018-09-25] MEDS: Levothyroxine 100 MCG Tablet PO (05:20)
[2018-09-25] MEDS: Benzonatate 100 MG Capsule PO ×3 (05:20→20:10)
--- NOTE | 2018-09-25 06:15 | RAD_ITS ---
STUDY: X-RAY CHEST REASON FOR EXAM: Female, 73 years old. Cough. Mild crackles are heard on physical exam. TECHNIQUE: Single AP portable view of the chest. COMPARISON: September 24, 2018 FINDINGS: Cardiac monitoring leads are present. The lungs are clear and expanded. There is no demonstrated pleural abnormality. There is moderate cardiac enlargement. Normal mediastinum and wicho. Normal visualized pulmonary arteries. There is atherosclerotic calcification of the aortic arch with tortuosity. There are diffuse degenerative changes of the visualized thoracic spine. Normal visualized ribs, clavicles, and shoulders. There is no demonstrated abnormality of the visualized soft tissue structures of the upper abdomen. RAD/Chest 1 View (Portable) IMPRESSION: Cardiomegaly and mild pulmonary congestion. Electronically Signed: Conchita Soler MD at 6:58 EDT , Service support ,
[2018-09-25] MEDS: Ipratropium/Albuterol Sulfate 3 ML AMPUL.NEB INHALATION ×2 (06:45→14:34)
[2018-09-25 07:32] LABS: Absolute Lymphocyte Count 1.03 X10^3/uL (0.83-4.51); Absolute Neutrophil Count 7.4 X10^3/uL (2.0-7.7); Basophil# 0.03 X10^3/uL; Basophil% 0.3 % (0-1); Eosinophil# 0.27 X10^3/uL; Eosinophils% 2.8 % (0-5); Hematocrit 32.8 % (37-47); Hemoglobin 10.4 g/dL (12.0-15.0); Lymphocyte # 1.03 X10^3/ul (4.0); Lymphocyte % 10.6 % (19-41); Mean Corp Hgb Conc 31.7 g/dL (32-36); Mean Corpuscular Hgb 31.6 pg (27.0-32.0); Mean Corpuscular Volume 99.7 fL (81-99); Mean Platelet Vol. 12.7 fl (6.2-12.0); Monocyte% 9.3 % (0-10); NRBC Flagged by Analyzer 0 % (0-5); Neutrophil # 7.41 X10^3/uL (2.7-7.7); Neutrophil % 76.5 % (47-70); Platelet Count 145 K/mm3 (150-450); RBC Distribution Width CV 15.5 % (11.6-14.6); RBC Distribution Width SD 56.8 fl (35.1-43.9); Red Blood Count 3.29 M/mm3 (4.2-5.4); White Blood Count 9.7 K/mm3 (4.4-11.0)
[2018-09-25 07:57] LABS: Anion Gap 4 (5-15); BUN 30 mg/dL (7-18); BUN/Creat Ratio 8.1 RATIO (10-20); Calcium,Total 8.2 mg/dL (8.5-10.1); Chloride 90 mmol/L (98-107); EST Glomerular Filtration Rate 13 mL/min (>60); Est Glom Filt Rate - Afr Amer 15 mL/min (>60); Estimated Creatinine Clearance 11.34 ml/min; Glucose 116 mg/dL (74-106); Potassium 3.6 mmol/L (3.5-5.1); Sodium Level 125 mmol/L (136-145)
[2018-09-25] MEDS: Insulin Lispro 100 UNIT/ML INSULN.PEN 8 UNIT SC (08:24)
[2018-09-25] MEDS: Calcium Acetate 667 MG Capsule PO ×3 (08:27→18:56)
[2018-09-25 08:36] LABS: Bedside Glucose 132 mg/dL (70-110)
--- NOTE | 2018-09-25 09:22 | PN_ITS ---
Subjective: Breathing a little bit easier today, though she still states that she is coughing which is causing some muscular skeletal pain in her chest Vitals/I&O's: Vital Signs Temp Pulse Resp BP Pulse Ox 98.9 F 72 18 148/59 H 95 09/25/18 06:05 09/25/18 06:25 09/25/18 06:25 09/25/18 06:05 09/25/18 07:15 Oxygen Flow Rate (L/min) 3 Oxygen Delivery Method Nasal Cannula Weight: 165 lb 2.02 oz Body Mass Index (BMI) 28.3 Intake and Output for Last 24 Hours 09/23/18 09/24/18 09/25/18 23:59 23:59 23:59 Intake Total 866 / 866 818 / 818 Output Total 2200 / 2200 Balance -1334 / -1334 818 / 818 General: Alert, Oriented x3, Cooperative, No apparent distress HEENT: Atraumatic, PERRLA, EOMI, Normocephalic Oral: Moist Mucosa Neck: Supple, No JVD Lungs: No rhonchi, No rales, Diminished, Wheezes - Slight in her bases, - - Poor air movement Cardiovascular: Regular rate, Regular Rhythm, Normal S1, Normal S2, No murmurs Abdomen: Soft, Non Tender, Non-Distended, No Hepato-splenomegaly Extremities: No edema, Capillary Refill Less than 3 Seconds Skin: No rashes, No breakdown Neurological: Neuro grossly intact, Sensory exam intact to light touch and pain Psych/Mental Status: Normal Affect, Appropriate Microbiology Past 72 Hours 09/24/18 13:00 Sputum, Expectorated/Coughed Gram Stain - Final 09/24/18 11:59 Interface Orders Legionella Antigen - Final 09/24/18 11:55 Interface Orders Streptococcus pneumoniae Antigen (M - Final Laboratory Results 09/24/18 11:50: POC Glucose 172 H 09/24/18 16:47: POC Glucose 73 09/24/18 18:08: POC Glucose 102 09/24/18 22:31: POC Glucose 212 H 09/25/18 07:12: WBC 9.7, RBC 3.29 L, Hgb 10.4 L, Hct 32.8 L, MCV 99.7 H, MCH 31.6, MCHC 31.7 L, RDW Std Deviation 56.8 H, RDW Coeff of Samson 15.5 H, Plt Count 145 L, MPV 12.7 H, Immature Gran % (Auto) 0.500, Neut % (Auto) 76.5 H, Lymph % (Auto) 10.6 L, [place] % (Auto) 9.3, Eos % (Auto) 2.8, Baso % (Auto) 0.3, Absolute Neuts (auto) 7.4, Absolute Lymphs (auto) 1.03, Absolute Nucleated RBC 0.00, Nucleated RBC % 0 09/25/18 07:12: Sodium 125 L, Potassium 3.6, Chloride 90 L, Carbon Dioxide 31.0, Anion Gap 4 L, BUN 30 H, Creatinine 3.70 H, Estim Creat Clear Calc 11.34, Est GFR (MDRD) Af Amer 15 L, Est GFR (MDRD) Non-Af 13 L, BUN/Creatinine Ratio 8.1 L, Glucose 116 H, Calcium 8.2 L 09/25/18 08:23: POC Glucose 132 H Current Medications Acetaminophen (Tylenol) 1,000 mg PO Q6H PRN PRN Reason: PAIN Last Admin: 09/25/18 02:04 Dose: 1,000 mg Documented by: Albuterol Sulfate (Ventolin Aerosols) 2.5 mg INHALATION Q2H PRN PRN PRN Reason: SHORTNESS OF BREATH Albuterol/Ipratropium (Duoneb) 3 ml INHALATION Q6H.RT [facility] Last Admin: 09/25/18 06:45 Dose: 3 ml Documented by: Benzonatate (Tessalon Perle) 100 mg PO TID PRN PRN PRN Reason: COUGH Last Admin: 09/25/18 05:20 Dose: 100 mg Documented by: Calcium Acetate (Phoslo Gel Cap) 667 mg PO TIDCM [facility] Last Admin: 09/25/18 08:27 Dose: 667 mg Documented by: Calcium Carbonate (Tums) 500 mg PO Q6H PRN PRN PRN Reason: HEARTBURN Last Admin: 09/24/18 23:00 Dose: 500 mg Documented by: Dextrose (D50w Syringe) 0 gm IV X1 PRN; Protocol PRN Reason: Hypoglycemia Enoxaparin Sodium (Lovenox) 30 mg SC DAILY@1000 [facility] Last Admin: 09/24/18 08:31 Dose: 30 mg Documented by: Furosemide (Lasix) 80 mg PO DAILY [facility] Last Admin: 09/24/18 12:09 Dose: Not Given Documented by: Glucagon () 1 mg IM .X1 PRN PRN Reason: Hypoglycemia Guaifenesin (Mucinex) 1,200 mg PO BID [facility] Last Admin: 09/24/18 22:21 Dose: 1,200 mg Documented by: Ceftriaxone Sodium (Rocephin) 1 gm in 50 mls @ 100 mls/hr IV Q24H [facility] Last Admin: 09/24/18 22:21 Dose: 100 mls/hr Documented by: Azithromycin 500 mg/ Dextrose 255 mls @ 250 mls/hr IV Q24H [facility] Last Admin: 09/24/18 23:00 Dose: 250 mls/hr Documented by: Sodium Chloride () 250 mls @ 15 mls/hr IV .[id number] PRN PRN Reason: SALINE FLUSH Insulin Glargine (Lantus (Bkc)) 24 units SC BID [facility] Last Admin: 09/24/18 22:33 Dose: 24 units Documented by: Insulin Human Lispro (Humalog Kwikpen (Bkc)) 0 unit SC ACHS [facility]; Protocol Last Admin: 09/25/18 08:23 Dose: Not Given Documented by: Insulin Human Lispro (Humalog Kwikpen (Bkc)) 8 unit SC BREAKFAST [facility] Last Admin: 09/25/18 08:24 Dose: 8 units Documented by: Insulin Human Lispro (Humalog Kwikpen (Bkc)) 8 unit SC DINNER [facility] Last Admin: 09/24/18 18:09 Dose: Not Given Documented by: Insulin Human Lispro (Humalog Kwikpen (Bkc)) 8 unit SC LUNCH [facility] Last Admin: 09/24/18 12:40 Dose: 8 units Documented by: Labetalol HCl (Trandate) 10 mg IV Q4H PRN PRN PRN Reason: SBP > 160 Levothyroxine Sodium (Synthroid) 100 mcg PO DAILY@0600 [facility] Last Admin: 09/25/18 05:20 Dose: 100 mcg Documented by: Melatonin (Melatonin) 3 mg PO QHS PRN PRN PRN Reason: INSOMNIA Metolazone (Zaroxolyn) 5 mg PO DAILY [facility] Last Admin: 09/24/18 12:09 Dose: Not Given Documented by: Metoprolol Tartrate (Lopressor (Beta Heladio)) 25 mg PO DAILY [facility] Last Admin: 09/24/18 12:09 Dose: Not Given Documented by: Ondansetron HCl (Zofran) 4 mg IV Q8H PRN PRN PRN Reason: Nausea Sodium Chloride () 10 - 40 ml IV UD PRN PRN Reason: SALINE FLUSH Last Admin: 09/24/18 22:21 Dose: 10 ml Documented by: Medical Necessity - Tobacco Use Smoking Status: Never smoker Assessment/Plan All Active Problems (Last Reviewed 09/24/18 @ 07:01 by Chino Melara MD) Sepsis (Acute) Pneumonia (Acute) CKD stage 5 secondary to hypertension (Acute) Hydronephrosis (Resolved) Pyelonephritis (Resolved) Sepsis (Resolved) 1. Sepsis secondary to community-acquired pneumonia with gram-positive organism/outpatient UTI/microscopic hematuria -Lactic acid on admission was 1.2 -Never had a leukocytosis and she remains afebrile -Blood cultures are pending and chest x-ray bilateral lower lobe pneumonia -We will ambulate patient, continue with PT/OT and -Continue with Rocephin and azithromycin, the Rocephin will treat her outpatient UTI -UTI is likely causing her microscopic hematuria, she will need outpatient follow-up and a repeat UA to assure clearance -Strep and Legionella urine antigens are negative, sputum culture pending -Continue with DuoNeb 2. End-stage renal disease on hemodialysis/hypertensive urgency/chronic hyponatremia -Consult to nephrology for dialysis on Thursday, Thursday, and Thursday -In the ER her blood pressure was 189 systolic and she was given a dose of labetalol, will continue with her home blood pressure medications and have IV labetalol available as needed -Currently blood pressures are stable in the 140s 3. Hypertension/hyperlipidemia/chronic systolic CHF -Continue with her Entresto, and metoprolol -Continue with Lasix and Zaroxolyn 4. DM 2 -She is on metformin at home which we will hold -With her home insulin and add a sliding scale insulin with Accu-Cheks DVT: Lovenox Code Visit Inpatient E&M: 01413 Subs Hosp L2
[2018-09-25] MEDS: SACUBITRIL/VALSARTAN 24/26 MG TABLET 1 EACH PO ×2 (09:58→22:30)
[2018-09-25] MEDS: Metoprolol Tartrate 25 MG Tablet PO (09:58)
[2018-09-25] MEDS: Furosemide 80 MG Tablet PO (09:58)
[2018-09-25] MEDS: Enoxaparin 30 MG/0.3 ML Syringe SC (09:59)
[2018-09-25] MEDS: metOLazone 5 MG Tablet PO (09:59)
[2018-09-25] MEDS: guaiFENesin 1,200 MG Tablet 1200 MG PO ×2 (09:59→22:30)
[2018-09-25 12:30] LABS: Bedside Glucose 71 mg/dL (70-110)
[2018-09-25] MEDS: Ondansetron 4 MG/2 ML Vial IV (16:15)
[2018-09-25] MEDS: 0.9% NaCl Peripheral Flush Adult/Peds IV (16:15)
[2018-09-25 16:41] LABS: Bedside Glucose 172 mg/dL (70-110)
[2018-09-25] MEDS: guaiFENesin 10 ML UDC (200MG/10ML) PO (17:59)
[2018-09-25 19:01] LABS: Bedside Glucose 123 mg/dL (70-110)
[2018-09-25] MEDS: Ceftriaxone 1 GM/50 ML BAG IV (21:00)
[2018-09-25] MEDS: Albuterol 2.5 MG/3 ML VIAL.NEB. INHALATION (23:17)
[2018-09-25] MEDS: Insulin Lispro 100 UNIT/ML INSULN.PEN SC (23:28)
[2018-09-25 23:46] LABS: Bedside Glucose 187 mg/dL (70-110)
[2018-09-26] VITALS (16 sets, daily range): BP systolic 118–142; BP diastolic 48–74; PULSE 71–95; RESP 16–20; TEMP 36.5–37.6; O2SAT 93–100
[2018-09-26] MEDS: Acetaminophen 500 MG Tablet 1000 MG PO ×3 (00:48→22:27)
[2018-09-26] MEDS: guaiFENesin 10 ML UDC (200MG/10ML) PO ×2 (00:48→22:26)
[2018-09-26 02:51] LABS: Bedside Glucose 186 mg/dL (70-110)
--- NOTE | 2018-09-26 03:02 | NURSING ---
Pt. requested this nurse take blood sugar because she is afraid of going low since she is not eating very well. This nurse took patient's blood sugar and it was 186. Pt. requested peanut butter crackers and milk for a snack which was provided to patient at this time. Will continue to monitor patient.
[2018-09-26] MEDS: Levothyroxine 100 MCG Tablet PO (06:03)
[2018-09-26 06:16] LABS: Bedside Glucose 209 mg/dL (70-110)
[2018-09-26 07:11] LABS: Absolute Lymphocyte Count 0.96 X10^3/uL (0.83-4.51); Basophil# 0.03 X10^3/uL; Basophil% 0.4 % (0-1); Eosinophil# 0.26 X10^3/uL; Eosinophils% 3.2 % (0-5); Hemoglobin 10.3 g/dL (12.0-15.0); Lymphocyte # 0.96 X10^3/ul (4.0); Mean Corp Hgb Conc 32.2 g/dL (32-36); Mean Corpuscular Hgb 31.9 pg (27.0-32.0); Mean Corpuscular Volume 99.1 fL (81-99); Monocyte# 0.71 X10^3/uL; Monocyte% 8.9 % (0-10); NRBC Flagged by Analyzer 0 % (0-5); Neutrophil # 6.02 X10^3/uL (2.7-7.7); Platelet Count 154 K/mm3 (150-450); RBC Distribution Width CV 15.3 % (11.6-14.6); RBC Distribution Width SD 55.3 fl (35.1-43.9); Red Blood Count 3.23 M/mm3 (4.2-5.4)
[2018-09-26 07:37] LABS: Anion Gap 13 (5-15); BUN 49 mg/dL (7-18); BUN/Creat Ratio 9.7 RATIO (10-20); Calcium,Total 8.2 mg/dL (8.5-10.1); Chloride 85 mmol/L (98-107); Creatinine, Serum 5.04 mg/dL (0.55-1.02); EST Glomerular Filtration Rate 9 mL/min (>60); Est Glom Filt Rate - Afr Amer 11 mL/min (>60); Estimated Creatinine Clearance 8.33 ml/min; Glucose 202 mg/dL (74-106); Potassium 3.9 mmol/L (3.5-5.1); Sodium Level 125 mmol/L (136-145)
[2018-09-26] MEDS: Insulin Lispro 100 UNIT/ML INSULN.PEN 8 UNIT SC ×3 (07:55→18:23)
[2018-09-26] MEDS: Calcium Acetate 667 MG Capsule PO ×3 (07:56→18:22)
[2018-09-26] MEDS: Insulin Lispro 100 UNIT/ML INSULN.PEN SC ×2 (07:56→18:22)
[2018-09-26] MEDS: SACUBITRIL/VALSARTAN 24/26 MG TABLET 1 EACH PO ×2 (10:35→22:26)
[2018-09-26] MEDS: Enoxaparin 30 MG/0.3 ML Syringe SC (10:36)
[2018-09-26] MEDS: Metoprolol Tartrate 25 MG Tablet PO (10:36)
[2018-09-26] MEDS: Furosemide 80 MG Tablet PO (10:36)
[2018-09-26] MEDS: guaiFENesin 1,200 MG Tablet 1200 MG PO ×2 (10:36→22:26)
[2018-09-26] MEDS: metOLazone 5 MG Tablet PO (10:37)
[2018-09-26 12:51] LABS: Bedside Glucose 145 mg/dL (70-110)
--- NOTE | 2018-09-26 12:54 | PCM.PN.HOSP ---
Subjective: Still coughing and does not feel ready to go home though she thinks she might be getting better Vitals/I&O's: Vital Signs Temp Pulse Resp BP Pulse Ox 97.8 F 80 18 142/74 H 96 09/26/18 09:00 09/26/18 10:36 09/26/18 09:00 09/26/18 09:00 09/26/18 09:00 Oxygen Flow Rate (L/min) 1 Oxygen Delivery Method Nasal Cannula Weight: 165 lb 2.02 oz Body Mass Index (BMI) 28.3 Intake and Output for Last 24 Hours 09/24/18 09/25/18 09/26/18 23:59 23:59 23:59 Intake Total 866 / 866 1318 / 1573 455 / 455 Output Total 2200 / 2200 1800 / 1800 Balance -1334 / -1334 -482 / -227 455 / 455 General: Alert, Oriented x3, Cooperative, No apparent distress HEENT: Atraumatic, PERRLA, EOMI, Normocephalic Oral: Moist Mucosa Neck: Supple, No JVD Lungs: No rhonchi, No rales, Diminished, Wheezes - Slight in her bases, - - Poor air movement Cardiovascular: Regular rate, Regular Rhythm, Normal S1, Normal S2, No murmurs Abdomen: Soft, Non Tender, Non-Distended, No Hepato-splenomegaly Extremities: No edema, Capillary Refill Less than 3 Seconds Skin: No rashes, No breakdown Neurological: Neuro grossly intact, Sensory exam intact to light touch and pain Psych/Mental Status: Normal Affect, Appropriate Microbiology Past 72 Hours 09/24/18 13:00 Sputum, Expectorated/Coughed Gram Stain - Final 09/24/18 13:00 Sputum, Expectorated/Coughed Respiratory Culture - Final 09/24/18 11:59 Interface Orders Legionella Antigen - Final 09/24/18 11:55 Interface Orders Streptococcus pneumoniae Antigen (M - Final Laboratory Results 09/25/18 15:56: POC Glucose 172 H 09/25/18 18:49: POC Glucose 123 H 09/25/18 23:23: POC Glucose 187 H 09/26/18 02:39: POC Glucose 186 H 09/26/18 05:56: WBC 8.0, RBC 3.23 L, Hgb 10.3 L, Hct 32.0 L, MCV 99.1 H, MCH 31.9, MCHC 32.2, RDW Std Deviation 55.3 H, RDW Coeff of Samson 15.3 H, Plt Count 154, MPV 13.0 H, Immature Gran % (Auto) 0.500, Neut % (Auto) 75.0 H, Lymph % (Auto) 12.0 L, [place] % (Auto) 8.9, Eos % (Auto) 3.2, Baso % (Auto) 0.4, Absolute Neuts (auto) 6.0, Absolute Lymphs (auto) 0.96, Absolute Nucleated RBC 0.00, Nucleated RBC % 0 09/26/18 05:56: Sodium 125 L, Potassium 3.9, Chloride 85 L, Carbon Dioxide 27.0, Anion Gap 13, BUN 49 H, Creatinine 5.04 H, Estim Creat Clear Calc 8.33, Est GFR (MDRD) Af Amer 11 L, Est GFR (MDRD) Non-Af 9 L, BUN/Creatinine Ratio 9.7 L, Glucose 202 H, Calcium 8.2 L 09/26/18 06:10: POC Glucose 209 H 09/26/18 12:42: POC Glucose 145 H Current Medications Acetaminophen (Tylenol) 1,000 mg PO Q6H PRN PRN Reason: PAIN Last Admin: 09/26/18 00:48 Dose: 1,000 mg Documented by: Albuterol Sulfate (Ventolin Aerosols) 2.5 mg INHALATION Q2H PRN PRN PRN Reason: SHORTNESS OF BREATH Last Admin: 09/25/18 23:17 Dose: 2.5 mg Documented by: Albuterol/Ipratropium (Duoneb) 3 ml INHALATION Q6H.RT [facility] Last Admin: 09/26/18 07:00 Dose: Not Given Documented by: Benzonatate (Tessalon Perle) 100 mg PO TID PRN PRN PRN Reason: COUGH Last Admin: 09/25/18 20:10 Dose: 100 mg Documented by: Calcium Acetate (Phoslo Gel Cap) 667 mg PO TIDCM [facility] Last Admin: 09/26/18 07:56 Dose: 667 mg Documented by: Calcium Carbonate (Tums) 500 mg PO Q6H PRN PRN PRN Reason: HEARTBURN Last Admin: 09/24/18 23:00 Dose: 500 mg Documented by: Dextrose (D50w Syringe) 0 gm IV X1 PRN; Protocol PRN Reason: Hypoglycemia Enoxaparin Sodium (Lovenox) 30 mg SC DAILY@1000 [facility] Last Admin: 09/26/18 10:36 Dose: 30 mg Documented by: Furosemide (Lasix) 80 mg PO DAILY [facility] Last Admin: 09/26/18 10:36 Dose: 80 mg Documented by: Glucagon () 1 mg IM .X1 PRN PRN Reason: Hypoglycemia Guaifenesin (Mucinex) 1,200 mg PO BID [facility] Last Admin: 09/26/18 10:36 Dose: 1,200 mg Documented by: Guaifenesin (Robitussin) 10 ml PO Q4H PRN PRN PRN Reason: COUGH Last Admin: 09/26/18 00:48 Dose: 10 ml Documented by: Ceftriaxone Sodium (Rocephin) 1 gm in 50 mls @ 100 mls/hr IV Q24H [facility] Last Admin: 09/25/18 21:00 Dose: 100 mls/hr Documented by: Azithromycin 500 mg/ Dextrose 255 mls @ 250 mls/hr IV Q24H [facility] Last Admin: 09/25/18 22:30 Dose: 250 mls/hr Documented by: Sodium Chloride () 250 mls @ 15 mls/hr IV .[id number] PRN PRN Reason: SALINE FLUSH Insulin Glargine (Lantus (Bkc)) 24 units SC BID [facility] Last Admin: 09/26/18 10:35 Dose: 24 units Documented by: Insulin Human Lispro (Humalog Kwikpen (Bkc)) 0 unit SC ACHS [facility]; Protocol Last Admin: 09/26/18 12:50 Dose: Not Given Documented by: Insulin Human Lispro (Humalog Kwikpen (Bkc)) 8 unit SC BREAKFAST [facility] Last Admin: 09/26/18 07:55 Dose: 8 units Documented by: Insulin Human Lispro (Humalog Kwikpen (Bkc)) 8 unit SC DINNER [facility] Last Admin: 09/25/18 18:56 Dose: Not Given Documented by: Insulin Human Lispro (Humalog Kwikpen (Bkc)) 8 unit SC LUNCH [facility] Last Admin: 09/25/18 13:30 Dose: Not Given Documented by: Labetalol HCl (Trandate) 10 mg IV Q4H PRN PRN PRN Reason: SBP > 160 Levothyroxine Sodium (Synthroid) 100 mcg PO DAILY@0600 [facility] Last Admin: 09/26/18 06:03 Dose: 100 mcg Documented by: Melatonin (Melatonin) 3 mg PO QHS PRN PRN PRN Reason: INSOMNIA Metolazone (Zaroxolyn) 5 mg PO DAILY [facility] Last Admin: 09/26/18 10:37 Dose: 5 mg Documented by: Metoprolol Tartrate (Lopressor (Beta Heladio)) 25 mg PO DAILY [facility] Last Admin: 09/26/18 10:36 Dose: 25 mg Documented by: Ondansetron HCl (Zofran) 4 mg IV Q8H PRN PRN PRN Reason: Nausea Last Admin: 09/25/18 16:15 Dose: 4 mg Documented by: Sodium Chloride () 10 - 40 ml IV UD PRN PRN Reason: SALINE FLUSH Last Admin: 09/25/18 16:15 Dose: 10 ml Documented by: Medical Necessity - Tobacco Use Smoking Status: Never smoker Assessment/Plan All Active Problems (Last Reviewed 09/24/18 @ 07:01 by Chino Melara MD) Sepsis (Acute) Pneumonia (Acute) CKD stage 5 secondary to hypertension (Acute) Hydronephrosis (Resolved) Pyelonephritis (Resolved) Sepsis (Resolved) 1. Sepsis secondary to community-acquired pneumonia with gram-positive organism/outpatient UTI/microscopic hematuria -Lactic acid on admission was 1.2 -Never had a leukocytosis and she remains afebrile, she was on antibiotics prior to admission for her UTI -Blood cultures are pending and chest x-ray bilateral lower lobe pneumonia -We will ambulate patient, continue with PT/OT and -Continue with Rocephin and azithromycin, the Rocephin will treat her outpatient UTI -UTI is likely causing her microscopic hematuria, she will need outpatient follow-up and a repeat UA to assure clearance -Strep and Legionella urine antigens are negative, sputum culture pending -Continue with DuoNeb -We will obtain a nocturnal pulse ox in case she needs oxygen to go home with 2. End-stage renal disease on hemodialysis/hypertensive urgency/chronic hyponatremia -Consult to nephrology for dialysis on Thursday, Thursday, and Thursday. She did have dialysis again yesterday for 2 L ultrafiltration -In the ER her blood pressure was 189 systolic and she was given a dose of labetalol, will continue with her home blood pressure medications and have IV labetalol available as needed -Currently blood pressures are stable in the 140s 3. Hypertension/hyperlipidemia/chronic systolic CHF -Continue with her Entresto, and metoprolol -Continue with Lasix and Zaroxolyn 4. DM 2 -She is on metformin at home which we will hold -Continue with her home insulin and add a sliding scale insulin with Accu-Cheks DVT: Lovenox Code Visit Inpatient E&M: 14499 Subs Hosp L2
[2018-09-26] MEDS: Ipratropium/Albuterol Sulfate 3 ML AMPUL.NEB INHALATION ×2 (13:29→19:30)
--- NOTE | 2018-09-26 14:40 | PN_ITS ---
Subjective: Shortness of breath and cough are improving no chest pain no other complaints - Physical Exam General: Alert, Cooperative HEENT: Atraumatic, EOMI Oral: Moist Mucosa, No Gingival or Mucosal Lesions/ Ulcerations Neck: Supple, No JVD Lungs: Clear to auscultation, Normal air movement Cardiovascular: Regular rate, Normal S1, Normal S2 Abdomen: Bowel Sounds Present, Soft, Non Tender Extremities: No clubbing, No edema Skin: No rashes Musculoskeletal: - - Right arm AV fistula good thrill and bruit Vital Signs Temp Pulse Resp BP Pulse Ox 99.6 F H 95 20 H 119/48 L 93 09/26/18 13:51 09/26/18 14:11 09/26/18 13:51 09/26/18 13:51 09/26/18 13:51 Oxygen Flow Rate (L/min) 4 Oxygen Delivery Method Nasal Cannula Weight: 74.9 kg Body Mass Index (BMI) 28.3 Intake and Output for Last 24 Hours 09/24/18 09/25/18 09/26/18 23:59 23:59 23:59 Intake Total 866 / 866 1318 / 1573 455 / 455 Output Total 2200 / 2200 1800 / 1800 Balance -1334 / -1334 -482 / -227 455 / 455 Microbiology Past 72 Hours 09/24/18 13:00 Gram Stain - Final Sputum, Expectorated/Coughed Respiratory Culture - Final 09/24/18 11:59 Legionella Antigen - Final Interface Orders 09/24/18 11:55 Streptococcus pneumoniae Antigen (M - Final Interface Orders Laboratory Tests Past 24 Hrs 09/26/18 09/26/18 05:56 05:56 WBC 8.0 RBC 3.23 L Hgb 10.3 L Hct 32.0 L MCV 99.1 H MCH 31.9 MCHC 32.2 RDW Std Deviation 55.3 H RDW Coeff of Samson 15.3 H Plt Count 154 MPV 13.0 H Immature Gran % (Auto) 0.500 Neut % (Auto) 75.0 H Lymph % (Auto) 12.0 L [place] % (Auto) 8.9 Eos % (Auto) 3.2 Baso % (Auto) 0.4 Absolute Neuts (auto) 6.0 Absolute Lymphs (auto) 0.96 Absolute Nucleated RBC 0.00 Nucleated RBC % 0 Sodium 125 L Potassium 3.9 Chloride 85 L Carbon Dioxide 27.0 Anion Gap 13 BUN 49 H Creatinine 5.04 H Estim Creat Clear Calc 8.33 Est GFR (MDRD) Af Amer 11 L Est GFR (MDRD) Non-Af 9 L BUN/Creatinine Ratio 9.7 L Glucose 202 H Calcium 8.2 L POC Glucose 09/26/18 09/26/18 09/26/18 12:42 06:10 02:39 POC Glucose 145 H 209 H 186 H 09/25/18 09/25/18 09/25/18 23:23 18:49 15:56 POC Glucose 187 H 123 H 172 H Medical Necessity - Tobacco Use Smoking Status: Never smoker Assessment/Plan All Active Problems (Last Reviewed 09/24/18 @ 07:01 by Chino Melara MD) Sepsis (Acute) Pneumonia (Acute) CKD stage 5 secondary to hypertension (Acute) Hydronephrosis (Resolved) Pyelonephritis (Resolved) Sepsis (Resolved) 1- ESRD on MWF HD schedule. pt goes to [facility] [place]. Tolerated UF only yesterday for residual pulmonary edema will resume Thursday dialysis tomorrow HD access is RUE AVF 2- hyponatremia: Continue fluid restriction UF as tolerated 3- HTN: Controlled continue beta-maria esther 4-CKD MBD continue binders 5-anemia will use MINA if prolonged hospital stay B/L pneumonia: on Ceftriaxone and Azithromycin per primary team
[2018-09-26 16:21] LABS: Bedside Glucose 252 mg/dL (70-110)
--- NOTE | 2018-09-26 18:53 | NURSING ---
cps called and reminded of overnight trending spo2
--- NOTE | 2018-09-26 22:08 | CPS ---
Patient placed on an overnight continuous pulse ox trend in which the placed was placed on room air. Discussed trend with nursing staff about patient being on room air.
[2018-09-26] MEDS: Ceftriaxone 1 GM/50 ML BAG IV (22:26)
[2018-09-26 22:36] LABS: Bedside Glucose 117 mg/dL (70-110)
[2018-09-27] VITALS (16 sets, daily range): BP systolic 118–136; BP diastolic 42–68; PULSE 69–83; RESP 16–20; TEMP 36.3–37; O2SAT 83–97
--- NOTE | 2018-09-27 01:00 | RAD_ITS ---
HISTORY: abdominal distention ADDITIONAL HISTORY: None. COMPARISON: CT 09/24/2018 Technique: Supine abdominal radiograph Number of images including paperwork: 1 FINDINGS: FREE AIR: None detected. BOWEL GAS PATTERN: Nonobstructive. CALCIFICATIONS: No definite urinary tract calculi. Small renal calculi seen on the recent CT are not definitely seen on this portable radiograph. ORGANS: No evidence of organomegaly. SOFT TISSUES: Unremarkable. BONES: No acute skeletal findings. Degenerative changes. Old bilateral pubic ramus fractures. RAD/Abdomen Single View (Portable) IMPRESSION: No acute abdominal abnormality is radiographically apparent. Small renal calculi seen on the recent CT are not definitely seen on this portable radiograph. at 0220 Reported and signed by: Arti Arriaga MD Electronically Signed: Arti Arriaga MD at 2:20 EDT Tel , Service support ,
[2018-09-27 02:06] LABS: Bedside Glucose 269 mg/dL (70-110)
--- NOTE | 2018-09-27 02:32 | NURSING ---
patient's trending pulse ox dropped to 83% on room air. Shay in Repiratory
--- NOTE | 2018-09-27 02:33 | CPS ---
RN called RT staff to inform them that the patient's o2 sat was 83%. RT staff placed patient on 1L oxygen. o2 sat went up to 93%
--- NOTE | 2018-09-27 02:33 | NURSING ---
Patient's pulse ox dropped to 83% on room air while doing trending pulse ox. Respiratory therapist Shay notified and he came to floor and put patient on 1L NC at this time. Will continue to monitor patient's pulse ox.
--- NOTE | 2018-09-27 02:40 | PCM.PN.BLA ---
Progress Note Nurse reported patient has abdominal distention. Patient was examined at the bedside. Patient reports blood like filling of the abdomen. KUB was ordered. KUB was unremarkable. Last bowel movement was 10/03/2018. Will give MiraLAX 17 g x 1 dose for dyspepsia secondary to likely constipation.
[2018-09-27] MEDS: Polyethylene Glycol 3350 17 GM PACKET PO (02:58)
[2018-09-27] MEDS: Ipratropium/Albuterol Sulfate 3 ML AMPUL.NEB INHALATION ×2 (07:29→19:07)
[2018-09-27 08:10] LABS: Bedside Glucose 136 mg/dL (70-110)
--- NOTE | 2018-09-27 08:55 | RAD_ITS ---
STUDY: X-RAY CHEST REASON FOR EXAM: Female, 73 years old. Persistent cough TECHNIQUE: Single AP portable view of the chest. COMPARISON: 09/25/2018 FINDINGS: EKG leads overlie the chest Lungs are expanded with persistent evidence of interstitial edema suggesting pulmonary vascular congestion. No interval change since the previous study. There is no demonstrated pleural abnormality. Stable cardiomegaly. Normal mediastinum and wicho. Normal visualized pulmonary arteries. Normal visualized aortic arch and descending thoracic aorta. There are diffuse degenerative changes of the visualized thoracic spine. There is degenerative osteoarthritis of the bilateral shoulders. There is no demonstrated abnormality of the visualized soft tissue structures of the upper abdomen. RAD/Chest 1 View (Portable) IMPRESSION: No interval change Electronically Signed: Bravo Noble MD at 10:05 EDT , Service support ,
--- NOTE | 2018-09-27 09:02 | PN_ITS ---
Subjective: Chief complaint: Follow-up after admission for sepsis, pneumonia and probable UTI. Patient seen and examined. No acute events overnight. This morning, she complained that she is not feeling any better, still complaining of cough with sputum. Complains of congestion as well. Denies fever or chills. She mentioned that she does not feel right although her symptoms got a little bit better on the second and third day. She denies chest pain, palpitation, denies or lightheadedness. She denies abdominal pain, nausea vomiting. She is afebrile, blood pressure and heart rate are stable, pulse ox is 93% on 1 L. - Physical Exam General: Alert, Oriented x3, Cooperative, - - Minimally short of breath. HEENT: Atraumatic, PERRLA, EOMI, Normocephalic Oral: Moist Mucosa, No Gingival or Mucosal Lesions/ Ulcerations Neck: Supple, No JVD, Negative Carotid Bruits, Trachea Midline, Thyroid Normal Size and Texture Lungs: No rales, Diminished, Rhonchi, Short of Breath, - - Decreased breath sounds bilateral, bilateral expiratory wheezes, rhonchi. Cardiovascular: Regular rate, Regular Rhythm, Normal S1, Normal S2, PMI Normal Abdomen: Bowel Sounds Present, Soft, Non Tender, Non-Distended, No Hepato- splenomegaly Extremities: No clubbing, No cyanosis, No edema Skin: No rashes, No breakdown Lymphatic: No Cervical, Supraclavicular, or Inguinal Adenopathy Neurological: Cranial nerves II-XII grossly intact, Motor Exam 5/5 strength throughout Psych/Mental Status: Normal Affect, Appropriate, Alert and oriented to time, place, person, mood and affect Vital Signs Temp Pulse Resp BP Pulse Ox 97.4 F L 72 18 136/52 H 97 09/27/18 07:54 09/27/18 07:54 09/27/18 07:54 09/27/18 07:54 09/27/18 07:54 Oxygen Flow Rate (L/min) 1 Oxygen Delivery Method Room Air Weight: 165 lb 2.02 oz Body Mass Index (BMI) 28.3 Intake and Output for Last 24 Hours 09/25/18 09/26/18 09/27/18 23:59 23:59 23:59 Intake Total 1318 / 1573 940 / 940 200 / 200 Output Total 1800 / 1800 100 / 100 Balance -482 / -227 840 / 840 200 / 200 Microbiology Past 72 Hours 09/24/18 13:00 Gram Stain - Final Sputum, Expectorated/Coughed Respiratory Culture - Final 09/24/18 11:59 Legionella Antigen - Final Interface Orders 09/24/18 11:55 Streptococcus pneumoniae Antigen (M - Final Interface Orders POC Glucose 09/27/18 09/27/18 09/26/18 07:52 01:53 22:23 POC Glucose 136 H 269 H 117 H 09/26/18 09/26/18 16:12 12:42 POC Glucose 252 H 145 H Medical Necessity - Tobacco Use Smoking Status: Never smoker Assessment/Plan All Active Problems (Last Reviewed 09/24/18 @ 07:01 by Chino Melara MD) Sepsis (Acute) Pneumonia (Acute) This is a 73 years old female patient presented to the emergency room because of malaise, shortness of breath, productive cough, nausea, vomiting and diarrhea and she was found to have bilateral lower lobe pneumonia with sepsis. #1 bilateral lower lobe healthcare associated pneumonia/sepsis: This is healthcare associated pneumonia because patient is on hemodialysis, goes to hemodialysis center 3 times a week. She is on IV Rocephin and Zithromax. She has been afebrile, other vital signs are stable. She is still symptomatic, complaining of cough with sputum as well as shortness of breath. Repeat chest x-ray from today showed no new changes. She has no leukocytosis. Pneumococcal and Legionella antigen were negative. Sputum on blood cultures are pending. Plan: Change antibiotics to IV Levaquin and Zosyn. #2 probable acute cystitis: On admission, urinalysis revealed cloudy urine, negative for nitrite, there was only 25 leukocyte esterase, there was seen to 5 WBCs and no bacteria seen Patient has been on IV Rocephin since admission. No urine culture sent. Plan as above. #3 ESRD on hemodialysis: Nephrology consulted, she is on dialysis on Mondays, Wednesdays and Fridays. #4 chronic hyponatremia: This is because of ESRD. Serum sodium was 125 yesterday. Her baseline sodium has been fluctuating anywhere between 125-130. Plan to repeat BMP tomorrow morning. #5 hypertension: Blood pressure stable, continue Lasix, Zaroxolyn and metoprolol. #6 hypothyroidism: Continue on levothyroxine. #7 type 2 diabetes mellitus: Blood sugar stable, continue Lantus twice daily and pre-meal Humalog. #8 chronic CHF: Clinically stable, compensated. Continue Zaroxolyn, Lasix and metoprolol. #9 chronic anemia: Secondary to anemia of chronic disease. Baseline hemoglobin around 8 to 10 g/dL. Today's hemoglobin is 10.3 g per dysuria, stable. #10 DVT prophylaxis: Changed subcu Lovenox to subcu heparin 3 times daily. This note was generated with [employer] dictation software. It may contain incorrect words, spelling, and punctuation that were not noted in checking the note before signing. Code Visit Inpatient E&M: 44841 Subs Hosp L2
[2018-09-27] MEDS: Calcium Acetate 667 MG Capsule PO ×3 (09:14→17:56)
[2018-09-27] MEDS: 0.9% NaCl Peripheral Flush Adult/Peds IV (10:30)
[2018-09-27] MEDS: levoFLOXacin IV 250 MG/50 ML BAG 50 MG IV (10:30)
--- NOTE | 2018-09-27 10:34 | PN.RENAL_ITS ---
Subjective: still complains of cough with yellowish white sputum breathing is ok last CXr reviewed - Physical Exam General: Alert, Oriented x3, Cooperative HEENT: Atraumatic, PERRLA, EOMI, Normocephalic Neck: Supple, No JVD, Negative Carotid Bruits Lungs: Clear to auscultation, Normal air movement Cardiovascular: Regular rate, No murmurs Abdomen: Bowel Sounds Present, Soft, Non Tender Extremities: No edema, Capillary Refill Less than 3 Seconds Skin: No rashes, No breakdown Musculoskeletal: No Tenderness to Palpation of Joints or Extremities Neurological: Cranial nerves II-XII grossly intact Psych/Mental Status: Normal Affect, Appropriate Vital Signs Temp Pulse Resp BP Pulse Ox 97.4 F L 72 18 136/52 H 97 09/27/18 07:54 09/27/18 07:54 09/27/18 07:54 09/27/18 07:54 09/27/18 07:54 Oxygen Flow Rate (L/min) 1 Oxygen Delivery Method Room Air Weight: 75.6 kg Body Mass Index (BMI) 28.3 Intake and Output for Last 24 Hours 09/25/18 09/26/18 09/27/18 23:59 23:59 23:59 Intake Total 1318 / 1573 940 / 940 200 / 200 Output Total 1800 / 1800 100 / 100 Balance -482 / -227 840 / 840 200 / 200 Microbiology Past 72 Hours 09/24/18 13:00 Gram Stain - Final Sputum, Expectorated/Coughed Respiratory Culture - Final 09/24/18 11:59 Legionella Antigen - Final Interface Orders 09/24/18 11:55 Streptococcus pneumoniae Antigen (M - Final Interface Orders POC Glucose 09/27/18 09/27/18 09/26/18 07:52 01:53 22:23 POC Glucose 136 H 269 H 117 H 09/26/18 09/26/18 16:12 12:42 POC Glucose 252 H 145 H Medical Necessity - Tobacco Use Smoking Status: Never smoker Assessment/Plan All Active Problems (Last Updated 09/27/18 @ 10:08 by Olga Granados MD) Sepsis (Acute) Pneumonia (Acute) 1- ESRD on MWF HD schedule. pt goes to [facility] [place]. HD today. discussed with staff about orders. 2- hyponatremia: Continue fluid restriction UF as tolerated 3- HTN: Controlled continue beta-maria esther 4-CKD MBD continue binders
[2018-09-27 13:17] LABS: M R Staph aureus DNA By PCR POSITIVE (Negative); Probe Check PASS
[2018-09-27 14:30] LABS: Bedside Glucose 142 mg/dL (70-110)
[2018-09-27] MEDS: SACUBITRIL/VALSARTAN 24/26 MG TABLET 1 EACH PO ×2 (14:36→22:45)
[2018-09-27] MEDS: Metoprolol Tartrate 25 MG Tablet PO (14:36)
[2018-09-27] MEDS: Furosemide 80 MG Tablet PO (14:36)
[2018-09-27] MEDS: metOLazone 5 MG Tablet PO (14:37)
[2018-09-27] MEDS: guaiFENesin 1,200 MG Tablet 1200 MG PO ×2 (14:45→22:45)
[2018-09-27] MEDS: Heparin Injection (Vial) 5,000 UNIT/ML VIAL 5000 UNIT SC ×2 (14:45→22:46)
[2018-09-27] MEDS: Insulin Lispro 100 UNIT/ML INSULN.PEN 8 UNIT SC ×2 (15:31→17:57)
--- NOTE | 2018-09-27 15:33 | DIALYSIS ---
Pt tolerated 3hr HD tx well. Net UF -1600ml. See flow record for tx data.
--- NOTE | 2018-09-27 15:54 | CHAPLAIN ---
Type of Pastoral Visit _x__ Initial Visit ___ Follow-up Visit ___ On-call Visit ___ General Patient Visit ___ Spiritual Assessment ___ Family Conference ___ Bereavement ___ Rapid Response ___ Code Blue ___ Other (describe below) Pastoral Care Referral From _x__ Patient ___ Family ___ Nurse ___ Physician ___ Box Toe Buffer ___ Software Development Leader ___ Other (describe below) Sacrament/Intervention _x__ Active listening ___ Anointing ___ Christian ___ Bereavement ___ Communion ___ Lou exploration ___ ___ Life review _x__ Prayer ___ Reconciliation ___ Sacrament of Sick _x__ Supportive presence ___ Wedding ___ Other (describe below) Pastoral Comments
[2018-09-27] MEDS: Insulin Lispro 100 UNIT/ML INSULN.PEN SC (17:56)
[2018-09-27 18:06] LABS: Bedside Glucose 179 mg/dL (70-110)
[2018-09-27] MEDS: guaiFENesin/Codeine 5 ML UDC 10 ML PO (20:11)
[2018-09-27] MEDS: Albuterol 2.5 MG/3 ML VIAL.NEB. INHALATION (22:13)
[2018-09-27 23:01] LABS: Bedside Glucose 115 mg/dL (70-110)
[2018-09-28] VITALS (10 sets, daily range): BP systolic 115–146; BP diastolic 51–62; PULSE 60–80; RESP 16–20; TEMP 36.4–36.9; O2SAT 92–99
[2018-09-28] MEDS: Benzonatate 100 MG Capsule PO (00:09)
[2018-09-28] MEDS: Ipratropium/Albuterol Sulfate 3 ML AMPUL.NEB INHALATION ×2 (01:10→07:02)
[2018-09-28] MEDS: Acetaminophen 500 MG Tablet 1000 MG PO ×2 (02:15→10:08)
[2018-09-28 06:27] LABS: Absolute Lymphocyte Count 1.13 X10^3/uL (0.83-4.51); Absolute Neutrophil Count 4.4 X10^3/uL (2.0-7.7); Basophil# 0.02 X10^3/uL; Basophil% 0.3 % (0-1); Eosinophil# 0.42 X10^3/uL; Eosinophils% 6.3 % (0-5); Hematocrit 30.9 % (37-47); Hemoglobin 10.2 g/dL (12.0-15.0); Lymphocyte # 1.13 X10^3/ul (4.0); Lymphocyte % 16.9 % (19-41); Mean Corpuscular Hgb 32.5 pg (27.0-32.0); Mean Corpuscular Volume 98.4 fL (81-99); Mean Platelet Vol. 12.4 fl (6.2-12.0); Monocyte# 0.68 X10^3/uL; Monocyte% 10.2 % (0-10); NRBC Flagged by Analyzer 0 % (0-5); Neutrophil # 4.42 X10^3/uL (2.7-7.7); Platelet Count 161 K/mm3 (150-450); RBC Distribution Width SD 54.4 fl (35.1-43.9); Red Blood Count 3.14 M/mm3 (4.2-5.4); White Blood Count 6.7 K/mm3 (4.4-11.0)
[2018-09-28] MEDS: Heparin Injection (Vial) 5,000 UNIT/ML VIAL 5000 UNIT SC ×3 (06:28→21:50)
[2018-09-28] MEDS: Levothyroxine 100 MCG Tablet PO (06:28)
[2018-09-28 06:54] LABS: Anion Gap 10 (5-15); BUN 40 mg/dL (7-18); BUN/Creat Ratio 10.6 RATIO (10-20); Calcium,Total 8.2 mg/dL (8.5-10.1); Chloride 89 mmol/L (98-107); Creatinine, Serum 3.78 mg/dL (0.55-1.02); EST Glomerular Filtration Rate 12 mL/min (>60); Est Glom Filt Rate - Afr Amer 15 mL/min (>60); Glucose 186 mg/dL (74-106); Potassium 4.1 mmol/L (3.5-5.1); Sodium Level 128 mmol/L (136-145)
[2018-09-28] MEDS: Insulin Lispro 100 UNIT/ML INSULN.PEN SC ×4 (08:10→21:51)
[2018-09-28] MEDS: Calcium Acetate 667 MG Capsule PO ×3 (08:11→17:16)
[2018-09-28 08:21] LABS: Bedside Glucose 166 mg/dL (70-110)
--- NOTE | 2018-09-28 09:59 | PN_ITS ---
Subjective: Chief complaint: Follow-up after admission for bilateral lower lobe healthcare associated pneumonia with sepsis as well as probable acute cystitis. Patient seen and examined. No acute events overnight. Today, she is feeling a little bit better, less congested. Still having cough but improved. Denies fever or chills. She mentioned that she gets vaginal yeast infection with IV antibiotics and she requesting something for it. Her vital signs are stable. - Physical Exam General: Alert, Oriented x3, Cooperative, No apparent distress HEENT: Atraumatic, PERRLA, EOMI, Normocephalic Oral: Moist Mucosa, No Gingival or Mucosal Lesions/ Ulcerations Neck: Supple, No JVD, Negative Carotid Bruits, Trachea Midline, Thyroid Normal Size and Texture Lungs: Normal air movement, No wheeze, No rales, Diminished, Rhonchi Cardiovascular: Regular rate, Regular Rhythm, Normal S1, Normal S2, PMI Normal Abdomen: Bowel Sounds Present, Soft, Non Tender, Non-Distended, No Hepato- splenomegaly Extremities: No clubbing, No cyanosis, No edema Skin: No rashes, No breakdown Lymphatic: No Cervical, Supraclavicular, or Inguinal Adenopathy Neurological: Cranial nerves II-XII grossly intact, Neuro grossly intact Psych/Mental Status: Normal Affect, Appropriate, Alert and oriented to time, place, person, mood and affect Vital Signs Temp Pulse Resp BP Pulse Ox 97.7 F L 70 16 123/52 H 94 09/28/18 08:13 09/28/18 08:13 09/28/18 08:13 09/28/18 08:13 09/28/18 08:13 Oxygen Flow Rate (L/min) 1 Oxygen Delivery Method Room Air Weight: 166 lb 10.711 oz Body Mass Index (BMI) 28.3 Intake and Output for Last 24 Hours 09/26/18 09/27/18 09/28/18 23:59 23:59 23:59 Intake Total 940 / 940 907 / 907 1485 / 1485 Output Total 100 / 100 1800 / 1800 Balance 840 / 840 -893 / -893 1485 / 1485 Microbiology Past 72 Hours 09/24/18 13:00 Gram Stain - Final Sputum, Expectorated/Coughed Respiratory Culture - Final Laboratory Tests Past 24 Hrs 09/27/18 09/28/18 09/28/18 10:40 06:12 06:12 WBC 6.7 RBC 3.14 L Hgb 10.2 L Hct 30.9 L MCV 98.4 MCH 32.5 H MCHC 33.0 RDW Std Deviation 54.4 H RDW Coeff of Samson 15.0 H Plt Count 161 MPV 12.4 H Immature Gran % (Auto) 0.300 Neut % (Auto) 66.0 Lymph % (Auto) 16.9 L Posey % (Auto) 10.2 H Eos % (Auto) 6.3 H Baso % (Auto) 0.3 Absolute Neuts (auto) 4.4 Absolute Lymphs (auto) 1.13 Absolute Nucleated RBC 0.00 Nucleated RBC % 0 Sodium 128 L Potassium 4.1 Chloride 89 L Carbon Dioxide 29.0 Anion Gap 10 BUN 40 H Creatinine 3.78 H Estim Creat Clear Calc 11.10 Est GFR (MDRD) Af Amer 15 L Est GFR (MDRD) Non-Af 12 L BUN/Creatinine Ratio 10.6 Glucose 186 H Calcium 8.2 L MRSA (PCR) POSITIVE H POC Glucose 09/28/18 09/27/18 09/27/18 08:06 22:39 17:55 POC Glucose 166 H 115 H 179 H 09/27/18 14:27 POC Glucose 142 H Medical Necessity - Tobacco Use Smoking Status: Never smoker Assessment/Plan All Active Problems (Last Updated 09/27/18 @ 10:08 by Olga Granados MD) Sepsis (Acute) Pneumonia (Acute) This is a 73 years old female patient presented to the emergency room because of malaise, shortness of breath, productive cough, nausea, vomiting and diarrhea and she was found to have bilateral lower lobe pneumonia with sepsis. #1 bilateral lower lobe healthcare associated pneumonia/sepsis: She is on IV Levaquin and Zosyn. Her vitals are stable, afebrile, no leukocytosis. Pneumococcal and Legionella antigen were negative. Sputum culture revealed mixed normal respiratory misty. Blood cultures pending. Plan to continue same treatment, anticipate discharge home tomorrow. #2 probable acute cystitis: She is on IV Zosyn. She was on IV Rocephin on admission. No urine culture was done. Plan to continue same treatment. #3 ESRD on hemodialysis: Nephrology consulted, she is on dialysis on Mondays, Wednesdays and Fridays. Kidney function stable, potassium was 4.1 this morning. #4 chronic hyponatremia: This is because of ESRD. Serum sodium was 125 yesterday, today's sodium is 128, improving. #5 hypertension: Blood pressure stable, continue Lasix, Zaroxolyn and metoprolol. #6 hypothyroidism: Continue on levothyroxine. #7 type 2 diabetes mellitus: Blood sugar stable, continue Lantus twice daily and pre-meal Humalog. #8 chronic CHF: Clinically stable, compensated. Continue Zaroxolyn, Lasix and metoprolol. #9 chronic anemia: Secondary to anemia of chronic disease. Baseline hemoglobin around 8 to 10 g/dL. Today's hemoglobin is 10.2 grams per deciliter, stable. #10 DVT prophylaxis: Subcu heparin. This note was generated with [employer] dictation software. It may contain incorrect words, spelling, and punctuation that were not noted in checking the note before signing. Code Visit Inpatient E&M: 64530 Subs Hosp L2
[2018-09-28] MEDS: Furosemide 80 MG Tablet PO (10:09)
[2018-09-28] MEDS: metOLazone 5 MG Tablet PO (10:09)
[2018-09-28] MEDS: SACUBITRIL/VALSARTAN 24/26 MG TABLET 1 EACH PO ×2 (10:09→21:50)
[2018-09-28] MEDS: guaiFENesin 1,200 MG Tablet 1200 MG PO ×2 (10:09→21:49)
[2018-09-28] MEDS: Metoprolol Tartrate 25 MG Tablet PO (10:10)
[2018-09-28 11:55] LABS: Bedside Glucose 229 mg/dL (70-110)
[2018-09-28] MEDS: 0.9% NaCl Peripheral Flush Adult/Peds IV ×2 (13:15→16:24)
[2018-09-28] MEDS: Ondansetron 4 MG/2 ML Vial IV (13:15)
--- NOTE | 2018-09-28 15:27 | PCM.PN.REN ---
Subjective: no new complaints - Physical Exam General: Alert, Oriented x3, Cooperative HEENT: Atraumatic, PERRLA, EOMI, Normocephalic Neck: Supple, No JVD, Negative Carotid Bruits Lungs: Clear to auscultation, Normal air movement Cardiovascular: Regular rate, No murmurs Abdomen: Bowel Sounds Present, Soft, Non Tender Extremities: No edema, Capillary Refill Less than 3 Seconds Skin: No rashes, No breakdown Musculoskeletal: No Tenderness to Palpation of Joints or Extremities Neurological: Cranial nerves II-XII grossly intact Psych/Mental Status: Normal Affect, Appropriate Vital Signs Temp Pulse Resp BP Pulse Ox 97.6 F L 62 16 115/51 L 96 09/28/18 13:59 09/28/18 13:59 09/28/18 13:59 09/28/18 13:59 09/28/18 13:59 Oxygen Flow Rate (L/min) 1 Oxygen Delivery Method Room Air Weight: 75.6 kg Body Mass Index (BMI) 28.3 Intake and Output for Last 24 Hours 09/26/18 09/27/18 09/28/18 23:59 23:59 23:59 Intake Total 940 / 940 907 / 907 1946 Output Total 100 / 100 1800 / 1800 Balance 840 / 840 -893 / -893 1946 Microbiology Past 72 Hours 09/24/18 13:00 Gram Stain - Final Sputum, Expectorated/Coughed Respiratory Culture - Final Laboratory Tests Past 24 Hrs 09/28/18 09/28/18 06:12 06:12 WBC 6.7 RBC 3.14 L Hgb 10.2 L Hct 30.9 L MCV 98.4 MCH 32.5 H MCHC 33.0 RDW Std Deviation 54.4 H RDW Coeff of Samson 15.0 H Plt Count 161 MPV 12.4 H Immature Gran % (Auto) 0.300 Neut % (Auto) 66.0 Lymph % (Auto) 16.9 L Amador % (Auto) 10.2 H Eos % (Auto) 6.3 H Baso % (Auto) 0.3 Absolute Neuts (auto) 4.4 Absolute Lymphs (auto) 1.13 Absolute Nucleated RBC 0.00 Nucleated RBC % 0 Sodium 128 L Potassium 4.1 Chloride 89 L Carbon Dioxide 29.0 Anion Gap 10 BUN 40 H Creatinine 3.78 H Estim Creat Clear Calc 11.10 Est GFR (MDRD) Af Amer 15 L Est GFR (MDRD) Non-Af 12 L BUN/Creatinine Ratio 10.6 Glucose 186 H Calcium 8.2 L POC Glucose 09/28/18 09/28/18 09/27/18 11:46 08:06 22:39 POC Glucose 229 H 166 H 115 H 09/27/18 17:55 POC Glucose 179 H Medical Necessity - Tobacco Use Smoking Status: Never smoker Assessment/Plan All Active Problems (Last Updated 09/27/18 @ 10:08 by Olga Granados MD) Sepsis (Acute) Pneumonia (Acute) 1- ESRD on MWF HD schedule. pt goes to [facility] HD center. 2- hyponatremia: Continue fluid restriction UF as tolerated 3- HTN: Controlledr 4-CKD MBD continue binders
[2018-09-28] MEDS: Calcium Carbonate 500 MG Tablet PO (16:24)
[2018-09-28] MEDS: Insulin Lispro 100 UNIT/ML INSULN.PEN 8 UNIT SC (17:17)
[2018-09-28 17:26] LABS: Bedside Glucose 188 mg/dL (70-110)
[2018-09-28 22:11] LABS: Bedside Glucose 158 mg/dL (70-110)
[2018-09-28] MEDS: guaiFENesin/Codeine 5 ML UDC 10 ML PO (23:25)
[2018-09-29] VITALS (7 sets, daily range): BP systolic 122–125; BP diastolic 55–75; PULSE 64–80; RESP 16–18; TEMP 36.1–36.7; O2SAT 94–96
[2018-09-29] MEDS: Ipratropium/Albuterol Sulfate 3 ML AMPUL.NEB INHALATION (01:23)
[2018-09-29] MEDS: Heparin Injection (Vial) 5,000 UNIT/ML VIAL 5000 UNIT SC ×2 (05:16→14:43)
[2018-09-29] MEDS: Levothyroxine 100 MCG Tablet PO (05:17)
[2018-09-29 08:40] LABS: Bedside Glucose 73 mg/dL (70-110)
[2018-09-29] MEDS: Calcium Acetate 667 MG Capsule PO ×2 (09:36→13:34)
--- NOTE | 2018-09-29 09:58 | DCINST_ITS ---
You will use the following diet at home:: Calorie/Carbohydrate Controlled (specify 1200, 1400, etc) - 1800 TERRY., Renal (restricted protein/sodium) Your food should be the consistency of: Regular Discharge Activity: Return to Normal Activity Weight Bearing Status: Weight bearing as tolerated Call your doctor if you observe: Fever of 101 or Higher, Shortness of breath, Dizziness, Fainting spells, Chest pain, Increased palpitations (irregular heartbeat), Uncontrolled pain Allergies/Adverse Reactions: Allergies aztreonam [From Azactam] Allergy (Verified 09/23/18 23:38) Itching Sulfa (Sulfonamide Antibiotics) Allergy (Verified 09/23/18 23:38) Itching Medications to take at Discharge Acetaminophen 1,000 mg PO Q6H PRN 06/11/16 Insulin Aspart [Novolog Flexpen] 12 units SC BIDCM 06/11/16 Insulin Detemir [Levemir Flextouch] 24 unit SQ BID 06/11/16 Levothyroxine [Synthroid] 100 mcg PO DAILY 06/11/16 Metoprolol Tartrate [Lopressor (beta maria esther)] 25 mg PO DAILY 06/11/16 Multivitamin [Multiple Vitamins] 1 ea PO DAILY 06/11/16 Calcium Acetate [Phoslo Gel Cap] 667 mg PO TIDCM 01/02/17 Furosemide [Lasix] 80 mg PO DAILY 01/02/17 Metolazone [Zaroxolyn] 5 mg PO DAILY 01/02/17 Linaclotide [Linzess] 72 mcg PO DAILY 09/24/18 Metformin HCl [Glucophage] 1,000 mg PO BIDCM 09/24/18 Sacubitril/Valsartan 24/26 mg [Entresto 24 mg-26 mg Tablet] 1 ea PO BID 09/24/18 levoFLOXacin tablet [Levaquin tablet] 250 mg PO QODAY #4 tab 09/29/18 The following prescriptions were given: levoFLOXacin tablet [Levaquin tablet] 250 mg PO QODAY #4 tab Transmission Status: Pending to [facility] Primary Care Physician: Rony Koenig MD [Primary Care Provider] - Please follow up with your Primary Care Physician in: 1 WEEK. Test Results: Test results from this visit will be discussed in further detail at your follow- up appointment, if applicable.
--- NOTE | 2018-09-29 10:06 | CASEMGMT ---
Addendum entered by Alf Reyes 09/29/18 11:33: Call placed to pt's son, Suleman Moralez @ [phone]. He was updated on pt's wishes for SNF and he confirms his preference is [facility]. He was also made aware if SNF is not recommended by therapy once they evaluate her, that next plan would be for pt to go home w/HHC. Son, Suleman, is agreeable to this as well and made aware pt requesting [facility] HHC. He is agreeable to this as well. Suleman confirms he is actively working on getting pt moved to [place] near him in an Assisted Living facility within the next 2 weeks. Suleman states he is the POA and he requests that any questions or decision making be directed to himself. As previously stated, pt has given permission to this RN CM for Suleman to make decisions for her at this time. Addendum entered by Alf Reyes 09/29/18 11:02: Received message from WILLIE Garcia, that pt's son has called in to talk with her re: discharge plan and that he states if she does need to go to a SNF, he prefers [facility]. Radha also states that Suleman informed her that he plans on moving pt to [place] with him in the next couple of weeks. Pt's friend/support person, Tiera, in room at this time. WILLIE LUBIN in room to talk with pt again and introduced self and role to Tiera. Pt agreeable to WILLIE LUBIN talking with Tiera about her care/discharge planning. Tiera states if pt does discharge home that she is able to assist with providing meals/food for pt at home and that she can assist with getting her transportation to dialysis. Pt made aware that her son prefers her to go to [facility] if she does go to a SNF. Pt states she prefers [facility] instead but she states, he's my POA and he's the chief so I'll let him make the decisions. Pt gave WILLIE LUBIN permission to talk with her son about her care/discharge planning. Dr Granados made aware that pt is now stating she wishes to go to a SNF and therapy to eval pt for recommendations. Original Note: WILLIE LUBIN NOTE: Informed that pt is interested in HHC at discharge. WILLIE LUBIN to room to talk with patient. Discussed HHC with patient and [facility] guidelines for being homebound again with pt as per this WILLIE LUBIN's initial assessment, pt had stated goes out to eat daily and had stated previously that she is not homebound. Pt states,I won't be leaving to go anywhere for awhile. I feel so wiped out. I'm feeling so weak and my balance is not real good. Pt initially said she was interested in HHC and denied having a preference for HHC agency. Upon further discussion about who could assist pt with meals once she returns home, pt states, I don't know how I'm going to get groceries or food. I guess I'll just have to make do with what I have. I don't have any family here and my friends have their own lives. Pt did say she does have some food in her home and if needed, she would ask her friend Tiera to see if she could bring her food/meals. Pt also voiced concerns re: transportation to dialysis on Thursday, stating she did not think she would feel strong enough to drive there. WILLIE LUBIN suggested taxi service or Uber. Pt stated, I've never used them before, but I guess I could. Upon further discussion about discharge planning, Pt stated if I could just go somewhere for a week or so until I feel stronger, I think I would do better. Pt made aware that in order for insurance to pay for a SNF, that a skilled need for service is required. Pt voices understanding. WILLIE LUBIN spoke with therapy staff and asked if pt could be seen today after dialysis to evaluate pt's strength/ability and for any recommendations for additional therapy. Daniela MCLEOD RN, CM
--- NOTE | 2018-09-29 10:33 | NURSING ---
SON SUKH CALLED FOR UPDATE. REQUESTING [facility] IF ECF IS NEEDED, ON BOARD WITH HOME HEALTH ALSO. HIS PLAN IS TO MOVE HER TO [place] NEAR HIM WITHIN NEXT 2 WEEKS. WILLIE CAGE FILLING STATION ATTENDANT INFORMED OF THIS.
[2018-09-29] MEDS: Acetaminophen 500 MG Tablet 1000 MG PO (11:19)
[2018-09-29] MEDS: guaiFENesin/Codeine 5 ML UDC 10 ML PO (11:20)
--- NOTE | 2018-09-29 11:30 | CASEMGMT ---
Social Work Note SW received referral from RN TRISTIAN Sharma that pt is agreeable to SNF chosen by her son Suleman and that Suleman would like [facility]. SW faxed referral to [facility]. AIDAN placed a call to Constanza at [facility] and updated her on referral. Per Constanza she is able to accept pt's with dialysis and will arrange transportation for pt's going to dialysis from facility. Constanza to review referral and give this worker a call back. Plan: [facility] pending acceptance Leila Kitchen COAL CAGER, BEVERAGE HOST
--- NOTE | 2018-09-29 11:32 | NURSING ---
In to answer patient's callight. patient asked for Tylenol for a headache and cough syrup for her cough. discussed with WILLIE Garcia. medications given as ordered. see MAY. Pt almost finished with dialysis.
--- NOTE | 2018-09-29 12:15 | DIALYSIS ---
HD X 3HRS ON 3K BATH UF-2000ML TOLERATED [place] WELL. STASIS AT [facility]- DSG AT SITES. REPORT GIVEN TO EDGAR TAPIA. PT VITALS STABLE POST T
--- NOTE | 2018-09-29 12:23 | PCM.PN.REN ---
Subjective: feels weak overall - Physical Exam General: Alert, Oriented x3, Cooperative HEENT: Atraumatic, PERRLA, EOMI, Normocephalic Neck: Supple, No JVD, Negative Carotid Bruits Lungs: Clear to auscultation, Normal air movement Cardiovascular: Regular rate, No murmurs Abdomen: Bowel Sounds Present, Soft, Non Tender Extremities: No edema, Capillary Refill Less than 3 Seconds Skin: No rashes, No breakdown Musculoskeletal: No Tenderness to Palpation of Joints or Extremities Neurological: Cranial nerves II-XII grossly intact Psych/Mental Status: Normal Affect, Appropriate Vital Signs Temp Pulse Resp BP Pulse Ox 97.0 F L 76 16 122/56 H 94 09/29/18 08:15 09/29/18 09:35 09/29/18 08:15 09/29/18 08:15 09/29/18 08:15 Oxygen Flow Rate (L/min) 1 Oxygen Delivery Method Room Air Weight: 76.5 kg Body Mass Index (BMI) 28.3 Intake and Output for Last 24 Hours 09/27/18 09/28/18 09/29/18 23:59 23:59 23:59 Intake Total 907 / 907 2153 / 2698 830 / 830 Output Total 1800 / 1800 Balance -893 / -893 2153 / 2698 830 / 830 Microbiology Past 72 Hours 09/23/18 23:44 Blood Culture - Final Blood Culture (Wb) - Anticubital Left No growth in 5 days. 09/24/18 00:45 Blood Culture - Final Blood Culture (Wb) - Left Hand No growth in 5 days. 09/24/18 13:00 Gram Stain - Final Sputum, Expectorated/Coughed Respiratory Culture - Final POC Glucose 09/29/18 09/28/18 09/28/18 08:23 21:47 17:14 POC Glucose 73 158 H 188 H Medical Necessity - Tobacco Use Smoking Status: Never smoker Assessment/Plan All Active Problems (Last Updated 09/27/18 @ 10:08 by Olga Granados MD) Sepsis (Acute) Pneumonia (Acute) 1- ESRD on MWF HD schedule. HD today. see orders/ flowsheets 2- hyponatremia: better 3- HTN: Controlled 4-CKD MBD continue binders dc to rehab today
--- NOTE | 2018-09-29 12:52 | PCM.TXEXTCAR ---
- Diet 09/24/18 04:18 Diet: Renal: 60 gm protein, ADA diet 1800 tad. Diet Comments: No concentrated sweets - Suggestions for Active Care Change Position every (hours): 3 Hours to sit in a chair: 2 Times a day to sit in chair: 3 - Therapies Weight Bearing: Weight bearing as tolerated Physical Therapy: Eval and Treat Occupational Therapy: Eval and Treat - Allergies/Procedures Done in Hospital Allergies/Adverse Reactions: Allergies aztreonam [From Azactam] Allergy (Verified 09/23/18 23:38) Itching Sulfa (Sulfonamide Antibiotics) Allergy (Verified 09/23/18 23:38) Itching - Type of Care/Length of Stay Estimated LOS: Convalescent Care Less Than 30 days Type of Care Needed: Skilled Rehab Potential: Good Prognosis: Fair - Additional Orders/Day of Discharge H&P will serve as current which was dated: 09/24/18 Day of Discharge: 09/29/18 - Dietary and Speech Recommendations Dietitian Recommendations/Changes: Rec diet change to 1800 tad Cardiac/low sodium w/ fluid restriction as needed- NO PROTEIN restriction - Follow Up Care Primary Care Physician: Rony Koenig MD [Primary Care Provider] - Please follow up with your Primary Care Physician in: 1 WEEK. Please Follow Up With: Rony Koenig MD When: 1 WEEK Please Follow Up With: Stas Nguyễn MD When: as scheduled.
[2018-09-29] MEDS: guaiFENesin 1,200 MG Tablet 1200 MG PO (13:22)
[2018-09-29] MEDS: Furosemide 80 MG Tablet PO (13:22)
[2018-09-29] MEDS: SACUBITRIL/VALSARTAN 24/26 MG TABLET 1 EACH PO (13:23)
[2018-09-29] MEDS: Metoprolol Tartrate 25 MG Tablet PO (13:23)
[2018-09-29] MEDS: metOLazone 5 MG Tablet PO (13:23)
[2018-09-29] MEDS: levoFLOXacin IV 250 MG/50 ML BAG 50 MG IV (13:26)
[2018-09-29] MEDS: Insulin Lispro 100 UNIT/ML INSULN.PEN 8 UNIT SC (13:33)
[2018-09-29 13:36] LABS: Bedside Glucose 137 mg/dL (70-110)
--- NOTE | 2018-09-29 13:47 | DS.PCM_ITS ---
Discharge Date and Diagnosis Date of Admission: 09/24/18 Date of Discharge: 09/29/18 - Primary Discharge Diagnosis #1 acute bilateral lower lobe healthcare associated pneumonia. #2 sepsis. #3 probable acute cystitis. #4 ESRD on hemodialysis. - Secondary Discharge Diagnosis Chronic Problems (Last Updated 09/27/18 @ 10:08 by Olga Granados MD) H/O arteriovenostomy for renal dialysis (Chronic ~01/08/17) Fistulogram- 03/12/2017 CHF (congestive heart failure) (Chronic) ESRD (end stage renal disease) (Chronic) Anemia, chronic disease (Chronic) DM2 (diabetes mellitus, type 2) (Chronic) Hypothyroidism (Chronic) HLD (hyperlipidemia) (Chronic) Breast cancer (Chronic) HTN (hypertension) (Chronic) Systolic CHF (Chronic) Cardiomyopathy (Chronic) Hyponatremia (Chronic) Pulmonary HTN (Chronic) CKD (chronic kidney disease) stage 4, GFR 15-29 ml/min (Chronic) Hospital Course and Treatment Imaging Results: Clinical Impression(s) from Imaging Studies Abdomen/Pelvis CT 09/24/18 00:10 IMPRESSION: Right lower lobe pneumonia. Multiple bilateral kidney stones are noted the largest measures 6 mm. There is no hydronephrosis. Electronically Signed: Yinka Tran, at 2:52 EDT Tel , Service support , Chest X-Ray 09/24/18 00:10 IMPRESSION: Bilateral lower lobe pneumonia. Electronically Signed: Yinka Tran at 2:37 EDT Tel , Service support , Chest X-Ray 09/25/18 06:15 IMPRESSION: Cardiomegaly and mild pulmonary congestion. Electronically Signed: Conchita Soler MD at 6:58 EDT , Service support , KUB X-Ray 09/27/18 01:00 IMPRESSION: No acute abdominal abnormality is radiographically apparent. Small renal calculi seen on the recent CT are not definitely seen on this portable radiograph. at 0220 Reported and signed by: Arti Arriaga MD Electronically Signed: Arti Arriaga MD at 2:20 EDT Tel , Service support , Chest X-Ray 09/27/18 08:55 IMPRESSION: No interval change Electronically Signed: Bravo Noble MD at 10:05 EDT , Service support , Operations: None, - Procedures: Dialysis Summary of Care Provided: Patient seen and examined on the day of discharge and appeared to be stable to [facility]. Patient has been improved, still having some mild cough but improved. Her vital signs have been stable and she has been afebrile. Pulse ox is maintained on room air. On day of discharge, patient was offered to go to [facility] but she refused. When she was about to be discharged home, she mentioned that she wants to go to [facility]. Patient was discharged to half-way. The patient is a 73 year old F admitted because of shortness of breath, productive cough, malaise, nausea and vomiting and she was found to have bilateral lower lobe infiltrate consistent with healthcare associated pneumonia with sepsis. This pneumonia qualifies for healthcare associated pneumonia because patient is a dialysis patient goes to the dialysis clinic 3 times a week. Initially, she was treated with IV Zithromax and Rocephin. Later, it was changed to IV Levaquin and Zosyn. Pneumococcal and Legionella antigen were negative. Sputum culture revealed mixed normal respiratory misty. Blood culture showed no growth in 48 hours. With above-mentioned treatment, patient symptoms improved and she did well. She remained afebrile throughout admission and she had no leukocytosis. She was continued on hemodialysis according to her schedule on Mondays, Wednesdays and Fridays and nephrology was consulted for hemodialysis. Patient complained of being weak and difficulty ambulate. She was evaluated by PT OT and she was able to walk with minimal assistance. Initially, patient decided to go home with home health and up to the time of discharge, she mentioned that she wants to go to a [facility]. Plan was changed and patient discharged to [facility]. Patient discharged to half-way in a stable medical condition, discharged on Levaquin renally adjusted dose to complete total of 10 days of treatment, maintained on her previous home medications without any changes, recommended follow-up with PCP in 1 week, follow-up with nephrology as scheduled. - Physical Exam General: Alert, Oriented x3, Cooperative, No apparent distress HEENT: Atraumatic, PERRLA, EOMI, Normocephalic Oral: Moist Mucosa, No Gingival or Mucosal Lesions/ Ulcerations Neck: Supple, No JVD, Negative Carotid Bruits, Trachea Midline, Thyroid Normal Size and Texture Lungs: Clear to auscultation, Normal air movement, No rhonchi, No wheeze, No rales Cardiovascular: Regular rate, Regular Rhythm, Normal S1, Normal S2, PMI Normal Abdomen: Bowel Sounds Present, Soft, Non Tender, Non-Distended, No Hepato- splenomegaly Extremities: No clubbing, No cyanosis, No edema Skin: No rashes, No breakdown Lymphatic: No Cervical, Supraclavicular, or Inguinal Adenopathy Neurological: Cranial nerves II-XII grossly intact, Neuro grossly intact Psych/Mental Status: Normal Affect, Appropriate Vital Signs Temp Pulse Resp BP Pulse Ox 97.0 F L 80 16 122/56 H 94 09/29/18 08:15 09/29/18 13:23 09/29/18 08:15 09/29/18 08:15 09/29/18 08:15 Oxygen Flow Rate (L/min) 1 Oxygen Delivery Method Room Air Weight: 168 lb 10.458 oz Body Mass Index (BMI) 28.3 Intake and Output for Last 24 Hours 09/27/18 09/28/18 09/29/18 23:59 23:59 23:59 Intake Total 907 / 907 215 / 2698 830 / 830 Output Total 1800 / 1800 1999 / 1999 Balance -893 / -893 2153 / 2698 -1170 / -1170 Microbiology Past 72 Hours 09/23/18 23:44 Blood Culture - Final Blood Culture (Wb) - Anticubital Left No growth in 5 days. 09/24/18 00:45 Blood Culture - Final Blood Culture (Wb) - Left Hand No growth in 5 days. POC Glucose 09/29/18 09/29/18 09/28/18 13:19 08:23 21:47 POC Glucose 137 H 73 158 H 09/28/18 17:14 POC Glucose 188 H Discharge Activity: Return to Normal Activity Weight Bearing Status: Weight bearing as tolerated Call your doctor if you observe: Fever of 101 or Higher, Shortness of breath, Dizziness, Fainting spells, Chest pain, Increased palpitations (irregular heartbeat), Uncontrolled pain Home Medications: Medications to take at Discharge Acetaminophen 1,000 mg PO Q6H PRN 06/11/16 Insulin Aspart [Novolog Flexpen] 12 units SC BIDCM 06/11/16 Insulin Detemir [Levemir Flextouch] 24 unit SQ BID 06/11/16 Levothyroxine [Synthroid] 100 mcg PO DAILY 06/11/16 Metoprolol Tartrate [Lopressor (beta maria esther)] 25 mg PO DAILY 06/11/16 Multivitamin [Multiple Vitamins] 1 ea PO DAILY 06/11/16 Calcium Acetate [Phoslo Gel Cap] 667 mg PO TIDCM 01/02/17 Furosemide [Lasix] 80 mg PO DAILY 01/02/17 Metolazone [Zaroxolyn] 5 mg PO DAILY 01/02/17 Linaclotide [Linzess] 72 mcg PO DAILY 09/24/18 Metformin HCl [Glucophage] 1,000 mg PO BIDCM 09/24/18 Sacubitril/Valsartan 24/26 mg [Entresto 24 mg-26 mg Tablet] 1 ea PO BID 09/24/18 levoFLOXacin tablet [Levaquin tablet] 250 mg PO QODAY #4 tab 09/29/18 Following Prescrptions Were Given to Patient: levoFLOXacin tablet [Levaquin tablet] 250 mg PO QODAY #4 tab Prescription Printed Primary Care Physician: Rony Koenig MD [Primary Care Provider] - Please follow up with your Primary Care Physician in: 1 WEEK. Please Follow Up With: Rony Koenig MD When: 1 WEEK Please Follow Up With: Stas Nguyễn MD When: as scheduled. Disposition: Snf facility Minutes spent on discharge:: 32 Patient Condition:: Stable Medical Necessity - Tobacco Use Smoking Status: Never smoker Meaningful Use Info Meaningful Use Diagnoses (Choose all that apply): None applicable Code Visit Inpatient E&M: 39867 Disch Hosp
--- NOTE | 2018-09-29 13:47 | CASEMGMT ---
Addendum entered by Alf Reyes 09/29/18 14:15: Call placed to [facility] and spoke to Sarah. She was notified pt is being discharged today to [facility]. She was also notified that pt did receive dialysis here @ [facility] today. Next scheduled dialysis is Thursday. [facility] will provide transportation. Original Note: WILLIE CM: Pt updated that [facility] able to accept her and that she will be discharged there today. Call placed to son, Suleman, and he was notified as well. Daniela ZARAGOZAN WILLIE CM
--- NOTE | 2018-09-29 14:30 | CASEMGMT ---
Social Work Note AIDAN received message from Constanza at [facility] stating she is able to accept pt today. AIDAN updated physician. AIDAN faxed completed discharge paperwork to [facility] including transfer to extended care facility, signed medication list and any scripts. Original in SNF folder and copy on pt's chart. Hira CARIAS completed [facility] in [place]. Original in SNF folder and copy on pt's chart. AIDAN arranged transportation through [facility] via cot for 4:00pm. Transportation form on SNF folder and copy on pt's chart. AIDAN updated RN, elementary secretary and RN TRISTIAN Sharma updated pt's son Suleman on discharge and transportation time. RN TRISTIAN Reyes also updated pt. AIDAN placed a call to Constanza at [facility] and updated her on transportation time. Plan: Discharge to [facility] skilled today with [facility] transporting via cot at 4:00pm Leila Kitchen MSW, PROSTHETIC AIDES TEACHER
== END 2018-09-29 16:05 | disposition skilled nursing facility (03) | DRG 871 ==
LOC: ED 09-24 03:35 → MS3 09-24 03:53
PROVIDERS: Family Medicine; Admitting Provider Hospitalist; Emergency Provider Emergency Medicine; Family Provider Family Medicine; PCP Family Medicine; Visit Provider Hospitalist
DX: A41.9 Sepsis, unspecified organism (principal); J18.9 Pneumonia, unspecified organism; N18.6 End stage renal disease; E87.1 Hypo-osmolality and hyponatremia; I42.9 Cardiomyopathy, unspecified; I13.2 Hypertensive heart and chronic kidney disease with heart failure and with stage 5 chronic kidney disease, or end stage renal disease; I50.22 Chronic systolic (congestive) heart failure; N30.01 Acute cystitis with hematuria; I16.0 Hypertensive urgency; Y95 Nosocomial condition; Z99.2 Dependence on renal dialysis; E03.9 Hypothyroidism, unspecified; E78.5 Hyperlipidemia, unspecified; I27.20 Pulmonary hypertension, unspecified; E11.22 Type 2 diabetes mellitus with diabetic chronic kidney disease; D63.8 Anemia in other chronic diseases classified elsewhere; Z79.4 Long term (current) use of insulin; G89.29 Other chronic pain; M54.9 Dorsalgia, unspecified; M25.519 Pain in unspecified shoulder
CPT/HCPCS: 36415; 71045; 71046; 74018; 74176; 80048; 80053; 81001; 82962; 83605; 83690; 85025; 87040; 87070; 87205; 87449; 87641; 90937; 93005; 94640; 94667; 94668; 94762; 97110; 97162; 97165; 97530; 99285; J7040; J7050; A4216; G0257; J2405

== ENCOUNTER 2018-10-26 16:37 | Emergency (ER) | payer MEDICARE, OTHER, SELFPAY ==
[2018-09-24 04:37] VITALS: BMI 28.3
[2018-10-26 16:38] VITALS: BP 162/75; PULSE 89; RESP 17; TEMP 36.7; O2SAT 95; BMI 27.6
[2018-10-26 16:50] VITALS: BP 164/81; PULSE 83; RESP 17; O2SAT 95
--- NOTE | 2018-10-26 17:02 | RAD_ITS ---
HISTORY:SOB, WEAK, FEELING ILL SOB, WEAK, FEELING ILL EXAM: XR Chest 2 Views: COMPARISON: September 27, 2018 FINDINGS: # of images incl. paperwork: 2 LINES/DEVICES: Right subclavian and axillary stent similar to prior study LUNGS: Persistent increased interstitial markings suggesting edema and pulmonary vascular congestion. The overall appearance is similar. No consolidation, edema or effusion. No pneumothorax. MEDIASTINUM AND CARDIOVASCULAR STRUCTURES: Stable cardiomegaly BONES AND SOFT TISSUES: Unremarkable. RAD/Chest PA and Lateral IMPRESSION: No significant change compared to prior study with persistent increased interstitial markings suggestive of edema and pulmonary vascular congestion. Stable cardiomegaly at 1744 Reported and signed by: Nova Stevens DO Electronically Signed: Nova Stevens DO at 17:43 EDT Tel , Service support ,
--- NOTE | 2018-10-26 17:02 | EKG12_ITS ---
Test Reason : GEN ILLNESS Blood Pressure : / mmHG Vent. Rate : 079 BPM Atrial Rate : 079 BPM P-R Int : 152 ms QRS Dur : 080 ms QT Int : 430 ms P-R-T Axes : 037 035 076 degrees QTc Int : 493 ms Normal sinus rhythm Prolonged QT Abnormal ECG Confirmed by MANDY MEJIA ([id number]), clinical editor MERRY TAVAREZ ([id number]) on 11/01/2018 2:17:18 PM Referred By: BERTHA Confirmed By:MANDY MEJIA
--- NOTE | 2018-10-26 17:03 | ED.DCSUM_ITS ---
History of Present Illness Chief Complaint: General Illness Detail of Chief Complaint: Feel ill all over Informant: Patient Onset: Days Current Severity: Moderate Maximum Severity: Moderate Narrative: Patient presents with just feeling poor all over for the past several days. She was admitted to the hospital for pneumonia last month. [facility] and was able to come home last week. She states since that time she had increasing weakness and just not feeling well. She does have cough with green sputum. She does not know if she had a fever. She denies vom iting or diarrhea. She does do dialysis on Thursday, Thursday, Thursday and had a full run yesterday. Patient is scheduled to see her dentist in a few days and was started on amoxicillin yesterday. Past Medical History - Allergies and Home Meds Allergies/Adverse Reactions: Allergies aztreonam [From Azactam] Allergy (Verified 10/26/18 16:40) Itching ciprofloxacin [From Cipro] Allergy (Verified 10/26/18 16:40) Itching Sulfa (Sulfonamide Antibiotics) Allergy (Verified 10/26/18 16:40) Itching Primary Care Physician: Rony Koenig MD [Primary Care Provider] - Prior records reviewed: Yes Past Medical History: - - Reviewed Surgical History: - - , T+A, L mastectomy. Smoking Status: Never smoker - Family History Paternal Family History: Reports: Hypertension, - - His father in an accident Maternal Family History: Reports: Diabetes Review of Systems General: Denies: Chills, Fever Eyes: Denies: Visual changes - bilaterally ENT: Reports: - - Sinus drainage. Denies: Bilateral ear pain Cardiovascular: Denies: Chest pain Respiratory: Reports: Dyspnea, Cough, Sputum Gastrointestinal: Denies: Abdominal pain, Vomiting Genitourinary: Denies: Dysuria Musculoskeletal: Reports: Myalgias Skin: Denies: Rash Neurological: Denies: Headache Hematologic: Denies: Easy bruising, Easy bleeding Allergy: Denies: Uticaria Physical Exam Vital Signs/Narrative: Vital Signs Temp Pulse Resp BP Pulse Ox 10/26/18 16:50 83 17 164/81 H 95 10/26/18 16:38 98.1 F 89 17 162/75 H 95 Inital Vital Signs reviewed: Yes General: Well nourished, Well developed Head: Normocephalic ENT: Moist mucous membranes Cardiovascular: Regular rate, Regular rhythm Respiratory: No distress, CTA bilaterally Abdomen: Soft, Nontender, Normal bowel sounds Extremities: Nontender, No edema Skin: Normal color Neurological: Alert, Oriented x3 Psychological: - - Anxious Diagnostic/Tx/Re-eval Impressions Chest X-Ray 10/26/18 17:02 IMPRESSION: No significant change compared to prior study with persistent increased interstitial markings suggestive of edema and pulmonary vascular congestion. Stable cardiomegaly at 1744 Reported and signed by: Nova Stevens DO Electronically Signed: Nova Stevens DO at 17:43 EDT Tel , Service support , 10/26/18 17:02 Chest PA and Lateral [RAD] Stat Laboratory Results 10/26/18 10/26/18 10/26/18 17:20 17:20 18:10 WBC 11.3 H RBC 2.92 L Hgb 9.6 L Hct 30.1 L MCV 103.1 H MCH 32.9 H MCHC 31.9 L RDW Std Deviation 62.9 H RDW Coeff of Samson 16.5 H Plt Count 197 MPV 12.0 Immature Gran % (Auto) 0.600 Neut % (Auto) 78.9 H Lymph % (Auto) 11.0 L Haines % (Auto) 8.0 Eos % (Auto) 1.1 Baso % (Auto) 0.4 Absolute Neuts (auto) 8.9 H Absolute Lymphs (auto) 1.25 Nucleated RBC % 0 Sodium 132 L Potassium 4.9 Chloride 93 L Carbon Dioxide 31.0 Anion Gap 8 BUN 54 H Creatinine 4.39 H Estim Creat Clear Calc 9.56 Est GFR (MDRD) Af Amer 13 L Est GFR (MDRD) Non-Af 10 L BUN/Creatinine Ratio 12.3 Glucose 66 L Calcium 8.3 L Total Bilirubin 0.60 Direct Bilirubin 0.08 AST 50 H ALT 40 Alkaline Phosphatase 103 Troponin I 0.021 Total Protein 8.5 H Albumin 3.5 Globulin 5.0 H Urine Color Yellow Urine Clarity Sl. Cloudy Urine pH 8.0 Ur Specific [place] 1.010 Urine Protein 100 H Urine Glucose (UA) Normal Urine Ketones Negative Urine Occult Blood 50 H Urine Nitrite Negative Urine Bilirubin Negative Urine Urobilinogen Normal Ur Leukocyte Esterase Negative Urine RBC 0-5 SEEN Urine WBC 0 SEEN Ur Squamous Epith Cells 5-10 SEEN Urine Bacteria 0 SEEN Urine Mucus 0 SEEN - EKG Initial EKG Interpretation: Sinus Rhythm - Sinus at 79. - Medical Decision Making Patient was get not given IV fluids here secondary to her history of dialysis. Chest x-ray reveals no evidence of pneumonia. Blood sugar was slightly low at 66. She was given p.o. sandwich and drink. Test results are discussed with patient and family at bedside. She is requesting something for her sinus michelle lizeth. She states that Claritin does not work for she will be given Zyrtec. She will be given Zofran for nausea. She will continue her amoxicillin for dental infection. She is scheduled to see her dentist in 3 days. ED Disposition - Plan for ED Patient: Disposition: Home or Assisted Living Diagnosis: Sinus drainage, Dyspnea Instructions: URI, Viral, No Abx (Adult) Prescriptions: Ondansetron [Zofran Odt] 4 mg PO Q8H PRN PRN #10 tablet PRN Reason: Nausea Cetirizine HCl [Zyrtec] 10 mg PO DAILY #14 capsule Referrals: Rony Koenig MD [Primary Care Provider] - [facility] appointment
[2018-10-26 17:33] LABS: Absolute Lymphocyte Count 1.25 X10^3/uL (0.83-4.51); Absolute Neutrophil Count 8.9 X10^3/uL (2.0-7.7); Basophil# 0.04 X10^3/uL; Basophil% 0.4 % (0-1); Eosinophil# 0.13 X10^3/uL; Eosinophils% 1.1 % (0-5); Hematocrit 30.1 % (37-47); Hemoglobin 9.6 g/dL (12.0-15.0); Lymphocyte # 1.25 X10^3/ul (4.0); Mean Corp Hgb Conc 31.9 g/dL (32-36); Mean Corpuscular Hgb 32.9 pg (27.0-32.0); Mean Corpuscular Volume 103.1 fL (81-99); NRBC Flagged by Analyzer 0 % (0-5); Neutrophil # 8.93 X10^3/uL (2.7-7.7); Neutrophil % 78.9 % (47-70); Platelet Count 197 K/mm3 (150-450); RBC Distribution Width CV 16.5 % (11.6-14.6); RBC Distribution Width SD 62.9 fl (35.1-43.9); Red Blood Count 2.92 M/mm3 (4.2-5.4); White Blood Count 11.3 K/mm3 (4.4-11.0)
[2018-10-26 17:55] LABS: AST(SGOT) 50 U/L (15-37); Alanine Aminotransfer ALT/SGPT 40 U/L (13-56); Albumin, Serum 3.5 g/dL (3.2-5.0); Alkaline Phosphatase 103 U/L (45-117); Anion Gap 8 (5-15); BUN 54 mg/dL (7-18); BUN/Creat Ratio 12.3 RATIO (10-20); Bilirubin, Direct 0.08 mg/dL (0.00-0.30); Calcium,Total 8.3 mg/dL (8.5-10.1); Chloride 93 mmol/L (98-107); Creatinine, Serum 4.39 mg/dL (0.55-1.02); EST Glomerular Filtration Rate 10 mL/min (>60); Est Glom Filt Rate - Afr Amer 13 mL/min (>60); Estimated Creatinine Clearance 9.56 ml/min; Glucose 66 mg/dL (74-106); Potassium 4.9 mmol/L (3.5-5.1); Protein, Total 8.5 g/dL (6.4-8.2); Sodium Level 132 mmol/L (136-145)
[2018-10-26 18:14] LABS: Bacteria 0 SEEN /hpf (None Seen); Mucous, Urine 0 SEEN /hpf (<or=2+); White Blood Cells 0 SEEN /hpf (0-5)
--- NOTE | 2018-10-26 18:36 | ED.RN ---
ALEXANDRA NOT WORKING, PULLED OLD EKGS FROM [employer]
[2018-10-26 18:40] LABS: Color, Urine Yellow (Yellow); Glucose, Dipstick Normal (Normal); Ketone-Dipstick Negative (Negative); Leukocyte Esterase-Dipstick Negative /ul (Negative); Nitrite-Dipstick Negative (Negative); Occult Blood-Urine 50 /ul (Negative); Protein-Dipstick 100 mg/dl (Negative); Urine Bilirubin Dipstick Negative (Negative); Urine Clarity Sl. Cloudy (Clear); Urine Urobilinogen Normal (Normal)
[2018-10-26 18:48] LABS: Red Blood Cells-Urine 0-5 SEEN /hpf (0-5); Squamous Epithelial Cells - UA 5-10 SEEN /hpf (5-10)
== END 2018-10-26 19:32 | disposition home or self-care (01) ==
PROVIDERS: Emergency Provider Emergency Medicine; Family Provider Family Medicine; PCP Family Medicine
DX: R06.00 Dyspnea, unspecified (principal); K04.7 Periapical abscess without sinus; R50.9 Fever, unspecified; E16.2 Hypoglycemia, unspecified; R05 Cough; R53.1 Weakness; M79.10 Myalgia, unspecified site; Z99.2 Dependence on renal dialysis; Z88.1 Allergy status to other antibiotic agents; Z88.2 Allergy status to sulfonamides; Z87.01 Personal history of pneumonia (recurrent); Z90.12 Acquired absence of left breast and nipple
CPT/HCPCS: 71046; 80048; 80076; 81001; 84484; 85025; 93005; 99285; A4216